=== PATIENT | female | born 1945 | race Caucasian/White ===

== ENCOUNTER 2020-07-10 16:42 | Inpatient (IN) | payer MEDICARE, SELFPAY ==
[2020-07-10] VITALS (25 sets, daily range): BP systolic 113–156; BP diastolic 70–97; PULSE 69–77; RESP 15–24; TEMP 36.4–36.7; O2SAT 90–100
--- NOTE | ~2020-07-10 | XR_ITS ---
EXAMINATION: XR chest 1V portable DATE: 07/10/2020 18:31 INDICATION: Asthma presenting with one week of shortness of breath and cough TECHNIQUE: frontal view of the chest was obtained. COMPARISON: Chest radiograph dated 04/02/2006 FINDINGS: Increased perihilar bronchovascular pattern with bronchial wall thickening. No focal airspace consoli dation, pleural effusion or pneumothorax. The cardiomediastinal silhouette is normal. IMPRESSION: 1. Increased perihilar bronchovascular pattern with bronchial wall thickening without focal airspace consolidation which could be due to reactive airway disease/asthma, bronchitis, atypical/viral pneumo sully or mild pulmonary edema. Reviewed, dictated and finalized at location H. ESS DEVELOPMENT MANAGER IMPRESSION: 1. Increased perihilar bronchovascular pattern with bronchial wall thickening w ithout focal airspace consolidation which could be due to reactive airway disea se/asthma, bronchitis, atypical/viral pneumonia or mild pulmonary edema.
--- NOTE | ~2020-07-10 | XR_ITS ---
XR chest 1V portable 07/14/2020 11:00 Indication: Pneumonia. Procedure: AP portable chest Comparison: 07/10/2020 Findings: Heart size normal. Diffuse bilateral interstitial infiltration. No significant pleural effu sindi or pneumothorax. No acute osseous abnormality. Impression: 1: Subtle interval progression of diffuse bilateral interstitial infiltrates may represent edema or p neumonia. Reviewed, dictated and finalized at location A. ACE PLATE FINISHER Impression: 1: Subtle interval progression of diffuse bilateral interstitial infiltrates ma y represent edema or pneumonia.
--- NOTE | 2020-07-10 16:58 | ECG_ITS ---
Measurements Intervals [place] Rate: 77 P: 84 MA: 171 QRS: 50 QRSD: 100 T: 120 QT: 389 QTc: 443 Interpretive Statements SINUS RHYTHM DELAYED PRECORDIAL R/S TRANSITION BORDERLINE ST-T WAVE ABNORMALITY- DIFFUSE LEADS BASELINE ARTIFACT- I, II, III, AVR, AVL, AVF, V1, V3 BORDERLINE ECG Electronically Signed On 07-10-2020 18:11:37 LOG SKIDDER by Laith Guerrero D.O.
[2020-07-10 17:13] LABS: Basophils Absolute Auto 0.1 K/mm3 (0.0-0.1); Basophils Percent Auto 0.7 % (0.2-1.2); Eosinophils Absolute Auto 0.2 K/mm3 (0-0.3); Eosinophils Percent Auto 2.1 % (0-4.4); Hematocrit 42.8 % (37.0-47.0); Hemoglobin 14.7 g/dL (12.0-15.0); Immature Granulocyte Absolute 0.03 K/mm3 (0.00-0.031); Immature Granulocyte Percent A 0.4 % (0-0.5); Lymphocytes Percent Auto 20.9 % (18.3-44.2); Mean Corpuscular HGB Conc 34.3 g/dl (32-36); Mean Corpuscular Hemoglobin 32.6 pg (26-34); Mean Corpuscular Volume 94.9 fl (80-100); Mean Platelet Volume 9.5 fl (7.4-10.4); Monocytes Absolute Auto 0.7 K/mm3 (0.1-0.6); Monocytes Percent Auto 9.5 % (2.6-8.5); Neutrophils Absolute Auto 4.8 K/mm3 (1.3-6.7); Neutrophils Percent Auto 66.4 % (45.5-73.1); Platelet Count Result 283 k/mm3 (150-375); Red Blood Count 4.51 M/mm3 (4.2-5.4); White Blood Count 7.2 K/mm3 (4.5-10.0)
[2020-07-10 17:24] LABS: Prothrombin Time 13.3 Seconds (11.1-14.7)
--- NOTE | 2020-07-10 17:24 | PC.NURSE ---
patient brought back to ED room 19 via wheelchair with c/o increased edema and dyspnea. see triage notes. patient has been in our waiting area due to no available beds. patient incontinent of stool on drive here. patient denies known fever at home. denies cough or known exposure to Covid. alert. oriented. appears mildly short of breath with few steps to bed. labs drawn in triage. patient cleaned and assisted to stretcher. placed on license distributor. placed on 4L NC O2 with improvement in sats. family member in room. assessments documented.
[2020-07-10 17:25] LABS: Anion Gap 7 mmol/L (8-16); Blood Urea Nitrogen 9 mg/dL (7-17); Calcium 9.3 mg/dL (8.4-10.2); Carbon Dioxide 32 mmol/L (22-30); Chloride 92 mmol/L (98-107); Estimated CRCL calculation 77 ml/min; Estimated Glomerular Filt Rate > 60; Glucose 97 mg/dL (65-105); Partial Thromboplastin Time 32.1 SECONDS (22.3-36.8); Potassium 3.3 mmol/L (3.4-5.0); Sodium 131 mmol/L (137-145)
[2020-07-10 17:37] LABS: NT Pro B Type Natriuretic Pept 294 PG/ML (5-100); Troponin I < 0.012 ng/mL (0.000-0.034)
--- NOTE | 2020-07-10 17:54 | ED.SOB ---
HPI - SOB/Dyspnea General Chief Complaint: Shortness of Breath/Dyspnea Stated Complaint: short of breath Time Seen by Provider: 07/10/20 17:05 History of Present Illness HPI Narrative: Patient is a 75-year-old female who presents ER with shortness of breath. Ongoing for a week. Associate with lower extremity swelling and orthopnea. No chest pain or chest pressure. Has not had similar symptoms previously. No runny nose/sore throat/productive cough. No known sick contacts. No alleviating factors. Has been unable to sleep due to her orthopnea. Related Data Home Medications Medication Instructions Recorded Confirmed citalopram 20 mg DAILY 07/10/20 potassium chloride 10 meq PO DAILY 07/10/20 Allergies Allergy/AdvReac Type Severity Reaction Status Date / Time acetaminophen Allergy Intermediate HIVES Verified 12/17/19 12:23 Review of Systems Review of Systems: All systems reviewed & are unremarkable except as noted in HPI and below Constitutional: Constitutional: Denies chills, Denies fever(s) and Reports weakness ENT: Denies nasal congestion and Denies sore throat Cardiovascular: Cardiovascular: Denies chest pain, Denies rapid heart rate and Denies radiating jaw, neck or arm pain Respiratory: Respiratory: Denies cough, Reports dyspnea and Denies wheezing Comments: Orthopnea Gastrointestinal: Gastrointestinal: Denies abdominal pain, Denies nausea and Denies vomiting Musculoskeletal: Comments: Lower extremity edema PMFSH Past Medical History Medical History (Updated 07/10/20 @ 23:27 by Kaleb Garsia MD) 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 Cervical disc disease HTN (hypertension) Lumbar disc disease Surgical History Surgical History H/O: hysterectomy History of colonoscopy with polypectomy (~04/2019) Hx of cardiac cath Family History Family History Other Family history of atrial fibrillation Family history of lung cancer Family history of malignant neoplasm of breast in first degree relative Hypertension Social History Social History Smoking status: Smoker, status unknown Second hand tobacco smoke exposure: Yes Alcohol intake: never Gender identity (if verbalized by the patient): Female Exam Narrative: Exam Narrative: GENERAL: Chronically ill-appearing, well-nourished, and in no acute distress. HEAD: Normocephalic, atraumatic. EYES: PERRL and EOMI. ENT: Mucous membranes moist. CHEST: Basilar rales. No respiratory distress. HEART: Regular rate and rhythm. Normal peripheral pulses. ABDOMEN: Soft, nontender, nondistended. EXTREMITIES: Normal range of motion. 2+ edema. SKIN: Warm, dry, no rash. Redness to the feet bilaterally w/o warmth/tenderness. NEURO: Alert and oriented x3. Course Course Emergency Course: Symptoms consistent with CHF exacerbation. Low BNP. Will treat as CHF exacerbation but swab for Covid given abnormality of chest x-ray. Patient's oxygen saturation was 90% upon arrival on room air and is tolerating nasal cannula oxygen well. Vital Signs Vital signs: Vital Signs Temperature 97.6 F 07/10/20 16:52 Pulse Rate 76 07/10/20 16:52 Respiratory Rate 24 H 07/10/20 16:52 Blood Pressure 144/76 H 07/10/20 16:52 Pulse Oximetry 90 07/10/20 16:52 Temperature 98.0 F 07/10/20 20:00 Pulse Rate 77 07/10/20 20:00 Respiratory Rate 24 H 07/10/20 20:00 Blood Pressure 134/81 07/10/20 20:00 Pulse Oximetry 96 07/10/20 20:00 MDM - SOB/Dyspnea Lab Data Result diagrams: 07/10/20 16:59 07/10/20 16:59 Labs: Lab Results 07/10/20 07/10/20 07/10/20 Range/Units 16:59 16:59 16:59 WBC 7.2 (4.5-10.0) K/mm3 RBC 4.51 (4.2-5.4) M/mm3 Hgb 14.7 (12.0-15.0) g/dL Hct 42.8 (37.0-47.0) % MCV 94.9 (80-100) fl MCH 32.6 (26-34)
--- NOTE | 2020-07-10 18:28 | PC.NURSE ---
portable CXR done. resting on stretcher. family member in room. 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 no change in condition.
--- NOTE | 2020-07-10 18:41 | PC.NURSE ---
CXR resulted. waiting for further orders from provider.
[2020-07-10] MEDS: FUROSEMIDE INJ 40 MG/4 ML VIAL IV PUSH (18:55)
--- NOTE | 2020-07-10 19:50 | PC.NURSE ---
patient has room assigned upstairs. patient and family member aware. solu medrol given. ice water given. SBAR faxed and tubed.
--- NOTE | 2020-07-10 20:12 | PC.NURSE ---
report given to Lila RN on 3rd floor. will transfer patient to 310 via stretcher and on library monitor.
--- NOTE | 2020-07-10 20:25 | PC.NURSE ---
patient with increased anxiety when arrived to room for transfer. increased O2 back to 4L NC. sat on 2L NC 98%. patient repositioned in bed. patient then transferred by this RN to 310 on monitor.
[2020-07-10] MEDS: MORPHINE SULFATE (*CRX) 4 MG/ML INJ IV PUSH ×2 (20:48→23:31)
[2020-07-10] MEDS: methylPREDNISolone SOD SUCC 125 MG VIAL 60 MG IV PUSH (23:32)
--- NOTE | 2020-07-10 23:44 | ADMGEN ---
2030 This patient, Betty Marte, was admitted to 3 [facility] Surg Room 310-01. Patient/family oriented to hospital policies and general routines including ID bracelet, bed and alarms, visiting hours, pain management, procedures, bathroom and other care routines, personal items, smoking policy, room service/diet, and visiting hours. Information on how to activate the Rapid Response Team has been discussed. Patient/Family are encouraged to report perceived risks to care and to ask questions if they do not understand what they are told or what they should do.
--- NOTE | 2020-07-10 23:53 | PM.IMHP ---
H&P: HPI History of Present Illness Date/Time: 07/10/20 23:53 Chief complaint: chf, copd, covid pui Narrative: Betty Marte is a 75 year old female who states that she has a history of asthma but has never had a PFT to verify that she does have COPD. The patient is on routine inhalers Advair Diskus and states that she has been using nebulizer machine at home. The patient stated over the last 7 days she has been more short of breath with a cough and edema to her lower extremities. She is to sleep with her head elevated. She is short of breath with exertion. She has not had any previous history of congestive heart failure. The patient continues to smoke cigarettes she was smoking a pack a cigarettes a day to last 5 days she cut down to about 5 cigarettes a day. She lives home alone and states that she has not had any exposure to go over 19. None that she is aware of any way. Her potassium was 3.3. Sodium 131. BNP 294. Patient has some expiratory wheezes. She was placed on oxygen 4 L per nasal cannula. From 96-100% on the 4 L. her oxygen level was as low as 9 E earlier without the oxygen. Increased perihilar bronchial vascular pattern with bronchial wall thickening without focal airspace consolidation which could be due to reactive airway disease/asthma bronchitis atypical viral pneumonia or mild pulmonary edema. The patient also has swelling to her lower extremities. She does take a chlorthalidone which has not been helping her. She was started on Solu-Medrol and IV Lasix. Patient was placed in observation status for admission on the date of service 07/10/2020. Review of Systems Review of Systems: All systems reviewed & are unremarkable except as noted in HPI and below Constitutional: Constitutional: Reports as per HPI and Reports no additional constitutional complaints Eyes: Eyes: Reports as per HPI and Reports no additional eye complaints ENT: Reports system reviewed and no additional complaints, except as documented and Reports Normal hearing present Cardiovascular: Cardiovascular: Reports no additional cardiovascular complaints Respiratory: Respiratory: Reports no additional respiratory complaints and Reports no additional respiratory complaints Gastrointestinal: Gastrointestinal: Reports as per HPI and Reports no additional gastrointestinal complaints Musculoskeletal: Musculoskeletal: Reports no additional musculoskeletal complaints Integumentary/Breasts: Skin/Breast: Reports system reviewed and no additional complaints, except as docu and Reports as per HPI Neurologic: Reports system reviewed and no additional complaints, except as documented, Reports as per HPI and Reports Normal hearing present Psychiatric: Psychiatric: Reports no additional psychiatric complaints and Reports as per HPI Endocrine: Endocrine: Reports no additional endocrine complaints Hematologic/Lymphatic: Hematologic/Lymphatic: Reports no additional hematologic/lymphatic complaints Allergic/Immunologic: Allergic/Immunologic: Reports no additional allergic/immunologic complaints [facility] Past Medical History Medical History (Updated 07/11/20 @ 00:01 by Sumaya Goode NP) 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 She is . 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 She has 2 children. The patient desire
[2020-07-11] VITALS (10 sets, daily range): BP systolic 117–150; BP diastolic 61–90; PULSE 69–97; RESP 18–22; TEMP 36.4–36.9; O2SAT 90–93; BMI 28.6
--- NOTE | 2020-07-11 | ECHO_ITS ---
Patient Info Name: Betty Marte Age: 75 years : 1945 Gender: Female Ht: 67 in Wt: 182 lbs BSA: 2.00 m2 HR: 72 bpm BP: 143 / 80 mmHg Heart Rhythm: Sinus Rhythm Technical Quality: Fair Exam Date: 07/11/2020 12:05 PM Exam Location: [facility] Pulmonary Exam Room: 310 Patient Status: Inpatient Admit Date: 07/10/2020 Staff Ordering Physician: Sumaya Goode NP Facilities Technician: Umu Edwards RDCS Attending Provider: Angie Yadav MD Referring Physician: Rupa SNEED; Exam Type: CA echo doppler color flow Study Info Indications - edema sob covid Complete two-dimensional, color flow and Doppler transthoracic echocardiogram is performed. Summary 1. Complete two-dimensional, color flow and Doppler transthoracic echocardiogram is performed. 2. Essentially unremarkable examination. Left Ventricular Outflow Tract Name Value Normal LVOT 2D LVOT Diameter 2.0 cm LVOT Doppler LVOT Peak Gradient 7 mmHg LVOT Mean Gradient 3 mmHg LVOT VTI 23 cm LVOT VTI/AV VTI Ratio 0.9 LVOT Stroke Volume 69 ml LVOT CO 14.7 l/min LVOT CI 7.3 l/min/m2 Pulmonic Valve Name Value Normal PV Doppler PV Peak Gradient 6 mmHg Tricuspid Valve Name Value Normal TV Regurgitation Doppler TR Peak Velocity 257 cm/s TR Peak Gradient 26 mmHg Estimated PAP/RSVP RA Pressure 10 mmHg <=5 PA Systolic Pressure 36 mmHg <36 RV Systolic Pressure 36 mmHg <36 Aorta Name Value Normal Ascending Aorta Ao Root Diameter (MM) 2.6 cm Ao Root Diam Index (MM) 1.3 cm/m2 Aortic Valve Name Value Normal AV Doppler AV Peak Velocity 137 cm/s AV Peak Gradient 7 mmHg A
[2020-07-11] MEDS: PROMETHAZINE/CODEINE (*CRX) 5 ML SYRUP PO (00:48)
[2020-07-11] MEDS: methylPREDNISolone SOD SUCC 125 MG VIAL 60 MG IV PUSH ×3 (06:21→17:49)
[2020-07-11] MEDS: CITALOPRAM HYDROBROMIDE 20 MG TABLET BY MOUTH (09:44)
[2020-07-11] MEDS: FUROSEMIDE INJ 40 MG/4 ML VIAL IV PUSH (09:45)
[2020-07-11] MEDS: POTASSIUM CHLORIDE 10 MEQ TABLET.ER PO (09:45)
[2020-07-11] MEDS: MONTELUKAST SODIUM 10 MG TABLET PO (09:45)
[2020-07-11] MEDS: ENOXAPARIN 40 MG/0.4 ML SYRINGE SUB-Q (09:46)
[2020-07-11] MEDS: atenoloL 50 MG TABLET 100 MG PO ×2 (09:46→22:00)
[2020-07-11] MEDS: FLUTICASONE/SALMETEROL 230-21 MCG INHALER 1 PUFF 2 PUFF INHALATION (09:50)
[2020-07-11] MEDS: BENZONATATE 100 MG CAPSULE PO ×2 (14:45→17:49)
--- NOTE | 2020-07-11 16:48 | PM.IMPN ---
Progress Note: A&P Assessment and Plan (1) Atypical pneumonia: Code(s): J18.9 - Pneumonia, unspecified organism Status: Acute Assessment and Plan: Patient was started on a Zithromax and Rocephin. Pt is on 3 liters of oxygen. And i s comfortable on this. COVID is pending. (2) COPD exacerbation: Code(s): J44.1 - Chronic obstructive pulmonary disease with (acute) exacerbation Status: Acute Assessment and Plan: Continue with Singulair Advair and albuterol inhaler. Continue Solu-Medrol. (3) Person under investigation for COVID-19: Code(s): Z20.828 - Contact with and (suspected) exposure to other viral communicable diseases Status: Acute Assessment and Plan: The patient has been placed under investigation and is in isolation. (4) Anxiety: Code(s): F41.9 - Anxiety disorder, unspecified Status: Acute Assessment and Plan: Continue with her citalopram (5) HTN (hypertension): Code(s): I10 - Essential (primary) hypertension Status: Acute Assessment and Plan: Continue Iv lasix (6) Hyperlipidemia: Code(s): E78.5 - Hyperlipidemia, unspecified Status: Chronic Assessment and Plan: off simvastatin at this time. Subjective Date/time seen: 07/11/20 16:48 Interval history: Estuardo is a 75 year old female who states that she has a history of asthma but has never had a PFT to verify that she does have COPD. Pt is comfortable in the room. Cxr shows atypical pneumonia. COVID is pending. Review of Systems Review of Systems: All systems reviewed & are unremarkable except as noted in HPI and below Exam Const: General: cooperative, healthy appearing, well developed, alert, awake and Physically active Nutritional Appearance: average body habitus and overweight Orientation/consciousness: oriented to person, oriented to place, oriented to time and patient oriented x3 Limitations: no limitations HENMT: Head: normal to inspection, No palpable skull fracture present, normocephalic and atraumatic Ears: external ears normal and hearing grossly impaired General nose exam: Normal external nose present, Normal nares present and No nasal polyps present Mouth: Yes Normal oral and palatal mucosa present Throat: posterior oropharynx normal Eyes: General: appearance normal, both eyes and all related structures Alignment and Position: alignment normal Periorbital: periorbital findings normal Eyelids: eyelids normal Conjunctivae: conjunctivae normal Sclera: sclerae normal Cornea: corneas normal Pupils: Equal, round and reactive pupils present and Pupil accommodation reflex normal EOM: EOMs intact bilaterally Neck: Neck: normal visual inspection, full ROM, no lymphadenopathy, trachea midline and supple Thyroid: thyroid normal Carotids: normal carotid upstroke Lymphatic: no lymphadenopathy noted Chest: Chest palpation & inspection: normal inspection of the chest Resp: Effort & Inspection: normal respiratory effort GI: Inspection: normal to inspection Auscultation: normal bowel sounds Rectal Exam: deferred : General: Yes no CVA tenderness Back/Spine/Pelvis: Back: no CVA tenderness Cervical Spine: cervical ROM normal Thoracic/Lumbar Spine: thoracic and lumbar spine normal to inspection Pelvis: no pain with anterior-posterior compression Skin: General skin exam: normal color Lesions: no lesions Rashes: no rashes Trauma: no lacerations or abrasions Wounds: no wounds Hair: normal Nails: normal Neuro: General: oriented to person, oriented to place, oriented to time and patient oriented x3 Cranial nerves: Yes Equal, round and reactive pupils present and Yes hard of hearing Cognition (Neuro): normal cognition Speech: normal speech Gait exam (Neuro): Normal gait present Motor exam (neuro): 5/5 motor strength present throughout Sensory Exam: normal sensation Extrem: General: normal to inspection Right upper extremity: normal t
[2020-07-11 19:10] LABS: SARS-CoV-2 RNA PCR Negative
[2020-07-12] VITALS (9 sets, daily range): BP systolic 123–130; BP diastolic 61–75; PULSE 58–92; RESP 18–20; TEMP 35.7–36.3; O2SAT 90–94
[2020-07-12] MEDS: methylPREDNISolone SOD SUCC 125 MG VIAL 60 MG IV PUSH ×4 (00:15→18:22)
--- NOTE | 2020-07-12 07:23 | PCRCNOTE ---
Window of time for administration has passed. See next scheduled administration.
[2020-07-12] MEDS: ENOXAPARIN 40 MG/0.4 ML SYRINGE SUB-Q (08:58)
[2020-07-12] MEDS: POTASSIUM CHLORIDE 10 MEQ TABLET.ER PO (08:59)
[2020-07-12] MEDS: POTASSIUM CHLORIDE 20 MEQ TABLET.ER PO (08:59)
[2020-07-12] MEDS: atenoloL 50 MG TABLET 100 MG PO ×2 (08:59→22:10)
[2020-07-12] MEDS: BENZONATATE 100 MG CAPSULE PO ×3 (09:00→18:22)
[2020-07-12 10:04] LABS: Anion Gap 3.99999 mmol/L (8-16); Blood Urea Nitrogen 24 mg/dL (7-17); Calcium 9.3 mg/dL (8.4-10.2); Carbon Dioxide > 40 mmol/L (22-30); Chloride 90 mmol/L (98-107); Estimated CRCL calculation 59 ml/min; Estimated Glomerular Filt Rate > 60; Glucose 145 mg/dL (65-105); Potassium 3.6 mmol/L (3.4-5.0); Sodium 134 mmol/L (137-145)
[2020-07-12] MEDS: CITALOPRAM HYDROBROMIDE 20 MG TABLET BY MOUTH (13:07)
--- NOTE | 2020-07-12 17:42 | PM.IMPN ---
Progress Note: A&P Assessment and Plan (1) Atypical pneumonia: Code(s): J18.9 - Pneumonia, unspecified organism Status: Acute Assessment and Plan: Patient was started on a Zithromax and Rocephin. Pt is on 3 liters of oxygen. And i s comfortable on this. COVID is pending. 07/12/20 17:42 75-year-old female with a history of hypertension and chronic smoking presented emergency department with a complaint of shortness of breath lower extremity edema and orthopnea, patient chest x-ray showed possibly reactive airway disease with history of smoking suspect patient may have COPD patient is started on Solu-Medrol and updraft as well as azithromycin and Rocephin, to further evaluate patient had a cardiac echo which is essentially normal without any systolic or diastolic dysfunction, patient is feeling much better compared to when she arrived, COVID test is negative. Will have a PT OT evaluate the patient and further recommendation to follow. (2) COPD exacerbation: Code(s): J44.1 - Chronic obstructive pulmonary disease with (acute) exacerbation Status: Acute Assessment and Plan: Continue with Singulair Advair and albuterol inhaler. Continue Solu-Medrol. (3) Person under investigation for COVID-19: Code(s): Z20.828 - Contact with and (suspected) exposure to other viral communicable diseases Status: Acute Assessment and Plan: The patient has been placed under investigation and is in isolation. Patient COVID test is negative (4) Anxiety: Code(s): F41.9 - Anxiety disorder, unspecified Status: Acute Assessment and Plan: Continue with her citalopram (5) HTN (hypertension): Code(s): I10 - Essential (primary) hypertension Status: Acute Assessment and Plan: Will continue home regimen and monitor (6) Hyperlipidemia: Code(s): E78.5 - Hyperlipidemia, unspecified Status: Chronic Assessment and Plan: off simvastatin at this time. Subjective Date/time seen: 07/12/20 17:42 75-year-old female with a history of hypertension and chronic smoking presented emergency department with a complaint of shortness of breath lower extremity edema and orthopnea, patient chest x-ray showed possibly reactive airway disease with history of smoking suspect patient may have COPD patient is started on Solu-Medrol and updraft as well as azithromycin and Rocephin, to further evaluate patient had a cardiac echo which is essentially normal without any systolic or diastolic dysfunction, patient is feeling much better compared to when she arrived, COVID test is negative. Will have a PT OT evaluate the patient and further recommendation to follow. Review of Systems Review of Systems: All systems reviewed & are unremarkable except as noted in HPI and below Objective Data Vital Signs Vital Signs: Vital Signs - 24 hr 07/11/20 20:00 07/11/20 22:00 07/12/20 00:00 Temperature 98.4 F 96.3 F L Pulse Rate 86 87 67 Respiratory Rate 20 20 Blood Pressure 117/61 123/74 Pulse Oximetry 93 94 07/12/20 04:00 07/12/20 08:00 07/12/20 08:59 Temperature 96.3 F L 97.0 F L Pulse Rate 64 62 64 Respiratory Rate 20 20 Blood Pressure 125/75 125/66 Pulse Oximetry 94 91 07/12/20 11:30 07/12/20 12:00 Temperature 97.3 F L Pulse Rate 58 L Respiratory Rate 20 Blood Pressure 130/67 Pulse Oximetry 90 91 Intake/Output Intake/Output: Intake & Output 07/09/20 07/10/20 07/11/20 07/12/20 23:59 23:59 23:59 23:59 Intake Total 1380 640 Output Total 1800 250 Balance -420 390 Meds/Results Medications: Active Medications Generic Name Dose Route Start Last Admin Trade Name Freq PRN Reason Stop Dose Admin Atenolol 100 mg 07/11/20 09:00 07/12/20 08:59 Atenolol 50 Mg Tablet PO 100 mg Q12HR ALEXIS Administration Benzonatate 100 mg 07/11/20 13:00 07/12/20 13:07 Benzonatate 100 Mg Capsule PO 100 mg TID ALEXIS Administration Citalopram
[2020-07-12] MEDS: acetaZOLAMIDE TAB 250 MG TABLET PO (18:26)
[2020-07-12] MEDS: FLUTICASONE/SALMETEROL 230-21 MCG INHALER 1 PUFF 2 PUFF INHALATION (19:17)
[2020-07-12] MEDS: MONTELUKAST SODIUM 10 MG TABLET PO (22:10)
[2020-07-13] VITALS (7 sets, daily range): BP systolic 131–145; BP diastolic 70–84; PULSE 58–88; RESP 20–24; TEMP 36.4–36.6; O2SAT 93–96
[2020-07-13] MEDS: methylPREDNISolone SOD SUCC 125 MG VIAL 60 MG IV PUSH ×4 (00:33→17:19)
[2020-07-13 05:53] LABS: Anion Gap 7 mmol/L (8-16); Blood Urea Nitrogen 23 mg/dL (7-17); Calcium 9.1 mg/dL (8.4-10.2); Carbon Dioxide 33 mmol/L (22-30); Chloride 95 mmol/L (98-107); Estimated CRCL calculation 48 ml/min; Estimated Glomerular Filt Rate 54; Glucose 130 mg/dL (65-105); Potassium 3.6 mmol/L (3.4-5.0); Sodium 135 mmol/L (137-145)
[2020-07-13 06:03] LABS: Hemoglobin 14.4 g/dL (12.0-15.0); Mean Corpuscular HGB Conc 33.5 g/dl (32-36); Mean Corpuscular Hemoglobin 32.5 pg (26-34); Mean Corpuscular Volume 97.1 fl (80-100); Mean Platelet Volume 10.1 fl (7.4-10.4); Platelet Count Result 312 k/mm3 (150-375); Red Blood Count 4.43 M/mm3 (4.2-5.4); Red Cell Distribution Width 12.1 % (11.5-14.5); White Blood Count 13.9 K/mm3 (4.5-10.0)
[2020-07-13] MEDS: BENZONATATE 100 MG CAPSULE PO ×3 (07:37→17:19)
[2020-07-13] MEDS: POTASSIUM CHLORIDE 20 MEQ TABLET.ER PO (07:38)
[2020-07-13] MEDS: ENOXAPARIN 40 MG/0.4 ML SYRINGE SUB-Q (07:38)
[2020-07-13] MEDS: POTASSIUM CHLORIDE 10 MEQ TABLET.ER PO (07:38)
[2020-07-13] MEDS: CITALOPRAM HYDROBROMIDE 20 MG TABLET BY MOUTH (07:38)
[2020-07-13] MEDS: atenoloL 50 MG TABLET 100 MG PO ×2 (07:38→21:04)
[2020-07-13] MEDS: FLUTICASONE/SALMETEROL 230-21 MCG INHALER 1 PUFF 2 PUFF INHALATION ×2 (07:56→21:13)
--- NOTE | 2020-07-13 14:40 | PM.IMPN ---
Progress Note: A&P Assessment and Plan (1) Atypical pneumonia: Code(s): J18.9 - Pneumonia, unspecified organism Status: Acute Assessment and Plan: Patient was started on a Zithromax and Rocephin. Pt is on 3 liters of oxygen. And i s comfortable on this. COVID is pending. 07/13/20 14:40 75-year-old female with a history of hypertension and chronic smoking presented emergency department with a complaint of shortness of breath lower extremity edema and orthopnea, patient chest x-ray showed possibly reactive airway disease with history of smoking suspect patient may have COPD patient is started on Solu-Medrol and updraft as well as azithromycin and Rocephin, to further evaluate patient had a cardiac echo which is essentially normal without any systolic or diastolic dysfunction, today patient states feeling much better compared to when she arrived however still feels short of breath but denies any fever or chills, patient has not have any fever, patient is requiring 3 L of oxygen at rest, will continue present management the goal is to wean the patient off oxygen before discharging home, once clinically stable will do the home O2 eval, COVID test was negative. Will have a PT OT evaluate the patient and further recommendation to follow. (2) COPD exacerbation: Code(s): J44.1 - Chronic obstructive pulmonary disease with (acute) exacerbation Status: Acute Assessment and Plan: Continue with Singulair Advair and albuterol inhaler. Continue Solu-Medrol. (3) Person under investigation for COVID-19: Code(s): Z20.828 - Contact with and (suspected) exposure to other viral communicable diseases Status: Acute Assessment and Plan: The patient has been placed under investigation and is in isolation. Patient COVID test is negative (4) Anxiety: Code(s): F41.9 - Anxiety disorder, unspecified Status: Acute Assessment and Plan: Continue with her citalopram (5) HTN (hypertension): Code(s): I10 - Essential (primary) hypertension Status: Acute Assessment and Plan: Will continue home regimen and monitor (6) Hyperlipidemia: Code(s): E78.5 - Hyperlipidemia, unspecified Status: Chronic Assessment and Plan: off simvastatin at this time. Subjective Date/time seen: 07/13/20 14:40 75-year-old female with a history of hypertension and chronic smoking presented emergency department with a complaint of shortness of breath lower extremity edema and orthopnea, patient chest x-ray showed possibly reactive airway disease with history of smoking suspect patient may have COPD patient is started on Solu-Medrol and updraft as well as azithromycin and Rocephin, to further evaluate patient had a cardiac echo which is essentially normal without any systolic or diastolic dysfunction, today patient states feeling much better compared to when she arrived however still feels short of breath but denies any fever or chills, patient has not have any fever, patient is requiring 3 L of oxygen at rest, will continue present management the goal is to wean the patient off oxygen before discharging home, once clinically stable will do the home O2 eval COVDESHAUN test was negative. Will have a PT OT evaluate the patient and further recommendation to follow. Review of Systems Review of Systems: All systems reviewed & are unremarkable except as noted in HPI and below Exam Narrative: Exam Narrative: Patient is comfortable, NAD HEENT: eyes are clear and none icteric LUNGS: Bilateral fair air entry with rhonchi and wheezing HEART: RR S1S2 ABD: BS+, Soft and nontender Lower extremities: no edema SKIN: nonjaundiced Neuro: grossly intact. Objective Data Vital Signs Vital Signs: Vital Signs - 24 hr 07/12/20 19:21 07/12/20 20:00 07/12/20 22:10 Temperature 97.2 F L Pulse Rate 89 64 92 Respiratory Rate 18 Blood Pressure 128/61 Pulse Oximetry 90 90 07/13/20 05:55 06/22
[2020-07-13] MEDS: MONTELUKAST SODIUM 10 MG TABLET PO (21:04)
[2020-07-13] MEDS: LORazepam (*CRX) 0.5 MG TABLET PO (21:50)
[2020-07-14] VITALS (11 sets, daily range): BP systolic 129–140; BP diastolic 70–80; PULSE 55–68; RESP 20; TEMP 36.2–36.7; O2SAT 93–97
[2020-07-14] MEDS: methylPREDNISolone SOD SUCC 125 MG VIAL 60 MG IV PUSH ×4 (01:30→18:37)
[2020-07-14 07:04] LABS: Hematocrit 43.4 % (37.0-47.0); Hemoglobin 14.7 g/dL (12.0-15.0); Mean Corpuscular HGB Conc 33.9 g/dl (32-36); Mean Corpuscular Hemoglobin 32.5 pg (26-34); Mean Corpuscular Volume 95.8 fl (80-100); Mean Platelet Volume 10.2 fl (7.4-10.4); Platelet Count Result 284 k/mm3 (150-375); Red Blood Count 4.53 M/mm3 (4.2-5.4); Red Cell Distribution Width 12.1 % (11.5-14.5)
[2020-07-14 07:20] LABS: Anion Gap 10 mmol/L (8-16); Blood Urea Nitrogen 21 mg/dL (7-17); Calcium 9.1 mg/dL (8.4-10.2); Carbon Dioxide 29 mmol/L (22-30); Chloride 97 mmol/L (98-107); Estimated CRCL calculation 53 ml/min; Estimated Glomerular Filt Rate > 60; Glucose 158 mg/dL (65-105); Potassium 3.5 mmol/L (3.4-5.0); Sodium 136 mmol/L (137-145)
[2020-07-14] MEDS: FLUTICASONE/SALMETEROL 230-21 MCG INHALER 1 PUFF 2 PUFF INHALATION ×2 (08:55→20:37)
[2020-07-14] MEDS: POTASSIUM CHLORIDE 10 MEQ TABLET.ER PO (11:41)
[2020-07-14] MEDS: POTASSIUM CHLORIDE 20 MEQ TABLET.ER PO (11:43)
[2020-07-14] MEDS: atenoloL 50 MG TABLET 100 MG PO ×2 (11:43→20:51)
[2020-07-14] MEDS: BENZONATATE 100 MG CAPSULE PO ×3 (11:43→18:37)
[2020-07-14] MEDS: CITALOPRAM HYDROBROMIDE 20 MG TABLET BY MOUTH (11:44)
[2020-07-14] MEDS: ENOXAPARIN 40 MG/0.4 ML SYRINGE SUB-Q (11:44)
[2020-07-14] MEDS: ALBUTEROL SULFATE NEB 2.5 MG/0.5 ML INH INHALATION ×2 (13:13→20:37)
[2020-07-14] MEDS: IPRATROPIUM BR 0.02% INH SOLN 0.5 MG/2.5 ML VIAL INHALATION ×2 (13:13→20:37)
--- NOTE | 2020-07-14 13:49 | PM.IMPN ---
Progress Note: A&P Assessment and Plan (1) Atypical pneumonia: Code(s): J18.9 - Pneumonia, unspecified organism Status: Acute Assessment and Plan: Patient was started on a Zithromax and Rocephin. Pt is on 3 liters of oxygen. And i s comfortable on this. COVID is pending. 07/14/20 13:49 75-year-old female with a history of hypertension and chronic smoking presented emergency department with a complaint of shortness of breath lower extremity edema and orthopnea, patient chest x-ray showed possibly reactive airway disease with history of smoking suspect patient may have COPD patient is started on Solu-Medrol and updraft as well as azithromycin and Rocephin, to further evaluate patient had a cardiac echo which is essentially normal without any systolic or diastolic dysfunction, today patient complains of more short of breath unable to ambulate to the bathroom without getting short winded, a repeat chest x-ray showed subtle interval progression of diffuse bilateral interstitial infiltrates may represent edema or pneumonia, will give 1 time dose of Lasix 20 mg IV, apparently patient was not started updraft with concern of COVID-19 however patient is negative, will start the patient on updraft and Pulmicort, will continue to monitor, will have a PT OT evaluate the patient, as patient's symptoms improve will taper Solu-Medrol, (2) COPD exacerbation: Code(s): J44.1 - Chronic obstructive pulmonary disease with (acute) exacerbation Status: Acute Assessment and Plan: Continue with Singulair Advair and albuterol inhaler. Continue Solu-Medrol. (3) Person under investigation for COVID-19: Code(s): Z20.828 - Contact with and (suspected) exposure to other viral communicable diseases Status: Acute Assessment and Plan: The patient has been placed under investigation and is in isolation. Patient COVID test is negative (4) Anxiety: Code(s): F41.9 - Anxiety disorder, unspecified Status: Acute Assessment and Plan: Continue with her citalopram (5) HTN (hypertension): Code(s): I10 - Essential (primary) hypertension Status: Acute Assessment and Plan: Will continue home regimen and monitor (6) Hyperlipidemia: Code(s): E78.5 - Hyperlipidemia, unspecified Status: Chronic Assessment and Plan: off simvastatin at this time. Subjective Date/time seen: 07/14/20 13:49 75-year-old female with a history of hypertension and chronic smoking presented emergency department with a complaint of shortness of breath lower extremity edema and orthopnea, patient chest x-ray showed possibly reactive airway disease with history of smoking suspect patient may have COPD patient is started on Solu-Medrol and updraft as well as azithromycin and Rocephin, to further evaluate patient had a cardiac echo which is essentially normal without any systolic or diastolic dysfunction, today patient complains of more short of breath unable to ambulate to the bathroom without getting short winded, a repeat chest x-ray showed subtle interval progression of diffuse bilateral interstitial infiltrates may represent edema or pneumonia, will give 1 time dose of Lasix 20 mg IV, apparently patient was not started updraft with concern of COVID-19 however patient is negative, will start the patient on updraft and Pulmicort, will continue to monitor, will have a PT OT evaluate the patient, as patient's symptoms improve will taper Solu-Medrol, Review of Systems Review of Systems: All systems reviewed & are unremarkable except as noted in HPI and below Exam Narrative: Exam Narrative: Patient is comfortable, NAD HEENT: eyes are clear and none icteric LUNGS: Bilateral fair air entry with rhonchi and wheezing HEART: RR S1S2 ABD: BS+, Soft and nontender Lower extremities: no edema SKIN: nonjaundiced Neuro: grossly intact. Objective Data Vital Signs Vital Signs: Vital Signs - 24 hr 07/13/20
[2020-07-14] MEDS: FUROSEMIDE INJ 40 MG/4 ML VIAL 20 MG IV PUSH (14:35)
[2020-07-14] MEDS: BUDESONIDE RESPULE NEB 0.5 MG/2 ML AMP INHALATION (20:37)
[2020-07-14] MEDS: LORazepam (*CRX) 0.5 MG TABLET PO (20:51)
[2020-07-14] MEDS: MONTELUKAST SODIUM 10 MG TABLET PO (20:52)
[2020-07-15] VITALS (17 sets, daily range): BP systolic 124–146; BP diastolic 57–76; PULSE 57–86; RESP 18–20; TEMP 36.3–36.6; O2SAT 91–97
[2020-07-15] MEDS: methylPREDNISolone SOD SUCC 125 MG VIAL 60 MG IV PUSH ×3 (00:04→11:01)
[2020-07-15] MEDS: IPRATROPIUM BR 0.02% INH SOLN 0.5 MG/2.5 ML VIAL INHALATION ×4 (03:48→21:28)
[2020-07-15] MEDS: ALBUTEROL SULFATE NEB 2.5 MG/0.5 ML INH INHALATION ×4 (03:48→21:28)
[2020-07-15 06:51] LABS: Hematocrit 41.4 % (37.0-47.0); Hemoglobin 14.2 g/dL (12.0-15.0); Mean Corpuscular HGB Conc 34.3 g/dl (32-36); Mean Corpuscular Hemoglobin 32.6 pg (26-34); Mean Corpuscular Volume 95.2 fl (80-100); Mean Platelet Volume 10.1 fl (7.4-10.4); Platelet Count Result 234 k/mm3 (150-375); Red Blood Count 4.35 M/mm3 (4.2-5.4); Red Cell Distribution Width 11.9 % (11.5-14.5); White Blood Count 7.3 K/mm3 (4.5-10.0)
[2020-07-15 06:57] LABS: Anion Gap 4 mmol/L (8-16); Blood Urea Nitrogen 22 mg/dL (7-17); Carbon Dioxide 35 mmol/L (22-30); Chloride 95 mmol/L (98-107); Estimated CRCL calculation 59 ml/min; Estimated Glomerular Filt Rate > 60; Glucose 130 mg/dL (65-105); Potassium 3.7 mmol/L (3.4-5.0); Sodium 134 mmol/L (137-145)
[2020-07-15] MEDS: POTASSIUM CHLORIDE 20 MEQ TABLET.ER PO (07:49)
[2020-07-15] MEDS: POTASSIUM CHLORIDE 10 MEQ TABLET.ER PO (07:49)
[2020-07-15] MEDS: BENZONATATE 100 MG CAPSULE PO ×3 (07:50→17:03)
[2020-07-15] MEDS: CITALOPRAM HYDROBROMIDE 20 MG TABLET BY MOUTH (07:50)
[2020-07-15] MEDS: atenoloL 50 MG TABLET 100 MG PO ×2 (07:50→21:58)
[2020-07-15] MEDS: ENOXAPARIN 40 MG/0.4 ML SYRINGE SUB-Q (07:50)
[2020-07-15] MEDS: BUDESONIDE RESPULE NEB 0.5 MG/2 ML AMP INHALATION ×2 (09:46→21:28)
[2020-07-15] MEDS: FLUTICASONE/SALMETEROL 230-21 MCG INHALER 1 PUFF 2 PUFF INHALATION ×2 (09:46→21:30)
[2020-07-15] MEDS: FUROSEMIDE INJ 40 MG/4 ML VIAL 20 MG IV PUSH (10:58)
--- NOTE | 2020-07-15 14:02 | PM.IMPN ---
Progress Note: A&P Assessment and Plan (1) Atypical pneumonia: Code(s): J18.9 - Pneumonia, unspecified organism Status: Acute Assessment and Plan: Patient was started on a Zithromax and Rocephin. Pt is on 3 liters of oxygen. And i s comfortable on this. COVID is pending. 07/15/20 14:02 75-year-old female with a history of hypertension and chronic smoking presented emergency department with a complaint of shortness of breath lower extremity edema and orthopnea, patient chest x-ray showed possibly reactive airway disease with history of smoking suspect patient may have COPD patient is started on Solu-Medrol and updraft as well as azithromycin and Rocephin, to further evaluate patient had a cardiac echo which is essentially normal without any systolic or diastolic dysfunction, today patient complains of more short of breath unable to ambulate to the bathroom without getting short winded, a repeat chest x-ray showed subtle interval progression of diffuse bilateral interstitial infiltrates may represent edema or pneumonia, will give 1 time dose of Lasix 20 mg IV, apparently patient was not started updraft with concern of COVID-19 however patient is negative, will start the patient on updraft and Pulmicort. Today 07/15 patient is sitting in the chair is feeling much better not a short of breath denies any fever or chills her bowel movements have improved, discussed with physical therapy patient did well, will continue present management, will taper patient Solu-Medrol to to prednisone 60 mg q.day, reassess tomorrow if remains clinically stable possibly discharge her home, patient been also treated with low-dose of Lasix and that is also helping diurese her. (2) COPD exacerbation: Code(s): J44.1 - Chronic obstructive pulmonary disease with (acute) exacerbation Status: Acute Assessment and Plan: Continue with Singulair Advair and albuterol inhaler. Continue Solu-Medrol. (3) Person under investigation for COVID-19: Code(s): Z20.828 - Contact with and (suspected) exposure to other viral communicable diseases Status: Acute Assessment and Plan: The patient has been placed under investigation and is in isolation. Patient COVID test is negative (4) Anxiety: Code(s): F41.9 - Anxiety disorder, unspecified Status: Acute Assessment and Plan: Continue with her citalopram (5) HTN (hypertension): Code(s): I10 - Essential (primary) hypertension Status: Acute Assessment and Plan: Will continue home regimen and monitor (6) Hyperlipidemia: Code(s): E78.5 - Hyperlipidemia, unspecified Status: Chronic Assessment and Plan: off simvastatin at this time. Subjective Date/time seen: 07/15/20 14:02 75-year-old female with a history of hypertension and chronic smoking presented emergency department with a complaint of shortness of breath lower extremity edema and orthopnea, patient chest x-ray showed possibly reactive airway disease with history of smoking suspect patient may have COPD patient is started on Solu-Medrol and updraft as well as azithromycin and Rocephin, to further evaluate patient had a cardiac echo which is essentially normal without any systolic or diastolic dysfunction, today patient complains of more short of breath unable to ambulate to the bathroom without getting short winded, a repeat chest x-ray showed subtle interval progression of diffuse bilateral interstitial infiltrates may represent edema or pneumonia, will give 1 time dose of Lasix 20 mg IV, apparently patient was not started updraft with concern of COVID-19 however patient is negative, will start the patient on updraft and Pulmicort. Today 07/15 patient is sitting in the chair is feeling much better not a short of breath denies any fever or chills her bowel movements have improved, discussed with physical therapy patient did well, will continue present management, will taper patient Solu-Medr
[2020-07-15] MEDS: MONTELUKAST SODIUM 10 MG TABLET PO (21:59)
[2020-07-16] VITALS (10 sets, daily range): BP systolic 120; BP diastolic 70; PULSE 62–71; RESP 18–20; TEMP 36.6; O2SAT 86–95
[2020-07-16] MEDS: IPRATROPIUM BR 0.02% INH SOLN 0.5 MG/2.5 ML VIAL INHALATION ×2 (02:24→07:58)
[2020-07-16] MEDS: ALBUTEROL SULFATE NEB 2.5 MG/0.5 ML INH INHALATION ×2 (02:24→07:58)
[2020-07-16] MEDS: FLUTICASONE/SALMETEROL 230-21 MCG INHALER 1 PUFF 2 PUFF INHALATION (07:58)
[2020-07-16] MEDS: BUDESONIDE RESPULE NEB 0.5 MG/2 ML AMP INHALATION (07:58)
[2020-07-16] MEDS: CITALOPRAM HYDROBROMIDE 20 MG TABLET BY MOUTH (08:24)
[2020-07-16] MEDS: POTASSIUM CHLORIDE 10 MEQ TABLET.ER PO (08:24)
[2020-07-16] MEDS: POTASSIUM CHLORIDE 20 MEQ TABLET.ER PO (08:24)
[2020-07-16] MEDS: atenoloL 50 MG TABLET 100 MG PO (08:25)
[2020-07-16] MEDS: FUROSEMIDE INJ 40 MG/4 ML VIAL 20 MG IV PUSH (08:25)
[2020-07-16] MEDS: BENZONATATE 100 MG CAPSULE PO ×2 (08:25→13:04)
[2020-07-16] MEDS: predniSONE 20 MG TABLET 60 MG PO (08:25)
[2020-07-16] MEDS: ENOXAPARIN 40 MG/0.4 ML SYRINGE SUB-Q (08:25)
[2020-07-16 08:48] LABS: Hematocrit 42.7 % (37.0-47.0); Hemoglobin 14.7 g/dL (12.0-15.0); Mean Corpuscular HGB Conc 34.4 g/dl (32-36); Mean Corpuscular Hemoglobin 32.8 pg (26-34); Mean Corpuscular Volume 95.3 fl (80-100); Platelet Count Result 241 k/mm3 (150-375); Red Blood Count 4.48 M/mm3 (4.2-5.4); Red Cell Distribution Width 12.1 % (11.5-14.5); White Blood Count 8.5 K/mm3 (4.5-10.0)
[2020-07-16 09:01] LABS: Anion Gap 3.99999 mmol/L (8-16); Blood Urea Nitrogen 27 mg/dL (7-17); Calcium 9.1 mg/dL (8.4-10.2); Carbon Dioxide > 40 mmol/L (22-30); Chloride 91 mmol/L (98-107); Estimated CRCL calculation 53 ml/min; Estimated Glomerular Filt Rate > 60; Glucose 86 mg/dL (65-105); Potassium 3.5 mmol/L (3.4-5.0); Sodium 135 mmol/L (137-145)
--- NOTE | 2020-07-16 10:12 | HOMEO2EVAL ---
Home Oxygen Evaluation RC: Home Oxygen (O2) Evaluation Start: 07/16/20 10:07 Freq: ONCE Status: Active Protocol: RPE Activity Type Activity Date Activity User E-Sign Co-Sign Detail Recorded Client Recorded Date Recorded By Document 07/16/20 10:07 [facility] [email or web address] 07/16/20 10:12 [facility] Document 07/16/20 10:10 [facility] [email or web address] 07/16/20 10:12 [facility] Document 07/16/20 10:11 [facility] [email or web address] 07/16/20 10:12 [facility] Document 07/16/20 10:11 [facility] [email or web address] 07/16/20 10:12 [facility] 07/16/20 07/16/20 07/16/20 10:07 10:10 10:11 Home O2 Evaluation Test Phase Resting Exercise Exercise Oxygen Delivery Room Air Nasal Cannula Nasal Cannula Oxygen Flow Rate (L/min) 1 2 Fraction of Inspired Oxygen (%) 21 Pulse Oximetry (90-100 %) 92 86 L 89 L Pulse Rate (60-100 beats/min) 65 68 69 Activity Tolerance Good Rating of Perceived Dyspnea (PD) +2 Mild, Some Difficulty, Noticeable to the Observer Rate of Perceived Exertion (PE) 11 Fairly light Ambulation Distance (feet) 60 Home Oxygen Evaluation Comments pt place on 1L Pt on 2L NC, NC, SpO2 SpO2 increased increased to 89 to 92%. % Treatment Charges O2 Evaluation 07/16/20 10:11 Home O2 Evaluation Test Phase Resting Oxygen Delivery Nasal Cannula Oxygen Flow Rate (L/min) 2 Fraction of Inspired Oxygen (%) Pulse Oximetry (90-100 %) 93 Pulse Rate (60-100 beats/min) 64 Activity Tolerance Rating of Perceived Dyspnea (PD) Rate of Perceived Exertion (PE) Ambulation Distance (feet) Home Oxygen Evaluation Comments Treatment Charges
--- NOTE | 2020-07-16 10:14 | PM.DS ---
DS: Admitting Diagnosis Admitting Diagnosis Admitting Diagnosis: chf, copd, covid pui DS: Discharge Diagnosis Discharge Diagnosis (1) Atypical pneumonia: Code(s): J18.9 - Pneumonia, unspecified organism Status: Acute Assessment and Plan: Patient was started on a Zithromax and Rocephin. Pt is on 3 liters of oxygen. And i s comfortable on this. COVID is pending. 07/15/20 14:02 75-year-old female with a history of hypertension and chronic smoking presented emergency department with a complaint of shortness of breath lower extremity edema and orthopnea, patient chest x-ray showed possibly reactive airway disease with history of smoking suspect patient may have COPD patient is started on Solu-Medrol and updraft as well as azithromycin and Rocephin, to further evaluate patient had a cardiac echo which is essentially normal without any systolic or diastolic dysfunction, today patient complains of more short of breath unable to ambulate to the bathroom without getting short winded, a repeat chest x-ray showed subtle interval progression of diffuse bilateral interstitial infiltrates may represent edema or pneumonia, will give 1 time dose of Lasix 20 mg IV, apparently patient was not started updraft with concern of COVID-19 however patient is negative, will start the patient on updraft and Pulmicort. Today 07/15 patient is sitting in the chair is feeling much better not a short of breath denies any fever or chills her bowel movements have improved, discussed with physical therapy patient did well, will continue present management, will taper patient Solu-Medrol to to prednisone 60 mg q.day, reassess tomorrow if remains clinically stable possibly discharge her home, patient been also treated with low-dose of Lasix and that is also helping diurese her. (2) COPD exacerbation: Code(s): J44.1 - Chronic obstructive pulmonary disease with (acute) exacerbation Status: Acute Assessment and Plan: Continue with Singulair Advair and albuterol inhaler. Continue Solu-Medrol. (3) Person under investigation for COVID-19: Code(s): Z20.828 - Contact with and (suspected) exposure to other viral communicable diseases Status: Acute Assessment and Plan: The patient has been placed under investigation and is in isolation. Patient COVID test is negative (4) Anxiety: Code(s): F41.9 - Anxiety disorder, unspecified Status: Acute Assessment and Plan: Continue with her citalopram (5) HTN (hypertension): Code(s): I10 - Essential (primary) hypertension Status: Acute Assessment and Plan: Will continue home regimen and monitor (6) Hyperlipidemia: Code(s): E78.5 - Hyperlipidemia, unspecified Status: Chronic Assessment and Plan: off simvastatin at this time. DS: Summary Hospital Course Reason for hospitalization: Chief complaint: chf, copd, covid pui Narrative: Betty Marte is a 75 year old female who states that she has a history of asthma but has never had a PFT to verify that she does have COPD. The patient is on routine inhalers Advair Diskus and states that she has been using nebulizer machine at home. The patient stated over the last 7 days she has been more short of breath with a cough and edema to her lower extremities. She is to sleep with her head elevated. She is short of breath with exertion. She has not had any previous history of congestive heart failure. The patient continues to smoke cigarettes she was smoking a pack a cigarettes a day to last 5 days she cut down to about 5 cigarettes a day. She lives home alone and states that she has not had any exposure to go over 19. None that she is aware of any way. Her potassium was 3.3. Sodium 131. BNP 294. Patient has some expiratory wheezes. She was placed on oxygen 4 L per nasal cannula. From 96-100% on the 4 L. her oxygen level was as low as 9 E earlier without the oxygen. Increased perihilar bronchia
--- NOTE | 2020-07-16 10:26 | HOMEO2EVAL ---
Home Oxygen Evaluation RC: Home Oxygen (O2) Evaluation Start: 07/16/20 10:07 Freq: ONCE Status: Active Protocol: RPE Activity Type Activity Date Activity User E-Sign Co-Sign Detail Recorded Client Recorded Date Recorded By Document 07/16/20 10:07 [facility] [email or web address] 07/16/20 10:12 TK Document 07/16/20 10:10 TK [email or web address] 07/16/20 10:12 TK Document 07/16/20 10:11 TK [email or web address] 07/16/20 10:12 TK Document 07/16/20 10:11 TK [email or web address] 07/16/20 10:12 [facility] Document 07/16/20 10:12 TK [email or web address] 07/16/20 10:25 TK 07/16/20 07/16/20 07/16/20 10:07 10:10 10:11 Home O2 Evaluation Test Phase Resting Exercise Exercise Oxygen Delivery Room Air Nasal Cannula Nasal Cannula Oxygen Flow Rate (L/min) 1 2 Fraction of Inspired Oxygen (%) 21 Pulse Oximetry (90-100 %) 92 86 L 89 L Pulse Rate (60-100 beats/min) 65 68 69 Activity Tolerance Good Rating of Perceived Dyspnea (PD) +2 Mild, Some Difficulty, Noticeable to the Observer Rate of Perceived Exertion (PE) 11 Fairly light Ambulation Distance (feet) 60 Home Oxygen Evaluation Comments pt place on 1L Pt on 2L NC, NC, SpO2 SpO2 increased increased to 89 to 92%. % Treatment Charges O2 Evaluation 07/16/20 07/16/20 10:11 10:12 Home O2 Evaluation Test Phase Resting Resting Oxygen Delivery Nasal Cannula Nasal Cannula Oxygen Flow Rate (L/min) 2 1 Fraction of Inspired Oxygen (%) Pulse Oximetry (90-100 %) 93 88 L Pulse Rate (60-100 beats/min) 64 65 Activity Tolerance Rating of Perceived Dyspnea (PD) Rate of Perceived Exertion (PE) Ambulation Distance (feet) Home Oxygen Evaluation Comments Treatment Charges
== END 2020-07-16 15:10 | disposition home or self-care (01) | DRG 194 ==
LOC: ANHED 17:27 → ANH3MEDSUR 19:43
PROVIDERS: Admitting Provider Family Medicine; Emergency Provider Emergency Medicine; PCP Family Medicine; Visit Provider Family Medicine
DX: J18.9 Pneumonia, unspecified organism (principal); J44.0 Chronic obstructive pulmonary disease with (acute) lower respiratory infection; J44.1 Chronic obstructive pulmonary disease with (acute) exacerbation; Z20.828 Contact with and (suspected) exposure to other viral communicable diseases; F17.210 Nicotine dependence, cigarettes, uncomplicated; F41.9 Anxiety disorder, unspecified; I10 Essential (primary) hypertension; E78.5 Hyperlipidemia, unspecified; Z79.899 Other long term (current) drug therapy; Z88.6 Allergy status to analgesic agent
CPT/HCPCS: 36415; 71045; 80048; 83880; 84484; 85025; 85027; 85610; 85730; 87040; 87070; 87205; 87635; 93005; 93306; 94618; 94640; 96365; 96366; 96367; 96372; 96375; 96376; 97110; 97161; 97165; 97530; 97535; 99285; A9270; C9803; G0378; J0456; J0696; J1650; J1940; J2270; J2930; J7512; U0003

== ENCOUNTER 2021-02-02 14:09 | Outpatient (CLI) | payer MEDICARE, SELFPAY ==
--- NOTE | ~2021-02-02 | XR_ITS ---
XR chest 2V DATE: 02/02/2021 14:34 INDICATION: Worsening shortness of breath TECHNIQUE: PA and lateral views COMPARISON: 07/14/2020 portable AP chest FINDINGS: Cardiomegaly. Aortic calcification and mild unfolding. No hilar or mediastinal enlargement. The lungs are moderately hyperinflated. There are increased interstitial markings including Snehal B- lines, best demonstrated in the right lower chest, which may represent interstitial fibrosis or inter stitial edema. There is mild prominence of the greater fissures which may indicate subpleural edema. There is mild p ulmonary vascular congestion and redistribution. Minimal blunting of the costophrenic angles may grace amilcar slight pleural effusions. Diffuse osteopenia. IMPRESSION: Cardiomegaly and suggestion of pulmonary interstitial and subpleural edema with mild dg estive heart failure Reviewed, dictated and finalized at location A. IMPRESSION: Cardiomegaly and suggestion of pulmonary interstitial and subpleura l edema with mild congestive heart failure
== END 2021-02-02 14:10 | disposition home or self-care (01) ==
LOC: ANHIMG 14:16
PROVIDERS: PCP Family Medicine; Visit Provider Physician Assistant
DX: J18.9 Pneumonia, unspecified organism (principal); I51.7 Cardiomegaly
CPT/HCPCS: 71046

== ENCOUNTER 2021-02-05 08:34 | Outpatient (CLI) | payer MEDICARE, SELFPAY ==
--- NOTE | 2021-02-05 08:49 | ECHO_ITS ---
Patient Info Name: Betty Marte Age: 75 years : 1945 Gender: Female Ht: 67 in Wt: 184 lbs BSA: 2.01 m2 HR: 81 bpm BP: 157 / 88 mmHg Technical Quality: Fair Exam Date: 02/05/2021 9:19 AM Exam Location: [facility]monary Patient Status: Outpatient Admit Date: 02/05/2021 Staff Ordering Physician: Lily Sandy PA-C Philosophy Professor: Umu Edwards RDCS Attending Provider: Lily Sandy PA-C Referring Physician: Du GIL; Exam Type: CA echo doppler color flow Study Info Indications - HEART FAILURE Complete two-dimensional, color flow and Doppler transthoracic echocardiogram is performed. Summary 1. Complete two-dimensional, color flow and Doppler transthoracic echocardiogram is performed. 2. Left ventricular chamber dimension is normal. 3. Left ventricular systolic function is normal, estimated at 60-65%. 4. The left ventricular diastolic function is abnormal. 5. E/e' 14 is mildly elevated. 6. Left atrial chamber dimension is severely enlarged. 7. Right atrial chamber dimension is severely enlarged. 8. There is mild to moderate mitral valve regurgitation. 9. There is mild to moderate tricuspid valve regurgitation. 10. Moderate pulmonary hypertension, estimated pulmonary arterial systolic pressure is 51 mmHg. 11. There is small circumferential pericardial effusion. Left Ventricle E/e' 14 is mildly elevated. Left ventricular chamber dimension is normal. Left ventricular systolic function is normal, estimated at 60-65%. The left ventricular diastolic function is abnormal. Right Ventricle Right ventricular systolic function is normal and with normal TAPSE 3.0 cm. Right ventricular chamber dimension is normal. Left Atria Left atrial chamber dimension is severely enlarged. Right Atria Right atrial chamber dimension is severely enlarged. Aortic Valve The aortic valve is not well visualized. Cannot determine number of aortic valve leaflets. There is no aortic valve stenosis. There is no aortic valve regurgitation. Pulmonic Valve There is no pulmonic regurgitation. Mitral Valve There is no mitral valve stenosis. There is mild to moderate mitral valve regurgitation. Tricuspid Valve There is mild to moderate tricuspid valve regurgitation. Moderate pulmonary hypertension, estimated pulmonary arterial systolic pressure is 51 mmHg. Pericardium/Pleural There is small circumferential pericardial effusion. Inferior Vena Cava Normal inferior vena cava with >50% collapse upon inspiration consistent with normal right atrial pressure, 5 mmHg. Aorta The aortic root size at the sinus of Valsalva is normal. Left Ventricular Outflow Tract Name Value Normal LVOT 2D LVOT Diameter 2.0 cm LVOT Doppler LVOT Peak Gradient 5 mmHg LVOT Mean Gradient 3 mmHg LVOT VTI 24 cm LVOT VTI/AV VTI Ratio 0.8 LVOT Stroke Volume 75 ml LVOT CO 14.3 l/min LVOT CI 7.3 l/min/m2 Pu
--- NOTE | 2021-02-05 08:49 | ECG_ITS ---
Measurements Intervals [place] Rate: 78 P: 104 TN: 135 QRS: 34 QRSD: 102 T: 90 QT: 398 QTc: 456 Interpretive Statements SINUS RHYTHM VENTRICULAR PREMATURE COMPLEX INCOMPLETE RIGHT BUNDLE BRANCH BLOCK BORDERLINE T WAVE ABNORMALITY- ANT/HIGH LAT LEADS BORDERLINE ECG Electronically Signed On 02-05-2021 10:44:13 CDT by Laith Guerrero D.O.
[2021-02-05 09:07] LABS: Anion Gap 7 mmol/L (8-16); Blood Urea Nitrogen 7 mg/dL (7-17); Calcium 9.2 mg/dL (8.4-10.2); Carbon Dioxide 31 mmol/L (22-30); Chloride 102 mmol/L (98-107); Estimated Glomerular Filt Rate > 60; Glucose 97 mg/dL (65-105); Potassium 3.7 mmol/L (3.4-5.0); Sodium 140 mmol/L (137-145)
[2021-02-05 09:17] LABS: NT Pro B Type Natriuretic Pept 1500 pg/mL (5-100)
== END 2021-02-05 08:35 | disposition home or self-care (01) ==
PROVIDERS: PCP Family Medicine; Visit Provider Physician Assistant
DX: R06.02 Shortness of breath (principal); I50.9 Heart failure, unspecified; Z79.899 Other long term (current) drug therapy; I45.10 Unspecified right bundle-branch block; I08.3 Combined rheumatic disorders of mitral, aortic and tricuspid valves
CPT/HCPCS: 36415; 80048; 83880; 93005; 93306

== ENCOUNTER 2021-02-05 10:22 | Inpatient (IN) | payer MEDICARE, SELFPAY ==
[2021-02-05] VITALS (37 sets, daily range): BP systolic 115–167; BP diastolic 60–96; PULSE 65–87; RESP 14–22; TEMP 36.3–36.4; O2SAT 90–99; BMI 28.3
--- NOTE | ~2021-02-05 | XR_ITS ---
EXAMINATION: XR chest 1V portable DATE: 02/05/2021 14:25 INDICATION: Shortness of breath. TECHNIQUE: frontal view of the chest was obtained. COMPARISON: Chest radiograph dated 02/02/2021 FINDINGS: Interval improvement in the prior mild interstitial pattern at the lower lung zones with resolution o f the peripheral Snehal B-lines at the lateral right lower lung zone consistent with improving pulmon chin edema. No new airspace opacities, pleural effusion or pneumothorax. Borderline heart size account ing for AP technique. IMPRESSION: 1. Interval decrease in the increased interstitial pattern at the lung bases consistent with improvin g mild pulmonary edema. 2. Borderline heart size. Reviewed, dictated and finalized at location A. IMPRESSION: 1. Interval decrease in the increased interstitial pattern at the lung bases co nsistent with improving mild pulmonary edema. 2. Borderline heart size.
--- NOTE | ~2021-02-05 | US_ITS ---
EXAMINATION: US venous doppler [facility] DATE: 02/06/2021 10:40 INDICATION: Bilateral lower limb swelling TECHNIQUE: Hernandez scale images without and with compression and Doppler images of the bilateral lower e xtremity veins were obtained. COMPARISON: None FINDINGS: The right common femoral vein, profunda femoral vein, femoral vein, popliteal vein, peroneal trunk, p osterior tibial veins, and greater saphenous vein are patent. The left common femoral vein, profunda femoral vein, femoral vein, popliteal vein, peroneal trunk, po sterior tibial veins, and greater saphenous vein are patent. There is superficial venous thrombosis i n the left soleus vein. IMPRESSION: 1. No evidence of deep venous thrombosis. Superficial thrombosis in the left soleus vein. Reviewed, dictated and finalized at location A. IMPRESSION: 1. No evidence of deep venous thrombosis. Superficial thrombosis in the left so leus vein.
--- NOTE | 2021-02-05 10:45 | ECG_ITS ---
Measurements Intervals [place] Rate: 79 P: 96 [place]: 179 QRS: 202 QRSD: 94 T: 142 QT: 357 QTc: 411 Interpretive Statements SINUS RHYTHM VENTRICULAR PREMATURE COMPLEX ARM LEADS REVERSED INCOMPLETE RIGHT BUNDLE BRANCH BLOCK DELAYED PRECORDIAL R/S TRANSITION BORDERLINE T WAVE ABNORMALITY- ANTERIOR LEADS BASELINE ARTIFACT- I, II, AVR, AVL, V1-V2, V4-V6 BORDERLINE ECG Electronically Signed On 02-05-2021 11:10:42 CDT by Laith Guerrero D.O.
[2021-02-05 11:13] LABS: Basophils Absolute Auto 0.1 K/mm3 (0.0-0.1); Basophils Percent Auto 0.6 % (0.2-1.2); Eosinophils Absolute Auto 0.1 K/mm3 (0-0.3); Eosinophils Percent Auto 1.4 % (0-4.4); Hematocrit 43.4 % (37.0-47.0); Hemoglobin 14.1 g/dL (12.0-15.0); Immature Granulocyte Absolute 0.02 K/mm3 (0.00-0.031); Immature Granulocyte Percent A 0.2 % (0-0.5); Lymphocytes Percent Auto 13.3 % (18.3-44.2); Mean Corpuscular HGB Conc 32.5 g/dl (32-36); Mean Corpuscular Volume 95.4 fl (80-100); Mean Platelet Volume 9.8 fl (7.4-10.4); Monocytes Absolute Auto 0.5 K/mm3 (0.1-0.6); Monocytes Percent Auto 6.4 % (2.6-8.5); Neutrophils Absolute Auto 6.5 K/mm3 (1.3-6.7); Neutrophils Percent Auto 78.1 % (45.5-73.1); Platelet Count Result 247 k/mm3 (150-375); Red Blood Count 4.55 M/mm3 (4.2-5.4); Red Cell Distribution Width 14.9 % (11.5-14.5); White Blood Count 8.3 K/mm3 (4.5-10.0)
[2021-02-05 11:34] LABS: Troponin I < 0.012 ng/mL (0.000-0.034)
--- NOTE | 2021-02-05 13:54 | ED.SOB ---
HPI - SOB/Dyspnea General Chief Complaint: Recheck/Abnormal Lab/Rx Stated Complaint: abnormal labs Time Seen by Provider: 02/05/21 13:52 History of Present Illness HPI Narrative: Increasing SOB for months. Associated with GRIMM and orthopnea. She has also had worsening BLE edema. She had an x-ray done 3 days ago showing pulmonary edema. she had labs and an ECHO done earlier today showing a BNP of 1500 and moderate regurgitation in multiple valves. No chest pain, fever, weakness, confusion. 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 She is . 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 She has 2 children. The patient desires to be a full code and does not have a durable power privacy attorney for healthcare. Patient still continues to smoke on a daily basis she smoked for several years. Least a pack cigarettes a day. She denies any alcohol marijuana or illicit drugs. Smoking status: Current every day smoker Second hand tobacco smoke exposure: Yes Alcohol intake: never Substance use: never Substance use type: does not use Gender identity (if verbalized by the patient): Female Spiritual care concerns: No Agree to blood products: Yes Exam Const: General: no acute distress and alert Orientation/consciousness: patient oriented x3 HENMT: Head: normal to inspection Neck: Neck: normal visual inspection Resp: Effort & Inspection: normal respiratory effort, labored and tachypneic Auscultation: clear to auscultation bilaterally and crackles Cardio: Jugular venous distension: no JVD Rate: regular rate Rhythm: regular rhythm Heart sounds: no murmurs GI: Inspection: non-distended GI Palp: Yes Soft to palpation and No Tenderness to palpation present (GI) Skin: General skin exam: normal color Neuro: General: patient oriented x3 and moves all extremities Speech: normal speech Extrem: Other: Severe edema of BLE Psych: Appearance: well kempt Affect: normal affect Course Vital Signs Vital signs: Vital Signs Temperature 36.4 C 02/05/21 10:41 Pulse Rate 80 02/05/21 10:41 Respiratory Rate 16 02/05/21 10:41 Blood Pressure 139/82 02/05/21 10:41 Pulse Oximetry 94 02/05/21 10:41 Temperature 36.4 C 02/05/21 10:41 Pulse Rate 69 02/05/21 17:21 Respiratory Rate 16 02/05/21 17:21 Blood Pressure 115/96 H 02/05/21 17:21 Pulse Oximetry 96 02/05/21 17:21 MDM - SOB/Dyspnea MDM Narrative Medical decision making narrative: SHe will need admission for diuresis and cardiology consultation. Differential Diagnosis Differential diagnosis: Likely congestive heart failure Medical Records Attestation: I reviewed the patient's medical records. Hazel
[2021-02-05] MEDS: FUROSEMIDE INJ 40 MG/4 ML VIAL IV PUSH ×2 (14:38→20:31)
[2021-02-05] MEDS: NITROGLYCERIN OINTMENT 1 INCH DOSE 0.5 INCH TRANSDERM (14:38)
--- NOTE | 2021-02-05 18:39 | ADMGEN ---
This patient, Betty Marte, was admitted to Medical Room 349-01. Patient/family oriented to hospital policies and general routines including ID bracelet, bed and alarms, visiting hours, pain management, procedures, bathroom and other care routines, personal items, smoking policy, room service/diet, and visiting hours. Information on how to activate the Rapid Response Team has been discussed. Patient/Family are encouraged to report perceived risks to care and to ask questions if they do not understand what they are told or what they should do.
--- NOTE | 2021-02-05 23:38 | PM.IMHP ---
H&P: HPI History of Present Illness Date/Time: 02/05/21 23:38 this is a 75-year-old female patient who lives home alone. The patient stated that she has been short of breath for several months. She has dyspnea on minimal exertion and orthopnea. The patient stated that she was on Lasix every day but was having problems with her potassium then they switched it to every other day. When her Lasix ran out she finally got that prescription and then that ran out and she was not able to get any more Lasix. The patient has been having some weeping edema to her lower extremities. She had an x-ray performed 3 days ago showing pulmonary edema. She also has some labs an echo earlier today. She had a BNP of 1500 and moderate regurgitation multiple bowels. She had no chest pain fever weakness or confusion. The patient stated she does not have a medication technician. In the emergency room the patient was given 1 in of nitropaste as well as IV Lasix. The patient is already stating that she is having some relief of the edema and her legs are no longer weeping. She typically does not use it. However at this point she is on oxygen at 2 L per nasal cannula. The patient is being admitted to inpatient services on the date of service of 02/05/2021. Chief Complaint: Shortness of breath Review of Systems Review of Systems: All systems reviewed & are unremarkable except as noted in HPI and below Constitutional: Constitutional: Reports as per HPI and Reports no additional constitutional complaints Eyes: Eyes: Reports as per HPI and Reports no additional eye complaints ENT: Reports system reviewed and no additional complaints, except as documented and Reports Normal hearing present Cardiovascular: Cardiovascular: Reports no additional cardiovascular complaints Respiratory: Respiratory: Reports no additional respiratory complaints and Reports no additional respiratory complaints Gastrointestinal: Gastrointestinal: Reports as per HPI and Reports no additional gastrointestinal complaints Musculoskeletal: Musculoskeletal: Reports no additional musculoskeletal complaints Integumentary/Breasts: Skin/Breast: Reports system reviewed and no additional complaints, except as docu and Reports as per HPI Neurologic: Reports system reviewed and no additional complaints, except as documented, Reports as per HPI and Reports Normal hearing present Psychiatric: Psychiatric: Reports no additional psychiatric complaints and Reports as per HPI Endocrine: Endocrine: Reports no additional endocrine complaints Hematologic/Lymphatic: Hematologic/Lymphatic: Reports no additional hematologic/lymphatic complaints Allergic/Immunologic: Allergic/Immunologic: Reports no additional allergic/immunologic complaints PMFSH Past Medical History Medical History (Updated 02/06/21 @ 00:15 by Sumaya Goode NP) 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 She is . 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 She has 2 children. The patient desires to be a full code and does not have a durable power trust and estates attorney for healthcare. However she said that her son could be the durable power trust and estates attorney for healthcare. Patient still continues to smoke on a daily basis she smoked for several years. Yolande
[2021-02-06] VITALS (12 sets, daily range): BP systolic 125; BP diastolic 76; PULSE 62–89; RESP 16; TEMP 36.1; O2SAT 86–95
[2021-02-06] MEDS: METOPROLOL TARTRATE 50 MG TAB 100 MG PO ×2 (00:30→08:56)
[2021-02-06] MEDS: MONTELUKAST SODIUM 10 MG TABLET PO ×2 (00:30→08:56)
[2021-02-06] MEDS: CITALOPRAM HYDROBROMIDE 20 MG TABLET PO ×2 (00:30→08:56)
[2021-02-06] MEDS: POTASSIUM CHLORIDE 10 MEQ TABLET.ER PO ×2 (00:30→08:56)
[2021-02-06] MEDS: SIMVASTATIN 20 MG TABLET PO ×2 (00:30→08:56)
[2021-02-06] MEDS: FLUTICASONE/SALMETEROL 230-21 MCG INHALER 1 PUFF 2 PUFF INHALATION (08:53)
[2021-02-06] MEDS: FUROSEMIDE INJ 40 MG/4 ML VIAL IV PUSH (08:55)
[2021-02-06] MEDS: ASPIRIN 81 MG CHEWABLE TABLET PO (08:56)
[2021-02-06 09:05] LABS: Mean Platelet Volume 9.7 fl (7.4-10.4); Platelet Count Result 216 k/mm3 (150-375)
[2021-02-06 09:12] LABS: Estimated CRCL calculation 67 ml/min; Estimated Glomerular Filt Rate > 60
--- NOTE | 2021-02-06 10:20 | PM.CNCAR ---
Assessment and Plan Additional Plan this is a 75-year-old woman with: Worsening shortness of breath and some fluid overload upon admission. She has evidence of some mitral and tricuspid valve regurgitation on echo and has responded favorably to IV furosemide. Obviously she has some relatively significant COPD from cigarette smoking by physical exam and undoubtedly has some element of pulmonary hypertension as result of that. In addition to this there is some mitral regurgitation which is curious to me was not seen on an echo about 6 months ago but is evident on the current study. None the less on physical exam it does not sound to be too severe. I am going to recommend starting ARB therapy in the form of losartan because of this. I believe she is essentially euvolemic at this time and I am going to stop her intravenous furosemide and place her on furosemide at 40 mg daily orally. Hemodynamically she appears to be stable enough for discharge I am not sure if the hospitalist plan to discharge her today or not. If she is in the hospital I will see her tomorrow on rounds of not I will arrange for outpatient follow-up in my office. Thank you for consulting me to see this lady. Art Chun MD [facility] History of Present Illness History of Present Illness Consult date/time: 02/06/21 10:20 Consult reason: congestive heart failure Reason For Visit: CHF exacerbations Narrative: This is a 75-year-old woman I am seeing with at the request of the hospitalist because of symptoms of dyspnea, findings compatible with some congestive heart failure and valvular heart disease noted on echocardiogram that was done yesterday. Patient is not known to me prior to this encounter. She says that she does not know of any significant cardiac problems in the past. She states that she has gradually noticed the onset of worsening of baseline shortness of breath and also some accumulating lower extremity edema. She has a very hard time telling me how long the symptoms have been becoming more problematic. It was obviously a gradual process. She is not having any chest pain pressure or heaviness she denies any symptoms of orthopnea or PND. She has never had a syncopal episode. She does have a history of heavy cigarette smoking for many years and established diagnosis of COPD. She also has a history of hypertension and dyslipidemia. She did tell me that she underwent a cardiac catheterization procedure something like 10 or [address] [facility] because her physician the found her to have an unfavorable stress test. She can't remember why the stress test was performed in the 1st place. She does remember that her coronary angiogram was unremarkable. She has been treated with some intravenous furosemide since being hospitalized yesterday she feels markedly better in terms of her shortness of breath and lower extremity swelling and is expecting to be discharged today. I am not sure how she came to that idea since I do not think any physicians that have seen her have discussed plans for discharge today. An echocardiogram was done yesterday after becoming hospitalized and this study demonstrates normal left ventricular systolic function and what is described as mild to moderate mitral and tricuspid valve regurgitation. Curiously an echocardiogram done in the fall of last year did not show any of this valvular regurgitation. The echo was read by Dr Guerrero and as such I have not personally seen the images. He takes a high dose of metoprolol 100 mg twice daily as part of her hypertension regimen and has a baseline she takes 40 mg of furosemide daily. Review of Systems Constitutional: Constitutional: Reports no additional constitutional complaints Eyes: Eyes: Reports no additional eye complaints ENT: Reports system reviewed and no additional complaints, except as documented Cardiovascular: Cardiovascular: Reports as per HPI Respiratory: Respiratory: Reports a
[2021-02-06] MEDS: LOSARTAN POTASSIUM 50 MG TABLET PO (10:57)
[2021-02-06] MEDS: FUROSEMIDE 40 MG TABLET PO (10:57)
--- NOTE | 2021-02-06 13:40 | HOMEO2EVAL ---
Evaluation was performed at [facility] Home Oxygen Evaluation RC: Home Oxygen (O2) Evaluation Start: 02/06/21 12:07 Freq: ONCE Status: Active Protocol: RPE Activity Type Activity Date Activity User E-Sign Co-Sign Detail Recorded Client Recorded Date Recorded By Document 02/06/21 13:05 SDH [email or web address] 02/06/21 13:39 SDH Document 02/06/21 13:08 SDH [email or web address] 02/06/21 13:39 SDH Document 02/06/21 13:09 [email or web address] [email or web address] 02/06/21 13:39 SDH Document 02/06/21 13:13 [email or web address] [email or web address] 02/06/21 13:39 SDH Document 02/06/21 13:15 [email or web address] [email or web address] 02/06/21 13:39 SDH Document 02/06/21 13:20 [email or web address] [email or web address] 02/06/21 13:39 SDH 02/06/21 02/06/21 02/06/21 13:05 13:08 13:09 Home O2 Evaluation Test Phase Resting Resting Exercise Oxygen Delivery Room Air Nasal Cannula Nasal Cannula Oxygen Flow Rate (L/min) 1 1 Pulse Oximetry (90-100 %) 86 L 90 86 L Activity Tolerance Good Rating of Perceived Dyspnea (PD) Rate of Perceived Exertion (PE) 8 Ambulation Distance (feet) Home Oxygen Evaluation Comments placed on 1lpm increased to nc 2LPM NC Treatment Charges O2 Evaluation - Inpatient 02/06/21 02/06/21 02/06/21 13:13 13:15 13:20 Home O2 Evaluation Test Phase Exercise Exercise Resting Oxygen Delivery Nasal Cannula Nasal Cannula Nasal Cannula Oxygen Flow Rate (L/min) 2 3 1 Pulse Oximetry (90-100 %) 89 L 91 92 Activity Tolerance Good Good Rating of Perceived Dyspnea (PD) +1 Mild, +1 Mild, Noticeable to Noticeable to the Participant the Participant but Not to an but Not to an Observer Observer Rate of Perceived Exertion (PE) 11 Fairly light Ambulation Distance (feet) 120 Home Oxygen Evaluation Comments increased to PT REQUIRED 3LPM NC OXYGEN VIA NC @ 1LPM AT REST AND 3LPM WITH ACTIVITY. Treatment Charges
--- NOTE | 2021-02-06 13:41 | PCRCNOTE ---
HOME OXYGEN EVALUATION COMPLETED. PT REQUIRED OXYGEN VIA NASAL CANNULA @ 1LPM/REST AND 3LPM/ACTIVITY.
--- NOTE | 2021-02-06 13:50 | PM.DS ---
DS: Admitting Diagnosis Admitting Diagnosis Admitting Diagnosis: CHF DS: Discharge Diagnosis Discharge Diagnosis (1) CHF (congestive heart failure): Code(s): I50.9 - Heart failure, unspecified Status: Acute Assessment and Plan: Presented with evidence of volume overload. CXR showed mild pulmonary edema. Echo was performed with EF of 60-65% and abnormal diastolic function. She was seen in consultation by cardiology and had symptomatic improvement with IV furosemide. She will continue with 40 mg p.o. Lasix. She was also started on losartan. She will follow-up with cardiology as an outpatient. (2) Heart valve insufficiency: Code(s): I38 - Endocarditis, valve unspecified Status: Acute Assessment and Plan: Echo demonstrated mitral and tricuspid valve regurgitation. She was evaluated by Cardiology and will follow-up as an outpatient. (3) Hypoxia: Code(s): R09.02 - Hypoxemia Status: Acute Assessment and Plan: She was hypoxic down to 86%. She required up to 1 L supplemental oxygen. He home oxygen evaluation was performed which demonstrated need for 1 L oxygen at rest and 3 L with activity. She has home oxygen but reports she had not been using it. Discussed importance of compliance with home oxygen. (4) COPD (chronic obstructive pulmonary disease): Code(s): J44.9 - Chronic obstructive pulmonary disease, unspecified Status: Chronic Assessment and Plan: Not in acute exacerbation. Continue supplemental oxygen as above. Continue home inhalers (5) Hyperlipidemia: Code(s): E78.5 - Hyperlipidemia, unspecified Status: Chronic Assessment and Plan: Continue with simvastatin (6) HTN (hypertension): Code(s): I10 - Essential (primary) hypertension Status: Chronic Assessment and Plan: Blood pressures reviewed or well controlled. Continue metoprolol. Losartan added as above. (7) Tobacco abuse: Code(s): Z72.0 - Tobacco use Status: Acute Assessment and Plan: She smokes about a pack per day. She declined nicotine patch during her hospitalization. Long discussion regarding the importance of smoking cessation and she verbalized understanding. DS: Summary Hospital Course Hospital Course: Date of admission: 02/05/2021 Date of discharge: 02/06/2021 Betty Marte is a 75 year old female with a history of COPD, hypertension, hyperlipidemia, and anxiety who presented to the emergency department on 02/05/2021 with complaints of shortness of breath worsening over the past few months as well as dyspnea on exertion and worsening lower extremity edema. She had an outpatient chest x-ray, echo, and labs done prior to presentation. Presentation to the emergency department, her vital signs were stable, S CBC unremarkable, troponin negative, chest x-ray with interval decrease in interstitial pattern consistent with improving mild pulmonary edema and borderline heart size. She was admitted to the hospitalist service for further evaluation and management and seen in consultation by cardiology. Please see above for further details. She was diuresed with IV Lasix and volume status improved. She did require supplemental home oxygen based on home O2 eval, and she already had home oxygen set up. She was feeling much better and was very eager for discharge home. We discussed worrisome signs and symptoms for which to return and she was educated on her medications. She was discharged in hemodynamically stable condition on 02/06/2021. Status at Discharge Functional status at discharge: independent ambulation Overall status at discharge: patient is progressing back to baseline Time Spent with Patient Time attestation: Total time spent providing and/or coordinating discharge services: 45 minutes Time spent: Greater than 30 minutes Exam Narrative: Exam Narrative: Ms. Marte is a well-nourished, well-appearing
== END 2021-02-06 15:51 | disposition home or self-care (01) | DRG 293 ==
LOC: ANHED 17:45 → ANH3MED 18:04
PROVIDERS: Family Medicine; Nurse Practitioner; Admitting Provider Internal Medicine; Emergency Provider Emergency Medicine; PCP Family Medicine; Visit Provider Family Medicine
DX: I11.0 Hypertensive heart disease with heart failure (principal); I50.9 Heart failure, unspecified; J44.9 Chronic obstructive pulmonary disease, unspecified; F17.210 Nicotine dependence, cigarettes, uncomplicated; R09.02 Hypoxemia; I08.1 Rheumatic disorders of both mitral and tricuspid valves; E78.5 Hyperlipidemia, unspecified; F41.9 Anxiety disorder, unspecified; Z79.899 Other long term (current) drug therapy
CPT/HCPCS: 36415; 71045; 71046; 80048; 82565; 83880; 84484; 85025; 85049; 93005; 93306; 93970; 94618; 96374; 99285; A9270; J1940

== ENCOUNTER 2021-03-15 15:36 | Outpatient (CLI) | payer MEDICARE, SELFPAY ==
[2021-03-15 16:15] LABS: Anion Gap 6 mmol/L (8-16); Blood Urea Nitrogen 12 mg/dL (7-17); Calcium 9.7 mg/dL (8.4-10.2); Carbon Dioxide 34 mmol/L (22-30); Chloride 96 mmol/L (98-107); Estimated Glomerular Filt Rate > 60; Glucose 101 mg/dL (65-110); Potassium 3.7 mmol/L (3.4-5.0); Sodium 136 mmol/L (137-145)
== END 2021-03-15 15:37 | disposition home or self-care (01) ==
LOC: ANHLAB 15:38
PROVIDERS: PCP Family Medicine; Visit Provider Nurse Practitioner Adult Health
DX: I50.32 Chronic diastolic (congestive) heart failure (principal)
CPT/HCPCS: 36415; 80048

== ENCOUNTER 2021-11-02 02:05 | Inpatient (IN) | payer MEDICARE, SELFPAY ==
[2021-11-02] VITALS (23 sets, daily range): BP systolic 98–141; BP diastolic 55–94; PULSE 82–119; RESP 16–24; TEMP 36.3–36.6; O2SAT 92–95; BMI 26.6
--- NOTE | 2021-11-02 | ECHO_ITS ---
Patient Info Name: Betty Marte Age: 76 years : 1945 Gender: Female Ht: 67 in Wt: 170 lbs BSA: 1.92 m2 HR: 78 bpm BP: 98 / 55 mmHg Heart Rhythm: Sinus Rhythm Technical Quality: Fair Exam Date: 11/02/2021 12:06 PM Exam Location: [facility] Card Pulmonary Patient Status: Inpatient Admit Date: 11/02/2021 Staff Ordering Physician: Sakina Hinson PA-C Shot Fireman: Jennifer Young RDCS Attending Provider: Sakina Hinson PA-C Referring Physician: Sravan CAMPBELL; Exam Type: CA echo doppler color flow Study Info Indications - PE Complete two-dimensional, color flow and Doppler transthoracic echocardiogram is performed. Summary 1. Complete two-dimensional, color flow and Doppler transthoracic echocardiogram is performed. 2. Normal left ventricular size and thickness with good contractility of all segments and no segmental wall motion abnormality. Ejection fraction greater than 70%. Normal diastolic function. 3. No significant valve disease. 4. Mild pulmonary hypertension with estimated pulmonary artery systolic pressure of 38 mm Hg. 5. Dilated inferior vena cava consistent with a degree of elevated right heart pressure. 6. Normal sinus rhythm. Left Ventricle Left ventricular chamber dimension is normal. Left ventricular systolic function is normal, estimated at >70%. There is no increased left ventricular wall thickness. Left ventricular septal wall motion is normal. The left ventricular diastolic function is normal. Right Ventricle Right ventricular chamber dimension is normal. Right ventricular systolic function is normal. Left Atria Left atrial chamber dimension is normal. Right Atria Right atrial chamber dimension is normal. Aortic Valve The aortic valve is trileaflet. There is no aortic valve sclerosis. There is no aortic valve stenosis. There is no aortic valve regurgitation. Pulmonic Valve The pulmonic valve is normal. There is no pulmonic valve stenosis. There is no pulmonic regurgitation. Mitral Valve The mitral valve has normal leaflets. There is no mitral valve stenosis. There is trace mitral valve regurgitation. Tricuspid Valve The tricuspid valve leaflets are normal. There is no significant tricuspid valve stenosis. There is trace tricuspid valve regurgitation. Mild pulmonary hypertension, estimated pulmonary arterial systolic pressure is 38 mmHg. Pericardium/Pleural The pericardium appears normal. There is small pericardial effusion. Inferior Vena Cava Dilated inferior vena cava with >50% collapse upon inspiration consistent with Empty right atrial pressure, 10 mmHg. Aorta The aortic root size at the sinus of Valsalva is normal. The prox ascending aorta size is normal. Left Ventricular Outflow Tract Name Value Normal LVOT 2D LVOT Diameter 2.0 cm LVOT Doppler LVOT Peak Gradient 4 mmHg LVOT Mean Gradient 2 mmHg LVOT VTI 19 cm LVOT VTI/AV VTI Ratio 0.7 LVOT Stroke Volume 58 ml
--- NOTE | ~2021-11-02 | MR_ITS ---
EXAMINATION: MR brain/brain stem wo con DATE: 11/02/2021 11:54 INDICATION: Left hemiparesis. TECHNIQUE: Magnetic resonance imaging (MRI) of the brain and brainstem was performed without intraven ous contrast. Sequences included sagittal and axial T1-weighted FSE, axial diffusion-weighted FS EPI, axial T2*-weighted GRE, axial T2-weighted FLAIR Propeller, and axial T2-weighted Propeller. Apparent diffusion coefficient (ADC) maps were created. COMPARISON: None. FINDINGS: There is no intracranial hemorrhage, acute infarction, or abnormal intracranial mass lesion . There are scattered areas of nonspecific increased T2-weighted signal intensity in the cerebral whi te matter and yadiel. The ventricles are normal in size. The mastoid air cells are normal. There is mil d mucosal thickening in right maxillary sinus. There are likely changes of ocular lens replacement rubio rgeries. IMPRESSION: 1. Moderate nonspecific cerebral white matter disease and pontine disease, which likely represents ch ronic small vessel ischemic disease. Reviewed, dictated and finalized at location A. IMPRESSION: 1. Moderate nonspecific cerebral white matter disease and pontine disease, whic h likely represents chronic small vessel ischemic disease.
--- NOTE | ~2021-11-02 | XR_ITS ---
EXAMINATION: XR chest 1V portable DATE: 11/02/2021 02:26 INDICATION: Dyspnea TECHNIQUE: frontal view of the chest was obtained. COMPARISON: Chest radiograph dated 02/05/2021 FINDINGS: Lungs are well expanded but clear with no focal airspace opacities, pulmonary edema, pleural effusion or pneumothorax. The cardiomediastinal silhouette is normal. A few old healed right-sided rib fractu res. IMPRESSION: 1. No acute cardiopulmonary disease. Reviewed, dictated and finalized at location A.
--- NOTE | ~2021-11-02 | CT_ITS ---
EXAMINATION: CTA chest PE protocol DATE: 11/02/2021 09:08 INDICATION: Hypoxia. TECHNIQUE: Computed tomography angiography (CTA) of the chest was performed with 100 mL Omnipaque-350 intravenous contrast timed to evaluate the pulmonary arteries. Coronal maximum intensity projection 3D-reconstructions were created by the technologist. Automated exposure control and iterative reconst ruction technique were employed. The dose-length product was 638.92 mGy-cm. COMPARISON: CT abdomen 03/21/2006 FINDINGS: There is mild scarring at the lung apices. There is moderate emphysema. There is mild atele ctasis bilaterally. Calcified right hilar lymph nodes are consistent with old granulomatous disease. There are acute pulmonary emboli in right upper lobe, right lower lobe, and distal right main pulmona ry artery. There are acute pulmonary emboli in left lower lobe. The heart size is normal. There are c oronary artery calcifications. No pericardial effusion. Calcifications in the liver and spleen are co nsistent with old granulomatous disease. There is severe thoracic spondylosis. IMPRESSION: 1. Bilateral acute pulmonary emboli. I called this result to Sakina Hinson. 2. Moderate emphysema. Reviewed, dictated and finalized at location A.
--- NOTE | 2021-11-02 02:08 | ECG_ITS ---
Measurements Intervals [place] Rate: 101 P: 85 NC: 146 QRS: 7 QRSD: 93 T: 93 QT: 374 QTc: 486 Interpretive Statements SINUS TACHYCARDIA INDETERMINATE AXIS ST DEVIATION AND MODERATE T-WAVE ABNORMALITY, CONSIDER LATERAL ISCHEMIA BASELINE ARTIFACT COMPARED TO ECG 02/05/2021 10:53:24 SINUS TACHYCARDIA NOW PRESENT Electronically Signed On 11-02-2021 18:24:49 CDT by Gayatri Sandoval M.D.
[2021-11-02] MEDS: IPRATROPIUM BR 0.02% INH SOLN 0.5 MG/2.5 ML VIAL 1.5 MG INHALATION (02:23)
[2021-11-02] MEDS: ALBUTEROL SULFATE NEB 2.5 MG/0.5 ML INH 15 MG INHALATION (02:23)
[2021-11-02] MEDS: MAGNESIUM SULF 2 GM/WATER 50ML 2 GM/50 ML BAG IVPB (02:34)
[2021-11-02] MEDS: methylPREDNISolone SOD SUCC 125 MG VIAL IV PUSH (02:34)
--- NOTE | 2021-11-02 02:37 | ED.SOB ---
HPI - SOB/Dyspnea General Chief Complaint: Shortness of Breath/Dyspnea Stated Complaint: SOB Source: patient History of Present Illness HPI Narrative: Patient ports a history of COPD and CHF. Patient presents with shortness of breath since symptoms have been getting worse over the past 5 days and associated with a cough. An ambulance was called and EMS noted hypoxia when transferring to the [facility]. Patient reports he is normally on 2 L of oxygen at home but she has had increased to 4 L due to her shortness of breath. She denies any pain such as chest pain abdominal pain she denies any nausea or vomiting. She does report congestion but denies any fevers or known sick contacts. Related Data Home Medications Medication Instructions Recorded Confirmed albuterol sulfate 2.5 mg INHALATION Q4H PRN 02/05/21 11/02/21 albuterol sulfate 1 puff INHALATION QID PRN 11/02/21 11/02/21 furosemide 20 mg PO DAILY 11/02/21 11/02/21 potassium chloride 10 meq PO DAILY 11/02/21 11/02/21 simvastatin 20 mg PO DAILY 11/02/21 11/02/21 Allergies Allergy/AdvReac Type Severity Reaction Status Date / Time acetaminophen Allergy Intermediate HIVES Verified 11/02/21 06:09 Review of Systems Review of Systems: CONSTITUTIONAL: Denies fever, chills, or sweats. EYES: Denies visual changes, redness, or discharge. ENT: Denies ore throat, or otalgia. CARDIOVASCULAR: Denies chest pain, palpitations, or edema. RESPIRATORY: Reports shortness of breath and cough GASTROINTESTINAL: Denies abdominal pain, nausea, vomiting, or diarrhea. GENITOURINARY: Denies dysuria or hematuria. SKIN: Denies rash or itching. MUSCULOSKELETAL: Denies back pain, joint pain, or myalgia. NEUROLOGIC: Denies headache, numbness, dizziness, or weakness. PSYCHIATRIC: Denies anxiety or depression. 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 Cervical disc disease COPD (chronic obstructive pulmonary disease) HTN (hypertension) Hyperlipidemia Lumbar disc disease Surgical History Surgical History H/O: hysterectomy History of colonoscopy with polypectomy (~04/2019) Hx of cardiac cath No intervention performed Family History Family History Other Family history of atrial fibrillation Family history of lung cancer Family history of malignant neoplasm of breast in first degree relative Hypertension Social History Social History Social History: The patient lives home alone. She is . 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 She has 2 children. The patient desires to be a full code and does not have a durable power transportation supervisor for healthcare. However she said that her son could be the durable power transportation supervisor for healthcare. Patient still continues to smoke on a daily basis she smoked for several years. Least a pack cigarettes a day. She denies any alcohol marijuana or illicit drugs. Smoking packs per day: 0.75 Smoking cigarettes per day: 15.0 Years smoked: 50 Smoking pack-years: 37.50 Smoking status: Current every day smoker Second hand tobacco smoke exposure: Yes Alcohol intake: current Drinks per week: 21 Substance use: never Substance use type: does not use Gender identity (if verbalized by the patient): Female Spiritual care concerns: No Agree to blood products: Yes Exam Narrative: GENERAL: Well-appearing, well-nourished, and in no acute distress. HEAD: Normocephalic, atraumatic. EYES: PERRLA and EOMI. ENT: Nares clear, no rhinorrhea or epistaxis. Mucous membranes moist. NECK: Supple. No masses. No JVD CHEST: Diminished aeration in all lung humphreys with diffuse rhonchi HEART: Regular rate and rhythm. No
[2021-11-02 03:06] LABS: Basophils Absolute Auto 0.1 K/mm3 (0.0-0.1); Basophils Percent Auto 0.7 % (0.2-1.2); Eosinophils Absolute Auto 0.1 K/mm3 (0-0.3); Eosinophils Percent Auto 1.5 % (0-4.4); Hematocrit 46.8 % (37.0-47.0); Hemoglobin 15.2 g/dL (12.0-15.0); Immature Granulocyte Absolute 0.04 K/mm3 (0.00-0.031); Immature Granulocyte Percent A 0.4 % (0-0.5); Lymphocytes Absolute Auto 0.92 K/mm3 (0.9-3.2); Lymphocytes Percent Auto 10.1 % (18.3-44.2); Mean Corpuscular HGB Conc 32.5 g/dl (32-36); Mean Corpuscular Hemoglobin 32.8 pg (26-34); Mean Corpuscular Volume 100.9 fl (80-100); Mean Platelet Volume 10.8 fl (7.4-10.4); Monocytes Absolute Auto 0.8 K/mm3 (0.1-0.6); Monocytes Percent Auto 8.6 % (2.6-8.5); Neutrophils Absolute Auto 7.2 K/mm3 (1.3-6.7); Neutrophils Percent Auto 78.7 % (45.5-73.1); Platelet Count Result 175 k/mm3 (150-375); Red Blood Count 4.64 M/mm3 (4.2-5.4); Red Cell Distribution Width 12.7 % (11.5-14.5); White Blood Count 9.1 K/mm3 (4.5-10.0)
--- NOTE | 2021-11-02 03:15 | PCRCNOTE ---
ABG ordered while pt on continuous nebulizer treatment. Per Dr. Wolf, it is OK to wait until 15 minutes after treatment is complete to obtain ABG.
[2021-11-02 03:17] LABS: Alanine Aminotransferase 53 U/L (4-35); Albumin Level 4.1 g/dL (3.5-5.1); Alkaline Phosphatase 91 U/L (38-126); Anion Gap 7 mmol/L (8-16); Aspartate Amino Transferase 81 U/L (14-36); Bilirubin,Total 0.8 mg/dL (0.2-1.3); Blood Urea Nitrogen 12 mg/dL (7-17); Carbon Dioxide 33 mmol/L (22-30); Chloride 102 mmol/L (98-107); Estimated Glomerular Filt Rate > 60; Glucose 88 mg/dL (65-110); Potassium 3.2 mmol/L (3.4-5.0); Sodium 142 mmol/L (137-145)
--- NOTE | 2021-11-02 03:22 | PC.NURSE ---
Patient has been cleaned up 2x. patient states,' I havent taken off my socks in 4 months and I had this wound on my leg for 8 months now. Patient back and butt is red and had matted fecal matter on it. Patient reports it is very sore.
[2021-11-02 03:23] LABS: NT Pro B Type Natriuretic Pept 1100 pg/mL (5-100)
[2021-11-02 03:48] LABS: Add Urine Microscopic? YES; Appearance Urine Cloudy (Clear); Bilirubin Urine Negative (Negative); Blood Urine Negative (Negative); Color Urine Amber (Yellow); Glucose Urine UA Negative (Negative); Ketones Urine 1+ mg/dL (Negative); Leukocyte Esterase Ur Negative LEU/UL (Negative); Mucus Urine Rare /lpf; Nitrate Urine Negative (Negative); Protein Urine 2+ mg/dL (Negative); Squamous Epithelial Cell Urine Many /hpf (Few); WBC Urine 0-3 /hpf
[2021-11-02 03:57] LABS: Alveolar/Arterial O2 Gradient 167.1 mmHg; Base Excess ABG 0.1 mEq/l (+/-2.0); Fractional Inspired Oxygen 40 %; HCO3 ABG 25.2 mEq/l (22.0-26.0); Oxygen Saturation ABG 93.7 % (95.0-100.0); Oxyhemoglobin 91.9 % THb (90.0-100.0); PCO2 ABG 42.7 mmHg (35.0-45.0); PO2 FiO2 Ratio Arterial Blood 1.73 %; Total Hemoglobin 15.5 g/dL (12.0-18.0); pH ABG 7.389 (7.350-7.450)
[2021-11-02 03:58] LABS: Device NASAL CANNULA; Modified Allen's Test Pass; Site Drawn LEFT RADIAL
[2021-11-02] MEDS: FUROSEMIDE INJ 40 MG/4 ML VIAL IV PUSH (04:04)
[2021-11-02 04:30] LABS: SARS-CoV-2 RNA PCR Negative
--- NOTE | 2021-11-02 05:16 | ECG_ITS ---
Measurements Intervals [place] Rate: 116 P: 91 NC: 142 QRS: 254 QRSD: 97 T: 91 QT: 337 QTc: 469 Interpretive Statements SINUS TACHYCARDIA WITH OCCASIONAL SUPRAVENTRICULAR PREMATURE COMPLEXES INDETERMINATE AXIS INCOMPLETE RIGHT BUNDLE BRANCH BLOCK [90+ ms QRS DURATION, TERMINAL R IN V1/V2, 40+ ms S IN I/aVL/V4/V5/V6] ST DEVIATION AND MODERATE T-WAVE ABNORMALITY, CONSIDER ANTERIOR ISCHEMIA [-0.1+ mV T- WAVE IN V3/V4] LARGE AMOUNT OF BASELINE ARTIFACT PRESENT COMPARED TO ECG 11/02/2021 02:46:14 NO SIGNIFICANT CHANGE Electronically Signed On 11-02-2021 18:26:41 CDT by Gayatri Sandoval M.D.
--- NOTE | 2021-11-02 06:49 | ADMGEN ---
This patient, Betty Marte, was admitted to [address] [place] [address] Room 330-01 at 05:55. Patient/family oriented to hospital policies and general routines including ID bracelet, bed and alarms, visiting hours, pain management, procedures, bathroom and other care routines, personal items, smoking policy, room service/diet, and visiting hours. Information on how to activate the Rapid Response Team has been discussed. Patient/Family are encouraged to report perceived risks to care and to ask questions if they do not understand what they are told or what they should do.
[2021-11-02] MEDS: predniSONE 20 MG TABLET 60 MG PO (08:07)
[2021-11-02] MEDS: IPRATROPIUM BR 0.02% INH SOLN 0.5 MG/2.5 ML VIAL INHALATION ×3 (08:30→20:35)
[2021-11-02] MEDS: ALBUTEROL SULFATE NEB 2.5 MG/0.5 ML INH 5 MG INHALATION ×3 (08:30→20:34)
[2021-11-02] MEDS: FLUTICASONE/SALMETEROL 230-21 MCG INHALER 1 PUFF 2 PUFF INHALATION ×2 (08:30→20:35)
[2021-11-02] MEDS: HEPARIN SOD/D5W 100 UNITS/ML 25,000 UNITS/250 ML BAG 12 UNITS IV CONT (10:00)
--- NOTE | 2021-11-02 10:06 | PM.IMHP ---
H&P: HPI History of Present Illness Date/Time: 11/02/21 10:06 Chief Complaint: hypoxia Narrative: Pt is a 76 yo female w/ hx of HTN, HLD, COPD, CHF, anxiety, admitted for hypoxia. Pt states she has been having increasing sob x 1 week. She wears 2L of oxygen at home but has been turning it up over the past week and still continues to feel out of breath. She denies chest pain. Reports productive cough x 1 week with white/yellow sputum. No fevers, chills, body aches. No N/V/D/abd pain. Has some LE edema but states this is chronic. Wears compression socks at home. Has a black lesion to her L troncoso area which has been there x9 months. It has not been evaluated by a physician. She states it only hurts if she bumps into something. She also tells me that she has been having left sided weakness for approximately 1 week. She also has had vision changes that she describes as things look like they're moving when they aren't. No double vision, vision loss, headache, paraesthesias. COVID test in ER negative. CXR reads no acute cardiopulmonary disease but patient was placed on rocephin and azithromycin to cover for pneumonia, presumably due to her hx of COPD and productive cough x 1 week. She was found to be hypoxic and oxygen was increased to 4L NC. Pt was admitted to our service as observation status for COPD exacerbation and pneumonia. Review of Systems Review of Systems: General: Denies fevers, chills, bodyaches Eyes: Denies eye pain, +blurry vision ENT: + nasal congestion, denies sore throat Respiratory: + cough, + shortness of breath Cardiovascular: Denies chest pain, palpitations, + lower extremity edema Gastrointestinal: Denies abdominal pain, vomiting, or diarrhea Genitourinary: Denies dysuria or urinary frequency Musculoskeletal: + joint pain Neurological: Denies headache, paraesthesias, + motor weakness Integumentary: +skin lesion LLE Psychiatric: Denies SI/HI [facility] Past Medical History Medical History (Updated 11/02/21 @ 10:43 by Sakina Hinson PA-C) 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 Cervical disc disease CHF (congestive heart failure) COPD (chronic obstructive pulmonary disease) HTN (hypertension) Hyperlipidemia Lumbar disc disease Surgical History Surgical History H/O: hysterectomy History of colonoscopy with polypectomy (~04/2019) Hx of cardiac cath No intervention performed Family History Family History (Updated 11/02/21 @ 10:33 by Sakina Hinson PA-C) Other Family history of atrial fibrillation Family history of lung cancer Family history of malignant neoplasm of breast in first degree relative Heart disease Hypertension Social History Social History (Updated 11/02/21 @ 10:34 by Sakina Hinson PA-C) Social History: The patient lives home alone. She is . 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 She has 2 children. The patient desires to be a full code and does not have a durable power personal injury attorney for healthcare. However she said that her son could be the durable power personal injury attorney for healthcare. Patient still continues to smoke on a daily basis she smoked for several years. Least a pack cigarettes a day. She denies any marijuana or illicit drugs. States she drinks approximately 3 glasses of wine daily. Smoking packs per day: 0.75 Smoking cigarettes per day: 15.0 Years smoked: 50 Smoking pack-years: 37.50 Smoking status: Current every day smoker Second hand tobacco smoke exposure: Yes Alcohol intake: current Drinks per week: 21 Alcohol use details: 3 glasses of wine daily Substance use: never Substance use type: does not use Living arrangements: alone Occupation/Education: retired Gender identity (if verbalized by the patient): Female Spiritual care concerns: No Agree to blood products: Yes Meds Home Medications and Allergies Home Medications
[2021-11-02 10:10] LABS: INR 1.1; Prothrombin Time 14.2 Seconds (11.1-14.7)
[2021-11-02 10:11] LABS: Basophils Percent Auto 0.1 % (0.2-1.2); Hematocrit 41.5 % (37.0-47.0); Immature Granulocyte Absolute 0.04 K/mm3 (0.00-0.031); Immature Granulocyte Percent A 0.4 % (0-0.5); Lymphocytes Absolute Auto 0.27 K/mm3 (0.9-3.2); Lymphocytes Percent Auto 2.9 % (18.3-44.2); Mean Corpuscular HGB Conc 33.7 g/dl (32-36); Mean Corpuscular Hemoglobin 33.2 pg (26-34); Mean Corpuscular Volume 98.3 fl (80-100); Mean Platelet Volume 10.9 fl (7.4-10.4); Monocytes Absolute Auto 0.1 K/mm3 (0.1-0.6); Monocytes Percent Auto 0.8 % (2.6-8.5); Neutrophils Absolute Auto 8.8 K/mm3 (1.3-6.7); Neutrophils Percent Auto 95.8 % (45.5-73.1); Platelet Count Result 166 k/mm3 (150-375); Red Blood Count 4.22 M/mm3 (4.2-5.4); Red Cell Distribution Width 12.5 % (11.5-14.5); White Blood Count 9.2 K/mm3 (4.5-10.0)
[2021-11-02] MEDS: HEPARIN SODIUM 5,000 UNITS/ML VIAL 5500 UNITS IV PUSH (10:33)
[2021-11-02] MEDS: METOPROLOL TARTRATE 50 MG TAB 100 MG PO ×2 (10:34→21:13)
[2021-11-02] MEDS: POTASSIUM CHLORIDE 10 MEQ TABLET.ER PO (10:35)
[2021-11-02] MEDS: MONTELUKAST SODIUM 10 MG TABLET PO (10:35)
[2021-11-02] MEDS: CITALOPRAM HYDROBROMIDE 20 MG TABLET PO ×2 (10:35→17:10)
[2021-11-02] MEDS: LOSARTAN POTASSIUM 50 MG TABLET PO (10:36)
[2021-11-02] MEDS: SIMVASTATIN 20 MG TABLET PO (10:36)
[2021-11-02] MEDS: FUROSEMIDE 40 MG TABLET PO (12:12)
[2021-11-02 18:06] LABS: Partial Thromboplastin Time 93.2 SECONDS (22.3-36.8)
[2021-11-03] VITALS (20 sets, daily range): BP systolic 108–141; BP diastolic 52–73; PULSE 65–96; RESP 16–20; TEMP 36.1–36.7; O2SAT 92–96
[2021-11-03 00:42] LABS: Partial Thromboplastin Time 94.4 SECONDS (22.3-36.8)
[2021-11-03 06:11] LABS: Basophils Percent Auto 0.2 % (0.2-1.2); Hematocrit 39.8 % (37.0-47.0); Hemoglobin 13.1 g/dL (12.0-15.0); Immature Granulocyte Absolute 0.06 K/mm3 (0.00-0.031); Immature Granulocyte Percent A 0.4 % (0-0.5); Lymphocytes Absolute Auto 0.84 K/mm3 (0.9-3.2); Lymphocytes Percent Auto 5.8 % (18.3-44.2); Mean Corpuscular HGB Conc 32.9 g/dl (32-36); Mean Corpuscular Hemoglobin 32.8 pg (26-34); Mean Corpuscular Volume 99.7 fl (80-100); Monocytes Absolute Auto 1.1 K/mm3 (0.1-0.6); Monocytes Percent Auto 7.4 % (2.6-8.5); Neutrophils Absolute Auto 12.5 K/mm3 (1.3-6.7); Neutrophils Percent Auto 86.2 % (45.5-73.1); Platelet Count Result 168 k/mm3 (150-375); Red Blood Count 3.99 M/mm3 (4.2-5.4); Red Cell Distribution Width 12.5 % (11.5-14.5); White Blood Count 14.5 K/mm3 (4.5-10.0)
[2021-11-03] MEDS: HEPARIN SOD/D5W 100 UNITS/ML 25,000 UNITS/250 ML BAG 12 UNITS IV CONT (06:15)
[2021-11-03 06:37] LABS: Alanine Aminotransferase 43 U/L (4-35); Albumin Level 3.2 g/dL (3.5-5.1); Alkaline Phosphatase 71 U/L (38-126); Anion Gap 2 mmol/L (8-16); Aspartate Amino Transferase 47 U/L (14-36); Bilirubin,Total 0.3 mg/dL (0.2-1.3); Blood Urea Nitrogen 14 mg/dL (7-17); Calcium 8.1 mg/dL (8.4-10.2); Carbon Dioxide 32 mmol/L (22-30); Chloride 101 mmol/L (98-107); Estimated CRCL calculation 67 ml/min; Estimated Glomerular Filt Rate > 60; Glucose 114 mg/dL (65-110); Potassium 3.1 mmol/L (3.4-5.0); Sodium 135 mmol/L (137-145)
[2021-11-03] MEDS: METOPROLOL TARTRATE 50 MG TAB 100 MG PO ×2 (08:30→20:55)
[2021-11-03] MEDS: POTASSIUM CHLORIDE 20 MEQ TABLET 40 MEQ PO (08:30)
[2021-11-03] MEDS: SIMVASTATIN 20 MG TABLET PO (08:31)
[2021-11-03] MEDS: MONTELUKAST SODIUM 10 MG TABLET PO (08:31)
[2021-11-03] MEDS: predniSONE 20 MG TABLET 60 MG PO (08:31)
[2021-11-03] MEDS: CITALOPRAM HYDROBROMIDE 20 MG TABLET PO ×2 (08:31→17:00)
[2021-11-03] MEDS: POTASSIUM CHLORIDE 10 MEQ TABLET.ER PO (08:31)
[2021-11-03] MEDS: FUROSEMIDE 40 MG TABLET PO (08:31)
[2021-11-03] MEDS: LOSARTAN POTASSIUM 50 MG TABLET PO (08:31)
[2021-11-03] MEDS: ALBUTEROL SULFATE NEB 2.5 MG/0.5 ML INH 5 MG INHALATION ×3 (08:43→20:08)
[2021-11-03] MEDS: FLUTICASONE/SALMETEROL 230-21 MCG INHALER 1 PUFF 2 PUFF INHALATION ×2 (08:44→20:12)
[2021-11-03] MEDS: IPRATROPIUM BR 0.02% INH SOLN 0.5 MG/2.5 ML VIAL INHALATION ×3 (08:44→20:08)
--- NOTE | 2021-11-03 10:20 | PM.IMPN ---
Progress Note: A&P Assessment and Plan (1) Acute respiratory failure with hypoxia: Code(s): J96.01 - Acute respiratory failure with hypoxia Status: Acute Assessment and Plan: -CXR in ED no acute cardiopulmonary disease, however pt was started on rocephin/azithromycin as patient has COPD and reports productive cough with yellow sputum x 1 week, transition to oral Levaquin CTA positive for bilateral pulmonary emboli, likely the source of patient's hypoxia -she normally wears 2.5L NC at home, she is currently on 4L NC (2) Pulmonary embolism: Code(s): I26.99 - Other pulmonary embolism without acute cor pulmonale Status: Acute Assessment and Plan: -as above -started on heparin drip per protocol initially, will transition to Eliquis -echo revealed a normal LVEF of 70% with normal diastolic function. However mention mild pulmonary hypertension, patient has a longstanding history of COPD. -risk factors include daily smoker and inactivity, (possible skin cancer?? lesion to LLE needs biopsied) Venous duplex negative for DVT, however found Superficial thrombosis in the left soleus vein. (3) COPD (chronic obstructive pulmonary disease): Qualifiers: COPD type: unspecified COPD Qualified Code(s): J44.9 - Chronic obstructive pulmonary disease, unspecified Code(s): J44.9 - Chronic obstructive pulmonary disease, unspecified Status: Acute Assessment and Plan: -as above -nebs and prednisone -continue home inahlers (4) Pneumonia: Qualifiers: Laterality: unspecified laterality Lung location: unspecified part of lung Pneumonia type: due to unspecified organism Qualified Code(s): J18.9 - Pneumonia, unspecified organism Code(s): J18.9 - Pneumonia, unspecified organism Status: Acute Assessment and Plan: -as above -no pneumonia noted on imaging however pt does have COPD with sputum changes so will continue abx for now (5) CHF (congestive heart failure): Code(s): I50.9 - Heart failure, unspecified Status: Acute Assessment and Plan: -pt denies this however does have lasix on med list Echo revealed LVEF 70% with normal diastolic function, mild pulmonary hypertension (6) Anxiety: Code(s): F41.9 - Anxiety disorder, unspecified Status: Chronic Assessment and Plan: -continue citalopram Concerns for the patient going. Patient reportedly came in to this facility unkempt and was found to have intermittent episodes of incontinence and stool on her. Patient will need further case management consultation. (7) HTN (hypertension): Code(s): I10 - Essential (primary) hypertension Status: Chronic Assessment and Plan: -continue home meds (8) Hyperlipidemia: Code(s): E78.5 - Hyperlipidemia, unspecified Status: Chronic Assessment and Plan: -continue home meds (9) Hypokalemia: Code(s): E87.6 - Hypokalemia Status: Acute Assessment and Plan: -mild, resume patient's home dose of 20 meq KCL daily Additional 40 mEq Klor-Con administered today (10) Leg wound, left: Code(s): S81.802A - Unspecified open wound, left lower leg, initial encounter Status: Acute Assessment and Plan: -evaluated by wound care nurse who has concerns for malignancy -Plastic surgeon Dr. Flores to follow as an outpatient for further evaluation for malignancy concerns -continue local care per wound care instructions (11) Left-sided weakness: Code(s): R53.1 - Weakness Status: Acute Assessment and Plan: -reported by patient, no weakness noted on my exam today -no focal deficits noted -MRI brain negative, did report pontine disease and chronic small-vessel ischemic disease. Patient should follow with her primary care physician as an outpatient and discuss possible Neurology consult and PT/OT
[2021-11-03] MEDS: APIXABAN 5 MG TABLET 10 MG PO ×2 (11:31→20:57)
[2021-11-03] MEDS: levoFLOXacin 500 MG TABLET PO (11:31)
--- NOTE | 2021-11-03 14:44 | PCRCNOTE ---
PT. IS STILL VERY SOB AT REST AND WITH ACTIVITY. PT. STOOD ON SIDE OF BED DURING TESTING AND REQUIRED 5LPM TO MAINTAIN SPO2 OF 88%. COULD NOT TAKE STEPS AND HAD TO SIT BACK DOWN. CALLED PROVIDER JOAQUIM AND UPDATED HER. HOLDING OFF ON SETTING UP O2 AT THIS TIME UNTIL PT. IS LESS SYMPTOMATIC AND CLOSER TO BASELINE.
[2021-11-04] VITALS (17 sets, daily range): BP systolic 97–132; BP diastolic 49–74; PULSE 64–83; RESP 16–20; TEMP 36.3–36.7; O2SAT 92–95
[2021-11-04] MEDS: ALBUTEROL SULFATE NEB 2.5 MG/0.5 ML INH 5 MG INHALATION ×4 (01:33→20:05)
[2021-11-04] MEDS: IPRATROPIUM BR 0.02% INH SOLN 0.5 MG/2.5 ML VIAL INHALATION ×4 (01:33→20:05)
[2021-11-04 06:47] LABS: Basophils Percent Auto 0.3 % (0.2-1.2); Eosinophils Percent Auto 0.1 % (0-4.4); Hematocrit 39.2 % (37.0-47.0); Immature Granulocyte Absolute 0.04 K/mm3 (0.00-0.031); Immature Granulocyte Percent A 0.4 % (0-0.5); Lymphocytes Absolute Auto 1.84 K/mm3 (0.9-3.2); Lymphocytes Percent Auto 19.8 % (18.3-44.2); Mean Corpuscular HGB Conc 33.2 g/dl (32-36); Mean Corpuscular Hemoglobin 33.2 pg (26-34); Mean Platelet Volume 10.8 fl (7.4-10.4); Monocytes Absolute Auto 0.9 K/mm3 (0.1-0.6); Monocytes Percent Auto 9.6 % (2.6-8.5); Neutrophils Absolute Auto 6.5 K/mm3 (1.3-6.7); Neutrophils Percent Auto 69.8 % (45.5-73.1); Platelet Count Result 178 k/mm3 (150-375); Red Blood Count 3.92 M/mm3 (4.2-5.4); Red Cell Distribution Width 12.6 % (11.5-14.5); White Blood Count 9.3 K/mm3 (4.5-10.0)
[2021-11-04 07:01] LABS: Alanine Aminotransferase 45 U/L (4-35); Albumin Level 3.3 g/dL (3.5-5.1); Alkaline Phosphatase 63 U/L (38-126); Anion Gap 3 mmol/L (8-16); Aspartate Amino Transferase 42 U/L (14-36); Bilirubin,Total 0.4 mg/dL (0.2-1.3); Blood Urea Nitrogen 17 mg/dL (7-17); Calcium 8.1 mg/dL (8.4-10.2); Carbon Dioxide 35 mmol/L (22-30); Chloride 99 mmol/L (98-107); Estimated CRCL calculation 51 ml/min; Estimated Glomerular Filt Rate > 60; Glucose 85 mg/dL (65-110); Sodium 137 mmol/L (137-145)
[2021-11-04] MEDS: FLUTICASONE/SALMETEROL 230-21 MCG INHALER 1 PUFF 2 PUFF INHALATION ×2 (08:47→20:05)
--- NOTE | 2021-11-04 09:01 | PM.IMPN ---
Progress Note: A&P Assessment and Plan (1) Acute respiratory failure with hypoxia: Code(s): J96.01 - Acute respiratory failure with hypoxia Status: Acute Assessment and Plan: -CXR in ED no acute cardiopulmonary disease, however pt was started on rocephin/azithromycin as patient has COPD and reports productive cough with yellow sputum x 1 week, transition to oral Levaquin on 11/03/2021 CTA positive for bilateral pulmonary emboli, likely the source of patient's hypoxia -she normally wears 2.5L NC at home (2) Pulmonary embolism: Code(s): I26.99 - Other pulmonary embolism without acute cor pulmonale Status: Acute Assessment and Plan: -as above -started on heparin drip per protocol initially, will transition to Eliquis -echo revealed a normal LVEF of 70% with normal diastolic function. However mention mild pulmonary hypertension, patient has a longstanding history of COPD. -risk factors include daily smoker and inactivity, (possible skin cancer?? lesion to LLE needs biopsied) Venous duplex negative for DVT, however found Superficial thrombosis in the left soleus vein. (3) COPD (chronic obstructive pulmonary disease): Qualifiers: COPD type: unspecified COPD Qualified Code(s): J44.9 - Chronic obstructive pulmonary disease, unspecified Code(s): J44.9 - Chronic obstructive pulmonary disease, unspecified Status: Acute Assessment and Plan: -as above -nebs and prednisone -continue home inahlers (4) Pneumonia: Qualifiers: Laterality: unspecified laterality Lung location: unspecified part of lung Pneumonia type: due to unspecified organism Qualified Code(s): J18.9 - Pneumonia, unspecified organism Code(s): J18.9 - Pneumonia, unspecified organism Status: Acute Assessment and Plan: -as above -no pneumonia noted on imaging however pt does have COPD with sputum changes so will continue abx for now (5) CHF (congestive heart failure): Code(s): I50.9 - Heart failure, unspecified Status: Acute Assessment and Plan: -pt denies this however does have lasix on med list Echo revealed LVEF 70% with normal diastolic function, mild pulmonary hypertension (6) Anxiety: Code(s): F41.9 - Anxiety disorder, unspecified Status: Chronic Assessment and Plan: -continue citalopram Concerns for the patient going. Patient reportedly came in to this facility unkempt and was found to have intermittent episodes of incontinence and stool on her. Patient will need further case management consultation. (7) HTN (hypertension): Code(s): I10 - Essential (primary) hypertension Status: Chronic Assessment and Plan: -continue home meds (8) Hyperlipidemia: Code(s): E78.5 - Hyperlipidemia, unspecified Status: Chronic Assessment and Plan: -continue home meds (9) Hypokalemia: Code(s): E87.6 - Hypokalemia Status: Acute Assessment and Plan: -mild, resume patient's home dose of 20 meq KCL daily Additional 40 mEq IVPB administered today Monitor serum electrolytes (10) Leg wound, left: Code(s): S81.802A - Unspecified open wound, left lower leg, initial encounter Status: Acute Assessment and Plan: -evaluated by wound care nurse who has concerns for malignancy -Plastic surgeon Dr. Flores to follow as an outpatient for further evaluation for malignancy concerns -continue local care per wound care instructions (11) Left-sided weakness: Code(s): R53.1 - Weakness Status: Acute Assessment and Plan: -reported by patient, no weakness noted on my exam today -no focal deficits noted -MRI brain negative, did report pontine disease and chronic small-vessel ischemic disease. Patient should follow with her primary care physician as an outpatient and discuss possible Neurology consult
[2021-11-04] MEDS: levoFLOXacin 500 MG TABLET PO (09:05)
[2021-11-04] MEDS: APIXABAN 5 MG TABLET 10 MG PO ×2 (09:05→20:05)
[2021-11-04] MEDS: MONTELUKAST SODIUM 10 MG TABLET PO (09:05)
[2021-11-04] MEDS: POTASSIUM CHLORIDE INJ 40 MEQ in SODIUM CHLORIDE 0.9% IV 500 ML 130 MEQ IVPB (09:05)
[2021-11-04] MEDS: SIMVASTATIN 20 MG TABLET PO (09:06)
[2021-11-04] MEDS: CITALOPRAM HYDROBROMIDE 20 MG TABLET PO ×2 (09:06→18:14)
[2021-11-04] MEDS: LOSARTAN POTASSIUM 50 MG TABLET PO (09:06)
[2021-11-04] MEDS: METOPROLOL TARTRATE 50 MG TAB 100 MG PO ×2 (09:06→20:05)
[2021-11-04] MEDS: POTASSIUM CHLORIDE 10 MEQ TABLET.ER PO (09:06)
[2021-11-04] MEDS: predniSONE 20 MG TABLET 40 MG PO (09:06)
[2021-11-04] MEDS: FUROSEMIDE 40 MG TABLET PO (09:07)
[2021-11-05] VITALS (11 sets, daily range): BP systolic 129; BP diastolic 73; PULSE 62–72; RESP 16–20; TEMP 36.1; O2SAT 93–97
[2021-11-05] MEDS: ALBUTEROL SULFATE NEB 2.5 MG/0.5 ML INH 5 MG INHALATION ×3 (02:25→14:05)
[2021-11-05] MEDS: IPRATROPIUM BR 0.02% INH SOLN 0.5 MG/2.5 ML VIAL INHALATION ×3 (02:25→14:05)
[2021-11-05 06:51] LABS: Potassium 3.7 mmol/L (3.4-5.0)
[2021-11-05 08:11] LABS: Alanine Aminotransferase 49 U/L (4-35); Albumin Level 3.2 g/dL (3.5-5.1); Alkaline Phosphatase 52 U/L (38-126); Anion Gap 2 mmol/L (8-16); Aspartate Amino Transferase 54 U/L (14-36); Bilirubin,Total 0.5 mg/dL (0.2-1.3); Blood Urea Nitrogen 16 mg/dL (7-17); Calcium 8.2 mg/dL (8.4-10.2); Carbon Dioxide 34 mmol/L (22-30); Chloride 99 mmol/L (98-107); Estimated CRCL calculation 58 ml/min; Estimated Glomerular Filt Rate > 60; Glucose 71 mg/dL (65-110); Magnesium 1.7 mg/dL (1.6-2.3); Potassium 3.7 mmol/L (3.4-5.0); Sodium 135 mmol/L (137-145)
[2021-11-05 08:24] LABS: Basophils Percent Auto 0.2 % (0.2-1.2); Eosinophils Absolute Auto 0.1 K/mm3 (0-0.3); Eosinophils Percent Auto 0.7 % (0-4.4); Hematocrit 39.7 % (37.0-47.0); Hemoglobin 13.1 g/dL (12.0-15.0); Immature Granulocyte Absolute 0.04 K/mm3 (0.00-0.031); Immature Granulocyte Percent A 0.5 % (0-0.5); Lymphocytes Absolute Auto 1.61 K/mm3 (0.9-3.2); Lymphocytes Percent Auto 18.3 % (18.3-44.2); Mean Corpuscular Hemoglobin 33.3 pg (26-34); Mean Platelet Volume 11.4 fl (7.4-10.4); Monocytes Absolute Auto 0.9 K/mm3 (0.1-0.6); Neutrophils Absolute Auto 6.2 K/mm3 (1.3-6.7); Neutrophils Percent Auto 70.3 % (45.5-73.1); Platelet Count Result 185 k/mm3 (150-375); Red Blood Count 3.93 M/mm3 (4.2-5.4); Red Cell Distribution Width 12.5 % (11.5-14.5); White Blood Count 8.8 K/mm3 (4.5-10.0)
[2021-11-05] MEDS: METOPROLOL TARTRATE 50 MG TAB 100 MG PO (08:44)
[2021-11-05] MEDS: LOSARTAN POTASSIUM 50 MG TABLET PO (08:45)
[2021-11-05] MEDS: APIXABAN 5 MG TABLET 10 MG PO (08:45)
[2021-11-05] MEDS: levoFLOXacin 500 MG TABLET PO (08:45)
[2021-11-05] MEDS: CITALOPRAM HYDROBROMIDE 20 MG TABLET PO (08:45)
[2021-11-05] MEDS: SIMVASTATIN 20 MG TABLET PO (08:45)
[2021-11-05] MEDS: predniSONE 20 MG TABLET 40 MG PO (08:45)
[2021-11-05] MEDS: MONTELUKAST SODIUM 10 MG TABLET PO (08:45)
[2021-11-05] MEDS: POTASSIUM CHLORIDE 10 MEQ TABLET.ER PO (08:45)
[2021-11-05] MEDS: FUROSEMIDE 40 MG TABLET PO (08:45)
[2021-11-05] MEDS: FLUTICASONE/SALMETEROL 230-21 MCG INHALER 1 PUFF 2 PUFF INHALATION (09:19)
--- NOTE | 2021-11-05 10:59 | PM.IMPN ---
Progress Note: A&P Assessment and Plan (1) Acute respiratory failure with hypoxia: Code(s): J96.01 - Acute respiratory failure with hypoxia Status: Acute Assessment and Plan: -CXR in ED no acute cardiopulmonary disease, however pt was started on rocephin/azithromycin as patient has COPD and reports productive cough with yellow sputum x 1 week, transition to oral Levaquin on 11/03/2021 CTA positive for bilateral pulmonary emboli, likely the source of patient's hypoxia -she normally wears 2.5L NC at home (2) Pulmonary embolism: Code(s): I26.99 - Other pulmonary embolism without acute cor pulmonale Status: Acute Assessment and Plan: -as above -started on heparin drip per protocol initially, will transition to Eliquis -echo revealed a normal LVEF of 70% with normal diastolic function. However mention mild pulmonary hypertension, patient has a longstanding history of COPD. -risk factors include daily smoker and inactivity, (possible skin cancer?? lesion to LLE needs biopsied) Venous duplex negative for DVT, however found Superficial thrombosis in the left soleus vein. (3) COPD (chronic obstructive pulmonary disease): Qualifiers: COPD type: unspecified COPD Qualified Code(s): J44.9 - Chronic obstructive pulmonary disease, unspecified Code(s): J44.9 - Chronic obstructive pulmonary disease, unspecified Status: Acute Assessment and Plan: -as above -nebs and prednisone -continue home inahlers (4) Pneumonia: Qualifiers: Laterality: unspecified laterality Lung location: unspecified part of lung Pneumonia type: due to unspecified organism Qualified Code(s): J18.9 - Pneumonia, unspecified organism Code(s): J18.9 - Pneumonia, unspecified organism Status: Resolved Assessment and Plan: -as above -no pneumonia noted on imaging however pt does have COPD with sputum changes so will continue abx for now (5) CHF (congestive heart failure): Code(s): I50.9 - Heart failure, unspecified Status: Acute Assessment and Plan: -pt denies this however does have lasix on med list Echo revealed LVEF 70% with normal diastolic function, mild pulmonary hypertension - no acute issues, resolved (6) Anxiety: Code(s): F41.9 - Anxiety disorder, unspecified Status: Chronic Assessment and Plan: -continue citalopram Concerns for the patient going. Patient reportedly came in to this facility unkempt and was found to have intermittent episodes of incontinence and stool on her. Patient will need further case management consultation. -Pending skilled facility placement (7) HTN (hypertension): Code(s): I10 - Essential (primary) hypertension Status: Chronic Assessment and Plan: -continue home meds (8) Hyperlipidemia: Code(s): E78.5 - Hyperlipidemia, unspecified Status: Chronic Assessment and Plan: -continue home meds (9) Hypokalemia: Code(s): E87.6 - Hypokalemia Status: Acute Assessment and Plan: -mild, resume patient's home dose of 20 meq KCL daily Additional 40 mEq IVPB administered today Monitor serum electrolytes -resolved (10) Leg wound, left: Code(s): S81.802A - Unspecified open wound, left lower leg, initial encounter Status: Acute Assessment and Plan: -evaluated by wound care nurse who has concerns for malignancy -Plastic surgeon Dr. Flores to follow as an outpatient for further evaluation for malignancy concerns -continue local care per wound care instructions (11) Left-sided weakness: Code(s): R53.1 - Weakness Status: Acute Assessment and Plan: -reported by patient, no weakness noted on my exam today -no focal deficits noted -MRI brain negative, did report pontine disease and chronic small-vessel ischemic disease. Patient should follow with her
--- NOTE | 2021-11-05 12:02 | PM.DS ---
DS: Admitting Diagnosis Discharge Date 11/05/2021 Admitting Diagnosis Pulmonary embolism Acute respiratory failure with hypoxia COPD Pneumonia new line CHF new line anxiety new line hypertension new line hyperlipidemia Hypokalemia Left lower extremity wound Left-sided weakness DS: Discharge Diagnosis Discharge Diagnosis (1) Acute respiratory failure with hypoxia: Code(s): J96.01 - Acute respiratory failure with hypoxia Status: Acute Assessment and Plan: -CXR in ED no acute cardiopulmonary disease, however pt was started on rocephin/azithromycin as patient has COPD and reports productive cough with yellow sputum x 1 week, transition to oral Levaquin on 11/03/2021 CTA positive for bilateral pulmonary emboli, likely the source of patient's hypoxia -she normally wears 2.5L NC at home (2) Pulmonary embolism: Code(s): I26.99 - Other pulmonary embolism without acute cor pulmonale Status: Acute Assessment and Plan: -as above -started on heparin drip per protocol initially, will transition to Eliquis -echo revealed a normal LVEF of 70% with normal diastolic function. However mention mild pulmonary hypertension, patient has a longstanding history of COPD. -risk factors include daily smoker and inactivity, (possible skin cancer?? lesion to LLE needs biopsied) Venous duplex negative for DVT, however found Superficial thrombosis in the left soleus vein. (3) COPD (chronic obstructive pulmonary disease): Qualifiers: COPD type: unspecified COPD Qualified Code(s): J44.9 - Chronic obstructive pulmonary disease, unspecified Code(s): J44.9 - Chronic obstructive pulmonary disease, unspecified Status: Acute Assessment and Plan: -as above -nebs and prednisone -continue home inahlers (4) Pneumonia: Qualifiers: Laterality: unspecified laterality Lung location: unspecified part of lung Pneumonia type: due to unspecified organism Qualified Code(s): J18.9 - Pneumonia, unspecified organism Code(s): J18.9 - Pneumonia, unspecified organism Status: Resolved Assessment and Plan: -as above -no pneumonia noted on imaging however pt does have COPD with sputum changes so will continue abx for now (5) CHF (congestive heart failure): Code(s): I50.9 - Heart failure, unspecified Status: Acute Assessment and Plan: -pt denies this however does have lasix on med list Echo revealed LVEF 70% with normal diastolic function, mild pulmonary hypertension - no acute issues, resolved (6) Anxiety: Code(s): F41.9 - Anxiety disorder, unspecified Status: Chronic Assessment and Plan: -continue citalopram Concerns for the patient going. Patient reportedly came in to this facility unkempt and was found to have intermittent episodes of incontinence and stool on her. Patient will need further case management consultation. -Pending skilled facility placement (7) HTN (hypertension): Code(s): I10 - Essential (primary) hypertension Status: Chronic Assessment and Plan: -continue home meds (8) Hyperlipidemia: Code(s): E78.5 - Hyperlipidemia, unspecified Status: Chronic Assessment and Plan: -continue home meds (9) Hypokalemia: Code(s): E87.6 - Hypokalemia Status: Acute Assessment and Plan: -mild, resume patient's home dose of 20 meq KCL daily Additional 40 mEq IVPB administered today Monitor serum electrolytes -resolved (10) Leg wound, left: Code(s): S81.802A - Unspecified open wound, left lower leg, initial encounter Status: Acute Assessment and Plan: -evaluated by wound care nurse who has concerns for malignancy -Plastic surgeon Dr. Flores to follow as an outpatient for further evaluation for malignancy concerns -continue local care per wound care instructions (11) Left-sided wea
[2021-11-05 12:47] LABS: EDCOVIDSCREEN Negative (Negative)
== END 2021-11-05 14:57 | DRG 175 ==
LOC: ANHED 04:50 → ANH3MEDSUR 05:08
PROVIDERS: Physician Assistant; Admitting Provider Internal Medicine; Emergency Provider Emergency Medicine; PCP Family Medicine; Visit Provider Nurse Practitioner Family
DX: I26.99 Other pulmonary embolism without acute cor pulmonale (principal); J96.01 Acute respiratory failure with hypoxia; I82.812 Embolism and thrombosis of superficial veins of left lower extremity; Z20.822 Contact with and (suspected) exposure to COVID-19; E78.5 Hyperlipidemia, unspecified; I11.0 Hypertensive heart disease with heart failure; I50.9 Heart failure, unspecified; F41.9 Anxiety disorder, unspecified; M51.9 Unspecified thoracic, thoracolumbar and lumbosacral intervertebral disc disorder; M50.90 Cervical disc disorder, unspecified, unspecified cervical region; F17.210 Nicotine dependence, cigarettes, uncomplicated; Z82.49 Family history of ischemic heart disease and other diseases of the circulatory system; Z80.3 Family history of malignant neoplasm of breast; E87.6 Hypokalemia; S81.802A Unspecified open wound, left lower leg, initial encounter; R53.1 Weakness; Z99.81 Dependence on supplemental oxygen; I27.20 Pulmonary hypertension, unspecified; Z79.899 Other long term (current) drug therapy; Z79.51 Long term (current) use of inhaled steroids; J44.9 Chronic obstructive pulmonary disease, unspecified
CPT/HCPCS: 36415; 36600; 70551; 71045; 71275; 80053; 81001; 82805; 83735; 83880; 84132; 85025; 85610; 85730; 87040; 87426; 93005; 93306; 94640; 96365; 96367; 96375; 97110; 97161; 97165; 97530; 99285; A9270; C9803; G0378; J0456; J0696; J1644; J1940; J2930; J3475; J3480; J7040; J7512; Q9967; U0003; U0005

== ENCOUNTER → 2021-12-23 10:49 | Outpatient (REF) | payer MEDICARE, SELFPAY | LOC: ANHLAB 10:49 | PROVIDERS: PCP Family Medicine; Visit Provider Nurse Practitioner | DX: L90.5 Scar conditions and fibrosis of skin (principal) | CPT/HCPCS: 88305 ==

== ENCOUNTER → 2022-01-06 11:28 | Outpatient (REF) | payer MEDICARE, SELFPAY | LOC: ANHLAB 11:28 | PROVIDERS: PCP Family Medicine; Visit Provider Nurse Practitioner | DX: L72.0 Epidermal cyst (principal) | CPT/HCPCS: 88304; 88305 ==

== ENCOUNTER 2024-03-23 13:36 | Inpatient (IN) | payer MEDICARE, SELFPAY ==
[2024-03-23] VITALS (26 sets, daily range): BP systolic 111–134; BP diastolic 54–66; PULSE 63–93; RESP 18–24; TEMP 36.4–36.5; O2SAT 90–98; BMI 35.4
--- NOTE | ~2024-03-23 | XR_ITS ---
Lumbosacral Spine: AP and lateral views Clinical History: Pain Findings: The normal lordotic curve is maintained. The vertebral bodies and posterior elements are i ntact. There are minimal degenerative disc changes in lumbar spine. There is severe facet arthropathy throughout the lumbar spine. There are extensive atherosclerotic calcification of the aorta. The sa croiliac joints are normally outlined. Impression: Moderate to advanced degenerative spondylosis, as above. Reviewed, dictated and finalized at location M. Impression: Moderate to advanced degenerative spondylosis, as above.
--- NOTE | ~2024-03-23 | XR_ITS ---
XR hip BI 2V w AP pelvis DATE: 03/24/2024 20:42 INDICATION: Fall TECHNIQUE: AP pelvis. AP and lateral views of each hip. COMPARISON: None FINDINGS: There is osteopenia. Normal alignment at the pubic symphysis and sacroiliac joints. No pelvic fracture or bone destruction is evident. The sacrum is not well demonstrated due to osteope sully and overlying bowel shadows. Hip joint spaces appear symmetric and relatively preserved. Bone detail at the hips is limited due to osteopenia and body habitus. No apparent fracture or disloc ation or bone destruction is noted in either hip. IMPRESSION: Limited examination due to osteopenia and body habitus No apparent pelvic or right or left hip fracture is noted If there is strong concern for pelvic or hip fracture, consider CT for further evaluation. Reviewed, dictated and finalized at [facility] J.
--- NOTE | ~2024-03-23 | XR_ITS ---
XR chest 1V portable DATE: 03/23/2024 13:52 INDICATION: Dyspnea TECHNIQUE: Portable upright AP chest on 03/23/2024 at 1347 hours COMPARISON: None available from PACS at this time FINDINGS: Cardiomegaly. There is pulmonary vascular congestion and redistribution. Curly B-lines are noted. Minimal pleural effusions maybe present. Mild hazy bilateral diffuse pulmonary infiltrates. Th e findings suggest congestive heart failure, pulmonary edema. Mild atelectasis at the right lung base. Bilateral hyperinflation suggests COPD There is aortic arch calcification, mild aortic unfolding. Osteopenia. Thoracolumbar dextroscoliosis IMPRESSION: Congestive heart failure, pulmonary edema Right mild basilar atelectasis COPD is suggested Aortic atherosclerosis Osteopenia Reviewed, dictated and finalized at location J.
--- NOTE | 2024-03-23 13:39 | ECG_ITS ---
Test Date: 2024-03-23 13:42:29 Measurements Intervals [place] Rate: 70 P: 81 WI: 176 QRS: -1 QRSD: 105 T: 95 QT: 389 QTc: 420 Interpretive Statements SINUS RHYTHM INCOMPLETE RIGHT BUNDLE BRANCH BLOCK [90+ ms QRS DURATION, TERMINAL R IN V1/V2, 40+ ms S IN I/aVL/V4/V5/V6] ABNORMAL ECG No previous ECG available for comparison Electronically Signed On 03-24-2024 08:52:27 CDT by Art Chun M.D.
[2024-03-23 13:53] LABS: Basophils Absolute Auto 0.1 K/mm3 (0.0-0.1); Basophils Percent Auto 0.7 % (0.2-1.2); Eosinophils Absolute Auto 0.1 K/mm3 (0-0.3); Eosinophils Percent Auto 0.7 % (0-4.4); Hematocrit 43.1 % (37.0-47.0); Hemoglobin 14.1 g/dL (12.0-15.0); Immature Granulocyte Absolute 0.03 K/mm3 (0.00-0.031); Immature Granulocyte Percent A 0.3 % (0-0.5); Lymphocytes Absolute Auto 1.16 K/mm3 (0.9-3.2); Lymphocytes Percent Auto 11.5 % (18.3-44.2); Mean Corpuscular HGB Conc 32.7 g/dl (32-36); Mean Corpuscular Hemoglobin 31.5 pg (26-34); Mean Corpuscular Volume 96.2 fl (80-100); Mean Platelet Volume 9.6 fl (7.4-10.4); Monocytes Percent Auto 9.8 % (2.6-8.5); Neutrophils Absolute Auto 7.8 K/mm3 (1.3-6.7); Platelet Count Result 204 k/mm3 (150-375); Red Blood Count 4.48 M/mm3 (4.2-5.4); Red Cell Distribution Width 14.2 % (11.5-14.5); White Blood Count 10.1 K/mm3 (4.5-10.0)
[2024-03-23 14:04] LABS: Lactic Acid Reflex 1.1 mmol/L (0.7-2.0)
[2024-03-23 14:05] LABS: Alanine Aminotransferase 24 U/L (6-35); Albumin Level 4.1 g/dL (3.5-5.1); Alkaline Phosphatase 93 U/L (38-126); Anion Gap 10 mmol/L (4-12); Aspartate Amino Transferase 29 U/L (14-36); Bilirubin,Total 1.1 mg/dL (0.2-1.3); Blood Urea Nitrogen 12 mg/dL (7-17); Calcium 8.6 mg/dL (8.4-10.2); Carbon Dioxide 29 mmol/L (22-30); Chloride 96 mmol/L (98-107); Estimated CRCL calculation 72 ml/min; Estimated Glomerular Filt Rate > 60; Glucose 94 mg/dL (65-110); Potassium 3.1 mmol/L (3.4-5.0); Sodium 135 mmol/L (137-145)
[2024-03-23 14:06] LABS: Alveolar/Arterial O2 Gradient 147.9 mmHg; Base Excess ABG 4.3 mEq/l (+/-2.0); Fractional Inspired Oxygen 40 %; HCO3 ABG 30.1 mEq/l (22.0-26.0); Oxygen Content ABG 19.1 %vol (16.0-22.0); Oxygen Saturation ABG 95.8 % (95.0-100.0); Oxyhemoglobin 91.7 % THb (90.0-100.0); PCO2 ABG 49.4 mmHg (35.0-45.0); PO2 ABG 80.5 mmHg (80.0-100.0); PO2 FiO2 Ratio Arterial Blood 2.01 %; Total Hemoglobin 14.8 g/dL (12.0-18.0); pH ABG 7.403 (7.350-7.450)
[2024-03-23 14:07] LABS: Device NASAL CANNULA; Modified Allen's Test Pass; Site Drawn LEFT RADIAL
[2024-03-23] MEDS: IPRATROPIUM BR 0.02% INH SOLN 0.5 MG/2.5 ML VIAL 1.5 MG INHALATION (14:18)
[2024-03-23] MEDS: ALBUTEROL SULFATE NEB 2.5 MG/3 ML INH 15 MG INHALATION (14:18)
[2024-03-23 14:29] LABS: Influenza A QL RT-PCR Negative (Negative); Influenza B QL RT-PCR Negative (Negative); RSV RNA, RT-PCR Negative (Negative); SARS-CoV-2 RNA PCR Negative (Negative)
--- NOTE | 2024-03-23 15:09 | ED.SOB ---
HPI - SOB/Dyspnea General Chief Complaint: Shortness of Breath/Dyspnea Stated Complaint: SOB since last noc Time Seen by Provider: 03/23/24 13:40 History of Present Illness HPI Narrative: Patient is a 78-year-old female who presents ER with shortness of breath. Sudden onset last night. Has history of CHF and COPD. EMS provided Decadron and magnesium EN route as well as a nebulizer treatment. Patient does not wear oxygen at home but is currently requiring 5 L nasal cannula. Related Data Home Medications Medication Instructions Recorded Confirmed furosemide 20 mg tablet 40 mg PO DAILY 11/02/21 12/20/23 Allergies Allergy/AdvReac Type Severity Reaction Status Date / Time acetaminophen Allergy Intermediate HIVES Verified 03/23/24 13:49 Review of Systems Review of Systems: All systems reviewed & are unremarkable except as noted in HPI and below Constitutional: Constitutional: Reports no additional constitutional complaints ENT: Reports system reviewed and no additional complaints, except as documented Cardiovascular: Cardiovascular: Reports no additional cardiovascular complaints Respiratory: Respiratory: Reports cough, Reports dyspnea and Reports wheezing Gastrointestinal: Gastrointestinal: Reports no additional gastrointestinal complaints Musculoskeletal: Musculoskeletal: Reports no additional musculoskeletal complaints PMFSH Past Medical History Medical History 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 Cervical disc disease CHF (congestive heart failure) COPD (chronic obstructive pulmonary disease) History of Mohs micrographic surgery for skin cancer HTN (hypertension) Hyperlipidemia Lumbar disc disease Overweight Surgical History Surgical History H/O: hysterectomy History of colonoscopy with polypectomy (~04/2019) Hx of cardiac cath No intervention performed Family History Family History Other Family history of atrial fibrillation Family history of lung cancer Family history of malignant neoplasm of breast in first degree relative Heart disease Hypertension Social History Social History Social History: The patient lives home alone. She is . 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 She has 2 children. The patient desires to be a full code and does not have a durable power attorney general for healthcare. However she said that her son could be the durable power attorney general for healthcare. Patient still continues to smoke on a daily basis she smoked for several years. Least a pack cigarettes a day. She denies any marijuana or illicit drugs. States she drinks approximately 3 glasses of wine daily. Smoking packs per day: 0.75 Smoking cigarettes per day: 15.0 Years smoked: 50 Smoking pack-years: 37.50 Smoking status: Current every day smoker Second hand tobacco smoke exposure: Yes Alcohol intake: current Drinks per week: 21 Alcohol use details: 3 glasses of wine daily Substance use: never Substance use type: does not use Lack of Transportation: No Lack of Food: Never True Current Housing: I Have Housing Concerned About Future Housing: No Difficulty Paying Gas/Electric Bills: No Difficulty Paying for Meds: YES Currently Unemployed: No Education: High School Diploma/GED Difficulty w/ Childcare or Family Care: No Living arrangements: alone Occupation/Education: retired Gender identity (if verbalized by the patient): Female Spiritual care concerns: No Agree to blood products: Yes Exam Narrative: GENERAL: Chronically ill-appearing, well-nourished, and in no acute distress. HEAD: Normocephalic, atraumatic. ENT: Mucous membranes moist. CHEST: Basilar rales and wheezing and diminished at the apices, mild increased respiratory
[2024-03-23] MEDS: FUROSEMIDE INJ 40 MG/4 ML VIAL IV PUSH ×2 (15:34→21:08)
[2024-03-23 15:43] LABS: NT Pro B Type Natriuretic Pept 2170 pg/mL (19.9-100)
--- NOTE | 2024-03-23 16:56 | PM.IMHP ---
H&P: HPI History of Present Illness Date/Time: 03/23/24 16:56 Chief Complaint: SOB Narrative: 78-year-old female with PMHx: of CHF, COPD on home oxygen at [facility], is being admitted for acute respiratory failure. Ms. Marte reports that she lives alone, she states two nights ago she had a fall and was unable to get up, she reports calling her daughter to come assist her from the floor. Betty tells me that she laid on the floor for over 3 hours due to it being late at night and her not wanting to disturb her daughter. Pt reports the next day after the fall she continued to feel moderate weakness, but then suddenly she experienced extreme sob that prompted her/family to call 911. She reports a history of experiencing extreme sob when she is standing and sometimes when she is resting, she relates this to moderate anxiety, she tells me that she has episodes of SOB that involve, diaphoresis, upper extremity shaking, along with bilateral lower extremity weakness and bowel incontinence. ED work-up reveals: Patient was given Decadron and magnesium per EMS, as well as nebulizer treatment upon arrival vitals were 97.7, RR 22, SpO2 90% on RA, BP 134/62, patient was given 5 L oxygen NC, SpO2 only improved to 91%, patient was then placed on BiPAP, SpO2 improved to 97%. 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 Cervical disc disease CHF (congestive heart failure) Chronic stasis dermatitis of left lower extremity COPD (chronic obstructive pulmonary disease) History of Mohs micrographic surgery for skin cancer HTN (hypertension) Hyperlipidemia Lumbar disc disease Overweight Surgical History Surgical History H/O: hysterectomy History of colonoscopy with polypectomy (~04/2019) Hx of cardiac cath No intervention performed Family History Family History Sibling Family history of atrial fibrillation Heart disease Father Family history of lung cancer Grandparent Family history of malignant neoplasm of breast in first degree relative Social History Social History Social History: The patient lives home alone. She is . 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 She has 2 children. The patient desires to be a full code and does not have a durable power forensic dna analyst for healthcare. However she said that her son could be the durable power forensic dna analyst for healthcare. Patient still continues to smoke on a daily basis she smoked for several years. Least a pack cigarettes a day. She denies any marijuana or illicit drugs. States she drinks approximately 3 glasses of wine daily. Smoking packs per day: 0.75 Smoking cigarettes per day: 15.0 Years smoked: 50 Smoking pack-years: 37.50 Smoking status: Current every day smoker Second hand tobacco smoke exposure: Yes Alcohol intake: current Drinks per week: 21 Alcohol use details: 3 glasses of wine daily Substance use: never Substance use type: does not use Lack of Transportation: No Lack of Food: Never True Current Housing: I Have Housing Concerned About Future Housing: No Difficulty Paying Gas/Electric Bills: No Difficulty Paying for Meds: YES Currently Unemployed: No Education: High School Diploma/GED Difficulty w/ Childcare or Family Care: No Living arrangements: alone Occupation/Education: reti
[2024-03-23] MEDS: POTASSIUM CHLORIDE INJ 40 MEQ in SODIUM CHLORIDE 0.9% IV 500 ML 130 MEQ IVPB (17:15)
--- NOTE | 2024-03-23 17:21 | ADMGEN ---
This patient, Betty Marte, was admitted to IMU Room 201-01 on 03/23/24 at 1600. Patient/family oriented to hospital policies and general routines including ID bracelet, bed and alarms, visiting hours, pain management, procedures, bathroom and other care routines, personal items, smoking policy, room service/diet, and visiting hours. Information on how to activate the Rapid Response Team has been discussed. Patient/Family are encouraged to report perceived risks to care and to ask questions if they do not understand what they are told or what they should do.
[2024-03-23] MEDS: busPIRone HCL 2.5 MG TABLET 7.5 MG PO (21:08)
[2024-03-23] MEDS: METOPROLOL TARTRATE 50 MG TAB 100 MG PO (21:09)
[2024-03-23] MEDS: CITALOPRAM HYDROBROMIDE 20 MG TABLET PO (21:09)
[2024-03-23] MEDS: APIXABAN 5 MG TABLET PO (21:09)
[2024-03-23 21:30] LABS: Add Urine Microscopic? YES; Appearance Urine Cloudy (Clear); Bacteria Urine 1+ /hpf; Bilirubin Urine Negative (Negative); Blood Urine Negative (Negative); Color Urine Yellow (Yellow); Glucose Urine UA Negative (Negative); Ketones Urine 1+ mg/dL (Negative); Leukocyte Esterase Ur Negative LEU/UL (Negative); Nitrate Urine Negative (Negative); Protein Urine 2+ mg/dL (Negative); Specific Grav Ur 1.016 (1.001-1.035); Squamous Epithelial Cell Urine None Seen /hpf (Few); WBC Urine 0-5 /hpf (0-3)
[2024-03-24] VITALS (25 sets, daily range): BP systolic 113–140; BP diastolic 53–78; PULSE 57–95; RESP 20–23; TEMP 36.5–36.8; O2SAT 93–97
[2024-03-24] MEDS: IPRATROPIUM 0.5 MG/ALBUTEROL SULFATE 2.5 MG AMPUL.NEB 3 ML INHALATION ×2 (00:06→20:43)
[2024-03-24 00:17] LABS: Alveolar/Arterial O2 Gradient 106.6 mmHg; Base Excess ABG 4.2 mEq/l (+/-2.0); Carboxyhemoglobin 2.1 % THb (0-2.0); Fractional Inspired Oxygen 36 %; Methemoglobin ABG 0.2 %THb (0-1.5); Oxygen Content ABG 18.6 %vol (16.0-22.0); Oxyhemoglobin 94.9 % THb (90.0-100.0); PCO2 ABG 49.5 mmHg (35.0-45.0); PO2 ABG 92.7 mmHg (80.0-100.0); PO2 FiO2 Ratio Arterial Blood 2.57 %; Reduced Hemoglobin 2.8 %THb (0-5.0); Total Hemoglobin 13.9 g/dL (12.0-18.0); pH ABG 7.401 (7.350-7.450)
[2024-03-24 00:18] LABS: Device NASAL CANNULA; Modified Allen's Test Pass; Site Drawn RIGHT RADIAL
[2024-03-24 05:11] LABS: Hematocrit 40.9 % (37.0-47.0); Hemoglobin 13.1 g/dL (12.0-15.0); Mean Corpuscular Hemoglobin 31.2 pg (26-34); Mean Corpuscular Volume 97.4 fl (80-100); Mean Platelet Volume 10.1 fl (7.4-10.4); Platelet Count Result 191 k/mm3 (150-375); Red Cell Distribution Width 14.2 % (11.5-14.5); White Blood Count 7.2 K/mm3 (4.5-10.0)
[2024-03-24 05:27] LABS: Alanine Aminotransferase 21 U/L (6-35); Albumin Level 3.7 g/dL (3.5-5.1); Alkaline Phosphatase 75 U/L (38-126); Anion Gap 6 mmol/L (4-12); Aspartate Amino Transferase 27 U/L (14-36); Bilirubin,Total 0.6 mg/dL (0.2-1.3); Blood Urea Nitrogen 19 mg/dL (7-17); Calcium 8.3 mg/dL (8.4-10.2); Carbon Dioxide 33 mmol/L (22-30); Chloride 98 mmol/L (98-107); Estimated CRCL calculation 59 ml/min; Estimated Glomerular Filt Rate > 60; Glucose 134 mg/dL (65-110); Potassium 3.7 mmol/L (3.4-5.0); Sodium 137 mmol/L (137-145)
--- NOTE | 2024-03-24 08:00 | ECG_ITS ---
Test Date: 2024-03-24 08:01:00 Measurements Intervals [place] Rate: 79 P: 89 [place]: 178 QRS: -11 QRSD: 111 T: 60 QT: 376 QTc: 432 Interpretive Statements SINUS RHYTHM INCOMPLETE RIGHT BUNDLE BRANCH BLOCK [90+ ms QRS DURATION, TERMINAL R IN V1/V2, 40+ ms S IN I/aVL/V4/V5/V6] ABNORMAL ECG Compared to ECG 03/23/2024 13:42:29 NO SIGNIFICANT CHANGE Electronically Signed On 03-24-2024 09:08:57 CDT by Art Chun M.D.
[2024-03-24] MEDS: busPIRone HCL 2.5 MG TABLET 7.5 MG PO ×2 (09:26→21:42)
[2024-03-24] MEDS: FUROSEMIDE INJ 40 MG/4 ML VIAL IV PUSH ×2 (09:26→21:43)
[2024-03-24] MEDS: METOPROLOL TARTRATE 50 MG TAB 100 MG PO ×2 (09:27→21:42)
[2024-03-24] MEDS: THERAPEUTIC MULTIVITAMINS/MINERALS TAB (*BKC) 1 TABLET PO (09:30)
[2024-03-24] MEDS: MONTELUKAST SODIUM 10 MG TABLET PO (09:30)
[2024-03-24] MEDS: APIXABAN 5 MG TABLET PO ×2 (09:30→21:43)
[2024-03-24] MEDS: CITALOPRAM HYDROBROMIDE 20 MG TABLET PO ×2 (09:30→21:42)
[2024-03-24] MEDS: POTASSIUM CHLORIDE 10 MEQ ER TABLET PO (09:30)
[2024-03-24] MEDS: SIMVASTATIN 20 MG TABLET PO (09:30)
[2024-03-24] MEDS: LOSARTAN POTASSIUM 50 MG TABLET PO (09:30)
--- NOTE | 2024-03-24 11:46 | PM.IMPN ---
Progress Note: A&P Assessment and Plan (1) Acute exacerbation of CHF (congestive heart failure): Code(s): I50.9 - Heart failure, unspecified Status: Acute Assessment and Plan: Patient presents with SOB. BNP 2170 Echo 11/02/2021 - Normal left ventricular size, ejection fraction > 70%, normal diastolic function EKG showing NSR with incomplete Rt BBB CXR showing CHF, pulmonary edema, right basilar atelectasis and possibly COPD. Treated with Lasix IV once and bronchodilators. Started on scheduled Lasix 40mg IV Q12h Feeling better. Continue fluid restriction. Echo ordered and is pending. Monitor I&O, daily weights (2) Acute respiratory failure with hypoxia: Code(s): J96.01 - Acute respiratory failure with hypoxia Status: Acute Assessment and Plan: Patient reported sudden onset dyspnea. EMS placed patint on 5L and later she required bipap Hx of PE currently on apixaban. CXR as above. ABG 7.40/49.4/80 on 5L. Patient weaned off BiPAP Still wheezing. Schedule bronchodilator therapy. Add Solu-Medrol for 2-3 doses If better, then will change to oral Prednisone for a short course (3) Acute hypokalemia: Code(s): E87.6 - Hypokalemia Status: Acute Assessment and Plan: Potassium low at 3.1 on admission. Patient was given 40 mEq IVPB in the ED Repeat potassium normal now. Mag level at 2.0 Continue home K+ (4) COPD (chronic obstructive pulmonary disease): Qualifiers: COPD type: unspecified COPD Qualified Code(s): J44.9 - Chronic obstructive pulmonary disease, unspecified Code(s): J44.9 - Chronic obstructive pulmonary disease, unspecified Status: Acute Assessment and Plan: Probably COPD exacerbation. Check sputum cx. Add Levaquin As above (5) Fall: Code(s): W19.XXXA - Unspecified fall, initial encounter Status: Acute Assessment and Plan: Patient lives alone. On 03/21, she had a fall and was unable to get up. She laid on the floor for over 3 hours due to it being late at night and her not wanting to disturb her daughter. No head injury and no neck trauma. She fell down landing on her buttocks. She has been feeling weak and had sudden onset of SOB that prompted family to call 911. Patient does report a history of episodes of extreme sob with standing and sometimes when resting that involve diaphoresis, UE shaking with LE weakness and bowel incontinence. She could be having symptoms of orthostatic HoTN. Consider also flash pulmonary edema. No evidence of infection. Lumbar spine xray showing moderate to advanced degenerative spondylosis. Care coordination to assess for assistance with available home health or SNF Fall precautions. Start PT/OT. Check TCK (but no RBC in urine). Check pelvic/hip xray. Check TSH, VitD, B12/Fol (6) Chronic stasis dermatitis of left lower extremity: Code(s): I87.2 - Venous insufficiency (chronic) (peripheral) Status: Acute Assessment and Plan: Consult wound for eval and treatment Keep area clean dry Would benefit from outpatient Dermatology Add Eucerin for now but would benefit from soaks/whirlpool Plan VTE Prophylaxis: Apixaban Code Status: Full code Subjective Date/time seen: 03/24/24 11:46 Interval history: 78yo female with CHF, COPD on home oxygen at night and HTN here for shortness of breath. Slept well last night. She did not wear the mask last night. She does not have JEB. She does not wear O2 during the day. Smokes 1/2ppd. Cough productive of yellow sputum. She uses urea topical agents for the severe LE scale. Exam Narrative: AF 98.2 133/67 86 20 94% 4L Gen - NARD sitting up in bed Chest - distant BS with diffuse expiratory wheezies CV - RRR S1/S2.Tele showing no significant dysrhythmias Abd - Soft, NT/ND, Positive BS Ext - very thickened whitish scale covering the entire bilateral shins and calves with 2 areas that were damp an
[2024-03-24] MEDS: methylPREDNISolone SOD SUCC 125 MG VIAL 60 MG IV PUSH ×3 (13:01→23:33)
[2024-03-24] MEDS: levoFLOXacin 750 MG TABLET PO (17:18)
[2024-03-24] MEDS: EUCERIN CREAM 120 GM JAR 1 APPLIC TOPICAL (17:18)
[2024-03-25] VITALS (31 sets, daily range): BP systolic 128–144; BP diastolic 56–81; PULSE 53–84; RESP 18–23; TEMP 36.3–37.3; O2SAT 90–95
--- NOTE | 2024-03-25 | ECHO_ITS ---
Patient Info Name: Betty Marte Age: 78 years : 1945 Gender: Female Ht: 65 in Wt: 212 lbs BSA: 2.14 m2 HR: 57 bpm BP: 141 / 69 mmHg Heart Rhythm: Sinus Rhythm Technical Quality: Fair Exam Date: 03/25/2024 9:38 AM Exam Location: Echo Lab Patient Status: Inpatient Admit Date: 03/23/2024 Staff Ordering Physician: Walter Salazar MD Griddle Attendant: Jennifer Young RDCS Attending Provider: Walter Salazar MD Exam Type: CA echo doppler color flow Study Info Indications - chf Complete two-dimensional, color flow and Doppler transthoracic echocardiogram is performed. Summary 1. Complete two-dimensional, color flow and Doppler transthoracic echocardiogram is performed. 2. Hyperdynamic appearing left ventricular systolic function with grade 1 diastolic noncompliance. 3. Left atrial enlargement. 4. Mild mitral regurgitation. Left Ventricle Left ventricular chamber dimension is normal. Left ventricular systolic function is hyperdynamic, estimated at >70%. The left ventricular diastolic function is grade I diastolic dysfunction. Right Ventricle Right ventricular chamber dimension is normal. Left Atria Left atrial chamber dimension is moderately enlarged. Right Atria Right atrial chamber dimension is normal. Aortic Valve The aortic valve is normal. Pulmonic Valve The pulmonic valve is not well visualized. Mitral Valve The mitral valve has normal leaflets. There is mild mitral valve regurgitation. The mitral valve annulus is mildly calcified. Tricuspid Valve The tricuspid valve leaflets are normal. Pericardium/Pleural The pericardium appears normal. Aorta The aortic root size at the sinus of Valsalva is normal. Left Ventricular Outflow Tract Name Value Normal LVOT 2D LVOT Diameter 2.0 cm LVOT Doppler LVOT Peak Gradient 4 mmHg LVOT Mean Gradient 2 mmHg LVOT VTI 20 cm LVOT VTI/AV VTI Ratio 0.6 LVOT Stroke Volume 62 ml LVOT CO 3.5 l/min LVOT CI 1.7 l/min/m2 Pulmonic Valve Name Value Normal RVOT Doppler RVOT Peak Gradient 1 mmHg PV Doppler PV Peak Gradient 6 mmHg Mitral Valve Name Value Normal MV Doppler MV Decel [place] 470 cm/s2 MV PHT 59 ms MV Area (PHT) 3.7 cm2 4.0-5.0 MV Diastolic Function
--- NOTE | 2024-03-25 01:09 | PCRCNOTE ---
RN stated that she would get time changed to 0800.
[2024-03-25] MEDS: IPRATROPIUM 0.5 MG/ALBUTEROL SULFATE 2.5 MG AMPUL.NEB 3 ML INHALATION ×4 (01:12→20:10)
[2024-03-25 04:27] LABS: Hematocrit 43.6 % (37.0-47.0); Hemoglobin 13.7 g/dL (12.0-15.0); Mean Corpuscular HGB Conc 31.4 g/dl (32-36); Mean Corpuscular Hemoglobin 30.7 pg (26-34); Mean Corpuscular Volume 97.8 fl (80-100); Mean Platelet Volume 9.9 fl (7.4-10.4); Platelet Count Result 211 k/mm3 (150-375); Red Blood Count 4.46 M/mm3 (4.2-5.4); Red Cell Distribution Width 13.9 % (11.5-14.5); White Blood Count 9.8 K/mm3 (4.5-10.0)
[2024-03-25 04:44] LABS: Alanine Aminotransferase 24 U/L (6-35); Albumin Level 3.9 g/dL (3.5-5.1); Alkaline Phosphatase 73 U/L (38-126); Anion Gap 6 mmol/L (4-12); Aspartate Amino Transferase 29 U/L (14-36); Bilirubin,Total 0.6 mg/dL (0.2-1.3); Blood Urea Nitrogen 24 mg/dL (7-17); Calcium 8.4 mg/dL (8.4-10.2); Carbon Dioxide 38 mmol/L (22-30); Chloride 93 mmol/L (98-107); Creatine Kinase 121 U/L (30-135); Estimated CRCL calculation 72 ml/min; Estimated Glomerular Filt Rate > 60; Glucose 131 mg/dL (65-110); Potassium 3.4 mmol/L (3.4-5.0); Sodium 137 mmol/L (137-145)
[2024-03-25 05:02] LABS: Vitamin D 25 Hydroxy 55.6 ng/mL
[2024-03-25 05:16] LABS: Thyroid Stimulating Hormone Reflex 0.581 uIU/mL (0.465-4.68)
[2024-03-25] MEDS: methylPREDNISolone SOD SUCC 125 MG VIAL 60 MG IV PUSH ×4 (05:54→23:51)
[2024-03-25 05:55] LABS: Folic Acid > 20.0 ng/mL (2.76->20)
[2024-03-25] MEDS: LOSARTAN POTASSIUM 50 MG TABLET PO (09:02)
[2024-03-25] MEDS: busPIRone HCL 2.5 MG TABLET 7.5 MG PO ×2 (09:02→22:35)
[2024-03-25] MEDS: MONTELUKAST SODIUM 10 MG TABLET PO (09:02)
[2024-03-25] MEDS: SIMVASTATIN 20 MG TABLET PO (09:02)
[2024-03-25] MEDS: FUROSEMIDE INJ 40 MG/4 ML VIAL IV PUSH ×2 (09:02→22:36)
[2024-03-25] MEDS: CITALOPRAM HYDROBROMIDE 20 MG TABLET PO ×2 (09:02→22:36)
[2024-03-25] MEDS: THERAPEUTIC MULTIVITAMINS/MINERALS TAB (*BKC) 1 TABLET PO (09:02)
[2024-03-25] MEDS: POTASSIUM CHLORIDE 10 MEQ ER TABLET PO ×2 (09:02→14:22)
[2024-03-25] MEDS: METOPROLOL TARTRATE 50 MG TAB 100 MG PO ×2 (09:02→22:35)
[2024-03-25] MEDS: APIXABAN 5 MG TABLET PO ×2 (09:03→22:36)
[2024-03-25] MEDS: POTASSIUM CHLORIDE 20 MEQ ER TABLET PO (14:22)
--- NOTE | 2024-03-25 16:14 | PM.IMPN ---
Progress Note: A&P Assessment and Plan (1) Acute exacerbation of CHF (congestive heart failure): Code(s): I50.9 - Heart failure, unspecified Status: Acute Assessment and Plan: Patient presents with SOB. BNP 2170 Echo showing hyperdynamic LV systolic function with grade 1 diastolic dysfunction, EF >70% with left atrial enlargement and mild MR. EKG showing NSR with incomplete Rt BBB CXR showing CHF, pulmonary edema, right basilar atelectasis and possibly COPD. Treated with Lasix IV once and bronchodilators. Started on scheduled Lasix 40mg IV Q12h UOP 1200 -> 1650mL so far today. Feeling better. Continue fluid restriction. Monitor I&O, daily weights. Change to oral Lasix tomorrow. (2) Acute respiratory failure with hypoxia: Code(s): J96.01 - Acute respiratory failure with hypoxia Status: Acute Assessment and Plan: Patient reported sudden onset dyspnea. EMS placed patient on 5L and later she required bipap Hx of PE currently on apixaban. CXR as above. ABG 7.40/49.4/80 on 5L. Patient weaned off BiPAP Was wheezing so treatment for COPD started. . Continue scheduled bronchodilator therapy, Solu-Medrol and levaquin for acute bronchitis. Wean O2 as tolerated. Suspect she brennon need O2 24/7 at discharge. (3) Acute hypokalemia: Code(s): E87.6 - Hypokalemia Status: Acute Assessment and Plan: Potassium low at 3.1 on admission. Patient was given 40 mEq IVPB in the ED Repeat potassium low-normal so treatment ordered. Continue home K+ and follow (4) COPD (chronic obstructive pulmonary disease): Qualifiers: COPD type: unspecified COPD Qualified Code(s): J44.9 - Chronic obstructive pulmonary disease, unspecified Code(s): J44.9 - Chronic obstructive pulmonary disease, unspecified Status: Acute Assessment and Plan: Probably COPD exacerbation. Sputum cx ordered. Continue scheduled bronchodilator therapy, Solu-Medrol and levaquin for acute bronchitis. As above (5) Fall: Code(s): W19.XXXA - Unspecified fall, initial encounter Status: Acute Assessment and Plan: Patient lives alone. On 03/21, she had a fall and was unable to get up. She laid on the floor for over 3 hours due to it being late at night and her not wanting to disturb her daughter. No head injury and no neck trauma. She fell down landing on her buttocks. She has been feeling weak and had sudden onset of SOB that prompted family to call 911. TCK 121. TSH, B12, Folate and VitD normal. Lumbar spine showing moderate to advanced degenerative spondylosis (please see report for details. Pelvic/Hip XR was limited examination due to osteopenia and body habitus but no apparent pelvic or right or left hip fracture is noted. Patient does report a history of episodes of extreme sob with standing and sometimes when resting that involve diaphoresis, UE shaking with LE weakness and bowel incontinence. She could be having symptoms of orthostatic HoTN. Consider also flash pulmonary edema. No evidence of infection except for acute bronchitis symptoms. Lumbar spine xray showing moderate to advanced degenerative spondylosis. Care coordination to assess for assistance with available home health or SNF Fall precautions. Continue PT/OT. (6) Chronic stasis dermatitis of left lower extremity: Code(s): I87.2 - Venous insufficiency (chronic) (peripheral) Status: Acute Assessment and Plan: Wound RN recommended Lac-Hydrin Continue current topical care (7) Tobacco abuse: Code(s): Z72.0 - Tobacco use Status: Acute Assessment and Plan: Patient was educated about the benefits of smoking cessation Plan VTE Prophylaxis: Apixaban Code Status: Full code Subjective Date/time seen: 03/25/24 16:14 Interval history: 78yo female with CHF, COPD on home oxygen at night and HTN here for shortness of breath. More SOB with exer
[2024-03-25] MEDS: levoFLOXacin 750 MG TABLET PO (17:00)
[2024-03-25] MEDS: FLUTICASONE/UMECLIDIN/VILANTER 200-62.5-25 MCG ELLIPTA 1 PUFF INHALATION (20:11)
[2024-03-26] VITALS (29 sets, daily range): BP systolic 112–135; BP diastolic 48–72; PULSE 52–93; RESP 18–22; TEMP 36.4–36.6; O2SAT 85–95
[2024-03-26] MEDS: IPRATROPIUM 0.5 MG/ALBUTEROL SULFATE 2.5 MG AMPUL.NEB 3 ML INHALATION ×3 (02:23→13:33)
[2024-03-26 04:47] LABS: Hematocrit 44.5 % (37.0-47.0); Hemoglobin 14.3 g/dL (12.0-15.0); Mean Corpuscular HGB Conc 32.1 g/dl (32-36); Mean Corpuscular Hemoglobin 31.2 pg (26-34); Mean Corpuscular Volume 96.9 fl (80-100); Mean Platelet Volume 10.1 fl (7.4-10.4); Platelet Count Result 222 k/mm3 (150-375); Red Blood Count 4.59 M/mm3 (4.2-5.4)
[2024-03-26 04:59] LABS: Potassium 3.4 mmol/L (3.4-5.0)
[2024-03-26 05:39] LABS: Alanine Aminotransferase 27 U/L (6-35); Albumin Level 3.8 g/dL (3.5-5.1); Alkaline Phosphatase 73 U/L (38-126); Aspartate Amino Transferase 34 U/L (14-36); Bilirubin,Total 0.5 mg/dL (0.2-1.3); Blood Urea Nitrogen 31 mg/dL (7-17); Calcium 8.9 mg/dL (8.4-10.2); Carbon Dioxide > 40 mmol/L (22-30); Chloride 89 mmol/L (98-107); Estimated CRCL calculation 55 ml/min; Estimated Glomerular Filt Rate > 60; Glucose 134 mg/dL (65-110); Potassium 3.4 mmol/L (3.4-5.0); Sodium 136 mmol/L (137-145)
[2024-03-26] MEDS: methylPREDNISolone SOD SUCC 125 MG VIAL 60 MG IV PUSH ×3 (07:04→16:51)
[2024-03-26] MEDS: POTASSIUM CHLORIDE 20 MEQ ER TABLET 40 MEQ PO (08:39)
[2024-03-26] MEDS: POTASSIUM CHLORIDE 10 MEQ ER TABLET PO (08:39)
[2024-03-26] MEDS: CITALOPRAM HYDROBROMIDE 20 MG TABLET PO (08:39)
[2024-03-26] MEDS: APIXABAN 5 MG TABLET PO (08:39)
[2024-03-26] MEDS: SIMVASTATIN 20 MG TABLET PO (08:39)
[2024-03-26] MEDS: busPIRone HCL 2.5 MG TABLET 7.5 MG PO (08:39)
[2024-03-26] MEDS: METOPROLOL TARTRATE 50 MG TAB 100 MG PO (08:39)
[2024-03-26] MEDS: THERAPEUTIC MULTIVITAMINS/MINERALS TAB (*BKC) 1 TABLET PO (08:39)
[2024-03-26] MEDS: WATER, STERILE FOR INJECTION 10 ML VIAL XX (08:40)
[2024-03-26] MEDS: LOSARTAN POTASSIUM 50 MG TABLET PO (08:40)
[2024-03-26] MEDS: FUROSEMIDE 40 MG TABLET PO (08:40)
[2024-03-26] MEDS: acetaZOLAMIDE SODIUM FOR INJ 500 MG VIAL 250 MG IV PUSH (08:40)
[2024-03-26] MEDS: MONTELUKAST SODIUM 10 MG TABLET PO (08:40)
--- NOTE | 2024-03-26 11:38 | HOMEO2EVAL ---
Evaluation was performed at [facility] Home Oxygen Evaluation RC: Home Oxygen (O2) Evaluation Start: 03/26/24 11:35 Freq: Status: Active Protocol: RPE Activity Type Activity Date Activity User E-sign Co-sign Detail Recorded Client Recorded Date Recorded By Document 03/26/24 10:00 MARIA FERNANDA [email or web address] 03/26/24 11:38 MARIA FERNANDA Document 03/26/24 10:01 MARIA FERNANDA [email or web address] 03/26/24 11:38 MARIA FERNANDA Document 03/26/24 10:02 MARIA FERNANDA [email or web address] 03/26/24 11:38 MARIA FERNANDA Document 03/26/24 10:03 MARIA FERNANDA [email or web address] 03/26/24 11:38 MARIA FERNANDA Document 03/26/24 10:05 MARIA FERNANDA [email or web address] 03/26/24 11:38 MARIA FERNANDA Document 03/26/24 10:06 MARIA FERNANDA [email or web address] 03/26/24 11:38 MARIA FERNANDA Document 03/26/24 10:07 MARIA FERNANDA [email or web address] 03/26/24 11:38 MARIA FERNANDA Document 03/26/24 10:15 MARIA FERNANDA [email or web address] 03/26/24 11:38 MARIA FERNANDA 03/26/24 03/26/24 03/26/24 10:00 10:01 10:02 Home O2 Evaluation [Oxygen] -Test Phase Resting Resting Resting -Oxygen Delivery Room Air Nasal Cannula Nasal Cannula -Oxygen Flow Rate (L/min) 1 2 [Pulse Oximetry] -Pulse Oximetry (90-100 %) 87 L 87 L 88 L [Pulse Rate] -Pulse Rate (60-100 beats/min) 80 [Comments] -Home Oxygen Evaluation Comments [Charges] -Evaluation Charges O2 Evaluation by Pulmonary 03/26/24 03/26/24 03/26/24 10:03 10:05 10:06 Home O2 Evaluation [Oxygen] -Test Phase Resting Exercise Exercise -Oxygen Delivery Nasal Cannula Nasal Cannula Nasal Cannula -Oxygen Flow Rate (L/min) 3 3 4 [Pulse Oximetry] -Pulse Oximetry (90-100 %) 92 86 L 88 L [Pulse Rate] -Pulse Rate (60-100 beats/min) 93 [Comments] -Home Oxygen Evaluation Comments [Charges] -Evaluation Charges 03/26/24 03/26/24 10:07 10:15 Home O2 Evaluation [Oxygen] -Test Phase Exercise Resting -Oxygen Delivery Nasal Cannula Nasal Cannula -Oxygen Flow Rate (L/min) 5 3 [Pulse Oximetry] -Pulse Oximetry (90-100 %) 90 93 [Pulse Rate] -Pulse Rate (60-100 beats/min) 91 81 [Comments] -Home Oxygen Evaluation Comments PT REQUIRES 3 L AT REST AND 5 L WITH ACTIVITY /EXERTION [Charges] -Evaluation Charges
--- NOTE | 2024-03-26 11:42 | PCRCNOTE ---
HOME O2 EVAL DONE, PT NEEDS 3 L RESTING AND 5 L ACTIVITY. PT HAS HOME O2 POC AND CONCENTRATOR, BUT DOESNT KNOW WHICH DME PROVIDED THIS EQUIPMENT. I HAVE CALLED TO TRY TO FIND OUT WHICH COMPANY SHE HAS, WILL UPDATE SOON I CAN. SHE HAS POC FOR D/C TO HOME, BUT HER CONCENTRATOR HOME UNIT ISNT WORKING AND NEEDS TO BE SERVICED OR REPLACED.
[2024-03-26] MEDS: LACTIC ACID 12% LOTION 225 BTL 1 APPLIC TOPICAL (13:19)
[2024-03-26] MEDS: FUROSEMIDE 20 MG TABLET PO (13:19)
--- NOTE | 2024-03-26 15:12 | PM.DS ---
DS: Admitting Diagnosis Discharge Date 03/26/24 Admitting Diagnosis Shortness of breath DS: Discharge Diagnosis Discharge Diagnosis (1) Acute exacerbation of CHF (congestive heart failure): Code(s): I50.9 - Heart failure, unspecified Status: Acute (2) Acute respiratory failure with hypoxia: Code(s): J96.01 - Acute respiratory failure with hypoxia Status: Acute (3) Acute hypokalemia: Code(s): E87.6 - Hypokalemia Status: Acute (4) COPD (chronic obstructive pulmonary disease): Qualifiers: COPD type: unspecified COPD Qualified Code(s): J44.9 - Chronic obstructive pulmonary disease, unspecified Code(s): J44.9 - Chronic obstructive pulmonary disease, unspecified Status: Acute (5) Fall: Code(s): W19.XXXA - Unspecified fall, initial encounter Status: Acute (6) Chronic stasis dermatitis of left lower extremity: Code(s): I87.2 - Venous insufficiency (chronic) (peripheral) Status: Acute (7) Tobacco abuse: Code(s): Z72.0 - Tobacco use Status: Acute DS: Summary Hospital Course Reason for hospitalization: 78yo female with CHF, COPD on home oxygen at night and HTN here for shortness of breath. Please see H&P for details. Hospital Course: Patient presents with SOB. Patient reported sudden onset dyspnea. EMS placed patient on 5L and later she required bipap. ABG 7.40/49.4/80 on 5L. BNP 2170. Echo showing hyperdynamic LV systolic function with grade 1 diastolic dysfunction, EF >70% with left atrial enlargement and mild MR. EKG showing NSR with incomplete Rt BBB. CXR showing CHF, pulmonary edema, right basilar atelectasis and possibly COPD. Treated with Lasix IV once and bronchodilators. Started on scheduled Lasix 40mg IV Q12h Good UOP with treatment. She was clinically feeling better but was wheezing so treatment for COPD started. She was started on scheduled bronchodilator therapy, Solu-Medrol and levaquin for acute bronchitis. Potassium low at 3.1 on admission and this was replaced. Repeat potassium better. Patient lives alone. On 03/21, she had a fall and was unable to get up. She laid on the floor for over 3 hours due to it being late at night and her not wanting to disturb her daughter. No head injury and no neck trauma. She fell down landing on her buttocks. TCK 121. TSH, B12, Folate and VitD normal. Lumbar spine showing moderate to advanced degenerative spondylosis (please see report for details). Pelvic/Hip XR was limited examination due to osteopenia and body habitus but no apparent pelvic or right or left hip fracture is noted. No orthostatic HoTN. She worked with PT/OT and did well and did not need SNF. She does wear oxygen 3L at sleep at home but not during the day. We were unable to wean her off oxygen here. Home O2 evaluation showing she needs 2L with rest and 5l with exertion. Wound care saw her for her chronic LE scale lesions. She overall did well and was able to be discharged on 03/26/24. Patient was educated about the benefits of smoking cessation. Status at Discharge Cognitive/behavioral status at discharge: stable Time Spent with Patient Time attestation: Total time spent providing and/or coordinating discharge services: 36 minutes Time spent: Greater than 30 minutes Exam Narrative: AF 97.8 113/48 58 20 93% 3L Gen - NARD Chest - distant but clear BS CV - RRR S1/S2.Tele showing PVCs and one episode of ATach Abd - Soft, NT/ND, Positive BS Ext - very thickened whitish scale that is decreased in area Neuro - Alert and appropriate Psych - Nml mood and affect Skin - as above. DS: Data Data Completed and Pending Labs on day of discharge: Labs from last 24 hours 03/26/24 03/26/24 03:51 03:51 WBC 10.0 RBC 4.59 Hgb 14.3 Hct 44.5 MCV 96.9 MCH 31.2 MCHC 32.1 RDW 14.0 Plt Count 222 MPV 10.1 Sodium 136 L Potassium 3.4 3.4 Chloride 89 L Carbon Dioxide > 40 H
[2024-03-26] MEDS: levoFLOXacin 750 MG TABLET PO (16:52)
--- NOTE | 2024-03-26 17:27 | PCRCNOTE ---
Addendum entered by Sakina Tiwari, PRODUCT DEMONSTRATOR 03/26/24 17:59: [facility] CALLED AND DUE WILL NOT BE ABLE TO TAKE PT. ON DUE TO HER INSURANCE BENEFITS BEING USED UP FROM OTHER DME COMPANY. PT. IS TO CALL CURRENT DME TO HAVE THEM SERVICE STATIONARY CONCENTRATOR. RN AND PT. AWARE. Original Note: PT. REQUIRES 3LPM O2 AT REST AND 5LPM O2 WITH ACTIVITY. PT. HAS O2 AT HOME ALREADY WITH A COMPANY OUT OF [place], PT. UNSURE OF NAME. SHE WAS PROVIDED WITH A STATIONARY CONCENTRATOR WHICH IS NOT WORKING. PT. ALSO HAS A PORTABLE CONCENTRATOR THAT GOES UP TO 5LPM. PT. WISHES TO BE DISCHARGED WITH HER POC UNTIL SHE CAN GET AHOLD OF HER DME TO GET HER STATIONARY MACHINE FIXED. WE ALSO HAVE REQUEST OUT TO [facility] TO SEE IF THEY CAN PROVIDE HER WITH NEW SERVICE AND GET HER NEW EQUIPMENT. WILL CALL PATIENT ONCE WE HEAR BACK FROM [facility] WITH AN UPDATE. PLEASE CALL [phone] TO LET PATIENT KNOW IF SHE QUALIFIES FOR NEW EQUIPMENT.
[2024-03-27 18:14] LABS: Pneumococcal Antigen Urine NOT DETECTED
--- NOTE | 2024-03-29 08:58 | PC.NURSE ---
Blood cx are negative. urine pneumococcal Ag is not detected. Dr. Martin dunn.
[2024-04-04 22:03] LABS: Legionella pneumophila Ag Ur NOT DETECTED
--- NOTE | 2024-04-05 08:29 | PC.NURSE ---
Urine Legionella Ab is non-reactive. Dr. Martin dunn.
== END 2024-03-26 18:19 | disposition home health service (06) | DRG 291 ==
LOC: ANHED 15:11 → ANHIMU 15:42
PROVIDERS: Nurse Practitioner; Admitting Provider Internal Medicine; Emergency Provider Emergency Medicine; PCP Family Medicine; Visit Provider Internal Medicine
DX: I11.0 Hypertensive heart disease with heart failure (principal); I50.33 Acute on chronic diastolic (congestive) heart failure; J96.01 Acute respiratory failure with hypoxia; J44.9 Chronic obstructive pulmonary disease, unspecified; I87.2 Venous insufficiency (chronic) (peripheral); E87.6 Hypokalemia; E78.5 Hyperlipidemia, unspecified; K22.70 Barrett's esophagus without dysplasia; M50.90 Cervical disc disorder, unspecified, unspecified cervical region; M51.9 Unspecified thoracic, thoracolumbar and lumbosacral intervertebral disc disorder; F41.9 Anxiety disorder, unspecified; F17.210 Nicotine dependence, cigarettes, uncomplicated; Z20.822 Contact with and (suspected) exposure to COVID-19; Z79.01 Long term (current) use of anticoagulants; Z86.711 Personal history of pulmonary embolism; Z91.81 History of falling
CPT/HCPCS: 36415; 36600; 71045; 72100; 73521; 80053; 81001; 82306; 82375; 82550; 82607; 82746; 82805; 83050; 83605; 83735; 83880; 84132; 84443; 85025; 85027; 87040; 87449; 87637; 87899; 93005; 93306; 94618; 94640; 94667; 94668; 96374; 97161; 97165; 99291; A9270; G0378; J1120; J1940; J2919; J3480; J7040

== ENCOUNTER 2024-04-25 08:37 | Emergency (ER) | payer MEDICARE, SELFPAY ==
[2024-04-25] VITALS (8 sets, daily range): BP systolic 106–147; BP diastolic 71–92; PULSE 55–102; RESP 20–24; TEMP 36.6–36.8; O2SAT 87–98
--- NOTE | ~2024-04-25 | XR_ITS ---
Portable chest x-ray Comparison: 03/23/2024 Clinical History: Cough, dyspnea Findings: There is probable central congestive change with mild haziness and interstitial prominence diffusely. Cardiomediastinal silhouette is stable. Bones and soft tissues are unremarkable. Impression: Suspected diffuse background chronic interstitial disease. Probable superimposed central congestive c hange and possible minimal pulmonary edema. Reviewed, dictated and finalized at location . Impression: Suspected diffuse background chronic interstitial disease. Probable superimpose d central congestive change and possible minimal pulmonary edema.
--- NOTE | 2024-04-25 08:40 | ECG_ITS ---
Test Date: 2024-04-25 08:42:34 Measurements Intervals [place] Rate: 84 P: 92 OK: 175 QRS: 25 QRSD: 108 T: 68 QT: 324 QTc: 383 Interpretive Statements SINUS RHYTHM WITH OCCASIONAL SUPRAVENTRICULAR PREMATURE COMPLEXES INDETERMINATE AXIS INCOMPLETE RIGHT BUNDLE BRANCH BLOCK NONSPECIFIC T-WAVE ABNORMALITY- ANTERIOR LEADS BASELINE ARTIFACT- I, AVR, AVL BORDERLINE ECG Compared to ECG 03/24/2024 08:01:00 NO SIGNIFICANT CHANGE Electronically Signed On 04-25-2024 08:49:46 CDT by Laith Guerrero D.O.
--- NOTE | 2024-04-25 08:54 | ED.SOB ---
HPI - SOB/Dyspnea General Chief Complaint: Shortness of Breath/Dyspnea Stated Complaint: SOB Time Seen by Provider: 04/25/24 08:48 History of Present Illness HPI Narrative: Patient with history of CHF, likely COPD, presents with increasing shortness of breath for last 2 days with congestion. Related Data Home Medications Medication Instructions Recorded Confirmed furosemide 20 mg tablet 40 mg PO DAILY 11/02/21 04/03/24 metoprolol tartrate 100 mg tablet 100 mg PO Q12H 03/23/24 04/03/24 rpudbbyliqei-hohxfewu-gtwdobv-folic 1 tablet PO DAILY 03/23/24 04/03/24 acid 400 mcg-vit K1 20 mcg tablet simvastatin 20 mg tablet 20 mg PO DAILY 03/23/24 04/03/24 Allergies Allergy/AdvReac Type Severity Reaction Status Date / Time acetaminophen Allergy Intermediate HIVES Verified 04/03/24 09:12 Review of Systems Review of Systems: 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 Cervical disc disease CHF (congestive heart failure) Chronic stasis dermatitis of left lower extremity COPD (chronic obstructive pulmonary disease) History of Mohs micrographic surgery for skin cancer HTN (hypertension) Hyperlipidemia Lumbar disc disease Overweight Surgical History Surgical History H/O: hysterectomy History of colonoscopy with polypectomy (~04/2019) Hx of cardiac cath No intervention performed Family History Family History Sibling Family history of atrial fibrillation Heart disease Father Family history of lung cancer Grandparent Family history of malignant neoplasm of breast in first degree relative Social History Social History Social History: The patient lives home alone. She is . 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 She has 2 children. The patient desires to be a full code and does not have a durable power sub acute care nurse for healthcare. However she said that her son could be the durable power sub acute care nurse for healthcare. Patient still continues to smoke on a daily basis she smoked for several years. Least a pack cigarettes a day. She denies any marijuana or illicit drugs. States she drinks approximately 3 glasses of wine daily. Smoking packs per day: 0.75 Smoking cigarettes per day: 15.0 Years smoked: 50 Smoking pack-years: 37.50 Smoking status: Current every day smoker Second hand tobacco smoke exposure: Yes Alcohol intake: current Drinks per week: 21 Alcohol use details: 3 glasses of wine daily Substance use: never Substance use type: does not use Do You Feel Safe in your Home?: Yes Lack of Transportation: No Lack of Food: Never True Current Housing: I Have Housing Concerned About Future Housing: No Difficulty Paying Gas/Electric Bills: No Difficulty Paying for Meds: No Currently Unemployed: No Education: High School Diploma/GED Difficulty w/ Childcare or Family Care: No Living arrangements: alone Occupation/Education: retired Gender identity (if verbalized by the patient): Female Spiritual care concerns: No Agree to blood products: Yes Exam Narrative: EXAMINATION OF ORGAN SYSTEMS/BODY AREAS: Constitutional: Vital signs per nursing GENERAL: Appears dyspneic HEAD: Normal with no signs of head trauma. EYES: EOMI, conjunctiva normal ENT: Some congestion LUNGS: Coarse lung sounds and diffuse wheezing on lung humphreys HEART: [Regular rate and rhythm] ABD: No distension EXT: Normal range of motion, woody lower extremities without swelling/tenderness NEURO: [Alert and oriented x 3. No gross focal sensory or strength deficits.] PSYCH: Normal affect Course Vital Signs Vital signs: Vital Signs Pulse Rate 99 09/05/
[2024-04-25] MEDS: ALBUTEROL SULFATE NEB 2.5 MG/3 ML INH 15 MG INHALATION (08:58)
[2024-04-25] MEDS: IPRATROPIUM BR 0.02% INH SOLN 0.5 MG/2.5 ML VIAL 1 MG INHALATION (08:59)
[2024-04-25 09:03] LABS: Alveolar/Arterial O2 Gradient 205.2 mmHg; Base Excess ABG 4.1 mEq/l (+/-2.0); Device NASAL CANNULA; Fractional Inspired Oxygen 44 %; HCO3 ABG 29.4 mEq/l (22.0-26.0); Oxygen Content ABG 17.8 %vol (16.0-22.0); Oxygen Saturation ABG 89.5 % (95.0-100.0); PCO2 ABG 46.2 mmHg (35.0-45.0); PO2 ABG 55.9 mmHg (80.0-100.0); PO2 FiO2 Ratio Arterial Blood 1.27 %; Site Drawn LEFT BRACHIAL; Total Hemoglobin 14.6 g/dL (12.0-18.0); pH ABG 7.421 (7.350-7.450)
[2024-04-25 09:06] LABS: Basophils Absolute Auto 0.1 K/mm3 (0.0-0.1); Basophils Percent Auto 0.7 % (0.2-1.2); Eosinophils Absolute Auto 0.5 K/mm3 (0-0.3); Eosinophils Percent Auto 5.3 % (0-4.4); Hematocrit 43.2 % (37.0-47.0); Hemoglobin 13.7 g/dL (12.0-15.0); Immature Granulocyte Absolute 0.05 K/mm3 (0.00-0.031); Immature Granulocyte Percent A 0.5 % (0-0.5); Lymphocytes Absolute Auto 1.83 K/mm3 (0.9-3.2); Lymphocytes Percent Auto 18.3 % (18.3-44.2); Mean Corpuscular HGB Conc 31.7 g/dl (32-36); Mean Corpuscular Hemoglobin 30.4 pg (26-34); Mean Corpuscular Volume 95.8 fl (80-100); Mean Platelet Volume 9.9 fl (7.4-10.4); Monocytes Absolute Auto 0.9 K/mm3 (0.1-0.6); Monocytes Percent Auto 8.9 % (2.6-8.5); Neutrophils Absolute Auto 6.6 K/mm3 (1.3-6.7); Neutrophils Percent Auto 66.3 % (45.5-73.1); Platelet Count Result 233 k/mm3 (150-375); Red Blood Count 4.51 M/mm3 (4.2-5.4)
--- NOTE | 2024-04-25 09:11 | PC.NURSE ---
Pt bilateral lower extremities & feet with white scaly, hard lesions circumferential. Bilateral toenails overgrown & penetrating skin. Pt denies any c/o discomfort to bilateral lower extremities. Edema as documented Dr. Kary saldana.
[2024-04-25 09:16] LABS: Alanine Aminotransferase 19 U/L (6-35); Alkaline Phosphatase 107 U/L (38-126); Anion Gap 9 mmol/L (4-12); Aspartate Amino Transferase 31 U/L (14-36); Bilirubin,Total 0.7 mg/dL (0.2-1.3); Blood Urea Nitrogen 9 mg/dL (7-17); Calcium 8.9 mg/dL (8.4-10.2); Carbon Dioxide 30 mmol/L (22-30); Chloride 98 mmol/L (98-107); Estimated CRCL calculation 72 ml/min; Estimated Glomerular Filt Rate > 60; Glucose 102 mg/dL (65-110); Potassium 3.5 mmol/L (3.4-5.0); Sodium 137 mmol/L (137-145)
[2024-04-25 09:24] LABS: NT Pro B Type Natriuretic Pept 1030 pg/mL (19.9-100)
[2024-04-25 09:39] LABS: Influenza A QL RT-PCR Negative (Negative); Influenza B QL RT-PCR Negative (Negative); RSV RNA, RT-PCR Negative (Negative); SARS-CoV-2 RNA PCR Negative (Negative)
[2024-04-25] MEDS: AZITHROMYCIN 250 MG TABLET 500 MG PO (11:30)
== END 2024-04-25 12:14 | disposition home or self-care (01) ==
PROVIDERS: Emergency Provider Emergency Medicine; PCP Family Medicine
DX: J44.1 Chronic obstructive pulmonary disease with (acute) exacerbation (principal); I11.0 Hypertensive heart disease with heart failure; I50.9 Heart failure, unspecified; F41.9 Anxiety disorder, unspecified; E78.5 Hyperlipidemia, unspecified; F17.210 Nicotine dependence, cigarettes, uncomplicated; Z99.81 Dependence on supplemental oxygen; Z79.51 Long term (current) use of inhaled steroids; Z79.84 Long term (current) use of oral hypoglycemic drugs; Z79.01 Long term (current) use of anticoagulants; Z20.822 Contact with and (suspected) exposure to COVID-19
CPT/HCPCS: 36415; 36600; 71045; 80053; 82805; 83880; 85025; 87637; 93005; 94640; 96365; 99284; A9270; J0696

== ENCOUNTER 2024-06-19 12:36 | Outpatient (CLI) | payer MEDICARE, SELFPAY ==
--- NOTE | 2024-06-19 15:50 | P.PCNPFT_ITS ---
PFT Procedure Performed PFT Procedure Performed Spirometry with Pre/Post Bronchodilator Plethysmography (Lung Vol) Diffusing Cap (DLCO) Flow Vol Loop PFT Interpretation This is a pulmonary function test with pre and post-bronchodilator spirometry, plethysmography and diffusing capacity. The test was performed and results interpreted in accordance with the 2019 and 2005 ATS/ERS Task Force guidelines respectively using the Global Lung Function Initiative-2012 reference equations. Patient demonstrated good effort and cooperation. Reproducibility criteria were met. The quality of the pre bronchodilator spirometry maneuver was Grade A and post bronchodilator spirometry maneuver was Grade A. Findings: Spirometry: There is decreased maximal expiratory airflow at all lung volumes with concave expiratory flow tracing. The contour the inspiratory flow tracing is normal. The pre bronchodilator FVC is 2.34 L, 81% predicted. The pre bronchodilator FEV1 is 0.91 L, 42% predicted. The pre bronchodilator FEV1: FVC ratio is 39%. The post bronchodilator FVC is 2.45 L, representing a 5% increase. The post bronchodilator FEV1 is 0.88 L, representing a 3% decrease. The post bronchodilator FEV1: FVC ratio is 36%. Plethysmography: The total lung capacity is 4.99 L, 91% predicted. The functional residual capacity is 3.46 L, 109% predicted. The residual volume is 2.65 L, 106% predicted. Diffusing capacity: The diffusing capacity unadjusted for hemoglobin and carboxyhemoglobin is 5.9, 29% predicted. The diffusing capacity adjusted for alveolar volume is 1.91, 47% predicted. Impression: There is a severe obstructive abnormality. There is no significant improvement after inhaling a single dose of albuterol. The lung volumes are normal. The diffusing capacity unadjusted for hemoglobin and carboxyhemoglobin is severely decreased and remains moderately decreased when adjusted for alve olar volume. There are no prior studies for comparison
--- NOTE | 2024-06-19 15:54 | WPDSIXMINUTE ---
Six Minute Walk Procedure Procedure Performed Pulmonary Stress Test (6 min walk) Six Minute Walk Six Minute Walk: This is a 6 minute walk test. The test was performed and interpreted in accordance with the 2014 ERS/ATS task force guidelines. Of note, patient used a wheeled walker and 3 L nasal cannula oxygen. Findings: The patient's resting 3 L nasal cannula oxygen saturation measured by pulse oximetry was 92%, the heart rate was 68 bpm, and the modified Karine dyspnea score was 0. Patient ambulated for 188 meters and oxygen saturation remained 89 to 91%. At the end of the study the heart rate was 91 bpm and the modified Karine dyspnea score was 2. The patient did not have oxygen desaturations at rest or with ambulation while using 3 L nasal cannula. There are no prior studies for comparison.
== END 2024-06-19 12:37 | disposition home or self-care (01) ==
LOC: ANHPFT 12:39
PROVIDERS: PCP Family Medicine; Visit Provider Internal Medicine Pulmonary Disease
DX: J44.9 Chronic obstructive pulmonary disease, unspecified (principal); Z87.891 Personal history of nicotine dependence; R94.2 Abnormal results of pulmonary function studies
CPT/HCPCS: 94060; 94618; 94726; 94729

== ENCOUNTER 2024-08-24 00:25 | Inpatient (IN) | payer MEDICARE, SELFPAY ==
[2024-08-24] VITALS (79 sets, daily range): BP systolic 99–165; BP diastolic 52–109; PULSE 67–117; RESP 16–30; TEMP 36.9–37.1; O2SAT 81–100; BMI 28.4
--- NOTE | ~2024-08-24 | XR_ITS ---
Portable chest x-ray Comparison: 09/03/2024 Clinical History: Respiratory failure Findings: Endotracheal tube and NG tube are in place. Possible mild interstitial edema and/or underl red COPD. Cardiomediastinal silhouette is stable. Bones and soft tissues are unremarkable. Impression: Possible mild interstitial edema and/or underlying COPD. Support tubes, as above. Reviewed, dictated and finalized at location . ELERS' AID WORKER Impression: Possible mild interstitial edema and/or underlying COPD. Support tubes, as above.
--- NOTE | ~2024-08-24 | XR_ITS ---
Portable chest x-ray Comparison: 08/26/2024 Clinical History: Respiratory failure Findings: Endotracheal tube and NG tube are in satisfactory positions. Probable COPD pattern of the lungs. Cardiomediastinal silhouette is stable. Bones and soft tissues are unremarkable. Impression: COPD. Support tubes, as above. Reviewed, dictated and finalized at location . RGIST/MD Impression: COPD. Support tubes, as above.
--- NOTE | ~2024-08-24 | XR_ITS ---
XR chest 1V portable Ordering provider: Jayesh Zuniga MD History: 79 years Female with . Resp Failure . Comparison: September 01, 2024 FINDINGS: MEDIASTINUM: The cardiac silhouette is slightly enlarged. Endotracheal tube is seen with the tip abou t 3 cm above the jasmyne. Nasogastric tube is extending to the stomach. Right central line is seen extending to the left international broadcast music librarian al jugular vein. Repositioning advised. Prominent both glenis. LUNGS: No infiltrates, effusions or pneumothorax. Bilateral interstitial changes. OTHER: No free air under the diaphragm. IMPRESSION: Repositioning of the right central line is advised. Bilateral interstitial changes which may indicate pneumonitis versus fibrotic changes. Reviewed, dictated and finalized at location A. KLER IMPRESSION: Repositioning of the right central line is advised. Bilateral interstitial changes which may indicate pneumonitis versus fibrotic c hanges.
--- NOTE | ~2024-08-24 | CT_ITS ---
CTA chest PE protocol Ordering provider: Gary Sánchez MD History: 79 years Female with . r/o PE . Comparison: November 02, 2021 Technique: CT angiogram chest was performed following timed intravenous injection of contrast. Thin s lice axial images and reformatted coronal images were obtained. Three dimensional reformatted images of the chest were also obtained using a [employer] workstation. . Automated exposure control and iterati ve reconstruction technique were employed. The dose-length product was 539.89 mGy-cm. 100 mL Omnipaqu e 350 was given IV. Findings: PULMONARY ARTERIES: No pulmonary embolus. VISUALIZED THORACIC INLET: Normal. MEDIASTINUM: Aorta/coronary arteries: Mild atheromatous disease. Heart/other: The heart is not enlarged. Lymph nodes: No mediastinal or hilar adenopathy. Precarinal lymph node is seen measuring 1.4 cm. Smal l prevascular lymph node is also noted. LUNGS: Emphysematous changes of the lungs. Dependent atelectatic changes. No pulmonary nodules or masses. No infiltrates or effusions. No pneumothorax. VISUALIZED UPPER ABDOMEN: Fat infiltration of the liver. Benign calcifications of the spleen. Slightl y thickened wall of the stomach. Clinical correlation advised. Otherwise, the visualized upper abdome n is normal. MUSCULOSKELETAL: Soft tissues: The superficial soft tissues are normal. Bones: Age appropriate degenerative changes of the spine. Multiple healing rib fractures in the right hemithorax. Prominent osteophyte is seen in the midthoracic area with severe spinal canal stenosis and cord compr ession. IMPRESSION: 1. No pulmonary embolism. 2. No acute cardiopulmonary pathology. 3. Prominent osteophytes seen at the level of T6-T7 with severe spinal canal stenosis and cord compr ession. Further evaluation and clinical correlation advised. 4. Emphysematous changes of the lungs. 5. Multiple healing rib fractures in the right hemithorax. 6. Fat infiltration of the liver. Reviewed, dictated and finalized at location A. IFFS DETECTIVE IMPRESSION: 1. No pulmonary embolism. 2. No acute cardiopulmonary pathology. 3. Prominent osteophytes seen at the level of T6-T7 with severe spinal canal s tenosis and cord compression. Further evaluation and clinical correlation advis ed. 4. Emphysematous changes of the lungs. 5. Multiple healing rib fractures in the right hemithorax. 6. Fat infiltration of the liver.
--- NOTE | ~2024-08-24 | XR_ITS ---
XR abdomen gastric tube insert DATE: 08/25/2024 10:26 INDICATION: Orogastric tube placement TECHNIQUE: Portable semiupright view of the chest and upper abdomen COMPARISON: None FINDINGS: ET tube is as position 5 cm above jasmyne. An NG tube is well into the the stomach, the distal tip beyond the lower margin of the radiograph, th e proximal side-port not visualized. IMPRESSION: NG tube in stomach Reviewed, dictated and finalized at Location A. Reviewed, dictated and finalized at location A. LESS INTERNET INSTALLER IMPRESSION: NG tube in stomach
--- NOTE | ~2024-08-24 | XR_ITS ---
XR chest 1V portable DATE: 09/01/2024 04:33 INDICATION: Respiratory failure TECHNIQUE: Portable AP chest on 09/01 sagittal and 25 at 0423 hours COMPARISON: portable AP chest FINDINGS: ET tube in satisfactory position approximately 2.8 cm above jasmyne. NG tube in stomach. No central lines. Borderline heart size. Aortic arch calcification and mild aortic unfolding. Minimal infiltrate or atelectasis is suggested in the lower lung zones. Bilateral hyperinflation. Osteopenia. IMPRESSION: ET and NG tube in satisfactory position Emphysema Minimal infiltrate or atelectasis is suggested in the lower lung zones Reviewed, dictated and finalized at location A. LEMENT WORKER
--- NOTE | ~2024-08-24 | XR_ITS ---
Portable chest x-ray Comparison: 08/27/2024 Clinical History: Respiratory failure, COPD Findings: Endotracheal tube and NG tube are in place. Probable COPD pattern of the lungs. Cardiomed iastinal silhouette is stable. Bones and soft tissues are unremarkable. Impression: COPD pattern of the lungs. No acute pulmonary abnormality seen. Support tubes, as above. Reviewed, dictated and finalized at location . ING INFORMATICS ANALYST Impression: COPD pattern of the lungs. No acute pulmonary abnormality seen. Support tubes, as above.
--- NOTE | ~2024-08-24 | XR_ITS ---
XR chest PICC line 09/04/2024 14:48 Indication: PICC line placement Procedure: AP portable chest Comparison: Comparison to multiple prior studies sequentially, with oldest reviewed study dated 09/01. Findings: Endotracheal tube tip 4.7 cm above the jasmyne. NG tube in the stomach. Right subclavian PIC C line tip in the SVC. Cardiomegaly. Unchanged diffuse bilateral interstitial infiltrates, likely neo ma possibly superimposed on chronic fibrosis. No pneumothorax identified. No significant effusion. Impression: 1: Cardiomegaly with mild interstitial edema. Possible component of underlying interstitial fibrosis. Reviewed, dictated and finalized at location A. AL WORK PROGRAM COORDINATOR Impression: 1: Cardiomegaly with mild interstitial edema. Possible component of underlying interstitial fibrosis.
--- NOTE | ~2024-08-24 | XR_ITS ---
XR chest ET placement DATE: 08/25/2024 10:26 INDICATION: Intubation TECHNIQUE: Portable AP chest on 08/25/2024 1021 hours COMPARISON: 08/25/2024 portable AP chest at 0518 hours FINDINGS: ET tube in satisfactory position 5 cm above jasmyne. NG tube in satisfactory position of the stomach. No central lines. Normal heart size. Aortic arch calcification. No hilar or mediastinal enlargement. There is diffuse bilateral pulmonary interstitial prominence, likely due in part to chronic interstit ial fibrotic change. There is evidence of infiltrate and/or atelectasis involving primarily lower alon g zones compared to earlier today, possible developing omental edema, pneumonia or aspiration pneumon itis. IMPRESSION: Developing infiltrates or atelectasis in the lower lung zone since earlier today, suggest ing developing pulmonary edema, pneumonia or aspiration pneumonitis Reviewed, dictated and finalized at [facility]. Reviewed, dictated and finalized at location [facility]. E FUMIGATOR IMPRESSION: Developing infiltrates or atelectasis in the lower lung zone since earlier today, suggesting developing pulmonary edema, pneumonia or aspiration p neumonitis
--- NOTE | ~2024-08-24 | XR_ITS ---
EXAMINATION: XR chest 1V portable DATE: 08/30/2024 05:28 INDICATION: Acute respiratory failure. TECHNIQUE: A single frontal view of the chest was obtained. COMPARISON: Chest single view 08/29/2024, chest CT 08/24/2024 FINDINGS: The lungs are hyperexpanded with lucencies and interstitial opacities, consistent with emph ysema. No pleural effusion or pneumothorax. The heart size is normal. The endotracheal tube tip is 6. 6 cm above the jasmyne. The nasogastric tube tip is beyond the inferior margin of the radiograph, but at least to the stomach. IMPRESSION: 1. Emphysema. Reviewed, dictated and finalized at location [facility]. SCREEN PROCESSOR IMPRESSION: 1. Emphysema.
--- NOTE | ~2024-08-24 | XR_ITS ---
EXAMINATION: XR chest 1V portable DATE: 08/31/2024 05:46 INDICATION: Respiratory failure. TECHNIQUE: A single frontal view of the chest was obtained. COMPARISON: Chest single view 08/30/2024 FINDINGS: There are lucencies and interstitial opacities in the lungs, consistent with emphysema. No pleural effusion or pneumothorax. The heart size is normal. The endotracheal tube tip is 5.3 cm above the jasmyne. The nasogastric tube tip is beyond the inferior margin of the radiograph, but at least t o the stomach. IMPRESSION: 1. Emphysema. Reviewed, dictated and finalized at location [facility]. A PRODUCER IMPRESSION: 1. Emphysema.
--- NOTE | ~2024-08-24 | XR_ITS ---
EXAMINATION: XR chest 1V portable DATE: 08/29/2024 05:18 INDICATION: Acute respiratory failure. Chronic obstructive pulmonary disease. TECHNIQUE: A single frontal view of the chest was obtained. COMPARISON: Chest single view 08/28/2024, chest CT 08/24/2024 FINDINGS: There are lucencies in the lungs, consistent with emphysema. No pleural effusion or pneumot horax. The heart size is normal. The endotracheal tube tip is 6.2 cm above the jasmyne. The nasogastri c tube tip is beyond the inferior margin of the radiograph, but at least to the stomach. IMPRESSION: 1. Emphysema. Reviewed, dictated and finalized at location [facility]. LINEMAN IMPRESSION: 1. Emphysema.
--- NOTE | ~2024-08-24 | XR_ITS ---
XR chest 1V portable DATE: 08/24/2024 01:43 INDICATION: Shortness of breath TECHNIQUE: Portable upright chest on 08/24/2024 at 0137 hours COMPARISON: 04/25/2024 portable AP chest at 0917 hours FINDINGS: Cardiomegaly. Aortic calcification and unfolding. No hilar or mediastinal enlargement. There is pulmonary vascular redistribution suggesting pulmonary venous hypertension. Bilateral hyperinflation suggesting COPD. Probable chronic interstitial lung changes. Superimposed infiltrate in the right mid and lower lung z ones in particular is suggested which may be related to pneumonia or pulmonary edema. Minimal blunting of the costophrenic angles may indicate slight pleural effusions. Diffuse osteopenia. IMPRESSION: Cardiomegaly, pulmonary vascular redistribution, very small pleural effusions, suggesting congestive heart failure Minimal infiltrate involving the right mid and lower lung zones may be due to pneumonia and/or pulmon chin edema Osteopenia Reviewed, dictated and finalized at location [facility]. S MACHINE OPERATOR IMPRESSION: Cardiomegaly, pulmonary vascular redistribution, very small pleural effusions, suggesting congestive heart failure Minimal infiltrate involving the right mid and lower lung zones may be due to p neumonia and/or pulmonary edema Osteopenia
--- NOTE | ~2024-08-24 | XR_ITS ---
XR chest 1V portable DATE: 08/25/2024 05:41 INDICATION: Respiratory failure, COPD, vascular congestion TECHNIQUE: Portable upright AP chest on 08/25/2024 at 0518 hours COMPARISON: 08/24/2024 CTA chest 08/24/2010 25 portable AP chest FINDINGS: Bilateral hyperinflation consistent with COPD. No pulmonary consolidation is evident. No pl eural effusion or pneumothorax. There is aortic arch calcification and mild aortic unfolding. Osteopenia. Right rib fracture deformities. IMPRESSION: Emphysema Aortic atherosclerosis Reviewed, dictated and finalized at location [facility]. PING ROOM SUPERVISOR
--- NOTE | ~2024-08-24 | XR_ITS ---
Portable chest x-ray Comparison: 08/25/2024 Clinical History: Respiratory failure Findings: Endotracheal tube and NG tube are in place. COPD pattern present. No focal consolidation o r pleural effusion. Cardiomediastinal silhouette is stable. Bones and soft tissues are unremarkable. Impression: COPD. Support tubes, as above. Reviewed, dictated and finalized at location . GER OF TRAINING Impression: COPD. Support tubes, as above.
--- NOTE | ~2024-08-24 | XR_ITS ---
Portable chest x-ray Comparison: 09/02/2024 Clinical History: Respiratory failure Findings: Endotracheal tube and NG tube are in place. Suspected COPD or other mild chronic interstit ial disease in the lungs. Cardiomediastinal silhouette is stable. Bones and soft tissues are unremar kable. Impression: Suspected COPD or other mild chronic interstitial disease in the lungs. Support tubes, as above. Reviewed, dictated and finalized at location . E FOREMAN Impression: Suspected COPD or other mild chronic interstitial disease in the lungs. Support tubes, as above.
--- NOTE | ~2024-08-24 | XR_ITS ---
Portable chest x-ray Comparison: 09/04/2024 Clinical History: Respiratory failure Findings: Endotracheal tube, NG tube, and right-sided PICC line are in place. Probable mild chronic interstitial disease and/or COPD change. Cardiomediastinal silhouette is stable. Bones and soft tiss ues are unremarkable. Impression: Probable mild chronic interstitial disease and/or COPD change. Support tubes, as above. Reviewed, dictated and finalized at location . [place] SHIFT MANAGER Impression: Probable mild chronic interstitial disease and/or COPD change. Support tubes, as above.
--- NOTE | 2024-08-24 00:31 | ECG_ITS ---
Test Date: 2024-08-24 01:10:08 Measurements Intervals [place] Rate: 76 P: 91 GA: 195 QRS: 20 QRSD: 109 T: 49 QT: 397 QTc: 447 Interpretive Statements SINUS RHYTHM WITH OCCASIONAL SUPRAVENTRICULAR PREMATURE COMPLEXES INDETERMINATE AXIS INCOMPLETE RIGHT BUNDLE BRANCH BLOCK [90+ ms QRS DURATION, TERMINAL R IN V1/V2, 40+ ms S IN I/aVL/V4/V5/V6] NONSPECIFIC T-WAVE ABNORMALITY Compared to ECG 04/25/2024 08:42:34 NO SIGNIFICANT CHANGE Electronically Signed On 08-27-2024 17:53:46 ANIMAL LABORATORY TECHNICIAN by Wood Freedman M.D.
--- NOTE | 2024-08-24 00:45 | ED.SOB ---
HPI - SOB/Dyspnea General Chief Complaint: Shortness of Breath/Dyspnea Stated Complaint: RESPIRATORY DISTRESSED, CPAP'd Time Seen by Provider: 08/24/24 00:28 Source: patient Mode of arrival: EMS Limitations: other (respiratory distress) History of Present Illness HPI Narrative: This is a 79 year old female that presents to the ER for shortness of breath. Patient with history of COPD, CHF, chronically wears 3-4 liters NC. Placed on CPAP by EMS for work of breathing. She was also given magnesium and solu-medrol in route. Related Data Home Medications ?Medication ?Instructions ?Recorded ?Confirmed ?Last Taken ?Type metoprolol tartrate 100 mg tablet 100 mg PO Q12H 03/23/24 06/26/24 Unknown History gvjjoiwrozbh-syiosqqm-yzlucvb-folic 1 tablet PO DAILY 03/23/24 06/26/24 Unknown History acid 400 mcg-vit K1 20 mcg tablet simvastatin 20 mg tablet 20 mg PO DAILY 03/23/24 06/26/24 Unknown History furosemide 40 mg tablet 40 mg PO DAILY 05/30/24 06/26/24 Unknown History Allergies Allergy/AdvReac Type Severity Reaction Status Date / Time acetaminophen Allergy Intermediate HIVES Verified 08/24/24 01:45 Review of Systems Review of Systems: CONSTITUTIONAL: Denies fever CARDIOVASCULAR: Denies edema. RESPIRATORY: Reports cough and dyspnea. 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 Cervical disc disease CHF (congestive heart failure) Chronic stasis dermatitis of left lower extremity COPD (chronic obstructive pulmonary disease) History of Mohs micrographic surgery for skin cancer HTN (hypertension) Hyperlipidemia Lumbar disc disease Overweight Surgical History Surgical History H/O: hysterectomy History of colonoscopy with polypectomy (~04/2019) Hx of cardiac cath No intervention performed Family History Family History Sibling Family history of atrial fibrillation Heart disease Father Family history of lung cancer Grandparent Family history of malignant neoplasm of breast in first degree relative Social History Social History Social History: The patient lives home alone. She is . 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 She has 2 children. The patient desires to be a full code and does not have a durable power commercial real estate attorney for healthcare. However she said that her son could be the durable power commercial real estate attorney for healthcare. Patient still continues to smoke on a daily basis she smoked for several years. Least a pack cigarettes a day. She denies any marijuana or illicit drugs. States she drinks approximately 3 glasses of wine daily. Smoking packs per day: 0.75 Smoking cigarettes per day: 15.0 Years smoked: 50 Smoking pack-years: 37.50 Smoking status: Current every day smoker (15 cigarettes per day) Second hand tobacco smoke exposure: Yes Alcohol intake: current Drinks per week: 21 Alcohol use details: 3 glasses of wine daily Substance use: never Substance use type: does not use Do You Feel Safe in your Home?: Yes Lack of Transportation: No Lack of Food: Never True Current Housing: I Have Housing Concerned About Future Housing: No Difficulty Paying Gas/Electric Bills: No Difficulty Paying for Meds: No Currently Unemployed: No Education: High School Diploma/GED Difficulty w/ Childcare or Family Care: No Living arrangements: alone Occupation/Education: retired Gender identity (if verbalized by the patient): Female Spiritual care concerns: No Agree to blood products: Yes Exam Narrative: GENERAL: Chronically ill-appearing, thin, tachypneic HEAD: Normocephalic, atraumatic. EYES: EOMI. ENT: Nares clear, no rhinorrhea or epistaxis. Mucous membranes moist. Oropharynx without tonsillar hypertrophy exudate or other lesions. NECK: Supple. No adenopathy or masses. CHEST: Tachypneic, lung sounds diminished with diffuse wheezing. HEART: Regular rate and rhythm. No murmur heard. Normal peripheral pulses. EXTREMITIES: Normal range of motion. No edema. SKIN: Warm, dry, no rash. NEURO: No focal deficits. Alert and oriented x3. PSYCH: Normal mood and affect Course Vital Signs Vital signs: Vital Signs Pulse Rate 77 08/24/24 00:25 Respiratory Rate 19 08/24/24 00:25 Blood Pressure 107/91 H 08/24/24 00:25 Pulse Oximetry 98 08/24/24 00:25 Oxygen Delivery BiPAP 08/24/24 00:25 Pulse Rate 85 08/24/24 01:33 Respiratory Rate 20 08/24/24 01:00 Blood Pressure 107/91 H 08/24/24 00:25 Pulse Oximetry 99 08/24/24 01:33 Oxygen Delivery Nasal Cannula 08/24/24 01:33 Oxygen Flow Rate 4 08/24/24 01:33 MDM - SOB/Dyspnea MDM Narrative Medical decision making narrative: patient presents to the via EMS in respiratory distress. Lung sounds are severely diminished with diffuse wheezing. Patient on CPAP via EMS, given 125 Solu-Medrol, 2 g of Mag. Hour long nebulizer treatment ordered. Patient initially started on BiPAP, she was not tolerating this. PCO2 did come back elevated at 62. We changed BiPAP settings, and she is tolerating it better at this time. She is afebrile. Cbc without leukocytosis. Chest x-ray showing some chronic interstitial disease. Patient updated on her workup. Will be admitted for further management. Spoke with hospitalist about patient and workup who accepts admission Differential Diagnosis Differential diagnosis: Likely acute exacerbation of chronic obstructive airways disease, congestive heart failure and community acquired pneumonia Lab Data Attestation: I reviewed the patient's lab results. 08/24/24 01:07 08/24/24 01:07 Labs: Lab Results 08/24/24 08/24/24 Range/Units 01:07 02:25 WBC 10.0 (4.5-10.0) K/mm3 RBC 4.37 (4.2-5.4) M/mm3 Hgb 14.2 (12.0-15.0) g/dL Hct 42.4 (37.0-47.0) % MCV 97.0 (80-100) fl MCH 32.5 (26-34) pg MCHC 33.5 (32-36) g/dl RDW 12.4 (11.5-14.5) % Plt Count 207 (150-375) k/mm3 MPV 9.6 (7.4-10.4) fl Immature Gran % (Auto) 0.3 (0-0.5) % Neut % (Auto) 71.7 (45.5-73.1) % Lymph % (Auto) 14.8 L (18.3-44.2) % [place] % (Auto) 6.7 (2.6-8.5) % Eos % (Auto) 5.5 H (0-4.4) % Baso % (Auto) 1.0 (0.2-1.2) % Lymph # (Auto) 1.47 (0.9-3.2) K/mm3 [place] # (Auto) 0.7 H (0.1-0.6) K/mm3 Eos # (Auto) 0.6 H (0-0.3) K/mm3 Baso # (Auto) 0.1 (0.0-0.1) K/mm3 Abs Immat Gran (auto) 0.03 (0.00-0.031) K/mm3 Absolute Neuts (auto) 7.1 H (1.3-6.7) K/mm3 Absolute Nucleated RBC 0.000 (0.0-0.012) K/mm3 Nucleated RBC % 0.0 (0.0-0.2) % PT 16.5 H (11.1-14.7) Seconds INR 1.3 APTT 33.9 (22.3-36.8) Seconds Sodium 136 L (137-145) mmol/L Potassium 3.5 (3.4-5.0) mmol/L Chloride 98 (98-107) mmol/L Carbon Dioxide 35 H (22-30) mmol/L Anion Gap 3 L (4-12) mmol/L BUN 11 (7-17) mg/dL Creatinine 0.60 L (0.7-1.0) mg/dL Estim Creat Clear Calc 72 ml/min Estimated GFR > 60 (59 - ) Glucose 156 H (65-110) mg/dL Calcium 9.0 (8.4-10.2) mg/dL Total Bilirubin 0.6 (0.2-1.3) mg/dL AST 69 H (14-36) U/L ALT 39 H (6-35) U/L Alkaline Phosphatase 94 (38-126) U/L NT-Pro-B Natriuret Pep 1540 H (19.9-100) pg/mL Total Protein 8.0 (6.3-8.2) g/dL Albumin 4.5 (3.5-5.1) g/dL Influenza A (RT-PCR) Pending Influenza B (RT-PCR) Pending RSV (RT-PCR) Pending SARS-CoV-2 RNA (RT-PCR) Pending ABG Data ABG results: 08/24/24 01:07 Puncture Site Right radial ABG pH 7.333 L ABG pCO2 62.0 H* ABG pO2 106.8 H ABG PO2/FiO2 Ratio 2.97 ABG HCO3 32.2 H ABG O2 Saturation 97.4 ABG O2 Content 21.0 ABG Base Excess 4.2 A-a Gradient 78.0 Oxyhemoglobin 95.1 Total Hemoglobin 15.6 O2 Delivery Device Nasal cannula O2 Liters/Min 4.0 FiO2 36 ECG Data EKG #1: ECG completion date: 08/24/24 EKG Interpretation: normal rate, sinus rhythm, no ST changes and normal QT Critical Care Time Critical Care Time Critical Care Time: No Discharge Plan Discharge Clinical Impression: Acute on chronic respiratory failure Qualifiers: Respiratory failure complication: hypercapnia Qualified Code(s): J96.22 - Acute and chronic respiratory failure with hypercapnia Patient Disposition: Still a Patient Condition: Serious Patient Language: Jamaican Prescriptions: No Action Eliquis 5 mg tablet 5 mg PO Q12HR 90 Days Qty: 180 2RF Trelegy Ellipta 200-62.5-25 mcg blister with device 1 inh inhalation Q24H Qty: 180 3RF empagliflozin 10 mg tablet 10 mg PO DAILY Qty: 90 3RF ipratropium-albuterol 0.5 mg-3 mg(2.5 mg base)/3 mL solution for nebulization 3 ml inhalation Q4H PRN (Reason: shortness of breath or wheezing) Qty: 180 0RF (DME) Home oxygen See Rx Instructions .Route .MEDSUPPLY Qty: 1 0RF Rx Instructions: 3 L during the day and 5 L at night furosemide 40 mg tablet 40 mg PO DAILY metoprolol tartrate 100 mg tablet 100 mg PO Q12H simvastatin 20 mg tablet 20 mg PO DAILY Rx Instructions: TAKE 1 TABLET BY MOUTH DAILY mv,Ca,min-folic acid-vit K1 400-20 mcg Tablet 1 tablet PO DAILY Lac-Hydrin Five 5 % Lotion 1 applic topical QAM Qty: 226 0RF Rx Instructions: apply to LE skin potassium chloride 10 mEq tablet,ER particles/crystals 10 meq PO DAILY Qty: 30 4RF losartan [Cozaar] 50 mg tablet 50 mg PO DAILY Qty: 90 2RF montelukast [Singulair] 10 mg tablet 10 mg PO DAILY Qty: 90 1RF buspirone 7.5 mg tablet 7.5 mg PO Q12H Qty: 180 0RF citalopram 20 mg tablet 20 mg PO Q12H Qty: 180 0RF Rx Instructions: TAKE 1 TABLET BY MOUTH TWICE DAILY albuterol sulfate 90 mcg/actuation HFA aerosol inhaler 2 puff inhalation QID PRN (Reason: shortness of breath or wheezing) Qty: 8.5 5RF fluticasone propionate [Flonase Allergy Relief] 50 mcg/actuation spray,suspension 1 spray intranasal DAILY 90 Days Qty: 16 6RF Rx Instructions: administer into each nostril Follow-up/Referrals: Una Clark MD [Primary Care Provider] -
[2024-08-24] MEDS: ALBUTEROL SULFATE NEB 2.5 MG/3 ML INH 15 MG INHALATION ×2 (00:59→16:09)
[2024-08-24] MEDS: IPRATROPIUM BR 0.02% INH SOLN 0.5 MG/2.5 ML VIAL 1.5 MG INHALATION (01:00)
[2024-08-24 01:15] LABS: Basophils Absolute Auto 0.1 K/mm3 (0.0-0.1); Eosinophils Absolute Auto 0.6 K/mm3 (0-0.3); Eosinophils Percent Auto 5.5 % (0-4.4); Hematocrit 42.4 % (37.0-47.0); Hemoglobin 14.2 g/dL (12.0-15.0); Immature Granulocyte Absolute 0.03 K/mm3 (0.00-0.031); Immature Granulocyte Percent A 0.3 % (0-0.5); Lymphocytes Absolute Auto 1.47 K/mm3 (0.9-3.2); Lymphocytes Percent Auto 14.8 % (18.3-44.2); Mean Corpuscular HGB Conc 33.5 g/dl (32-36); Mean Corpuscular Hemoglobin 32.5 pg (26-34); Mean Platelet Volume 9.6 fl (7.4-10.4); Monocytes Absolute Auto 0.7 K/mm3 (0.1-0.6); Monocytes Percent Auto 6.7 % (2.6-8.5); Neutrophils Absolute Auto 7.1 K/mm3 (1.3-6.7); Neutrophils Percent Auto 71.7 % (45.5-73.1); Platelet Count Result 207 k/mm3 (150-375); Red Blood Count 4.37 M/mm3 (4.2-5.4); Red Cell Distribution Width 12.4 % (11.5-14.5)
[2024-08-24 01:16] LABS: Base Excess ABG 4.2 mEq/l (+/-2.0); Fractional Inspired Oxygen 36 %; HCO3 ABG 32.2 mEq/l (22.0-26.0); Oxygen Saturation ABG 97.4 % (95.0-100.0); Oxyhemoglobin 95.1 % THb (90.0-100.0); PO2 ABG 106.8 mmHg (80.0-100.0); PO2 FiO2 Ratio Arterial Blood 2.97 %; Total Hemoglobin 15.6 g/dL (12.0-18.0); pH ABG 7.333 (7.350-7.450)
[2024-08-24 01:18] LABS: Device NASAL CANNULA; Modified Allen's Test Pass; Site Drawn RIGHT RADIAL
[2024-08-24 01:25] LABS: INR 1.3; Partial Thromboplastin Time 33.9 Seconds (22.3-36.8); Prothrombin Time 16.5 Seconds (11.1-14.7)
[2024-08-24 01:26] LABS: Alanine Aminotransferase 39 U/L (6-35); Albumin Level 4.5 g/dL (3.5-5.1); Alkaline Phosphatase 94 U/L (38-126); Anion Gap 3 mmol/L (4-12); Aspartate Amino Transferase 69 U/L (14-36); Bilirubin,Total 0.6 mg/dL (0.2-1.3); Blood Urea Nitrogen 11 mg/dL (7-17); Carbon Dioxide 35 mmol/L (22-30); Chloride 98 mmol/L (98-107); Estimated CRCL calculation 72 ml/min; Estimated Glomerular Filt Rate > 60; Glucose 156 mg/dL (65-110); Potassium 3.5 mmol/L (3.4-5.0); Sodium 136 mmol/L (137-145)
[2024-08-24 01:35] LABS: NT Pro B Type Natriuretic Pept 1540 pg/mL (19.9-100)
[2024-08-24] MEDS: FUROSEMIDE INJ 40 MG/4 ML VIAL IV PUSH ×2 (01:53→13:46)
[2024-08-24 03:05] LABS: Influenza A QL RT-PCR Negative (Negative); Influenza B QL RT-PCR Negative (Negative); RSV RNA, RT-PCR Negative (Negative); SARS-CoV-2 RNA PCR Negative (Negative)
--- NOTE | 2024-08-24 03:22 | PC.NURSE ---
pt blood glucose was 130.
[2024-08-24 03:24] LABS: Glucose Point of Care 130 mg/dl (65-105)
[2024-08-24] MEDS: methylPREDNISolone SOD SUCC 125 MG VIAL 60 MG IV PUSH ×3 (04:34→13:32)
--- NOTE | 2024-08-24 07:15 | P.HP_ITS ---
H&P: HPI History of Present Illness Date/Time: 08/24/24 07:15 Chief Complaint: Shortness of Breath Narrative: 79 year old female that presents to the ER for shortness of breath. Patient with history of COPD, CHF,hypertension, obesity, and anxiety ,chronically wears 3-4 liters NC. Placed on CPAP by EMS for work of breathing. She was also given magnesium and solu-medrol in route. At home patient has been using a Trelegy inhaler daily, short-acting bronchodilators, and supplemental oxygen?3 liters per minute at night and 2 liters per minute during the day for over a year.She was hospitalized and treated for congestive heart failure, during which arterial blood gas analysis showed metabolic alkalosis. A chest CT from October 2021 revealed mild to moderate centrilobular emphysema.The patient co ntinues to smoke less than one pack per day. A recent echocardiogram showed hyperdynamic left ventricular function, grade 1 diastolic dysfunction, an enlarged left atrium, but no evidence of elevated pulmonary artery systolic pressure. On previous admission in 2021 patient was diagnosed with pulmonary embolism. Pertinent ED labs: WBC 10, hemoglobin 14.2, hematocrit 42.4, platelet 207, sodium 136, potassium 3.5, bicarbonate 35, creatinine 0.6 CXR: No official read. I suspect chronic interstitial disease with superimposed CSF. ECHO 03/25/2024: Left ventricular systolic function is hyperdynamic, estimated at >70%.The left ventricular diastolic function is grade I diastolic dysfunction. Patient has possibly COPD exacerbation vs CHF vs PE. Patient currently receives albuterol/ipratropium,methylprednisolone. As mentioned above patient was previously diagnosed with pulmonary embolism in 2021. Ordered CTA to rule out recurrent PE. Ordered ABG. Consulted Pulmonology. Will consider levofloxacin after the results of CTA for any superimposed bacterial infection. Pending medical reconciliation. I was called by the nurse around 12:30 p.m. to say that the patient had increased breathing work after starting levofloxacin. Nurse discontinued levofloxacin prior my arrival to ED. During my evaluation, the patient had visible respiratory distress. I gave Lasix 40 mg IV x 1, methylprednisone 60 mg IVx 1. The patient reported being very anxious, and she does not want to use BiPAP. I called the patient's daughter and explained the ongoing events and she reported that her brother is the one who makes medical decisions, and she is on the way. I spoke to her son, and he wanted to make a medical decision with his sister. In the meantime, I gave Ativan 0.5 mg 1 time for anxiety. After she came to [place], I spoke to her, and she decided she wanted to continue all the aggressive measures as needed. I talked to Dr. Herrera, the ordnance artificer helper, who agreed to transfer the patient to ICU. Review of Systems Review of Systems: CONSTITUTIONAL: Denies fever CARDIOVASCULAR: Denies edema. RESPIRATORY: Reports cough and dyspnea. 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 Cervical disc disease CHF (congestive heart failure) Chronic stasis dermatitis of left lower extremity COPD (chronic obstructive pulmonary disease) History of Mohs micrographic surgery for skin cancer HTN (hypertension) Hyperlipidemia Lumbar disc disease Overweight Surgical History Surgical History H/O: hysterectomy History of colonoscopy with polypectomy (~04/2019) Hx of cardiac cath No intervention performed Family History Family History Sibling Family history of atrial fibrillation Heart disease Father Family history of lung cancer Grandparent Family history of malignant neoplasm of breast in first degree relative Social History Social History Social History: The patient lives home alone. She is . 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 She has 2 children. The patient desires to be a full code and does not have a durable power attorney recruiter for healthcare. However she said that her son could be the durable power attorney recruiter for healthcare. Patient still continues to smoke on a daily basis she smoked for several years. Least a pack cigarettes a day. She denies any marijuana or illicit drugs. States she drinks approximately 3 glasses of wine daily. Smoking packs per day: 0.75 Smoking cigarettes per day: 15.0 Years smoked: 50 Smoking pack-years: 37.50 Smoking status: Current every day smoker Tobacco type: cigarettes Second hand tobacco smoke exposure: Yes Drinks per week: 7 Alcohol use details: 3 glasses of wine daily Substance use: never Substance use type: does not use Do You Feel Safe in your Home?: Yes Lack of Transportation: No Lack of Food: Never True Current Housing: I Have Housing Concerned About Future Housing: No Difficulty Paying Gas/Electric Bills: No Difficulty Paying for Meds: No Currently Unemployed: No Education: High School Diploma/GED Difficulty w/ Childcare or Family Care: No Living arrangements: alone Occupation/Education: retired Gender identity (if verbalized by the patient): Female Spiritual care concerns: No Agree to blood products: Yes Meds Home Medications and Allergies Home Medications ?Medication ?Instructions ?Recorded ?Confirmed ?Type potassium chloride 10 mEq 10 meq PO DAILY #30 tabs 05/07/23 08/24/24 Rx tablet,extended release(part/cryst) losartan 50 mg tablet (Cozaar) 50 mg PO DAILY #90 tabs 06/19/23 08/24/24 Rx metoprolol tartrate 100 mg tablet 100 mg PO Q12H 03/23/24 08/24/24 History mqhjynoijalg-bwrbttkm-unugpwu-folic 1 tablet PO DAILY 03/23/24 08/24/24 History acid 400 mcg-vit K1 20 mcg tablet simvastatin 20 mg tablet 20 mg PO DAILY 03/23/24 08/24/24 History ammonium lactate 5 % lotion 1 applic topical QAM #226 grams 03/26/24 08/24/24 Rx (Lac-Hydrin Five) Home oxygen #1 ea 04/03/24 08/24/24 Rx furosemide 40 mg tablet 40 mg PO DAILY 05/30/24 08/24/24 History buspirone 7.5 mg tablet 7.5 mg PO Q12H #180 tabs 06/21/24 08/24/24 Rx citalopram 20 mg tablet 20 mg PO Q12H #180 tabs 06/21/24 08/24/24 Rx montelukast 10 mg tablet 10 mg PO DAILY #90 tabs 06/21/24 08/24/24 Rx (Singulair) Trelegy Ellipta 200 mcg-62.5 1 inh inhalation Q24H #180 ea 06/26/24 08/24/24 Rx mcg-25 mcg powder for inhalation (xqqnxhtwoov-njzyznhgc-zadosjty) apixaban 5 mg tablet (Eliquis) 5 mg PO Q12HR 90 days #180 tabs 06/26/24 08/24/24 Rx empagliflozin 10 mg tablet 10 mg PO DAILY #90 tabs 06/26/24 08/24/24 Rx ipratropium 0.5 mg-albuterol 3 mg 3 ml inhalation Q4H PRN shortness 06/26/24 08/24/24 Rx (2.5 mg base)/3 mL nebulization of breath or wheezing #180 mL soln albuterol sulfate 90 mcg/actuation 2 puff inhalation QID PRN 07/23/24 08/24/24 Rx aerosol inhaler shortness of breath or wheezing #8.5 grams fluticasone propionate 50 1 spray intranasal DAILY 90 days 08/20/24 08/24/24 Rx mcg/actuation nasal #16 grams spray,suspension (Flonase Allergy Relief) Allergies Allergy/AdvReac Type Severity Reaction Status Date / Time acetaminophen Allergy Intermediate HIVES Verified 08/24/24 16:16 levofloxacin Allergy Difficulty Verified 08/24/24 16:16 Breathing Vital Signs Vital Signs - 24 hr 08/24/24 00:25 08/24/24 00:46 08/24/24 01:00 Temperature 98.6 F Pulse Rate 77 78 78 Respiratory Rate 19 24 H 20 Blood Pressure 107/91 H Pulse Oximetry 98 99 Oxygen Delivery BiPAP BiPAP Oxygen Flow Rate 08/24/24 01:32 08/24/24 01:33 08/24/24 01:33 Temperature Pulse Rate 85 Respiratory Rate Blood Pressure Pulse Oximetry 99 99 Oxygen Delivery Nasal Cannula Nasal Cannula Oxygen Flow Rate 4 4 08/24/24 03:15 08/24/24 03:18 08/24/24 03:30 Temperature Pulse Rate 78 78 Respiratory Rate 20 22 H Blood Pressure 107/65 Pulse Oximetry 99 97 99 Oxygen Delivery BiPAP Oxygen Flow Rate 08/24/24 03:33 08/24/24 03:45 08/24/24 04:00 Temperature Pulse Rate 76 75 75 Respiratory Rate 20 20 20 Blood Pressure 116/67 Pulse Oximetry 99 96 100 Oxygen Delivery Oxygen Flow Rate 08/24/24 04:02 08/24/24 04:15 08/24/24 04:17 Temperature Pulse Rate 76 74 75 Respiratory Rate 21 H 21 H 21 H Blood Pressure 104/64 109/65 Pulse Oximetry 99 Oxygen Delivery Oxygen Flow Rate 08/24/24 04:39 08/24/24 04:45 08/24/24 04:47 Temperature Pulse Rate 81 73 73 Respiratory Rate 23 H 19 21 H Blood Pressure 130/93 H 130/93 H Pulse Oximetry 97 98 98 Oxygen Delivery Oxygen Flow Rate 08/24/24 05:12 Temperature Pulse Rate 74 Respiratory Rate 23 H Blood Pressure Pulse Oximetry 98 Oxygen Delivery BiPAP Oxygen Flow Rate Exam Narrative: GENERAL: Chronically ill-appearing, thin, tachypneic HEAD: Normocephalic, atraumatic. EYES: EOMI. ENT: Nares clear, no rhinorrhea or epistaxis. NECK: Supple. No adenopathy or masses. CHEST: Tachypneic, lung sounds diminished with diffuse wheezing. HEART: Regular rate and rhythm. No murmur heard. Normal peripheral pulses. EXTREMITIES: Normal range of motion. No edema. SKIN: Warm, dry, no rash. NEURO: No focal deficits. PSYCH: Unable to assess H&P: Results Labs Labs: Short CBC 08/24/24 Range/Units 01:07 WBC 10.0 (4.5-10.0) K/mm3 Hgb 14.2 (12.0-15.0) g/dL Hct 42.4 (37.0-47.0) % Plt Count 207 (150-375) k/mm3 BMP 08/24/24 01:07 Sodium 136 L Potassium 3.5 Chloride 98 Carbon Dioxide 35 H BUN 11 Creatinine 0.60 L Glucose 156 H Calcium 9.0 Liver Function 08/24/24 Range/Units 01:07 Total Bilirubin 0.6 (0.2-1.3) mg/dL AST 69 H (14-36) U/L ALT 39 H (6-35) U/L Alkaline Phosphatase 94 (38-126) U/L Albumin 4.5 (3.5-5.1) g/dL Assessment and Plan Assessment and plan (1) CHF (congestive heart failure): Code(s): I50.9 - Heart failure, unspecified Status: Acute Assessment and Plan: Chest x-ray shows possible pulmonary vascular congestion, patient received Lasix 40 mg x 2 in the ER Will repeat echocardiogram 03/25/2024: Echocardiogram Summary 1. Complete two-dimensional, color flow and Doppler transthoracic echocardiogram is performed. 2. Hyperdynamic appearing left ventricular systolic function with grade 1 diastolic noncompliance. 3. Left atrial enlargement. 4. Mild mitral regurgitation. 5. Left ventricular systolic function is hyperdynamic, estimated at >70%. (2) Acute exacerbation of CHF (congestive heart failure): Code(s): I50.9 - Heart failure, unspecified Status: Acute (3) COPD (chronic obstructive pulmonary disease): Code(s): J44.9 - Chronic obstructive pulmonary disease, unspecified Status: Chronic (4) Pneumonia: Qualifiers: Laterality: unspecified laterality Lung location: unspecified part of lung Pneumonia type: due to unspecified organism Qualified Code(s): J18.9 - Pneumonia, unspecified organism Code(s): J18.9 - Pneumonia, unspecified organism Status: Resolved Assessment and Plan: Possible pneumonia seen on chest x-ray -will start ceftriaxone and doxycycline -continue BiPAP and steroids as above (5) HTN (hypertension): Code(s): I10 - Essential (primary) hypertension Status: Chronic Assessment and Plan: History of hypertension, will hold antibiotics and blood pressures are borderline and stable (6) Hyperlipidemia: Code(s): E78.5 - Hyperlipidemia, unspecified Status: Chronic Assessment and Plan: Will hold simvastatin until patient is able to take p.o. Plan COPD exacerbation Reported sudden onset dyspnea. EMS given magnesium and Solu-Medrol and later she required bipap in ED Hx of PE currently on apixaban. CXR Cardiomegaly, pulmonary vascular redistribution, very small pleural effusions, suggesting congestive heart failure Minimal infiltrate involving the right mid and lower lung zones may be due to pneumonia and/or pulmonary edema Osteopenia ABG 7.2/65.7/29.9 . Patient visible respiratory distress on BiPAP Possible intubation. Transferred to ICU Received levofloxacin. Discontinued due to possibility of allergy. Received Lasix 40 mg IV x1. Received methylprednisone 60 mg IV x 1 Ordered CTA to rule out recurrent PE. Comorbid condition CHF. Pulmonology consulted Quality VTE Prophylaxis VTE prophylaxis: pharmacologic ordered Hospitalist [facility] Advance Care Plan I have confirmed that the patient's Advanced Care Plan is present, code status is documented, or surrogate decision maker is listed in patient medical record.: Yes Medication Reconciliation I have utilized all available resources to obtain, update and review the patients current medications (includes all prescriptions, OTC, herbals, cannabis, and nutritional supplements).: Yes
[2024-08-24] MEDS: IPRATROPIUM 0.5 MG/ALBUTEROL SULFATE 2.5 MG AMPUL.NEB 3 ML INHALATION ×3 (08:24→20:49)
[2024-08-24 09:02] LABS: Alveolar/Arterial O2 Gradient 65.3 mmHg; Base Excess ABG 3.3 mEq/l (+/-2.0); Fractional Inspired Oxygen 30 %; HCO3 ABG 30.2 mEq/l (22.0-26.0); Oxygen Content ABG 19.8 %vol (16.0-22.0); Oxygen Saturation ABG 95.7 % (95.0-100.0); Oxyhemoglobin 94.4 % THb (90.0-100.0); Total Hemoglobin 14.9 g/dL (12.0-18.0); pH ABG 7.357 (7.350-7.450)
[2024-08-24 09:03] LABS: Device NON-INVASIVE VENT; Modified Allen's Test Pass; Non-Invasive Vent Rate 12 /MIN; Site Drawn LEFT RADIAL
[2024-08-24 09:04] LABS: Non-Invasive Expiratory Pressure 5 CMH2O; Non-Invasive Inspiratory Pressure 10 CMH2O
[2024-08-24] MEDS: levoFLOXacin 750 MG/D5W 150 ML 750 MG/150 ML BAG 100 MG IVPB (12:28)
--- NOTE | 2024-08-24 12:55 | PC.NURSE ---
Pt began stating she was unable to breathe, pt found to be restless with oxygen saturation in the 80s and HR in the 120s. Pts episode began 10 mins after beginning Levaquin. This RN stopped pts Levaquin and called RT for assistance. This RN then called the hospitalist, Dr. Bradford, and recieved a verbal order for 0.5 mg of Ativan and to hold the Levaquin. Dr. Bradford states he will come assess the pt and is now at bedside.
[2024-08-24] MEDS: LORazepam INJ (*CRX) 2 MG/ML VIAL 0.5 MG IV PUSH (13:05)
[2024-08-24 14:10] LABS: Alveolar/Arterial O2 Gradient 115.9 mmHg; Base Excess ABG 1.2 mEq/l (+/-2.0); Carboxyhemoglobin 1.4 % THb (0-2.0); Fractional Inspired Oxygen 50 %; HCO3 ABG 29.9 mEq/l (22.0-26.0); Methemoglobin ABG 0.1 %THb (0-1.5); Oxygen Content ABG 20.8 %vol (16.0-22.0); Oxygen Saturation ABG 98.9 % (95.0-100.0); Oxyhemoglobin 97.9 % THb (90.0-100.0); PO2 ABG 166.7 mmHg (80.0-100.0); PO2 FiO2 Ratio Arterial Blood 3.33 %; Reduced Hemoglobin 0.6 %THb (0-5.0); Total Hemoglobin 14.9 g/dL (12.0-18.0)
[2024-08-24 14:18] LABS: pH ABG 7.276 (7.350-7.450)
[2024-08-24 14:19] LABS: Device NON-INVASIVE VENT; Modified Allen's Test Pass; PCO2 ABG 65.7 mmHg (35.0-45.0); Site Drawn LEFT RADIAL
[2024-08-24 14:20] LABS: Non-Invasive Inspiratory Pressure 10 CMH2O; Non-Invasive Vent Rate 12 /MIN
[2024-08-24 14:21] LABS: Non-Invasive Expiratory Pressure 5 CMH2O
--- NOTE | 2024-08-24 15:15 | PC.NURSE ---
This RN received report from CLOTH HAULER.
--- NOTE | 2024-08-24 15:50 | ADMGEN ---
This patient, Betty Marte, was admitted to Intensive Care Unit-5 @ 1550. Patient/family oriented to hospital policies and general routines including ID bracelet, bed and alarms, visiting hours, pain management, procedures, bathroom and other care routines, personal items, smoking policy, room service/diet, and visiting hours. Information on how to activate the Rapid Response Team has been discussed. Patient/Family are encouraged to report perceived risks to care and to ask questions if they do not understand what they are told or what they should do.
--- NOTE | 2024-08-24 16:04 | ADMGEN ---
This patient, Betty Marte, was admitted to Intensive Care Unit-5. Patient/family oriented to hospital policies and general routines including ID bracelet, bed and alarms, visiting hours, pain management, procedures, bathroom and other care routines, personal items, smoking policy, room service/diet, and visiting hours. Information on how to activate the Rapid Response Team has been discussed. Patient/Family are encouraged to report perceived risks to care and to ask questions if they do not understand what they are told or what they should do.
--- NOTE | 2024-08-24 16:05 | P.CONIN_ITS ---
Assessment and Plan Assessment and plan (1) COPD exacerbation: Code(s): J44.1 - Chronic obstructive pulmonary disease with (acute) exacerbation Status: Acute Assessment and Plan: 08/24: Presented with shortness of breath to the ED, was found to be in COPD exacerbation, possible pneumonia and a pulmonary vascular congestion -patient was given Solu-Medrol and albuterol treatment in the ER -patient received levofloxacin after which she had some a reaction, with labored breathing, tachypnea, tachycardia. Patient was given Solu-Medrol. Remained short of breath, was transferred to the ICU for further management -patient does use 3-4 L at home for COPD -currently on BiPAP, increased BiPAP settings to 12/6, 40% FiO2, adequate O2 sats -continue Solu-Medrol, bronchodilators, will add Trelegy Ellipta that she uses at home -continue to monitor the ICU -ABGs after continues nebs (2) Pneumonia: Qualifiers: Laterality: unspecified laterality Lung location: unspecified part of lung Pneumonia type: due to unspecified organism Qualified Code(s): J18.9 - Pneumonia, unspecified organism Code(s): J18.9 - Pneumonia, unspecified organism Status: Resolved Assessment and Plan: Possible pneumonia seen on chest x-ray -will start ceftriaxone and doxycycline -continue BiPAP and steroids as above (3) CHF (congestive heart failure): Code(s): I50.9 - Heart failure, unspecified Status: Acute Assessment and Plan: Chest x-ray shows possible pulmonary vascular congestion, patient received Lasix 40 mg x 2 in the ER Will repeat echocardiogram 03/25/2024: Echocardiogram Summary 1. Complete two-dimensional, color flow and Doppler transthoracic echocardiogram is performed. 2. Hyperdynamic appearing left ventricular systolic function with grade 1 diastolic noncompliance. 3. Left atrial enlargement. 4. Mild mitral regurgitation. 5. Left ventricular systolic function is hyperdynamic, estimated at >70%. (4) HTN (hypertension): Code(s): I10 - Essential (primary) hypertension Status: Chronic Assessment and Plan: History of hypertension, will hold antibiotics and blood pressures are borderline and stable (5) Hyperlipidemia: Code(s): E78.5 - Hyperlipidemia, unspecified Status: Chronic Assessment and Plan: Will hold simvastatin until patient is able to take p.o. Plan DVT prophylaxis: Lovenox Stress ulcer prophylaxis: Protonix/Pepcid Nutrition: NPO for now Code Status: Full code Critical Care Time Spent: 49 minutes Discussed with patient updated with her condition and plan of care. Due to a high probability of clinically significant, life threatening deterioration, the patient required my highest level of preparedness to intervene emergently and I personally spent this critical care time directly and personally managing the patient. This critical care time included obtaining a history; examining the patient; pulse oximetry; ordering and review of studies; arranging urgent treatment with development of a management plan; evaluation of patient's response to treatment; frequent reassessment; and discussions with other providers. It was exclusive of separately billable procedures and treating other patients and teaching time. Please see Assessment and Plan section and the rest of the note for further information on patient assessment and treatment This dictation may have been done utilizing a voice recognition system. Attempts have been made to correct errors. However, there may be uncorrected grammatical, spelling, and recognitions errors present. Tar And Ammonia Pump Operator Consult Note Consult date: 08/24/24 Reason for consult: Acute hypercapnic respiratory failure, COPD exacerbation, pneumonia HPI: Betty Marte is a 79 year old female with past medical history of COPD, 3-4 L oxygen at home, anxiety, congestive heart failure, essential hypertension, hyperlipidemia presented the ED on 08/24/2024 with complains of shortness of breath. Patient was placed on CPAP, given Solu-Medrol and magnesium by EMS EN route to the hospital. In the ED patient's lungs sounded diminished with diffuse wheezing. Received nebulizer treatment. Was initially started on BiPAP, patient was given Levaquin and possibly had a reaction as she tachypneic, tachycardic with increased work of breathing. Lasix was given, along with methylprednisolone. Patient reportedly be very anxious patient also received Ativan for anxiety. I was asked by hospitalist to take the patient to the ICU as she had severe respiratory distress to which I agreed. White blood cell count, hemoglobin and platelets were all within normal limits. INR was 1.3. Sodium 136, potassium 3.5, CO2 35, BUN 11, is COVID-19, influenza RSV were negative. Chest x-ray showed cardiomegaly, pulmonary vascular redistribution, small pleural effusions, suggesting congestive heart failure. Minimal infiltrate involving the right mid and lower lung zone may be due to pneumonia and/or pulmonary edema. -CTA chest done, pending results Patient was transferred to the ICU on BiPAP Patient seen examined upon arrival to the ICU, is awake, in mild respiratory distress. Patient in sinus rhythm, rate controlled. Patient on BiPAP 10/5, 40% FiO2, changed BiPAP settings to 12/6, changed I to E ratio. Urine output has been adequate, patient is afebrile, hemodynamically stable. Denies any chest pain, nausea or vomiting. Patient wants her BiPAP to be off so she can drink something. Patient complains of some shortness of breath Review of Systems 2 Review of Systems: 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 Cervical disc disease CHF (congestive heart failure) Chronic stasis dermatitis of left lower extremity COPD (chronic obstructive pulmonary disease) History of Mohs micrographic surgery for skin cancer HTN (hypertension) Hyperlipidemia Lumbar disc disease Overweight Surgical History Surgical History H/O: hysterectomy History of colonoscopy with polypectomy (~04/2019) Hx of cardiac cath No intervention performed Family History Family History Sibling Family history of atrial fibrillation Heart disease Father Family history of lung cancer Grandparent Family history of malignant neoplasm of breast in first degree relative Social History Social History Social History: The patient lives home alone. She is . 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 She has 2 children. The patient desires to be a full code and does not have a durable power county attorney for healthcare. However she said that her son could be the durable power county attorney for healthcare. Patient still continues to smoke on a daily basis she smoked for several years. Least a pack cigarettes a day. She denies any marijuana or illicit drugs. States she drinks approximately 3 glasses of wine daily. Smoking packs per day: 0.75 Smoking cigarettes per day: 15.0 Years smoked: 50 Smoking pack-years: 37.50 Smoking status: Current every day smoker (15 cigarettes per day) Second hand tobacco smoke exposure: Yes Alcohol intake: current Drinks per week: 21 Alcohol use details: 3 glasses of wine daily Substance use: never Substance use type: does not use Do You Feel Safe in your Home?: Yes Lack of Transportation: No Lack of Food: Never True Current Housing: I Have Housing Concerned About Future Housing: No Difficulty Paying Gas/Electric Bills: No Difficulty Paying for Meds: No Currently Unemployed: No Education: High School Diploma/GED Difficulty w/ Childcare or Family Care: No Living arrangements: alone Occupation/Education: retired Gender identity (if verbalized by the patient): Female Spiritual care concerns: No Agree to blood products: Yes Meds Home Medications and Allergies Home Medications ?Medication ?Instructions ?Recorded ?Confirmed ?Type potassium chloride 10 mEq 10 meq PO DAILY #30 tabs 05/07/23 06/26/24 Rx tablet,extended release(part/cryst) losartan 50 mg tablet (Cozaar) 50 mg PO DAILY #90 tabs 06/19/23 06/26/24 Rx metoprolol tartrate 100 mg tablet 100 mg PO Q12H 03/23/24 06/26/24 History kstffonsjaqf-iahspwnu-sxwkpxh-folic 1 tablet PO DAILY 03/23/24 06/26/24 History acid 400 mcg-vit K1 20 mcg tablet simvastatin 20 mg tablet 20 mg PO DAILY 03/23/24 06/26/24 History ammonium lactate 5 % lotion 1 applic topical QAM #226 grams 03/26/24 06/26/24 Rx (Lac-Hydrin Five) Home oxygen #1 ea 04/03/24 06/26/24 Rx furosemide 40 mg tablet 40 mg PO DAILY 05/30/24 06/26/24 History buspirone 7.5 mg tablet 7.5 mg PO Q12H #180 tabs 06/21/24 06/26/24 Rx citalopram 20 mg tablet 20 mg PO Q12H #180 tabs 06/21/24 06/26/24 Rx montelukast 10 mg tablet 10 mg PO DAILY #90 tabs 06/21/24 06/26/24 Rx (Singulair) Trelegy Ellipta 200 mcg-62.5 1 inh inhalation Q24H #180 ea 06/26/24 06/26/24 Rx mcg-25 mcg powder for inhalation (rjzdzrqcopp-glxmseydw-ifepycqc) apixaban 5 mg tablet (Eliquis) 5 mg PO Q12HR 90 days #180 tabs 06/26/24 06/26/24 Rx empagliflozin 10 mg tablet 10 mg PO DAILY #90 tabs 06/26/24 06/26/24 Rx ipratropium 0.5 mg-albuterol 3 mg 3 ml inhalation Q4H PRN shortness 06/26/24 06/26/24 Rx (2.5 mg base)/3 mL nebulization of breath or wheezing #180 mL soln albuterol sulfate 90 mcg/actuation 2 puff inhalation QID PRN 07/23/24 Rx aerosol inhaler shortness of breath or wheezing #8.5 grams fluticasone propionate 50 1 spray intranasal DAILY 90 days 08/20/24 Rx mcg/actuation nasal #16 grams spray,suspension (Flonase Allergy Relief) Allergies Allergy/AdvReac Type Severity Reaction Status Date / Time acetaminophen Allergy Intermediate HIVES Verified 08/24/24 16:16 levofloxacin Allergy Difficulty Verified 08/24/24 16:16 Breathing Vital Signs Vital Signs - 24 hr 08/24/24 00:25 08/24/24 00:46 08/24/24 01:00 Temperature 98.6 F Pulse Rate 77 78 78 Respiratory Rate 19 24 H 20 Blood Pressure 107/91 H Pulse Oximetry 98 99 Oxygen Delivery BiPAP BiPAP Oxygen Flow Rate 08/24/24 01:32 08/24/24 01:33 08/24/24 01:33 Temperature Pulse Rate 85 Respiratory Rate Blood Pressure Pulse Oximetry 99 99 Oxygen Delivery Nasal Cannula Nasal Cannula Oxygen Flow Rate 4 4 08/24/24 03:15 08/24/24 03:18 08/24/24 03:30 Temperature Pulse Rate 78 78 Respiratory Rate 20 22 H Blood Pressure 107/65 Pulse Oximetry 99 97 99 Oxygen Delivery BiPAP Oxygen Flow Rate 08/24/24 03:33 08/24/24 03:45 08/24/24 04:00 Temperature Pulse Rate 76 75 75 Respiratory Rate 20 20 20 Blood Pressure 116/67 Pulse Oximetry 99 96 100 Oxygen Delivery Oxygen Flow Rate 08/24/24 04:02 08/24/24 04:15 08/24/24 04:17 Temperature Pulse Rate 76 74 75 Respiratory Rate 21 H 21 H 21 H Blood Pressure 104/64 109/65 Pulse Oximetry 99 Oxygen Delivery Oxygen Flow Rate 08/24/24 04:39 08/24/24 04:45 08/24/24 04:47 Temperature Pulse Rate 81 73 73 Respiratory Rate 23 H 19 21 H Blood Pressure 130/93 H 130/93 H Pulse Oximetry 97 98 98 Oxygen Delivery Oxygen Flow Rate 08/24/24 04:48 08/24/24 05:00 08/24/24 05:03 Temperature Pulse Rate 74 74 77 Respiratory Rate 19 20 21 H Blood Pressure 134/82 Pulse Oximetry 98 Oxygen Delivery Oxygen Flow Rate 08/24/24 05:12 08/24/24 05:16 08/24/24 05:17 Temperature Pulse Rate 74 72 73 Respiratory Rate 23 H 20 18 Blood Pressure 131/65 Pulse Oximetry 98 99 98 Oxygen Delivery BiPAP Oxygen Flow Rate 08/24/24 05:30 08/24/24 05:32 08/24/24 06:13 Temperature Pulse Rate 73 73 74 Respiratory Rate 22 H 21 H 22 H Blood Pressure 116/69 Pulse Oximetry 98 99 98 Oxygen Delivery Oxygen Flow Rate 08/24/24 06:15 08/24/24 06:56 08/24/24 07:01 Temperature Pulse Rate 72 73 73 Respiratory Rate 20 19 22 H Blood Pressure Pulse Oximetry 98 Oxygen Delivery Oxygen Flow Rate 08/24/24 07:45 08/24/24 08:00 08/24/24 08:19 Temperature Pulse Rate 70 67 76 Respiratory Rate 18 19 21 H Blood Pressure Pulse Oximetry 100 100 Oxygen Delivery Oxygen Flow Rate 08/24/24 08:25 08/24/24 08:30 08/24/24 08:30 Temperature Pulse Rate 71 72 77 Respiratory Rate 22 H 19 20 Blood Pressure Pulse Oximetry 100 100 Oxygen Delivery BiPAP Oxygen Flow Rate 08/24/24 08:38 08/24/24 08:45 08/24/24 08:50 Temperature Pulse Rate 86 77 Respiratory Rate 22 H 20 Blood Pressure Pulse Oximetry 98 98 Oxygen Delivery Oxygen Flow Rate 08/24/24 09:00 08/24/24 09:19 08/24/24 09:30 Temperature Pulse Rate 79 90 94 Respiratory Rate 22 H 27 H 22 H Blood Pressure 130/72 142/105 H Pulse Oximetry 98 98 98 Oxygen Delivery Oxygen Flow Rate 08/24/24 10:01 08/24/24 11:00 08/24/24 11:03 Temperature Pulse Rate 93 80 79 Respiratory Rate 20 20 16 Blood Pressure 151/102 H 128/74 128/74 Pulse Oximetry 97 96 96 Oxygen Delivery Oxygen Flow Rate 08/24/24 11:07 08/24/24 11:16 08/24/24 11:31 Temperature Pulse Rate 77 77 80 Respiratory Rate 21 H 19 26 H Blood Pressure 144/79 H 138/73 Pulse Oximetry 97 95 96 Oxygen Delivery BiPAP Oxygen Flow Rate 08/24/24 11:47 08/24/24 12:15 08/24/24 12:26 Temperature Pulse Rate 78 88 93 Respiratory Rate 21 H 24 H 20 Blood Pressure 134/78 139/74 Pulse Oximetry 96 99 99 Oxygen Delivery BiPAP Oxygen Flow Rate 08/24/24 12:30 08/24/24 12:46 08/24/24 12:50 Temperature Pulse Rate 88 117 H Respiratory Rate 17 27 H Blood Pressure 128/59 L 115/73 Pulse Oximetry 96 89 L 81 L Oxygen Delivery Oxygen Flow Rate 08/24/24 13:00 08/24/24 13:01 08/24/24 13:15 Temperature Pulse Rate 88 117 H 107 H Respiratory Rate 27 H 28 H 20 Blood Pressure 140/109 H 165/104 H Pulse Oximetry 95 100 93 Oxygen Delivery Oxygen Flow Rate 08/24/24 13:19 08/24/24 13:29 08/24/24 13:31 Temperature Pulse Rate 85 82 86 Respiratory Rate 21 H 23 H 22 H Blood Pressure 161/83 H Pulse Oximetry 98 98 Oxygen Delivery BiPAP Oxygen Flow Rate 08/24/24 13:45 08/24/24 13:46 08/24/24 14:00 Temperature Pulse Rate 106 H 103 H 105 H Respiratory Rate 23 H 26 H 22 H Blood Pressure 129/85 138/92 H Pulse Oximetry 99 99 Oxygen Delivery Oxygen Flow Rate 08/24/24 14:16 08/24/24 14:30 08/24/24 14:43 Temperature Pulse Rate 104 H 106 H 90 Respiratory Rate 25 H Blood Pressure 119/73 Pulse Oximetry 97 99 96 Oxygen Delivery Oxygen Flow Rate 08/24/24 15:30 Temperature Pulse Rate 97 Respiratory Rate 23 H Blood Pressure 110/65 Pulse Oximetry 97 Oxygen Delivery Oxygen Flow Rate Exam 2 Narrative: General: Anxious female in no acute distress HEENT:? Pupils equal and reactive, sclera is clear, BiPAP mask in place Neck:? Supple Respiratory:? Decreased air entry bilaterally, diffuse wheezing bilaterally, no rales auscultated Cardiac:? S1-S2 is normal, regular rate and rhythm Abdomen:? Soft, nontender, nondistended Extremities:? Trace edema in lower extremities, palpable pedal pulse Neuro:? Patient is awake, alert, follows simple commands and answers questions appropriately Skin:? Warm and dry, no lesions noted Psych:? Anxious Results Labs 08/24/24 01:07 08/24/24 01:07 Labs: Short CBC 08/24/24 Range/Units 01:07 WBC 10.0 (4.5-10.0) K/mm3 Hgb 14.2 (12.0-15.0) g/dL Hct 42.4 (37.0-47.0) % Plt Count 207 (150-375) k/mm3 BMP 08/24/24 01:07 Sodium 136 L Potassium 3.5 Chloride 98 Carbon Dioxide 35 H BUN 11 Creatinine 0.60 L Glucose 156 H Calcium 9.0 Liver Function 08/24/24 Range/Units 01:07 Total Bilirubin 0.6 (0.2-1.3) mg/dL AST 69 H (14-36) U/L ALT 39 H (6-35) U/L Alkaline Phosphatase 94 (38-126) U/L Albumin 4.5 (3.5-5.1) g/dL Quality VTE Prophylaxis VTE prophylaxis: pharmacologic ordered Hospitalist MIPS Advance Care Plan I have confirmed that the patient's Advanced Care Plan is present, code status is documented, or surrogate decision maker is listed in patient medical record.: Yes Medication Reconciliation I have utilized all available resources to obtain, update and review the patients current medications (includes all prescriptions, OTC, herbals, cannabis, and nutritional supplements).: Yes
[2024-08-24] MEDS: cefTRIAXone 2 GM/NS 100 ML 2 GM/100 ML BAG IVPB (17:06)
[2024-08-24] MEDS: methylPREDNISolone SOD SUCC 125 MG VIAL IV PUSH (17:06)
[2024-08-24] MEDS: diphenhydrAMINE HCl INJ 50 MG/ML VIAL 25 MG IV PUSH (17:06)
[2024-08-24] MEDS: DOXYCYCLINE 100 MG/NS 100 ML 100 MG/100 ML BAG IVPB (17:07)
[2024-08-24 17:35] LABS: Glucose Point of Care 162 mg/dl (65-105)
[2024-08-24 17:54] LABS: Alveolar/Arterial O2 Gradient 62.8 mmHg; Base Excess ABG 2.6 mEq/l (+/-2.0); Fractional Inspired Oxygen 30 %; HCO3 ABG 28.4 mEq/l (22.0-26.0); Oxygen Content ABG 19.3 %vol (16.0-22.0); Oxygen Saturation ABG 97.1 % (95.0-100.0); Oxyhemoglobin 96.3 % THb (90.0-100.0); PCO2 ABG 48.4 mmHg (35.0-45.0); PO2 ABG 94.2 mmHg (80.0-100.0); PO2 FiO2 Ratio Arterial Blood 3.14 %; Total Hemoglobin 14.2 g/dL (12.0-18.0); pH ABG 7.387 (7.350-7.450)
[2024-08-24 17:55] LABS: Device NON-INVASIVE VENT; Modified Allen's Test Pass; Non-Invasive Expiratory Pressure 5 CMH2O; Non-Invasive Inspiratory Pressure 12 CMH2O; Non-Invasive Vent Rate 16 /MIN; Site Drawn RIGHT RADIAL
[2024-08-24 18:24] LABS: Add Urine Microscopic? YES; Appearance Urine Clear (Clear); Bacteria Urine None Seen /hpf; Bilirubin Urine Negative (Negative); Blood Urine 3+ (Negative); Color Urine Yellow (Yellow); Glucose Urine UA 2+ mg/dL (Negative); Hyaline Casts Urine Present /lpf; Ketones Urine Negative (Negative); Leukocyte Esterase Ur Negative LEU/UL (Negative); Need Manual Microscopic Reviewed; Nitrate Urine Negative (Negative); Non Pathogenic Casts >20; Protein Urine 1+ mg/dL (Negative); RBC Urine >100 /hpf (0-2); Specific Grav Ur > 1.045 (1.001-1.035); Squamous Epithelial Cell Urine None Seen /hpf (Few); Urobilinogen Urine 0.2 mg/dL (<2.0); WBC Urine 0-5 /hpf (0-3); pH Urine 5.5 (5.0-9.0)
[2024-08-24 18:45] LABS: MRSA (PCR) NOT DETECTED (NOT DETECTE)
--- NOTE | 2024-08-24 19:09 | ECG_ITS ---
Test Date: 2024-08-24 19:19:31 Measurements Intervals Star Rate: 85 P: 87 TX: 185 QRS: 175 QRSD: 107 T: 118 QT: 385 QTc: 458 Interpretive Statements SINUS RHYTHM WITH MARKED SINUS ARRHYTHMIA INCOMPLETE RIGHT BUNDLE BRANCH BLOCK LATERAL MYOCARDIAL INFARCTION [40+ ms Q WAVE AND/OR ST/T ABNORMALITY IN I/aVL/V5/V6], OF INDETERMINATE AGE MODERATE T-WAVE ABNORMALITY, CONSIDER ANTERIOR ISCHEMIA [-0.1+ mV T WAVE IN V3/V4] WARNING: DATA QUALITY MAY AFFECT INTERPRETATION Compared to ECG 08/24/2024 01:10:08 Myocardial infarct finding now present Electronically Signed On 08-28-2024 15:57:08 NURSE'S COMPANION by Wood Freedman M.D.
[2024-08-24 20:18] LABS: Glucose Point of Care 170 mg/dl (65-105)
[2024-08-24] MEDS: ALBUMIN HUMAN 25% 25 GM/100 ML 100 ML IVPB (21:15)
[2024-08-24] MEDS: FAMOTIDINE 20 MG/2 ML VIAL IV PUSH (21:18)
[2024-08-25] VITALS (52 sets, daily range): BP systolic 101–196; BP diastolic 48–115; PULSE 63–157; RESP 18–40; TEMP 36.4–37.1; O2SAT 95–99
[2024-08-25] MEDS: methylPREDNISolone SOD SUCC 125 MG VIAL 60 MG IV PUSH ×2 (00:13→05:46)
[2024-08-25 00:16] LABS: Glucose Point of Care 164 mg/dl (65-105)
[2024-08-25] MEDS: IPRATROPIUM 0.5 MG/ALBUTEROL SULFATE 2.5 MG AMPUL.NEB 3 ML INHALATION ×2 (02:23→08:11)
[2024-08-25] MEDS: ALBUMIN HUMAN 25% 25 GM/100 ML 100 ML IVPB ×3 (03:11→14:30)
[2024-08-25 04:35] LABS: Basophils Percent Auto 0.2 % (0.2-1.2); Eosinophils Absolute Auto 0.1 K/mm3 (0-0.3); Eosinophils Percent Auto 1.4 % (0-4.4); Hematocrit 36.2 % (37.0-47.0); Immature Granulocyte Absolute 0.03 K/mm3 (0.00-0.031); Immature Granulocyte Percent A 0.5 % (0-0.5); Lymphocytes Absolute Auto 0.44 K/mm3 (0.9-3.2); Lymphocytes Percent Auto 6.6 % (18.3-44.2); Mean Corpuscular HGB Conc 33.1 g/dl (32-36); Mean Corpuscular Volume 96.5 fl (80-100); Mean Platelet Volume 10.2 fl (7.4-10.4); Monocytes Absolute Auto 0.2 K/mm3 (0.1-0.6); Neutrophils Absolute Auto 5.9 K/mm3 (1.3-6.7); Neutrophils Percent Auto 88.3 % (45.5-73.1); Platelet Count Result 158 k/mm3 (150-375); Red Blood Count 3.75 M/mm3 (4.2-5.4); Red Cell Distribution Width 12.8 % (11.5-14.5); White Blood Count 6.7 K/mm3 (4.5-10.0)
[2024-08-25 04:44] LABS: Lactic Acid Reflex 1.5 mmol/L (0.7-2.0)
[2024-08-25 04:55] LABS: Alanine Aminotransferase 29 U/L (6-35); Albumin Level 4.6 g/dL (3.5-5.1); Alkaline Phosphatase 70 U/L (38-126); Anion Gap 2 mmol/L (4-12); Aspartate Amino Transferase 35 U/L (14-36); Bilirubin,Total 0.6 mg/dL (0.2-1.3); Blood Urea Nitrogen 23 mg/dL (7-17); Calcium 9.2 mg/dL (8.4-10.2); Carbon Dioxide 35 mmol/L (22-30); Chloride 102 mmol/L (98-107); Estimated CRCL calculation 61 ml/min; Estimated Glomerular Filt Rate > 60; Glucose 154 mg/dL (65-110); Magnesium 2.4 mg/dL (1.6-2.3); Phosphorus 3.1 mg/dL (2.5-4.5); Potassium 3.3 mmol/L (3.4-5.0); Sodium 139 mmol/L (137-145)
[2024-08-25] MEDS: DOXYCYCLINE 100 MG/NS 100 ML 100 MG/100 ML BAG IVPB ×2 (05:46→17:24)
[2024-08-25 06:04] LABS: Alveolar/Arterial O2 Gradient 64.7 mmHg; Base Excess ABG 5.8 mEq/l (+/-2.0); Carboxyhemoglobin 0.8 % THb (0-2.0); Fractional Inspired Oxygen 30 %; HCO3 ABG 31.3 mEq/l (22.0-26.0); Methemoglobin ABG 0.2 %THb (0-1.5); Oxyhemoglobin 96.3 % THb (90.0-100.0); PCO2 ABG 49.4 mmHg (35.0-45.0); PO2 ABG 91.2 mmHg (80.0-100.0); PO2 FiO2 Ratio Arterial Blood 3.04 %; Reduced Hemoglobin 2.7 %THb (0-5.0); Total Hemoglobin 13.2 g/dL (12.0-18.0)
[2024-08-25 06:05] LABS: Device BIPAP; Modified Allen's Test Pass; Site Drawn LEFT RADIAL
[2024-08-25 06:06] LABS: Expiratory Pressure 5 cmH2O; Inspiratory Pressure 12 cmH2O
[2024-08-25] MEDS: LORazepam INJ (*CRX) 2 MG/ML VIAL 1 MG IV PUSH ×2 (08:49→09:45)
[2024-08-25] MEDS: LEVALBUTEROL NEB 1.25 MG/3 ML 2.5 MG INHALATION (09:13)
[2024-08-25] MEDS: SODIUM CHLOR 3% 15 ML NEB (RESPIRATORY THERAPY) 6 ML INHALATION (09:15)
[2024-08-25] MEDS: dexmedeTOMIDine 400 MCG/100 ML 400 MCG/100 ML BAG 5.99 MCG IV CONT (09:15)
[2024-08-25] MEDS: ENOXAPARIN 40 MG/0.4 ML SYRINGE SUB-Q (09:40)
[2024-08-25] MEDS: FAMOTIDINE 20 MG/2 ML VIAL IV PUSH ×2 (09:40→20:57)
[2024-08-25] MEDS: PANTOPRAZOLE SODIUM IV 40 MG VIAL IV PUSH (09:41)
[2024-08-25] MEDS: METOPROLOL TARTRATE INJ 5 MG/5 ML VIAL IV PUSH (09:45)
[2024-08-25] MEDS: ETOMIDATE 20 MG/10 ML AMPUL IV PUSH (09:55)
[2024-08-25] MEDS: ROCURONIUM BROMIDE 50 MG/5 ML VIAL IV PUSH (09:56)
[2024-08-25] MEDS: PROPOFOL IV EMULSION 100 ML 7.19 MG IV CONT (10:04)
[2024-08-25 10:27] LABS: Triglycerides 69 mg/dL (<150)
--- NOTE | 2024-08-25 10:40 | P.CONPL_ITS ---
Assessment and Plan Assessment and plan (1) COPD exacerbation: Code(s): J44.1 - Chronic obstructive pulmonary disease with (acute) exacerbation Status: Acute Assessment and Plan: Patient with gold grade 3 group E COPD. patient with 37 pack year tobacco use, currently smoking. 06/19/2024: PFTs demonstrated a severe obstructive abnormality with an FEV1 is 0.91 L, 42% predicted, no bronchodilator response, normal lung volumes and a severely decreased DLCO that remained moderately decreased when adjusted for alveolar volume. A 6 minute walk on 3 L nasal cannula with ambulatory distance 188 m with humphrey saturation 89%. Chronic hypoxemic and hypercarbic respiratory failure. CT scan of the chest on 08/24/2023 with moderate to severe apical predominant centrilobular emphysema. Patient currently presents with COPD exacerbation. COVID influenza and RSV RT PCR studies negative. CT scan of the chest shows no focal infiltrates or effusions. Plan: I will continue systemic steroids and decrease her Solu-Medrol from 60 mg q.6 hours to 20 mg q.6 hours. Continue DuoNebs q.6 hours. Patient was empirically started on ceftriaxone and doxycycline. will follow clinically for evidence of pneumonia and deescalate accordingly. (2) Acute on chronic respiratory failure: Qualifiers: Respiratory failure complication: hypercapnia Qualified Code(s): J96.22 - Acute and chronic respiratory failure with hypercapnia Code(s): J96.20 - Acute and chronic respiratory failure, unspecified whether with hypoxia or hypercapnia Status: Acute Assessment and Plan: Patient with frequent episodes of severe shortness of breath requiring sedation with ativan and noninvasive ventilation. She is a DNR. She remains clinically unstable and will be monitored in the ICU. Patient has chronic hypercarbic respiratory failure from her COPD. She would benefit from home noninvasive ventilation to prevent subsequent hospitalizations and further deterioration. She did not tolerate the BiPAP machine well and she said she could not breathe and it made her anxious. Patient was placed on noninvasive ventilation with the AVAPS mode rate of 14, tidal volume 500, EPAP 5, minimal inspiratory pressure 6, maximal inspiratory pressure 25, inspiratory time 0.8, rise of 1 which is the fastest and 30% FiO2. Patient stated this was comfortable. Plan: Will continue noninvasive ventilation with the AVAPS mode p.r.n. during the day and the patient should wear this at [facility]. I will check an ABG prior to removal of the AVAPS mode in the morning. Discussed with doctors Sharon and Gonzalo. will follow with you. History of Present Illness History of Present Illness Consult date: 08/25/24 Chief complaint: Acute on Chronic Respiratory Failure Narrative: 08/25/2024: This is a new pulmonary consult for COPD with chronic hypercarbic and hypoxemic respiratory failure. 79-year-old with a history of hypertension, obesity, congestive heart failure, grade 1 diastolic dysfunction, and COPD. Patient is followed in the Pulmonary Clinic in last seen on 05/30/2024. She had Thirty-seven pack year tobacco use, COPD, she was on trilogy inhaler 100 and continued to smoke. Smoking cessation counseling was provided. PFTs and 6 minute walk were ordered. 06/19/2024: PFTs demonstrated a severe obstructive abnormality with an FEV1 is 0.91 L, 42% predicted, no bronchodilator response, normal lung volumes and a severely decreased DLCO that remained moderately decreased when adjusted for alveolar volume. A 6 minute walk on 3 L nasal cannula with ambulatory distance 188 m with humphrey saturation 89%. 08/24/2023: Patient presented to [facility] emergency department with shortness of breath. EMS had placed her on CPAP for her distress. She was converted to BiPAP in the emergency department. Her blood pressure is 107/91, heart rate 77 and she had bilateral wheezing. White blood cell count was 10.0 with eosinophils 5.5% equal 550 per micro L, creatinine was 0.6, serum bicarbonate was 35, BNP was 1540 and her ABG on 4 L was 7.33/62/107. CT angiogram of the chest showed no pulmonary embolism, no focal infiltrates or effusions, moderate to severe apical predominant centrilobular emphysema. Patient was treated for COPD exacerbation with BiPAP, Solu-Medrol, bronchodilators and ceftriaxone and doxycycline. Patient was given IV Lasix. Patient was admitted to the floor and later in the afternoon on 08/24/2024 she developed respiratory distress and was transferred to the intensive care unit. She required sedation with Ativan so that she could tolerate the BiPAP. Code status was changed to DNR. ABG later in the day on BiPAP rate of 16, pressures 12/5 and 30% FiO2 was 7.39/48/94. 08/25/2023: Patient wore the BiPAP all night and 2 minutes prior to me entering the room she was taken off BiPAP and placed on Vapotherm. She was in respiratory distress with a heart rate of 110 on Vapotherm 40 L 35% with saturations 95%. She had increased work of breathing and anxiety. She was given Ativan 1 mg IV. She did not tolerate the BiPAP machine well and she said she could not breathe and it made her anxious. Patient was placed on noninvasive ventilation with the AVAPS mode rate of 14, tidal volume 500, EPAP 5, minimal inspiratory pressure 6, maximal inspiratory pressure 25, inspiratory time 0.8, rise of 1 which is the fastest and 30% FiO2. Patient stated this was comfortable. Overall the patient felt a little bit better than yesterday cough and phlegm were unchanged. DATA CTA chest PE protocol History: 79 years Female with . r/o PE . Comparison: November 02, 2021 Findings: PULMONARY ARTERIES: No pulmonary embolus. VISUALIZED THORACIC INLET: Normal. MEDIASTINUM: Aorta/coronary arteries: Mild atheromatous disease. Heart/other: The heart is not enlarged. Lymph nodes: No mediastinal or hilar adenopathy. Precarinal lymph node is seen measuring 1.4 cm. Small prevascular lymph node is also noted. LUNGS: Emphysematous changes of the lungs. Dependent atelectatic changes. No pulmonary nodules or masses. No infiltrates or effusions. No pneumothorax. VISUALIZED UPPER ABDOMEN: Fat infiltration of the liver. Benign calcifications of the spleen. Slightly thickened wall of the stomach. Clinical correlation advised. Otherwise, the visualized upper abdomen is normal. MUSCULOSKELETAL: Soft tissues: The superficial soft tissues are normal. Bones: Age appropriate degenerative changes of the spine. Multiple healing rib fractures in the right hemithorax. Prominent osteophyte is seen in the midthoracic area with severe spinal canal stenosis and cord compression. IMPRESSION: 1. No pulmonary embolism. 2. No acute cardiopulmonary pathology. 3. 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 Further evaluation and clinical correlation advised. 4. Emphysematous changes of the lungs. 5. Multiple healing rib fractures in the right hemithorax. 6. Fat infiltration of the liver. 06/19/2024: This is a pulmonary function test with pre and post-bronchodilator spirometry, plethysmography and diffusing capacity. The test was performed and results interpreted in accordance with the 2019 and 2005 ATS/ERS Task Force guidelines respectively using the Global Lung Function Initiative-2012 reference equations. Patient demonstrated good effort and cooperation. Reproducibility criteria were met. The quality of the pre bronchodilator spirometry maneuver was Grade A and post bronchodilator spirometry maneuver was Grade A. Findings: Spirometry: There is decreased maximal expiratory airflow at all lung volumes with concave expiratory flow tracing. The contour the inspiratory flow tracing is normal. The pre bronchodilator FVC is 2.34 L, 81% predicted. The pre bronchodilator FEV1 is 0.91 L, 42% predicted. The pre bronchodilator FEV1: FVC ratio is 39%. The post bronchodilator FVC is 2.45 L, representing a 5% increase. The post bronchodilator FEV1 is 0.88 L, representing a 3% decrease. The post bronchodilator FEV1: FVC ratio is 36%. Plethysmography: The total lung capacity is 4.99 L, 91% predicted. The functional residual capacity is 3.46 L, 109% predicted. The residual volume is 2.65 L, 106% predicted. Diffusing capacity: The diffusing capacity unadjusted for hemoglobin and carboxyhemoglobin is 5.9, 29% predicted. The diffusing capacity adjusted for alveolar volume is 1.91, 47% predicted. Impression: There is a severe obstructive abnormality. There is no significant improvement after inhaling a single dose of albuterol. The lung volumes are normal. The diffusing capacity unadjusted for hemoglobin and carboxyhemoglobin is severely decreased and remains moderately decreased when adjusted for alveolar volume. There are no prior studies for comparison 06/19/2024: This is a 6 minute walk test. The test was performed and interpreted in accordance with the 2014 ERS/ATS task force guidelines. Of note, patient used a wheeled walker and 3 L nasal cannula oxygen. Findings: The patient's resting 3 L nasal cannula oxygen saturation measured by pulse oximetry was 92%, the heart rate was 68 bpm, and the modified Karine dyspnea score was 0. Patient ambulated for 188 meters and oxygen saturation remained 89 to 91%. At the end of the study the heart rate was 91 bpm and the modified Karine dyspnea score was 2. The patient did not have oxygen desaturations at rest or with ambulation while using 3 L nasal cannula. There are no prior studies for comparison. 03/25/2024: Echo Summary 1. Complete two-dimensional, color flow and Doppler transthoracic echocardiogram is performed. 2. Hyperdynamic appearing left ventricular systolic function with grade 1 diastolic noncompliance. 3. Left atrial enlargement. 4. Mild mitral regurgitation. Left Ventricle Left ventricular chamber dimension is normal. Left ventricular systolic function is hyperdynamic, estimated at >70%. The left ventricular diastolic function is grade I diastolic dysfunction. Right Ventricle Right ventricular chamber dimension is normal. Left Atria Left atrial chamber dimension is moderately enlarged. Right Atria Right atrial chamber dimension is normal. RVSP 36. 11/02/2021: EXAMINATION: CTA chest PE protocol INDICATION: Hypoxia. TECHNIQUE: Computed tomography angiography (CTA) of the chest was performed with 100 mL Omnipaque-350 intravenous contrast timed to evaluate the pulmonary arteries. Coronal maximum intensity projection 3D-reconstructions were created by the technologist. Automated exposure control and iterative reconstruction technique were employed. The dose-length product was 638.92 mGy-cm. COMPARISON: CT abdomen 03/21/2006 FINDINGS: There is mild scarring at the lung apices. There is moderate emphysema. There is mild atelectasis bilaterally. Calcified right hilar lymph nodes are consistent with old granulomatous disease. There are acute pulmonary emboli in right upper lobe, right lower lobe, and distal right main pulmonary artery. There are acute pulmonary emboli in left lower lobe. The heart size is normal. There are coronary artery calcifications. No pericardial effusion. Calcifications in the liver and spleen are consistent with old granulomatous disease. There is severe thoracic spondylosis. IMPRESSION: 1. Bilateral acute pulmonary emboli. I called this result to Sakina Hinson. 2. Moderate emphysema. 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 Cervical disc disease CHF (congestive heart failure) Chronic stasis dermatitis of left lower extremity COPD (chronic obstructive pulmonary disease) History of Mohs micrographic surgery for skin cancer HTN (hypertension) Hyperlipidemia Lumbar disc disease Overweight Surgical History Surgical History H/O: hysterectomy History of colonoscopy with polypectomy (~04/2019) Hx of cardiac cath No intervention performed Family History Family History Sibling Family history of atrial fibrillation Heart disease Father Family history of lung cancer Grandparent Family history of malignant neoplasm of breast in first degree relative Social History Social History Social History: The patient lives home alone. She is . 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 She has 2 children. The patient desires to be a full code and does not have a durable power claim attorney for healthcare. However she said that her son could be the durable power claim attorney for healthcare. Patient still continues to smoke on a daily basis she smoked for several years. Least a pack cigarettes a day. She denies any marijuana or illicit drugs. States she drinks approximately 3 glasses of wine daily. Smoking packs per day: 0.75 Smoking cigarettes per day: 15.0 Years smoked: 50 Smoking pack-years: 37.50 Smoking status: Current every day smoker Tobacco type: cigarettes Second hand tobacco smoke exposure: Yes Drinks per week: 7 Alcohol use details: 3 glasses of wine daily Substance use: never Substance use type: does not use Do You Feel Safe in your Home?: Yes Lack of Transportation: No Lack of Food: Never True Current Housing: I Have Housing Concerned About Future Housing: No Difficulty Paying Gas/Electric Bills: No Difficulty Paying for Meds: No Currently Unemployed: No Education: High School Diploma/GED Difficulty w/ Childcare or Family Care: No Living arrangements: alone Occupation/Education: retired Gender identity (if verbalized by the patient): Female Spiritual care concerns: No Agree to blood products: Yes Meds Home Medications and Allergies Home Medications ?Medication ?Instructions ?Recorded ?Confirmed ?Type potassium chloride 10 mEq 10 meq PO DAILY #30 tabs 05/07/23 08/24/24 Rx tablet,extended release(part/cryst) losartan 50 mg tablet (Cozaar) 50 mg PO DAILY #90 tabs 06/19/23 08/24/24 Rx metoprolol tartrate 100 mg tablet 100 mg PO Q12H 03/23/24 08/24/24 History hfatpcjdromx-vwaggmiu-xvlvtoy-folic 1 tablet PO DAILY 03/23/24 08/24/24 History acid 400 mcg-vit K1 20 mcg tablet simvastatin 20 mg tablet 20 mg PO DAILY 03/23/24 08/24/24 History ammonium lactate 5 % lotion 1 applic topical QAM #226 grams 03/26/24 08/24/24 Rx (Lac-Hydrin Five) Home oxygen #1 ea 04/03/24 08/24/24 Rx furosemide 40 mg tablet 40 mg PO DAILY 05/30/24 08/24/24 History buspirone 7.5 mg tablet 7.5 mg PO Q12H #180 tabs 06/21/24 08/24/24 Rx citalopram 20 mg tablet 20 mg PO Q12H #180 tabs 06/21/24 08/24/24 Rx montelukast 10 mg tablet 10 mg PO DAILY #90 tabs 06/21/24 08/24/24 Rx (Singulair) Trelegy Ellipta 200 mcg-62.5 1 inh inhalation Q24H #180 ea 06/26/24 08/24/24 Rx mcg-25 mcg powder for inhalation (wuwikcqkmjq-kjmyxyjhy-itdbjdjt) apixaban 5 mg tablet (Eliquis) 5 mg PO Q12HR 90 days #180 tabs 06/26/24 08/24/24 Rx empagliflozin 10 mg tablet 10 mg PO DAILY #90 tabs 06/26/24 08/24/24 Rx ipratropium 0.5 mg-albuterol 3 mg 3 ml inhalation Q4H PRN shortness 06/26/24 08/24/24 Rx (2.5 mg base)/3 mL nebulization of breath or wheezing #180 mL soln albuterol sulfate 90 mcg/actuation 2 puff inhalation QID PRN 07/23/24 08/24/24 Rx aerosol inhaler shortness of breath or wheezing #8.5 grams fluticasone propionate 50 1 spray intranasal DAILY 90 days 08/20/24 08/24/24 Rx mcg/actuation nasal #16 grams spray,suspension (Flonase Allergy Relief) Allergies Allergy/AdvReac Type Severity Reaction Status Date / Time acetaminophen Allergy Intermediate HIVES Verified 08/24/24 16:16 levofloxacin Allergy Difficulty Verified 08/24/24 16:16 Breathing Vital Signs Vital Signs - 24 hr 08/24/24 11:00 08/24/24 11:03 08/24/24 11:07 Temperature Pulse Rate 80 79 77 Respiratory Rate 20 16 21 H Blood Pressure 128/74 128/74 Pulse Oximetry 96 96 97 Oxygen Delivery BiPAP Oxygen Flow Rate Fraction of Inspired Oxygen 08/24/24 11:16 08/24/24 11:31 08/24/24 11:47 Temperature Pulse Rate 77 80 78 Respiratory Rate 19 26 H 21 H Blood Pressure 144/79 H 138/73 134/78 Pulse Oximetry 95 96 96 Oxygen Delivery Oxygen Flow Rate Fraction of Inspired Oxygen 08/24/24 12:15 08/24/24 12:26 08/24/24 12:30 Temperature Pulse Rate 88 93 88 Respiratory Rate 24 H 20 17 Blood Pressure 139/74 128/59 L Pulse Oximetry 99 99 96 Oxygen Delivery BiPAP Oxygen Flow Rate Fraction of Inspired Oxygen 08/24/24 12:46 08/24/24 12:50 08/24/24 13:00 Temperature Pulse Rate 117 H 88 Respiratory Rate 27 H 27 H Blood Pressure 115/73 140/109 H Pulse Oximetry 89 L 81 L 95 Oxygen Delivery Oxygen Flow Rate Fraction of Inspired Oxygen 08/24/24 13:01 08/24/24 13:15 08/24/24 13:19 Temperature Pulse Rate 117 H 107 H 85 Respiratory Rate 28 H 20 21 H Blood Pressure 165/104 H Pulse Oximetry 100 93 98 Oxygen Delivery BiPAP Oxygen Flow Rate Fraction of Inspired Oxygen 08/24/24 13:29 08/24/24 13:31 08/24/24 13:45 Temperature Pulse Rate 82 86 106 H Respiratory Rate 23 H 22 H 23 H Blood Pressure 161/83 H Pulse Oximetry 98 Oxygen Delivery Oxygen Flow Rate Fraction of Inspired Oxygen 08/24/24 13:46 08/24/24 14:00 08/24/24 14:16 Temperature Pulse Rate 103 H 105 H 104 H Respiratory Rate 26 H 22 H 25 H Blood Pressure 129/85 138/92 H 119/73 Pulse Oximetry 99 99 97 Oxygen Delivery Oxygen Flow Rate Fraction of Inspired Oxygen 08/24/24 14:30 08/24/24 14:43 08/24/24 15:30 Temperature Pulse Rate 106 H 90 97 Respiratory Rate 23 H Blood Pressure 110/65 Pulse Oximetry 99 96 97 Oxygen Delivery Oxygen Flow Rate Fraction of Inspired Oxygen 08/24/24 15:55 08/24/24 16:00 08/24/24 16:12 Temperature Pulse Rate 93 83 83 Respiratory Rate 24 H 30 H Blood Pressure Pulse Oximetry 95 96 Oxygen Delivery BiPAP BiPAP Oxygen Flow Rate Fraction of Inspired Oxygen 08/24/24 16:14 08/24/24 17:15 08/24/24 17:37 Temperature Pulse Rate 83 109 H Respiratory Rate 30 H 22 H Blood Pressure Pulse Oximetry 96 Oxygen Delivery BiPAP Oxygen Flow Rate Fraction of Inspired Oxygen 30 08/24/24 18:00 08/24/24 18:00 08/24/24 20:00 Temperature Pulse Rate 86 88 Respiratory Rate 24 H Blood Pressure 111/60 Pulse Oximetry 97 97 Oxygen Delivery BiPAP Oxygen Flow Rate Fraction of Inspired Oxygen 30 08/24/24 20:00 08/24/24 20:06 08/24/24 20:50 Temperature 37.1 C Pulse Rate 94 98 88 Respiratory Rate 21 H 20 Blood Pressure 111/70 Pulse Oximetry 97 Oxygen Delivery Oxygen Flow Rate Fraction of Inspired Oxygen 08/24/24 20:51 08/24/24 21:02 08/24/24 22:00 Temperature Pulse Rate 89 89 97 Respiratory Rate 21 H 20 Blood Pressure Pulse Oximetry 97 Oxygen Delivery BiPAP Oxygen Flow Rate Fraction of Inspired Oxygen 08/24/24 22:12 08/25/24 00:00 08/25/24 00:00 Temperature 36.9 C Pulse Rate 101 H 94 Respiratory Rate 23 H Blood Pressure 99/52 L Pulse Oximetry 96 97 Oxygen Delivery BiPAP Oxygen Flow Rate Fraction of Inspired Oxygen 30 08/25/24 00:27 08/25/24 00:30 08/25/24 02:00 Temperature 36.9 C Pulse Rate 97 87 86 Respiratory Rate 20 20 Blood Pressure 111/59 L Pulse Oximetry 97 97 Oxygen Delivery BiPAP Oxygen Flow Rate Fraction of Inspired Oxygen 08/25/24 02:13 08/25/24 02:25 08/25/24 02:40 Temperature 37.1 C Pulse Rate 87 87 88 Respiratory Rate 20 19 20 Blood Pressure 122/66 Pulse Oximetry 97 Oxygen Delivery Oxygen Flow Rate Fraction of Inspired Oxygen 08/25/24 04:00 08/25/24 04:00 08/25/24 04:46 Temperature 36.9 C Pulse Rate 90 89 Respiratory Rate 18 Blood Pressure 132/76 Pulse Oximetry 97 99 Oxygen Delivery BiPAP Oxygen Flow Rate Fraction of Inspired Oxygen 30 08/25/24 05:20 08/25/24 06:00 08/25/24 06:19 Temperature 37.1 C Pulse Rate 90 93 94 Respiratory Rate 22 H 18 Blood Pressure 129/63 Pulse Oximetry 98 97 Oxygen Delivery BiPAP Oxygen Flow Rate Fraction of Inspired Oxygen 08/25/24 08:00 08/25/24 08:12 08/25/24 08:12 Temperature 36.4 C L Pulse Rate 89 91 91 Respiratory Rate 20 20 20 Blood Pressure 133/71 Pulse Oximetry 98 98 Oxygen Delivery BiPAP Oxygen Flow Rate Fraction of Inspired Oxygen 08/25/24 08:26 08/25/24 08:35 08/25/24 08:46 Temperature Pulse Rate 99 Respiratory Rate 22 H 40 H Blood Pressure 145/84 H Pulse Oximetry 99 96 Oxygen Delivery High Flow Therapy with Na High Flow Therapy with Na Oxygen Flow Rate 40 45 Fraction of Inspired Oxygen 35 08/25/24 09:13 08/25/24 09:13 08/25/24 09:15 Temperature Pulse Rate 146 H 146 H 157 H Respiratory Rate 22 H 22 H 27 H Blood Pressure Pulse Oximetry 96 Oxygen Delivery BiPAP Oxygen Flow Rate Fraction of Inspired Oxygen 08/25/24 09:40 08/25/24 09:45 08/25/24 10:00 Temperature Pulse Rate 148 H 145 H 132 H Respiratory Rate 30 H 24 H Blood Pressure 196/115 H Pulse Oximetry 96 99 Oxygen Delivery BiPAP Oxygen Flow Rate Fraction of Inspired Oxygen 08/25/24 10:04 08/25/24 10:15 Temperature Pulse Rate 126 H 124 H Respiratory Rate 20 20 Blood Pressure Pulse Oximetry Oxygen Delivery Oxygen Flow Rate Fraction of Inspired Oxygen Exam 2 Const: General: cooperative, healthy appearing and comfortable O rientation/consciousness: oriented to person, oriented to place and oriented to time HENMT: Head: normal to inspection Ears: hearing grossly normal bilaterally Eyes: General: appearance normal, both eyes and all related structures Neck: Neck: normal visual inspection Chest: Chest palpation & inspection: normal inspection of the chest Resp: Effort & Inspection: normal respiratory effort and able to speak in complete sentences Auscultation: no crackles, no rales, no rhonchi, wheezes and diminished lung sounds Cardio: Jugular venous distension: no JVD GI: Inspection: normal to inspection GI Palp: No abdominal tenderness Skin: General skin exam: normal color Neuro: General: oriented to person, oriented to place and oriented to time Other: non focal Extrem: General: normal to inspection Other: no edema Psych: Appearance: grossly normal Results Laboratory Findings 08/25/24 04:27 08/25/24 04:27 ABG, PT/INR, D-dimer: ABG ABG pH 7.420 (7.350-7.450) 08/25/24 05:26 ABG pCO2 49.4 mmHg (35.0-45.0) H 08/25/24 05:26 ABG pO2 91.2 mmHg (80.0-100.0) 08/25/24 05:26 ABG O2 Saturation 97.0 % (95.0-100.0) 08/25/24 05:26 PT/INR, D-dimer PT 16.5 Seconds (11.1-14.7) H 08/24/24 01:07 INR 1.3 08/24/24 01:07 Abnormal lab findings: Abnormal Labs 08/24/24 08/24/24 08/24/24 01:07 03:20 08:55 RBC Hct Neut % (Auto) Lymph % (Auto) 14.8 L Eos % (Auto) 5.5 H Lymph # (Auto) Foster # (Auto) 0.7 H Eos # (Auto) 0.6 H Absolute Neuts (auto) 7.1 H PT 16.5 H ABG pH 7.333 L ABG pCO2 62.0 H* 55.0 H ABG pO2 106.8 H ABG HCO3 32.2 H 30.2 H Sodium 136 L Potassium Carbon Dioxide 35 H Anion Gap 3 L BUN Creatinine 0.60 L Glucose 156 H POC Capillary Glucose 130 H Magnesium AST 69 H ALT 39 H NT-Pro-B Natriuret Pep 1540 H Ur Specific Eva Urine Protein Urine Glucose (UA) Ur Blood (Man) Urine RBC 08/24/24 08/24/24 08/24/24 14:01 17:26 17:33 RBC Hct Neut % (Auto) Lymph % (Auto) Eos % (Auto) Lymph # (Auto) Foster # (Auto) Eos # (Auto) Absolute Neuts (auto) PT ABG pH 7.276 L* ABG pCO2 65.7 H* ABG pO2 166.7 H ABG HCO3 29.9 H Sodium Potassium Carbon Dioxide Anion Gap BUN Creatinine Glucose POC Capillary Glucose 162 H Magnesium AST ALT NT-Pro-B Natriuret Pep Ur Specific Eva > 1.045 H Urine Protein 1+ H Urine Glucose (UA) 2+ H Ur Blood (Man) 3+ H Urine RBC >100 H 08/24/24 08/24/24 08/25/24 17:44 20:12 00:04 RBC Hct Neut % (Auto) Lymph % (Auto) Eos % (Auto) Lymph # (Auto) Foster # (Auto) Eos # (Auto) Absolute Neuts (auto) PT ABG pH ABG pCO2 48.4 H ABG pO2 ABG HCO3 28.4 H Sodium Potassium Carbon Dioxide Anion Gap BUN Creatinine Glucose POC Capillary Glucose 170 H 164 H Magnesium AST ALT NT-Pro-B Natriuret Pep Ur Specific Eva Urine Protein Urine Glucose (UA) Ur Blood (Man) Urine RBC 08/25/24 08/25/24 04:27 05:26 RBC 3.75 L Hct 36.2 L Neut % (Auto) 88.3 H Lymph % (Auto) 6.6 L Eos % (Auto) Lymph # (Auto) 0.44 L Foster # (Auto) Eos # (Auto) Absolute Neuts (auto) PT ABG pH ABG pCO2 49.4 H ABG pO2 ABG HCO3 31.3 H Sodium Potassium 3.3 L Carbon Dioxide 35 H Anion Gap 2 L BUN 23 H D Creatinine Glucose 154 H POC Capillary Glucose Magnesium 2.4 H AST ALT NT-Pro-B Natriuret Pep Ur Specific Eva Urine Protein Urine Glucose (UA) Ur Blood (Man) Urine RBC Diagnostic Findings Additional studies: ITS Impressions Chest X-Ray 08/24/24 08:17 IMPRESSION: Cardiomegaly, pulmonary vascular redistribution, very small pleural effusions, suggesting congestive heart failure Minimal infiltrate involving the right mid and lower lung zones may be due to pneumonia and/or pulmonary edema Osteopenia Chest CTA 08/24/24 16:37 IMPRESSION: 1. No pulmonary embolism. 2. No acute cardiopulmonary pathology. 3. 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 Further evaluation and clinical correlation advised. 4. Emphysematous changes of the lungs. 5. Multiple healing rib fractures in the right hemithorax. 6. Fat infiltration of the liver. Chest X-Ray 08/25/24 06:23 IMPRESSION: Emphysema Aortic atherosclerosis Chest X-Ray 08/25/24 10:29 IMPRESSION: Developing infiltrates or atelectasis in the lower lung zone since earlier today, suggesting developing pulmonary edema, pneumonia or aspiration pneumonitis Abdomen X-Ray 08/25/24 10:34 IMPRESSION: NG tube in stomach
[2024-08-25] MEDS: POTASSIUM CHLORIDE 20 MEQ PACKET (FOR LIQUID) 40 MEQ PO (10:51)
[2024-08-25 11:14] LABS: Alveolar/Arterial O2 Gradient 211.4 mmHg; Base Excess ABG 0.8 mEq/l (+/-2.0); Fractional Inspired Oxygen 70 %; Oxygen Content ABG 19.9 %vol (16.0-22.0); Oxygen Saturation ABG 99.5 % (95.0-100.0); Oxyhemoglobin 98.9 % THb (90.0-100.0); PCO2 ABG 44.1 mmHg (35.0-45.0); PO2 ABG 240.3 mmHg (80.0-100.0); PO2 FiO2 Ratio Arterial Blood 3.43 %; Total Hemoglobin 13.9 g/dL (12.0-18.0); pH ABG 7.389 (7.350-7.450)
[2024-08-25 11:17] LABS: Device VENTILATOR; Modified Allen's Test Pass; Site Drawn RIGHT RADIAL
[2024-08-25 11:18] LABS: Arterial Blood Gas PEEP 5 cmH2O; Arterial Blood Gas Tidal Volume 450 ml; Arterial Blood Gas Vent Mode CMV; Arterial Blood Gas Ventilator rate 20 /MIN
[2024-08-25] MEDS: MIDAZOLAM HCL (*CRX) 2 MG/2 ML VIAL IV PUSH (11:27)
[2024-08-25] MEDS: fentaNYL CITRATE INJ (*CRX) 100 MCG/2 ML VIAL IV PUSH ×2 (11:55→13:29)
--- NOTE | 2024-08-25 12:31 | WPDPROCEDUR ---
Procedures Intubation Intubation Date: 08/25/24 Intubation Time: 10:58 Consent: Discussed with patient regarding intubation to which she was agreeable but wanted me to talk to her son and daughter. I called Eris Resendez patient's POA and explained to him that the patient was in impending respiratory failure and was on BiPAP with AVAPS setting and was not tolerating it she was tachycardic, tachypnea, anxious, not moving much air. He stated he will talk to his sister and get back to me. He got back to be pretty quickly and both the daughter and and the son were agreeable to intubation. A pre-procedural Time-Out was completed immediately before starting the procedure and confirmed: Patient Identification, Site, Procedure, Patient Position and the Availability of Requisite Equipment: Yes Sedative: etomidate Paralytic: rocuronium Laryngoscope: fiber optic video scope Assist device used: fiber optic device ET tube size: 7.5 Tube secured depth (cm): 23 Tube secured location: lips Tube placement confirmation: visualized tube passing through cords, equal breath sounds bilaterally, no breath sounds over epigastrium and confirmation by capnometry Patient tolerated procedure: well Intubation complications: none Additional comments: ETT in appropriate position on chest x-ray
[2024-08-25 12:32] LABS: Glucose Point of Care 154 mg/dl (65-105)
--- NOTE | 2024-08-25 12:34 | P.PNINT_ITS ---
Progress Note: A&P Assessment and Plan (1) Respiratory failure: Code(s): J96.90 - Respiratory failure, unspecified, unspecified whether with hypoxia or hypercapnia Status: Acute Assessment and Plan: 08/25: Patient was BiPAP, was switched to Vapotherm, got anxious, tachypneic with diffuse reason, placed back on AVAPS by pulmonology, patient not tolerating that finally had to intubate the patient after getting consent from the son, daughter and the patient, all were in agreement with intubation but no CPR. -patient placed on CMV mode of ventilation, peep of 5, currently on 40% FiO2 -post intubation ABGs look good -post intubation chest x-ray showed possible developing infiltrates or atelectasis in the lower lung zones - continue ceftriaxone and doxycycline -started patient on Xopenex and ipratropium nebulizers -patient had decrease secretions which was suctioned out, place patient on 3% saline nebs -continue on Trelegy Ellipta that she takes at home -sedated with propofol infusion, with p.r.n. fentanyl, RASS of 0 to -2, daily SBT and SAT (2) COPD exacerbation: Code(s): J44.1 - Chronic obstructive pulmonary disease with (acute) exacerbation Status: Acute Assessment and Plan: 08/24: Presented with shortness of breath to the ED, was found to be in COPD exacerbation, possible pneumonia and a pulmonary vascular congestion -patient was given Solu-Medrol and albuterol treatment in the ER -patient received levofloxacin after which she had some a reaction, with labored breathing, tachypnea, tachycardia. Patient was given Solu-Medrol. Remained short of breath, was transferred to the ICU for further management -patient does use 3-4 L at home for COPD - currently intubated on mechanical ventilation -continue steroids, bronchodilators, Trelegy Ellipta and antibiotics as above -appreciate pulmonology following the patient (3) Pneumonia: Qualifiers: Laterality: unspecified laterality Lung location: unspecified part of lung Pneumonia type: due to unspecified organism Qualified Code(s): J18.9 - Pneumonia, unspecified organism Code(s): J18.9 - Pneumonia, unspecified organism Status: Resolved Assessment and Plan: Possible pneumonia seen on chest x-ray -continue ceftriaxone and doxycycline (08/24) -continue BiPAP and steroids as above (4) CHF (congestive heart failure): Code(s): I50.9 - Heart failure, unspecified Status: Acute Assessment and Plan: Chest x-ray shows possible pulmonary vascular congestion, patient received Lasix 40 mg x 2 in the ER Will repeat echocardiogram 03/25/2024: Echocardiogram Summary 1. Complete two-dimensional, color flow and Doppler transthoracic echocardiogram is performed. 2. Hyperdynamic appearing left ventricular systolic function with grade 1 diastolic noncompliance. 3. Left atrial enlargement. 4. Mild mitral regurgitation. 5. Left ventricular systolic function is hyperdynamic, estimated at >70%. (5) HTN (hypertension): Code(s): I10 - Essential (primary) hypertension Status: Chronic Assessment and Plan: History of hypertension, will hold antihypertensives at this time (6) Hyperlipidemia: Code(s): E78.5 - Hyperlipidemia, unspecified Status: Chronic Assessment and Plan: Start stem a statin per tube (7) Anxiety: Code(s): F41.9 - Anxiety disorder, unspecified Status: Chronic Assessment and Plan: Will restart home citalopram, buspirone Plan DVT prophylaxis: Will restart Eliquis which she takes at home Stress ulcer prophylaxis: Continue Pepcid Nutrition: Tube feeds in a.m. Code Status: No CPR, okay to intubate after discussing with family on 08/25/2024. Critical Care Time Spent: 44 minutes Consent for intubation was obtained from son Eris Resendez, who did discuss with his sister, both daughter and son were in agreement with intubation so was the patient. But the son stated that no CPR. Due to a high probability of clinically significant, life threatening deterioration, the patient required my highest level of preparedness to intervene emergently and I personally spent this critical care time directly and personally managing the patient. This critical care time included obtaining a history; examining the patient; pulse oximetry; ordering and review of studies; arranging urgent treatment with development of a management plan; evaluation of patient's response to treatment; frequent reassessment; and discussions with other providers. It was exclusive of separately billable procedures and treating other patients and teaching time. Please see Assessment and Plan section and the rest of the note for further information on patient assessment and treatment This dictation may have been done utilizing a voice recognition system. Attempts have been made to correct errors. However, there may be uncorrected grammatical, spelling, and recognitions errors present. Subjective Date/time seen: 08/25/24 12:34 Interval history: Reason for consult: Acute hypercapnic respiratory failure, COPD exacerbation, pneumonia 08/25/2024: Patient seen examined the ICU, is on BiPAP through the night, did well overnight. Was placed on high-flow therapy in got tachycardic, tachypneic, anxious, was placed on AVAPS setting the BiPAP machine by pulmonology and patient did not tolerate it, remained tachycardic, tachypneic, anxious and was asking for intubation involving me to talk to the son and the daughter. I called Eris is son who is the POA he discuss with his sister and decided that it was okay to intubate the patient placed in weaning the she but no CPR. I intubated the patient without any difficulty, was placed on full mechanical support, CMV mode. Post intubation ABGs look good, decreased FiO2 to 40%. Urine output has been adequate, patient has been afebrile, hemodynamically stable Review of Systems Review of Systems: ROS unobtainable: Yes unobtainable due to endotracheal tube, unobtainable due to medical condition and unobtainable due to mental status Exam Narrative: General: Intubated and sedated HEENT:? Pupils equal and reactive, sclera is clear, ETT in place Neck:? Supple Respiratory:? Decreased air entry bilaterally, diffuse wheezing bilaterally, no rales auscultated Cardiac:? Sinus tachycardia Abdomen:? Soft, nontender, nondistended, hypoactive bowel sound Extremities:? Trace edema in lower extremities, palpable pedal pulse Neuro:? Currently sedated, intubated, does not open her eyes or follow simple commands (prior to intubation, patient was tachyc ardic, tachypneic, was able to follow commands and was able to answer questions) Skin:? Warm and dry, no lesions noted Psych:? Unable to assess at this Objective Data Vital Signs Vital Signs: Vital Signs - 24 hr 08/24/24 12:46 08/24/24 12:50 08/24/24 13:00 Temperature Pulse Rate 117 H 88 Respiratory Rate 27 H 27 H Blood Pressure 115/73 140/109 H Pulse Oximetry 89 L 81 L 95 Oxygen Delivery Oxygen Flow Rate Fraction of Inspired Oxygen 08/24/24 13:01 08/24/24 13:15 08/24/24 13:19 Temperature Pulse Rate 117 H 107 H 85 Respiratory Rate 28 H 20 21 H Blood Pressure 165/104 H Pulse Oximetry 100 93 98 Oxygen Delivery BiPAP Oxygen Flow Rate Fraction of Inspired Oxygen 08/24/24 13:29 08/24/24 13:31 08/24/24 13:45 Temperature Pulse Rate 82 86 106 H Respiratory Rate 23 H 22 H 23 H Blood Pressure 161/83 H Pulse Oximetry 98 Oxygen Delivery Oxygen Flow Rate Fraction of Inspired Oxygen 08/24/24 13:46 08/24/24 14:00 08/24/24 14:16 Temperature Pulse Rate 103 H 105 H 104 H Respiratory Rate 26 H 22 H 25 H Blood Pressure 129/85 138/92 H 119/73 Pulse Oximetry 99 99 97 Oxygen Delivery Oxygen Flow Rate Fraction of Inspired Oxygen 08/24/24 14:30 08/24/24 14:43 08/24/24 15:30 Temperature Pulse Rate 106 H 90 97 Respiratory Rate 23 H Blood Pressure 110/65 Pulse Oximetry 99 96 97 Oxygen Delivery Oxygen Flow Rate Fraction of Inspired Oxygen 08/24/24 15:55 08/24/24 16:00 08/24/24 16:12 Temperature Pulse Rate 93 83 83 Respiratory Rate 24 H 30 H Blood Pressure Pulse Oximetry 95 96 Oxygen Delivery BiPAP BiPAP Oxygen Flow Rate Fraction of Inspired Oxygen 08/24/24 16:14 08/24/24 17:15 08/24/24 17:37 Temperature Pulse Rate 83 109 H Respiratory Rate 30 H 22 H Blood Pressure Pulse Oximetry 96 Oxygen Delivery BiPAP Oxygen Flow Rate Fraction of Inspired Oxygen 30 08/24/24 18:00 08/24/24 18:00 08/24/24 20:00 Temperature Pulse Rate 86 88 Respiratory Rate 24 H Blood Pressure 111/60 Pulse Oximetry 97 97 Oxygen Delivery BiPAP Oxygen Flow Rate Fraction of Inspired Oxygen 30 08/24/24 20:00 08/24/24 20:06 08/24/24 20:50 Temperature 98.8 F Pulse Rate 94 98 88 Respiratory Rate 21 H 20 Blood Pressure 111/70 Pulse Oximetry 97 Oxygen Delivery Oxygen Flow Rate Fraction of Inspired Oxygen 08/24/24 20:51 08/24/24 21:02 08/24/24 22:00 Temperature Pulse Rate 89 89 97 Respiratory Rate 21 H 20 Blood Pressure Pulse Oximetry 97 Oxygen Delivery BiPAP Oxygen Flow Rate Fraction of Inspired Oxygen 08/24/24 22:12 08/25/24 00:00 08/25/24 00:00 Temperature 98.5 F Pulse Rate 101 H 94 Respiratory Rate 23 H Blood Pressure 99/52 L Pulse Oximetry 96 97 Oxygen Delivery BiPAP Oxygen Flow Rate Fraction of Inspired Oxygen 30 08/25/24 00:27 08/25/24 00:30 08/25/24 02:00 Temperature 98.5 F Pulse Rate 97 87 86 Respiratory Rate 20 20 Blood Pressure 111/59 L Pulse Oximetry 97 97 Oxygen Delivery BiPAP Oxygen Flow Rate Fraction of Inspired Oxygen 08/25/24 02:13 08/25/24 02:25 08/25/24 02:40 Temperature 98.7 F Pulse Rate 87 87 88 Respiratory Rate 20 19 20 Blood Pressure 122/66 Pulse Oximetry 97 Oxygen Delivery Oxygen Flow Rate Fraction of Inspired Oxygen 08/25/24 04:00 08/25/24 04:00 08/25/24 04:46 Temperature 98.5 F Pulse Rate 90 89 Respiratory Rate 18 Blood Pressure 132/76 Pulse Oximetry 97 99 Oxygen Delivery BiPAP Oxygen Flow Rate Fraction of Inspired Oxygen 30 08/25/24 05:20 08/25/24 06:00 08/25/24 06:19 Temperature 98.7 F Pulse Rate 90 93 94 Respiratory Rate 22 H 18 Blood Pressure 129/63 Pulse Oximetry 98 97 Oxygen Delivery BiPAP Oxygen Flow Rate Fraction of Inspired Oxygen 08/25/24 08:00 08/25/24 08:00 08/25/24 08:12 Temperature 97.5 F L Pulse Rate 89 91 Respiratory Rate 20 20 Blood Pressure 133/71 Pulse Oximetry 98 98 98 Oxygen Delivery BiPAP BiPAP Oxygen Flow Rate Fraction of Inspired Oxygen 30 08/25/24 08:12 08/25/24 08:26 08/25/24 08:35 Temperature Pulse Rate 91 99 Respiratory Rate 20 22 H Blood Pressure Pulse Oximetry 99 Oxygen Delivery High Flow Therapy with Na Oxygen Flow Rate 40 Fraction of Inspired Oxygen 35 08/25/24 08:46 08/25/24 09:13 08/25/24 09:13 Temperature Pulse Rate 146 H 146 H Respiratory Rate 40 H 22 H 22 H Blood Pressure 145/84 H Pulse Oximetry 96 96 Oxygen Delivery High Flow Therapy with Na BiPAP Oxygen Flow Rate 45 Fraction of Inspired Oxygen 08/25/24 09:15 08/25/24 09:40 08/25/24 09:45 Temperature Pulse Rate 157 H 148 H 145 H Respiratory Rate 27 H 30 H Blood Pressure Pulse Oximetry 96 Oxygen Delivery BiPAP Oxygen Flow Rate Fraction of Inspired Oxygen 08/25/24 10:00 08/25/24 10:00 08/25/24 10:00 Temperature Pulse Rate 132 H Respiratory Rate 24 H Blood Pressure 196/115 H Pulse Oximetry 99 99 Oxygen Delivery Mechanical Ventilation BiPAP Oxygen Flow Rate Fraction of Inspired Oxygen 100 30 08/25/24 10:00 08/25/24 10:04 08/25/24 10:15 Temperature Pulse Rate 132 H 126 H 124 H Respiratory Rate 24 H 20 20 Blood Pressure Pulse Oximetry Oxygen Delivery Oxygen Flow Rate Fraction of Inspired Oxygen 08/25/24 10:46 08/25/24 10:51 08/25/24 10:56 Temperature Pulse Rate 126 H 125 H 128 H Respiratory Rate 20 20 Blood Pressure Pulse Oximetry 99 Oxygen Delivery Mechanical Ventilation Oxygen Flow Rate Fraction of Inspired Oxygen 70 08/25/24 11:06 08/25/24 11:12 08/25/24 11:17 Temperature Pulse Rate 128 H 127 H 126 H Respiratory Rate 20 20 24 H Blood Pressure Pulse Oximetry Oxygen Delivery Oxygen Flow Rate Fraction of Inspired Oxygen 08/25/24 11:22 08/25/24 12:00 Temperature Pulse Rate 121 H Respiratory Rate 21 H Blood Pressure Pulse Oximetry 97 Oxygen Delivery Mechanical Ventilation Oxygen Flow Rate Fraction of Inspired Oxygen 40 Intake/Output Intake/Output: Intake & Output 08/22/24 08/23/24 08/24/24 08/25/24 23:59 23:59 23:59 23:59 Intake Total 335 220.1 Output Total 900 550 Balance -565 -329.9 Meds/Results Medications: Active Medications Generic Name Dose Route Start Last Admin Trade Name Freq PRN Reason Stop Dose Admin Albuterol/Ipratropium 3 ml 08/24/24 08:00 08/25/24 08:11 Ipratropium 0.5 Mg/Albuterol Sulfate 2.5 Mg Ampul.Neb 3 Ml INHALATION 3 ml Q6HRT ALEXIS Administration Dextrose 12.5 gm 08/24/24 16:31 Dextrose 50% 25 Gm/50 Ml Syringe IV PUSH PRN PRN Hypoglycemia Protocol Enoxaparin Sodium 40 mg 08/25/24 09:00 08/25/24 09:40 Enoxaparin 40 Mg/0.4 Ml Syringe SUB-Q 40 mg DAILY ALEXIS Administration Famotidine 20 mg 08/24/24 21:00 08/25/24 09:40 Famotidine 20 Mg/2 Ml Vial IV PUSH 20 mg Q12HR ALEXIS Administration Fentanyl Citrate 50 mcg 08/25/24 12:25 Fentanyl Citrate Inj (*Crx) 100 Mcg/2 Ml Vial IV PUSH Q2HR PRN Ventilator Asynchrony Fluticasone/Umeclidinium/Vilanterol 1 puff 08/25/24 08:00 08/25/24 08:11 Fluticasone/Umeclidin/Vilanter 200-62.5-25 Mcg Ellipta INHALATION Not Given DAILYRT ALEXIS Glucagon 1 mg 08/24/24 16:31 Glucagon For Inj 1 Mg Vial IM PRN PRN Hypoglycemia Protocol Glucose 15 gm 08/24/24 16:31 Glucose Oral Gel 15 Gm Of Glucse In 37.5 Gm Tube PO PRN PRN Hypoglycemia Protocol Ceftriaxone Sodium 2 gm in 100 mls @ 200 mls/hr 08/24/24 17:00 08/24/24 17:36 Rocephin 2 Gm/Ns 100 Ml IVPB Infused Q24H ALEXIS Infusion Doxycycline Hyclate 100 mg in 100 mls @ 100 mls/hr 08/24/24 18:00 08/25/24 07:00 Vibramycin 100 Mg/Ns 100 Ml IVPB Infused Q12H ALEXIS Infusion Dextrose 1,000 mls @ 100 mls/hr 08/24/24 16:31 Dextrose 5% 1,000 Ml IVPB PRN PRN Hypoglycemia Protocol Albumin Human 100 mls @ 60 mls/hr 08/24/24 21:00 08/25/24 09:51 Albutein IVPB 08/25/24 16:39 60 mls/hr Q6H ALEXIS Administration Propofol 100 mls @ 23.97 mls/hr 08/25/24 09:55 08/25/24 11:22 Diprivan IV CONT 50 mcg/kg/min .Q4H11M ALEXIS 23.97 mls/hr Titration Protocol 50 MCG/KG/MIN Insulin Aspart 3 - 6 units 08/24/24 18:00 08/25/24 05:20 Insulin Aspart (*Bkc) 100 Units/Ml SUB-Q Not Given Q6HR [facility] Protocol Methylprednisolone Sodium Succinate 20 mg 08/25/24 12:00 Methylprednisolone Sod Succ 40 Mg Vial IV PUSH Q6HR [facility] Multi-Ingred Cream/Lotion/Oil/Oint 1 applic 08/25/24 21:00 Mineral Oil/White Petrolatum Ointment EACH EYE Q12HR [facility] Pantoprazole Sodium 40 mg 08/25/24 09:00 08/25/24 09:41 Pantoprazole Sodium Iv 40 Mg Vial IV PUSH 40 mg QAM ALEXIS Administration Perflutren Lipid Microsphere 0 ml 08/24/24 16:30 Perflutren Lipid Microspheres 1.5 Ml Vial Diluted To 10 Ml Total Volume IV PUSH 08/27/24 16:31 ONCE PRN adequate visualization Protocol Sodium Chloride 6 ml 08/25/24 09:20 08/25/24 09:15 Sodium Chlor 3% 15 Ml Neb (Respiratory Therapy) INHALATION 08/27/24 21:01 6 ml Q12HR ALEXIS Administration Radiology Results: ITS Impressions Chest CTA 08/24/24 16:37 IMPRESSION: 1. No pulmonary embolism. 2. No acute cardiopulmonary pathology. 3. 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 Further evaluation and clinical correlation advised. 4. Emphysematous changes of the lungs. 5. Multiple healing rib fractures in the right hemithorax. 6. Fat infiltration of the liver. Chest X-Ray 08/25/24 10:29 IMPRESSION: Developing infiltrates or atelectasis in the lower lung zone since earlier today, suggesting developing pulmonary edema, pneumonia or aspiration pneumonitis Abdomen X-Ray 08/25/24 10:34 IMPRESSION: NG tube in stomach Labs Labs: Laboratory Results - last 24 hr 08/24/24 08/24/24 08/24/24 14:01 17:26 17:27 WBC RBC Hgb Hct MCV MCH MCHC RDW Plt Count MPV Immature Gran % (Auto) Neut % (Auto) Lymph % (Auto) [place] % (Auto) Eos % (Auto) Baso % (Auto) Lymph # (Auto) [place] # (Auto) Eos # (Auto) Baso # (Auto) Abs Immat Gran (auto) Absolute Neuts (auto) Absolute Nucleated RBC Nucleated RBC % Puncture Site Left radial ABG pH 7.276 L* ABG pCO2 65.7 H* ABG pO2 166.7 H ABG PO2/FiO2 Ratio 3.33 ABG HCO3 29.9 H ABG O2 Saturation 98.9 ABG O2 Content 20.8 ABG Base Excess 1.2 A-a Gradient 115.9 Oxyhemoglobin 97.9 Carboxyhemoglobin 1.4 Methemoglobin 0.1 Reduced Hemoglobin 0.6 Total Hemoglobin 14.9 O2 Delivery Device Non-invasive vent O2 Liters/Min 0.0 Minute Volume Vent Rate 12 Vent Mode FiO2 50 Expiratory Pressure 5 Tidal Volume PEEP Inspiratory Pressure 10 Peak Inspir Pressure Pressure Support Sodium Potassium Chloride Carbon Dioxide Anion Gap BUN Creatinine Estim Creat Clear Calc Estimated GFR Glucose POC Capillary Glucose Lactic Acid Calcium Phosphorus Magnesium Total Bilirubin AST ALT Alkaline Phosphatase Total Protein Albumin Triglycerides Urine Color Yellow Urine Appearance Clear Urine pH 5.5 Ur Specific [place] > 1.045 H Urine Protein 1+ H Urine Glucose (UA) 2+ H Urine Ketones Negative Ur Blood (Man) 3+ H Urine Nitrate Negative Urine Bilirubin Negative Urine Urobilinogen 0.2 Add Ur Microanalysis Reviewed Leukocyte Esterase Rfl Negative Urine RBC >100 H Urine WBC 0-5 Ur Squamous Epith Cells None seen Urine Bacteria None seen Urine Casts >20 Hyaline Casts Present Nasal MRSA (PCR) Not detected 08/24/24 08/24/24 08/24/24 17:33 17:44 20:12 WBC RBC Hgb Hct MCV MCH MCHC RDW Plt Count MPV Immature Gran % (Auto) Neut % (Auto) Lymph % (Auto) [place] % (Auto) Eos % (Auto) Baso % (Auto) Lymph # (Auto) [place] # (Auto) Eos # (Auto) Baso # (Auto) Abs Immat Gran (auto) Absolute Neuts (auto) Absolute Nucleated RBC Nucleated RBC % Puncture Site Right radial ABG pH 7.387 ABG pCO2 48.4 H ABG pO2 94.2 ABG PO2/FiO2 Ratio 3.14 ABG HCO3 28.4 H ABG O2 Saturation 97.1 ABG O2 Content 19.3 ABG Base Excess 2.6 A-a Gradient 62.8 Oxyhemoglobin 96.3 Carboxyhemoglobin Methemoglobin Reduced Hemoglobin Total Hemoglobin 14.2 O2 Delivery Device Non-invasive vent O2 Liters/Min Not Reportable Minute Volume Vent Rate 16 Vent Mode FiO2 30 Expiratory Pressure 5 Tidal Volume PEEP Inspiratory Pressure 12 Peak Inspir Pressure Pressure Support Sodium Potassium Chloride Carbon Dioxide Anion Gap BUN Creatinine Estim Creat Clear Calc Estimated GFR Glucose POC Capillary Glucose 162 H 170 H Lactic Acid Calcium Phosphorus Magnesium Total Bilirubin AST ALT Alkaline Phosphatase Total Protein Albumin Triglycerides Urine Color Urine Appearance Urine pH Ur Specific [place] Urine Protein Urine Glucose (UA) Urine Ketones Ur Blood (Man) Urine Nitrate Urine Bilirubin Urine Urobilinogen Add Ur Microanalysis Leukocyte Esterase Rfl Urine RBC Urine WBC Ur Squamous Epith Cells Urine Bacteria Urine Casts Hyaline Casts Nasal MRSA (PCR) 08/25/24 08/25/24 08/25/24 00:04 04:27 05:26 WBC 6.7 RBC 3.75 L Hgb 12.0 Hct 36.2 L MCV 96.5 MCH 32.0 MCHC 33.1 RDW 12.8 Plt Count 158 MPV 10.2 Immature Gran % (Auto) 0.5 Neut % (Auto) 88.3 H Lymph % (Auto) 6.6 L [place] % (Auto) 3.0 Eos % (Auto) 1.4 Baso % (Auto) 0.2 Lymph # (Auto) 0.44 L [place] # (Auto) 0.2 Eos # (Auto) 0.1 Baso # (Auto) 0.0 Abs Immat Gran (auto) 0.03 Absolute Neuts (auto) 5.9 Absolute Nucleated RBC 0.000 Nucleated RBC % 0.0 Puncture Site Left radial ABG pH 7.420 ABG pCO2 49.4 H ABG pO2 91.2 ABG PO2/FiO2 Ratio 3.04 ABG HCO3 31.3 H ABG O2 Saturation 97.0 ABG O2 Content 18.0 ABG Base Excess 5.8 A-a Gradient 64.7 Oxyhemoglobin 96.3 Carboxyhemoglobin 0.8 Methemoglobin 0.2 Reduced Hemoglobin 2.7 Total Hemoglobin 13.2 O2 Delivery Device Bipap O2 Liters/Min Not Reportable Minute Volume Vent Rate Vent Mode FiO2 30 Expiratory Pressure 5 Tidal Volume PEEP Inspiratory Pressure 12 Peak Inspir Pressure Pressure Support Sodium 139 Potassium 3.3 L Chloride 102 Carbon Dioxide 35 H Anion Gap 2 L BUN 23 H D Creatinine 0.70 Estim Creat Clear Calc 61 Estimated GFR > 60 Glucose 154 H POC Capillary Glucose 164 H Lactic Acid 1.5 Calcium 9.2 Phosphorus 3.1 Magnesium 2.4 H Total Bilirubin 0.6 AST 35 ALT 29 Alkaline Phosphatase 70 Total Protein 7.0 Albumin 4.6 Triglycerides 69 Urine Color Urine Appearance Urine pH Ur Specific [place] Urine Protein Urine Glucose (UA) Urine Ketones Ur Blood (Man) Urine Nitrate Urine Bilirubin Urine Urobilinogen Add Ur Microanalysis Leukocyte Esterase Rfl Urine RBC Urine WBC Ur Squamous Epith Cells Urine Bacteria Urine Casts Hyaline Casts Nasal MRSA (PCR) 08/25/24 08/25/24 11:08 12:14 WBC RBC Hgb Hct MCV MCH MCHC RDW Plt Count MPV Immature Gran % (Auto) Neut % (Auto) Lymph % (Auto) [place] % (Auto) Eos % (Auto) Baso % (Auto) Lymph # (Auto) [place] # (Auto) Eos # (Auto) Baso # (Auto) Abs Immat Gran (auto) Absolute Neuts (auto) Absolute Nucleated RBC Nucleated RBC % Puncture Site Right radial ABG pH 7.389 ABG pCO2 44.1 ABG pO2 240.3 H ABG PO2/FiO2 Ratio 3.43 ABG HCO3 26.0 ABG O2 Saturation 99.5 ABG O2 Content 19.9 ABG Base Excess 0.8 A-a Gradient 211.4 Oxyhemoglobin 98.9 Carboxyhemoglobin Methemoglobin Reduced Hemoglobin Total Hemoglobin 13.9 O2 Delivery Device Ventilator O2 Liters/Min Not Reportable Minute Volume Not Reportable Vent Rate 20 Vent Mode Cmv FiO2 70 Expiratory Pressure Tidal Volume 450 PEEP 5 Inspiratory Pressure Peak Inspir Pressure Not Reportable Pressure Support Not Reportable Sodium Potassium Chloride Carbon Dioxide Anion Gap BUN Creatinine Estim Creat Clear Calc Estimated GFR Glucose POC Capillary Glucose 154 H Lactic Acid Calcium Phosphorus Magnesium Total Bilirubin AST ALT Alkaline Phosphatase Total Protein Albumin Triglycerides Urine Color Urine Appearance Urine pH Ur Specific [place] Urine Protein Urine Glucose (UA) Urine Ketones Ur Blood (Man) Urine Nitrate Urine Bilirubin Urine Urobilinogen Add Ur Microanalysis Leukocyte Esterase Rfl Urine RBC Urine WBC Ur Squamous Epith Cells Urine Bacteria Urine Casts Hyaline Casts Nasal MRSA (PCR) Quality VTE Prophylaxis VTE prophylaxis: pharmacologic ordered
[2024-08-25] MEDS: FENTANYL 2,500MCG/NS250ML(*CRX 2,500 MCG/250 ML BAG IV CONT (13:28)
[2024-08-25] MEDS: LACTATED RINGERS 1,000 ML 999 ML IV CONT (13:55)
[2024-08-25] MEDS: PROPOFOL IV EMULSION 100 ML 23.97 MG IV CONT ×3 (14:28→22:46)
[2024-08-25] MEDS: LEVALBUTEROL NEB 1.25 MG/3 ML INHALATION ×2 (15:01→20:02)
[2024-08-25] MEDS: AMIODARONE 360 MG/D5W 200 ML 360 MG/200 ML BAG 33.33 MG IV CONT (15:05)
[2024-08-25] MEDS: AMIODARONE 150 MG/D5W 100 ML 150 MG/100 ML BAG 600 MG IV CONT (15:06)
[2024-08-25] MEDS: cefTRIAXone 2 GM/NS 100 ML 2 GM/100 ML BAG IVPB (17:24)
[2024-08-25] MEDS: methylPREDNISolone SOD SUCC 40 MG VIAL IV PUSH ×2 (17:24→23:21)
[2024-08-25 17:36] LABS: Glucose Point of Care 130 mg/dl (65-105)
[2024-08-25] MEDS: busPIRone HCL 2.5 MG TABLET 7.5 MG PO (20:57)
[2024-08-25] MEDS: CITALOPRAM HYDROBROMIDE 20 MG TABLET PO (20:58)
[2024-08-25] MEDS: MINERAL OIL/WHITE PETROLATUM OINTMENT 1 APPLIC EACH EYE (20:58)
[2024-08-25] MEDS: APIXABAN 5 MG TABLET PO (20:58)
[2024-08-25 23:27] LABS: Glucose Point of Care 141 mg/dl (65-105)
[2024-08-26] VITALS (51 sets, daily range): BP systolic 100–131; BP diastolic 54–68; PULSE 46–110; RESP 15–26; TEMP 36.4–37.1; O2SAT 92–99; BMI 28.5
--- NOTE | 2024-08-26 | ECHO_ITS ---
Patient Info Name: Betty Marte Age: 79 years : 1945 Gender: Female Ht: 66 in Wt: 176 lbs BSA: 1.95 m2 HR: 90 bpm BP: 138 / 72 mmHg Heart Rhythm: Sinus Rhythm Technical Quality: Good Exam Date: 08/26/2024 5:29 PM Exam Location: Echo Lab Patient Status: Inpatient Admit Date: 08/24/2024 Staff Ordering Physician: Odell Herrera MD Table Worker Packager: eJnnifer Young RDCS Attending Provider: Georgiana Santana DO Referring Physician: Sharon GIBBS; Exam Type: CA echo doppler color flow Study Info Indications - chf, pulmonary vascular congestion on xray Complete two-dimensional, color flow and Doppler transthoracic echocardiogram is performed. Summary 1. Left ventricular chamber dimension is normal. 2. Left ventricular systolic function is normal, estimated at >70%. 3. The left ventricular diastolic function is grade III diastolic dysfunction. 4. Right ventricular systolic function is normal. 5. Left atrial chamber dimension is severely enlarged. 6. Right atrial chamber dimension is moderately enlarged. 7. There is mild mitral valve regurgitation. 8. There is mild tricuspid valve regurgitation. 9. Estimated pulmonary arterial systolic pressure is 50 mmHg. Left Ventricle Left ventricular chamber dimension is normal. Left ventricular systolic function is normal, estimated at >70%. There is no increased left ventricular wall thickness. The left ventricular diastolic function is grade III diastolic dysfunction. Right Ventricle Right ventricular chamber dimension is normal. Right ventricular systolic function is normal. Left Atria Left atrial chamber dimension is severely enlarged. Right Atria Right atrial chamber dimension is moderately enlarged. Atrial Septum Intact interatrial septum visualized by color flow imaging. Aortic Valve The aortic valve is trileaflet. There is no aortic valve stenosis. There is no aortic valve regurgitation. There is mild aortic valve calcification. Pulmonic Valve The pulmonic valve is not well visualized. Mitral Valve There is mild mitral valve regurgitation. Tricuspid Valve There is mild tricuspid valve regurgitation. Estimated pulmonary arterial systolic pressure is 50 mmHg. Pericardium/Pleural There is no pericardial effusion. Inferior Vena Cava Dilated inferior vena cava with no collapse upon inspiration consistent with elevated right atrial pressure, 15 mmHg. Aorta The aortic root size at the sinus of Valsalva is normal. Left Ventricular Outflow Tract Name Value Normal LVOT 2D LVOT Diameter 1.9 cm LVOT Doppler LVOT Peak Gradient 6 mmHg LVOT Mean Gradient 3 mmHg LVOT VTI 25 cm LVOT VTI/AV VTI Ratio 0.8 LVOT Stroke Volume 72 ml LVOT CO 5.2 l/min LVOT CI 2.7 l/min/m2 Pulmonic Valve Name Value Normal RVOT Doppler RVOT Peak Gradient 4 mmHg PV Doppler PV Peak Gradient 11 mmHg Mitral Valve Name Value Normal MV Doppler MV Decel Castro 404 cm/s2 MV PHT 65 ms MV Area (PHT) 3.4 cm2 4.0-5.0 MV Diastolic Function MV E Peak Velocity 90 cm/s MV A Peak Velocity 44 cm/s MV E/A 2.1 MV Decel Time 224 ms MV Annular TDI MV E/e' (Septal) 16.7 <=8.0 MV E/e' (Lateral) 11.0 <=8.0 MV E/e' (Average) 13.9 Tricuspid Valve Name Value Normal TV Regurgitation Doppler TR Peak Velocity 297 cm/s TR Peak Gradient 35 mmHg Estimated PAP/RSVP RA Pressure 15 mmHg <=5 PA Systolic Pressure 50 mmHg <36 RV Systolic Pressure 50 mmHg <36 Aorta Name Value Normal Ascending Aorta Ao Root Diameter (MM) 2.7 cm Ao Root Diam Index (MM) 1.4 cm/m2 Aortic Valve Name Value Normal AV Doppler AV Peak Velocity 180 cm/s AV Peak Gradient 13 mmHg AV Mean Gradient 6 mmHg AV VTI 33 cm AV Area (Cont Eq VTI) 2.2 cm2 >=3.0 AV Area (Cont Eq Gm) 1.9 cm2 AV Regurgitation 2D LVOT Area 2.9 cm2 Ventricles Name Value Normal LV Dimensions 2D/MM IVS Diastolic Thickness (2D) 0.9 cm 0.6-1.0 LVID Diastole (2D) 4.3 cm 3.8-5.2 LVIW Diastolic Thickness (2D) 0.9 cm 0.6-0.9 LVID Systole (2D) 2.7 cm 2.2-3.5 LVOT Diameter 1.9 cm LV Mass (2D Cubed) 125.04 g 67.00-162.00 LV Mass Index (2D Cubed) 64 g/m2 43-95 Relative Wall Thickness (2D) 0.44 LV Fractional Shortening/Ejection Fraction 2D/MM LV Fractional Shortening (2D) 37 % 27-45 LV EF (2D Teicholz) 67 % 54-74 LV Diastolic Volume (4C MOD) 52 ml LV EF (4C MOD) 61 % LV Diastolic Volume (2C MOD) 64 ml LV EF (2C MOD) 80 % LV Diastolic Volume (BP MOD) 61 ml 46-106 LV Diastolic Volume Index (BP MOD) 31 ml/m2 29-61 LV Systolic Volume (BP MOD) 17 ml 14-42 LV Systolic Volume Index (BP MOD) 9 ml/m2 8-24 LV EF (BP MOD) 72 % 54-74 LV Diastolic Length (4C) 6.4 cm LV Systolic Length (4C) 4.8 cm LV Stroke Volume (4C MOD) 32 ml Atria Name Value Normal LA Dimensions LA Dimension (MM) 5.2 cm 2.7-3.8 LA Volume (4C A-L) 49 ml LA Volume (BP A-L) 66 ml RA Dimensions RA Area (4C) 14.7 cm2 <=18.0 Report Signatures
[2024-08-26] MEDS: LEVALBUTEROL NEB 1.25 MG/3 ML INHALATION ×4 (02:17→20:56)
[2024-08-26] MEDS: PROPOFOL IV EMULSION 100 ML 23.97 MG IV CONT (02:20)
[2024-08-26 04:01] LABS: Basophils Percent Auto 0.1 % (0.2-1.2); Eosinophils Absolute Auto 0.3 K/mm3 (0-0.3); Eosinophils Percent Auto 2.4 % (0-4.4); Hematocrit 35.1 % (37.0-47.0); Hemoglobin 11.6 g/dL (12.0-15.0); Immature Granulocyte Absolute 0.07 K/mm3 (0.00-0.031); Immature Granulocyte Percent A 0.6 % (0-0.5); Lymphocytes Absolute Auto 0.52 K/mm3 (0.9-3.2); Lymphocytes Percent Auto 4.6 % (18.3-44.2); Mean Corpuscular Hemoglobin 32.3 pg (26-34); Mean Corpuscular Volume 97.8 fl (80-100); Mean Platelet Volume 10.3 fl (7.4-10.4); Monocytes Absolute Auto 0.3 K/mm3 (0.1-0.6); Monocytes Percent Auto 2.8 % (2.6-8.5); Neutrophils Absolute Auto 10.1 K/mm3 (1.3-6.7); Neutrophils Percent Auto 89.5 % (45.5-73.1); Platelet Count Result 134 k/mm3 (150-375); Red Blood Count 3.59 M/mm3 (4.2-5.4); Red Cell Distribution Width 12.9 % (11.5-14.5); White Blood Count 11.2 K/mm3 (4.5-10.0)
[2024-08-26 04:13] LABS: Alanine Aminotransferase 26 U/L (6-35); Albumin Level 4.3 g/dL (3.5-5.1); Alkaline Phosphatase 58 U/L (38-126); Anion Gap 2 mmol/L (4-12); Aspartate Amino Transferase 25 U/L (14-36); Bilirubin,Total 0.4 mg/dL (0.2-1.3); Blood Urea Nitrogen 25 mg/dL (7-17); Calcium 9.4 mg/dL (8.4-10.2); Carbon Dioxide 31 mmol/L (22-30); Chloride 105 mmol/L (98-107); Estimated CRCL calculation 61 ml/min; Estimated Glomerular Filt Rate > 60; Glucose 135 mg/dL (65-110); INR 1.2; Lactic Acid Reflex 0.7 mmol/L (0.7-2.0); Magnesium 2.4 mg/dL (1.6-2.3); Phosphorus 2.6 mg/dL (2.5-4.5); Potassium 3.1 mmol/L (3.4-5.0); Prothrombin Time 15.2 Seconds (11.1-14.7); Sodium 138 mmol/L (137-145)
[2024-08-26 04:22] LABS: Platelet Estimate Slightly Decreased (Adequate)
[2024-08-26 04:23] LABS: Anisocytosis 1+; Schistocytes None Seen
[2024-08-26] MEDS: methylPREDNISolone SOD SUCC 40 MG VIAL IV PUSH ×3 (05:32→17:28)
[2024-08-26] MEDS: DOXYCYCLINE 100 MG/NS 100 ML 100 MG/100 ML BAG IVPB ×2 (05:33→17:28)
[2024-08-26 05:36] LABS: Glucose Point of Care 134 mg/dl (65-105)
[2024-08-26 06:06] LABS: Alveolar/Arterial O2 Gradient 89.6 mmHg; Arterial Blood Gas Vent Mode CMV; Arterial Blood Gas Ventilator rate 20 /MIN; Base Excess ABG 4.8 mEq/l (+/-2.0); Carboxyhemoglobin 0.5 % THb (0-2.0); Device VENTILATOR; Fractional Inspired Oxygen 30 %; HCO3 ABG 30.4 mEq/l (22.0-26.0); Methemoglobin ABG 0.1 %THb (0-1.5); Modified Allen's Test Pass; Oxygen Content ABG 16.8 %vol (16.0-22.0); Oxygen Saturation ABG 93.3 % (95.0-100.0); Oxyhemoglobin 92.5 % THb (90.0-100.0); PCO2 ABG 48.9 mmHg (35.0-45.0); PO2 ABG 66.8 mmHg (80.0-100.0); PO2 FiO2 Ratio Arterial Blood 2.23 %; Reduced Hemoglobin 6.9 %THb (0-5.0); Site Drawn RIGHT RADIAL; Total Hemoglobin 12.9 g/dL (12.0-18.0); pH ABG 7.411 (7.350-7.450)
[2024-08-26 06:07] LABS: Arterial Blood Gas PEEP 5 cmH2O; Arterial Blood Gas Tidal Volume 450 ml
[2024-08-26] MEDS: PROPOFOL IV EMULSION 100 ML 21.57 MG IV CONT (06:20)
[2024-08-26] MEDS: CITALOPRAM HYDROBROMIDE 20 MG TABLET PO ×2 (08:41→20:41)
[2024-08-26] MEDS: busPIRone HCL 2.5 MG TABLET 7.5 MG PO ×2 (08:41→20:41)
[2024-08-26] MEDS: POTASSIUM CHLORIDE 20 MEQ PACKET (FOR LIQUID) 40 MEQ FEED TUBE (08:41)
[2024-08-26] MEDS: SIMVASTATIN 20 MG TABLET PO (08:41)
[2024-08-26] MEDS: FAMOTIDINE 20 MG/2 ML VIAL IV PUSH ×2 (08:41→20:41)
[2024-08-26] MEDS: POTASSIUM CHLORIDE 20 MEQ PACKET (FOR LIQUID) FEED TUBE (08:41)
[2024-08-26] MEDS: APIXABAN 5 MG TABLET PO ×2 (08:41→20:41)
[2024-08-26] MEDS: EMPAGLIFLOZIN 10 MG TABLET PO (08:41)
[2024-08-26] MEDS: MINERAL OIL/WHITE PETROLATUM OINTMENT 1 APPLIC EACH EYE ×2 (08:42→20:43)
[2024-08-26 08:53] LABS: Free T4 Free Thyroxine 1.38 ng/dL (0.78-2.19)
[2024-08-26] MEDS: MIDAZOLAM HCL (*CRX) 2 MG/2 ML VIAL IV PUSH (09:01)
[2024-08-26] MEDS: SODIUM CHLOR 3% 15 ML NEB (RESPIRATORY THERAPY) 6 ML INHALATION (09:40)
[2024-08-26 11:59] LABS: Glucose Point of Care 127 mg/dl (65-105)
[2024-08-26] MEDS: PROPOFOL IV EMULSION 100 ML 19.18 MG IV CONT ×2 (12:19→16:25)
--- NOTE | 2024-08-26 13:29 | WPDINTPN ---
Progress Note: A&P Assessment and Plan (1) Respiratory failure: Code(s): J96.90 - Respiratory failure, unspecified, unspecified whether with hypoxia or hypercapnia Status: Acute Assessment and Plan: 08/25: Patient was BiPAP, was switched to Vapotherm, got anxious, tachypneic with diffuse reason, placed back on AVAPS by pulmonology, patient not tolerating that finally had to intubate the patient after getting consent from the son, daughter and the patient, all were in agreement with intubation but no CPR. -patient placed on CMV mode of ventilation, peep of 5, currently on 35% FiO2 -chest x-ray and ABGs reviewed, ventilator adjusted -continue ceftriaxone and doxycycline -continue Xopenex and ipratropium nebulizers -patient had thick secretions which was suctioned out, place patient on 3% saline nebs -continue on Trelegy Ellipta that she takes at home -sedated with propofol infusion, with p.r.n. fentanyl, RASS of 0 to -2, daily SBT and SAT, wean as tolerated (2) COPD exacerbation: Code(s): J44.1 - Chronic obstructive pulmonary disease with (acute) exacerbation Status: Acute Assessment and Plan: 08/24: Presented with shortness of breath to the ED, was found to be in COPD exacerbation, possible pneumonia and a pulmonary vascular congestion -patient was given Solu-Medrol and albuterol treatment in the ER -patient received levofloxacin after which she had some a reaction, with labored breathing, tachypnea, tachycardia. Patient was given Solu-Medrol. Remained short of breath, was transferred to the ICU for further management -patient does use 3-4 L at home for COPD - currently intubated on mechanical ventilation -continue steroids, bronchodilators, Trelegy Ellipta and antibiotics as above -appreciate pulmonology following the patient (3) Pneumonia: Qualifiers: Laterality: unspecified laterality Lung location: unspecified part of lung Pneumonia type: due to unspecified organism Qualified Code(s): J18.9 - Pneumonia, unspecified organism Code(s): J18.9 - Pneumonia, unspecified organism Status: Resolved Assessment and Plan: Possible pneumonia seen on chest x-ray -continue ceftriaxone and doxycycline (08/24) -continue BiPAP and steroids as above (4) CHF (congestive heart failure): Code(s): I50.9 - Heart failure, unspecified Status: Acute Assessment and Plan: Chest x-ray shows possible pulmonary vascular congestion, patient received Lasix 40 mg x 2 in the ER Will repeat echocardiogram 03/25/2024: Echocardiogram Summary 1. Complete two-dimensional, color flow and Doppler transthoracic echocardiogram is performed. 2. Hyperdynamic appearing left ventricular systolic function with grade 1 diastolic noncompliance. 3. Left atrial enlargement. 4. Mild mitral regurgitation. 5. Left ventricular systolic function is hyperdynamic, estimated at >70%. (5) HTN (hypertension): Code(s): I10 - Essential (primary) hypertension Status: Chronic Assessment and Plan: History of hypertension, will hold antihypertensives at this time (6) Hyperlipidemia: Code(s): E78.5 - Hyperlipidemia, unspecified Status: Chronic Assessment and Plan: Continue simvastatin continue (7) Anxiety: Code(s): F41.9 - Anxiety disorder, unspecified Status: Chronic Assessment and Plan: Continue home citalopram, buspirone Plan DVT prophylaxis: Continue Eliquis which she takes at home Stress ulcer prophylaxis: Continue Pepcid Nutrition: Will start tube feeds Code Status: No CPR, okay to intubate after discussing with family on 08/25/2024. Critical Care Time Spent: 34 minutes 08/25: Consent for intubation was obtained from son Eris Resendez, who did discuss with his sister, both daughter and son were in agreement with intubation so was the patient. But the son stated that no CPR. Due to a high probability of clinically significant, life threatening deterioration, the patient required my highest level of preparedness to intervene emergently and I personally spent this critical care time directly and personally managing the patient. This critical care time included obtaining a history; examining the patient; pulse oximetry; ordering and review of studies; arranging urgent treatment with development of a management plan; evaluation of patient's response to treatment; frequent reassessment; and discussions with other providers. It was exclusive of separately billable procedures and treating other patients and teaching time. Please see Assessment and Plan section and the rest of the note for further information on patient assessment and treatment This dictation may have been done utilizing a voice recognition system. Attempts have been made to correct errors. However, there may be uncorrected grammatical, spelling, and recognitions errors present. Subjective Date/time seen: 08/26/24 13:29 Interval history: Reason for consult: Acute hypercapnic respiratory failure, COPD exacerbation, pneumonia 08/26/2024: Patient seen and examined the ICU, remains intubated on CMV mode of ventilation, 30% FiO2 and peep of 5. Sedated with propofol and fentanyl infusion. Patient opens her eyes but does not follow simple commands. She had a coughing bout this morning, with high peak pressures, had to go up on her propofol in bed. She was bradycardic in the upper 40s and 50s earlier this morning but that has improved. Urine output has been adequate, hemodynamically stable, afebrile Review of Systems Review of Systems: ROS unobtainable: Yes unobtainable due to endotracheal tube, unobtainable due to medical condition and unobtainable due to mental status Exam Narrative: General: Intubated and sedated HEENT:? Pupils equal and reactive, sclera is clear, ETT in place Neck:? Supple Respiratory:? Decreased air entry bilaterally, diffuse wheezing bilaterally, no rales auscultated Cardiac:? Sinus tachycardia Abdomen:? Soft, nontender, nondistended, hypoactive bowel sound Extremities:? Trace edema in lower extremities, palpable pedal pulse Neuro:? Currently sedated, intubated, opens her eyes but does not follow simple commands, withdraws to pain in all extremities (prior to intubation, patient was tachycardic, tachypneic, was able to follow commands and was able to answer questions) Skin:? Warm and dry, no lesions noted Psych:? Unable to assess at this Objective Data Vital Signs Vital Signs: Vital Signs - 24 hr 08/25/24 14:00 08/25/24 14:00 08/25/24 14:00 Temperature Pulse Rate 129 H 134 H 134 H Respiratory Rate 20 20 Blood Pressure 101/60 Pulse Oximetry 95 Oxygen Delivery Fraction of Inspired Oxygen 08/25/24 14:00 08/25/24 14:28 08/25/24 14:28 Temperature Pulse Rate 134 H 141 H 141 H Respiratory Rate 20 20 20 Blood Pressure Pulse Oximetry Oxygen Delivery Fraction of Inspired Oxygen 08/25/24 15:01 08/25/24 15:01 08/25/24 15:05 Temperature Pulse Rate 132 H 132 H 132 H Respiratory Rate 20 Blood Pressure 129/68 Pulse Oximetry 96 Oxygen Delivery Mechanical Ventilation Fraction of Inspired Oxygen 40 08/25/24 15:06 08/25/24 15:10 08/25/24 15:17 Temperature Pulse Rate 132 H 135 H 88 Respiratory Rate 20 Blood Pressure 129/68 115/63 Pulse Oximetry Oxygen Delivery Fraction of Inspired Oxygen 08/25/24 16:00 08/25/24 16:00 08/25/24 16:00 Temperature 97.8 F Pulse Rate 88 88 Respiratory Rate 20 20 Blood Pressure 115/63 Pulse Oximetry 95 Oxygen Delivery Fraction of Inspired Oxygen 40 08/25/24 16:00 08/25/24 16:00 08/25/24 16:00 Temperature Pulse Rate 88 88 Respiratory Rate 20 Blood Pressure 115/63 Pulse Oximetry 97 Oxygen Delivery Mechanical Ventilation Fraction of Inspired Oxygen 40 08/25/24 16:00 08/25/24 17:02 08/25/24 18:00 Temperature 97.8 F Pulse Rate 84 82 74 Respiratory Rate 20 Blood Pressure 121/65 Pulse Oximetry 96 97 Oxygen Delivery Mechanical Ventilation Fraction of Inspired Oxygen 40 08/25/24 18:00 08/25/24 18:00 08/25/24 18:00 Temperature Pulse Rate 74 74 74 Respiratory Rate 20 20 Blood Pressure Pulse Oximetry Oxygen Delivery Fraction of Inspired Oxygen 08/25/24 18:00 08/25/24 18:22 08/25/24 18:22 Temperature Pulse Rate 74 72 72 Respiratory Rate 20 20 Blood Pressure 121/65 Pulse Oximetry Oxygen Delivery Fraction of Inspired Oxygen 08/25/24 19:30 08/25/24 20:00 08/25/24 20:00 Temperature Pulse Rate 65 63 Respiratory Rate 20 Blood Pressure 119/64 Pulse Oximetry Oxygen Delivery Fraction of Inspired Oxygen 40 08/25/24 20:00 08/25/24 20:00 08/25/24 20:00 Temperature 97.6 F Pulse Rate 79 79 Respiratory Rate 20 Blood Pressure 116/66 Pulse Oximetry 98 98 Oxygen Delivery Mechanical Ventilation Fraction of Inspired Oxygen 40 08/25/24 20:00 08/25/24 20:02 08/25/24 20:02 Temperature Pulse Rate 63 67 69 Respiratory Rate 20 20 Blood Pressure Pulse Oximetry 99 Oxygen Delivery Mechanical Ventilation Fraction of Inspired Oxygen 40 08/25/24 20:03 08/25/24 20:10 08/25/24 22:00 Temperature Pulse Rate 72 64 63 Respiratory Rate 20 20 20 Blood Pressure 117/64 Pulse Oximetry 99 Oxygen Delivery Fraction of Inspired Oxygen 08/25/24 22:00 08/25/24 22:00 08/25/24 22:00 Temperature Pulse Rate 63 64 63 Respiratory Rate 20 20 Blood Pressure Pulse Oximetry Oxygen Delivery Fraction of Inspired Oxygen 08/25/24 22:46 08/25/24 22:46 08/25/24 23:03 Temperature Pulse Rate 64 64 65 Respiratory Rate 20 20 Blood Pressure Pulse Oximetry 99 Oxygen Delivery Mechanical Ventilation Fraction of Inspired Oxygen 40 08/26/24 00:00 08/26/24 00:00 08/26/24 00:00 Temperature 97.8 F Pulse Rate 57 L 57 L 57 L Respiratory Rate 20 20 20 Blood Pressure 118/62 Pulse Oximetry 98 Oxygen Delivery Fraction of Inspired Oxygen 08/26/24 00:00 08/26/24 00:00 08/26/24 00:00 Temperature Pulse Rate 57 L Respiratory Rate Blood Pressure Pulse Oximetry 98 Oxygen Delivery Mechanical Ventilation Fraction of Inspired Oxygen 40 40 08/26/24 00:30 08/26/24 02:00 08/26/24 02:00 Temperature Pulse Rate 69 63 63 Respiratory Rate 20 20 20 Blood Pressure Pulse Oximetry Oxygen Delivery Fraction of Inspired Oxygen 08/26/24 02:00 08/26/24 02:00 08/26/24 02:17 Temperature Pulse Rate 63 63 63 Respiratory Rate 20 20 Blood Pressure 110/54 L Pulse Oximetry 98 Oxygen Delivery Fraction of Inspired Oxygen 08/26/24 02:18 08/26/24 02:20 08/26/24 02:20 Temperature Pulse Rate 64 62 62 Respiratory Rate 20 20 Blood Pressure Pulse Oximetry 99 Oxygen Delivery Mechanical Ventilation Fraction of Inspired Oxygen 40 08/26/24 02:26 08/26/24 04:00 08/26/24 04:00 Temperature Pulse Rate 63 58 L 58 L Respiratory Rate 20 20 20 Blood Pressure Pulse Oximetry Oxygen Delivery Fraction of Inspired Oxygen 08/26/24 04:00 08/26/24 04:00 08/26/24 04:00 Temperature Pulse Rate 57 L Respiratory Rate Blood Pressure Pulse Oximetry 99 Oxygen Delivery Mechanical Ventilation Fraction of Inspired Oxygen 40 40 08/26/24 04:00 08/26/24 05:15 08/26/24 05:21 Temperature 98 F Pulse Rate 57 L 64 66 Respiratory Rate 20 20 Blood Pressure 103/54 L Pulse Oximetry 96 98 Oxygen Delivery Mechanical Ventilation Fraction of Inspired Oxygen 30 08/26/24 06:00 08/26/24 06:00 08/26/24 06:00 Temperature Pulse Rate 54 L 54 L 50 L Respiratory Rate 20 20 Blood Pressure Pulse Oximetry Oxygen Delivery Fraction of Inspired Oxygen 08/26/24 06:00 08/26/24 06:18 08/26/24 06:20 Temperature Pulse Rate 53 L 51 L 51 L Respiratory Rate 20 20 20 Blood Pressure 100/60 Pulse Oximetry 96 Oxygen Delivery Fraction of Inspired Oxygen 08/26/24 06:23 08/26/24 06:25 08/26/24 06:32 Temperature Pulse Rate 50 L 51 L 50 L Respiratory Rate 20 20 20 Blood Pressure Pulse Oximetry Oxygen Delivery Fraction of Inspired Oxygen 08/26/24 06:48 08/26/24 06:49 08/26/24 08:00 Temperature 97.5 F L Pulse Rate 52 L 52 L 48 L Respiratory Rate 20 20 20 Blood Pressure 122/63 Pulse Oximetry 97 Oxygen Delivery Fraction of Inspired Oxygen 08/26/24 08:00 08/26/24 08:00 08/26/24 08:00 Temperature Pulse Rate 48 L 48 L 48 L Respiratory Rate 20 20 Blood Pressure Pulse Oximetry Oxygen Delivery Fraction of Inspired Oxygen 08/26/24 08:00 08/26/24 08:00 08/26/24 08:21 Temperature Pulse Rate 47 L Respiratory Rate 20 Blood Pressure Pulse Oximetry Oxygen Delivery Mechanical Ventilation Fraction of Inspired Oxygen 30 30 08/26/24 08:31 08/26/24 08:41 08/26/24 08:41 Temperature Pulse Rate 46 L 47 L 47 L Respiratory Rate 20 20 Blood Pressure Pulse Oximetry 97 Oxygen Delivery Mechanical Ventilation Fraction of Inspired Oxygen 30 08/26/24 08:48 08/26/24 08:54 08/26/24 08:58 Temperature Pulse Rate 90 86 75 Respiratory Rate 20 20 Blood Pressure Pulse Oximetry 95 Oxygen Delivery Mechanical Ventilation Fraction of Inspired Oxygen 30 08/26/24 09:49 08/26/24 10:00 08/26/24 10:00 Temperature Pulse Rate 66 72 72 Respiratory Rate 20 26 H 26 H Blood Pressure Pulse Oximetry Oxygen Delivery Fraction of Inspired Oxygen 08/26/24 10:00 08/26/24 10:00 08/26/24 11:10 Temperature Pulse Rate 72 72 74 Respiratory Rate 26 H Blood Pressure 125/62 Pulse Oximetry 98 98 Oxygen Delivery Mechanical Ventilation Fraction of Inspired Oxygen 30 08/26/24 11:34 08/26/24 12:00 08/26/24 12:00 Temperature 97.5 F L Pulse Rate 74 65 61 Respiratory Rate 22 H 23 H Blood Pressure 110/68 Pulse Oximetry 97 Oxygen Delivery Fraction of Inspired Oxygen 08/26/24 12:19 08/26/24 12:19 Temperature Pulse Rate 58 L 58 L Respiratory Rate 20 20 Blood Pressure Pulse Oximetry Oxygen Delivery Fraction of Inspired Oxygen Intake/Output Intake/Output: Intake & Output 08/23/24 08/24/24 08/25/24 08/26/24 23:59 23:59 23:59 23:59 Intake Total 335 2282.9 482.1 Output Total 900 1175 675 Balance -565 1107.9 -192.9 Meds/Results Medications: Active Medications Generic Name Dose Route Start Last Admin Trade Name Freq PRN Reason Stop Dose Admin Apixaban 5 mg 08/25/24 21:00 08/26/24 08:41 Apixaban 5 Mg Tablet PO 5 mg Q12HR ALEXIS Administration Buspirone HCl 7.5 mg 08/25/24 21:00 08/26/24 08:41 Buspirone Hcl 2.5 Mg Tablet PO 7.5 mg Q12HR ALEXIS Administration Citalopram Hydrobromide 20 mg 08/25/24 21:00 08/26/24 08:41 Citalopram Hydrobromide 20 Mg Tablet PO 20 mg Q12H ALEXIS Administration Dextrose 12.5 gm 08/24/24 16:31 Dextrose 50% 25 Gm/50 Ml Syringe IV PUSH PRN PRN Hypoglycemia Protocol Empagliflozin 10 mg 08/26/24 09:00 08/26/24 08:41 Empagliflozin 10 Mg Tablet PO 10 mg DAILY ALEXIS Administration Famotidine 20 mg 08/24/24 21:00 08/26/24 08:41 Famotidine 20 Mg/2 Ml Vial IV PUSH 20 mg Q12HR ALEXIS Administration Fentanyl Citrate 50 mcg 08/25/24 12:25 Fentanyl Citrate Inj (*Crx) 100 Mcg/2 Ml Vial IV PUSH Q2HR PRN Ventilator Asynchrony Fluticasone/Umeclidinium/Vilanterol 1 puff 08/25/24 08:00 08/25/24 08:11 Fluticasone/Umeclidin/Vilanter 200-62.5-25 Mcg Ellipta INHALATION Not Given DAILYRT ALEXIS Glucagon 1 mg 08/24/24 16:31 Glucagon For Inj 1 Mg Vial IM PRN PRN Hypoglycemia Protocol Glucose 15 gm 08/24/24 16:31 Glucose Oral Gel 15 Gm Of Glucse In 37.5 Gm Tube PO PRN PRN Hypoglycemia Protocol Ceftriaxone Sodium 2 gm in 100 mls @ 200 mls/hr 08/24/24 17:00 08/25/24 17:54 Rocephin 2 Gm/Ns 100 Ml IVPB Infused Q24H ALEXIS Infusion Doxycycline Hyclate 100 mg in 100 mls @ 100 mls/hr 08/24/24 18:00 08/26/24 06:33 Vibramycin 100 Mg/Ns 100 Ml IVPB Infused Q12H ALEXIS Infusion Dextrose 1,000 mls @ 100 mls/hr 08/24/24 16:31 Dextrose 5% 1,000 Ml IVPB PRN PRN Hypoglycemia Protocol Propofol 100 mls @ 19.176 mls/hr 08/25/24 09:55 08/26/24 12:19 Diprivan IV CONT 40 mcg/kg/min .Q5H13M ALEXIS 19.18 mls/hr Administration Protocol 40 MCG/KG/MIN Fentanyl Citrate 2,500 mcg in 250 mls @ 5 mls/hr 08/25/24 13:25 08/26/24 10:00 Fentanyl 2,500 Mcg/Ns 250 Ml IV CONT 50 mcg/hr .Q50H ALEXIS 5 mls/hr Titration Protocol 50 MCG/HR Insulin Aspart 3 - 6 units 08/24/24 18:00 08/26/24 12:08 Insulin Aspart (*Bkc) 100 Units/Ml SUB-Q Not Given Q6HR [facility] [place] Protocol Levalbuterol HCl 1.25 mg 08/25/24 14:50 08/26/24 08:41 Levalbuterol Neb 1.25 Mg/3 Ml INHALATION 1.25 mg Q6HRT ALEXIS Administration Methylprednisolone Sodium Succinate 40 mg 08/25/24 18:00 08/26/24 12:19 Methylprednisolone Sod Succ 40 Mg Vial IV PUSH 40 mg Q6HR ALEXIS Administration Multi-Ingred Cream/Lotion/Oil/Oint 1 applic 08/25/24 21:00 08/26/24 08:42 Mineral Oil/White Petrolatum Ointment EACH EYE 1 applic Q12HR ALEXIS Administration Perflutren Lipid Microsphere 0 ml 08/24/24 16:30 Perflutren Lipid Microspheres 1.5 Ml Vial Diluted To 10 Ml Total Volume IV PUSH 08/27/24 16:31 ONCE PRN adequate visualization Protocol Simvastatin 20 mg 08/26/24 09:00 08/26/24 08:41 Simvastatin 20 Mg Tablet PO 20 mg DAILY ALEXIS Administration Sodium Chloride 6 ml 08/25/24 09:20 08/26/24 12:21 Sodium Chlor 3% 15 Ml Neb (Respiratory Therapy) INHALATION 08/27/24 21:01 Not Given Q12HR ALEXIS Radiology Results: ITS Impressions Chest CTA 08/24/24 16:37 IMPRESSION: 1. No pulmonary embolism. 2. No acute cardiopulmonary pathology. 3. 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 Further evaluation and clinical correlation advised. 4. Emphysematous changes of the lungs. 5. Multiple healing rib fractures in the right hemithorax. 6. Fat infiltration of the liver. Abdomen X-Ray 08/25/24 10:34 IMPRESSION: NG tube in stomach Chest X-Ray 08/26/24 05:45 Impression: COPD. Support tubes, as above. Labs Labs: Laboratory Results - last 24 hr 08/25/24 08/25/24 08/26/24 17:32 23:23 03:55 WBC 11.2 H RBC 3.59 L Hgb 11.6 L Hct 35.1 L MCV 97.8 MCH 32.3 MCHC 33.0 RDW 12.9 Plt Count 134 L MPV 10.3 Immature Gran % (Auto) 0.6 H Neut % (Auto) 89.5 H Lymph % (Auto) 4.6 L Grant % (Auto) 2.8 Eos % (Auto) 2.4 Baso % (Auto) 0.1 L Lymph # (Auto) 0.52 L Grant # (Auto) 0.3 Eos # (Auto) 0.3 Baso # (Auto) 0.0 Abs Immat Gran (auto) 0.07 H Absolute Neuts (auto) 10.1 H Absolute Nucleated RBC 0.000 Nucleated RBC % 0.0 Platelet Estimate Slightly decreased Anisocytosis 1+ Schistocytes None seen PT 15.2 H INR 1.2 APTT 28.0 Puncture Site ABG pH ABG pCO2 ABG pO2 ABG PO2/FiO2 Ratio ABG HCO3 ABG O2 Saturation ABG O2 Content ABG Base Excess A-a Gradient Oxyhemoglobin Carboxyhemoglobin Methemoglobin Reduced Hemoglobin Total Hemoglobin O2 Delivery Device O2 Liters/Min Minute Volume Vent Rate Vent Mode FiO2 Tidal Volume PEEP Peak Inspir Pressure Pressure Support Sodium 138 Potassium 3.1 L Chloride 105 Carbon Dioxide 31 H Anion Gap 2 L BUN 25 H Creatinine 0.70 Estim Creat Clear Calc 61 Estimated GFR > 60 Glucose 135 H POC Capillary Glucose 130 H 141 H Lactic Acid 0.7 Calcium 9.4 Phosphorus 2.6 Magnesium 2.4 H Total Bilirubin 0.4 AST 25 ALT 26 Alkaline Phosphatase 58 Total Protein 7.0 Albumin 4.3 TSH 0.210 L Free T4 1.38 08/26/24 08/26/24 08/26/24 05:34 05:45 11:54 WBC RBC Hgb Hct MCV MCH MCHC RDW Plt Count MPV Immature Gran % (Auto) Neut % (Auto) Lymph % (Auto) Grant % (Auto) Eos % (Auto) Baso % (Auto) Lymph # (Auto) Grant # (Auto) Eos # (Auto) Baso # (Auto) Abs Immat Gran (auto) Absolute Neuts (auto) Absolute Nucleated RBC Nucleated RBC % Platelet Estimate Anisocytosis Schistocytes PT INR APTT Puncture Site Right radial ABG pH 7.411 ABG pCO2 48.9 H ABG pO2 66.8 L ABG PO2/FiO2 Ratio 2.23 ABG HCO3 30.4 H ABG O2 Saturation 93.3 L ABG O2 Content 16.8 ABG Base Excess 4.8 A-a Gradient 89.6 Oxyhemoglobin 92.5 Carboxyhemoglobin 0.5 Methemoglobin 0.1 Reduced Hemoglobin 6.9 H Total Hemoglobin 12.9 O2 Delivery Device Ventilator O2 Liters/Min Not Reportable Minute Volume Not Reportable Vent Rate 20 Vent Mode Cmv FiO2 30 Tidal Volume 450 PEEP 5 Peak Inspir Pressure Not Reportable Pressure Support Not Reportable Sodium Potassium Chloride Carbon Dioxide Anion Gap BUN Creatinine Estim Creat Clear Calc Estimated GFR Glucose POC Capillary Glucose 134 H 127 H Lactic Acid Calcium Phosphorus Magnesium Total Bilirubin AST ALT Alkaline Phosphatase Total Protein Albumin TSH Free T4 Quality VTE Prophylaxis VTE prophylaxis: pharmacologic ordered
[2024-08-26] MEDS: cefTRIAXone 2 GM/NS 100 ML 2 GM/100 ML BAG IVPB (16:54)
[2024-08-26 17:20] LABS: Glucose Point of Care 138 mg/dl (65-105)
[2024-08-26] MEDS: PROPOFOL IV EMULSION 100 ML 16.78 MG IV CONT (21:11)
[2024-08-26] MEDS: FENTANYL 2,500MCG/NS250ML(*CRX 2,500 MCG/250 ML BAG 7.5 MCG IV CONT (21:15)
[2024-08-27] VITALS (38 sets, daily range): BP systolic 96–123; BP diastolic 50–61; PULSE 44–93; RESP 10–20; TEMP 36.3–36.9; O2SAT 84–98
[2024-08-27 00:07] LABS: Glucose Point of Care 130 mg/dl (65-105)
[2024-08-27] MEDS: methylPREDNISolone SOD SUCC 40 MG VIAL IV PUSH ×5 (00:11→23:44)
[2024-08-27] MEDS: PROPOFOL IV EMULSION 100 ML 19.18 MG IV CONT (01:23)
[2024-08-27] MEDS: LEVALBUTEROL NEB 1.25 MG/3 ML INHALATION ×4 (02:15→20:01)
[2024-08-27 04:32] LABS: Basophils Percent Auto 0.1 % (0.2-1.2); Eosinophils Absolute Auto 0.2 K/mm3 (0-0.3); Eosinophils Percent Auto 1.7 % (0-4.4); Hematocrit 37.4 % (37.0-47.0); Hemoglobin 12.2 g/dL (12.0-15.0); Immature Granulocyte Absolute 0.06 K/mm3 (0.00-0.031); Immature Granulocyte Percent A 0.6 % (0-0.5); Lymphocytes Absolute Auto 0.39 K/mm3 (0.9-3.2); Lymphocytes Percent Auto 3.8 % (18.3-44.2); Mean Corpuscular HGB Conc 32.6 g/dl (32-36); Mean Corpuscular Hemoglobin 32.3 pg (26-34); Mean Corpuscular Volume 98.9 fl (80-100); Mean Platelet Volume 10.3 fl (7.4-10.4); Monocytes Absolute Auto 0.4 K/mm3 (0.1-0.6); Monocytes Percent Auto 3.5 % (2.6-8.5); Neutrophils Absolute Auto 9.4 K/mm3 (1.3-6.7); Neutrophils Percent Auto 90.3 % (45.5-73.1); Platelet Count Result 140 k/mm3 (150-375); Red Blood Count 3.78 M/mm3 (4.2-5.4); Red Cell Distribution Width 13.2 % (11.5-14.5); White Blood Count 10.4 K/mm3 (4.5-10.0)
[2024-08-27 04:48] LABS: Triglycerides 125 mg/dL (<150)
[2024-08-27 04:56] LABS: Alanine Aminotransferase 24 U/L (6-35); Albumin Level 4.3 g/dL (3.5-5.1); Alkaline Phosphatase 56 U/L (38-126); Anion Gap 5 mmol/L (4-12); Aspartate Amino Transferase 21 U/L (14-36); Bilirubin,Total 0.4 mg/dL (0.2-1.3); Blood Urea Nitrogen 42 mg/dL (7-17); Calcium 9.3 mg/dL (8.4-10.2); Carbon Dioxide 33 mmol/L (22-30); Chloride 103 mmol/L (98-107); Estimated CRCL calculation 42 ml/min; Estimated Glomerular Filt Rate 51; Glucose 134 mg/dL (65-110); Magnesium 2.5 mg/dL (1.6-2.3); Phosphorus 4.3 mg/dL (2.5-4.5); Potassium 3.9 mmol/L (3.4-5.0); Sodium 141 mmol/L (137-145)
[2024-08-27 05:13] LABS: Alveolar/Arterial O2 Gradient < 0.0 mmHg; Base Excess ABG 3.4 mEq/l (+/-2.0); Carboxyhemoglobin 0.4 % THb (0-2.0); Fractional Inspired Oxygen 30 %; HCO3 ABG 29.1 mEq/l (22.0-26.0); Methemoglobin ABG 0.2 %THb (0-1.5); Oxygen Content ABG 18.6 %vol (16.0-22.0); Oxygen Saturation ABG 99.2 % (95.0-100.0); Oxyhemoglobin 98.9 % THb (90.0-100.0); PCO2 ABG 48.5 mmHg (35.0-45.0); PO2 ABG 183.1 mmHg (80.0-100.0); Reduced Hemoglobin 0.5 %THb (0-5.0); Total Hemoglobin 13.1 g/dL (12.0-18.0); pH ABG 7.396 (7.350-7.450)
[2024-08-27 05:20] LABS: Thyroid Stimulating Hormone 0.176 uIU/mL (0.465-4.680)
[2024-08-27] MEDS: DOXYCYCLINE 100 MG/NS 100 ML 100 MG/100 ML BAG IVPB ×2 (05:42→18:27)
[2024-08-27 05:48] LABS: Arterial Blood Gas Vent Mode CMV; Arterial Blood Gas Ventilator rate 20 /MIN; Device VENTILATOR; Modified Allen's Test Pass; Site Drawn RIGHT RADIAL
[2024-08-27 05:49] LABS: Arterial Blood Gas PEEP 5 cmH2O; Arterial Blood Gas Tidal Volume 400 ml
[2024-08-27] MEDS: PROPOFOL IV EMULSION 100 ML 14.38 MG IV CONT ×2 (06:34→20:25)
[2024-08-27 06:50] LABS: Anisocytosis 1+; Platelet Estimate Adequate (Adequate); Schistocytes None Seen
[2024-08-27] MEDS: APIXABAN 5 MG TABLET PO ×2 (08:11→20:18)
[2024-08-27] MEDS: SIMVASTATIN 20 MG TABLET PO (08:11)
[2024-08-27] MEDS: FAMOTIDINE 20 MG/2 ML VIAL IV PUSH ×2 (08:11→20:18)
[2024-08-27] MEDS: CITALOPRAM HYDROBROMIDE 20 MG TABLET PO ×2 (08:11→20:18)
[2024-08-27] MEDS: EMPAGLIFLOZIN 10 MG TABLET PO (08:11)
[2024-08-27] MEDS: busPIRone HCL 2.5 MG TABLET 7.5 MG PO ×2 (08:11→20:18)
[2024-08-27] MEDS: MINERAL OIL/WHITE PETROLATUM OINTMENT 1 APPLIC EACH EYE ×2 (08:12→20:18)
[2024-08-27] MEDS: SODIUM CHLOR 3% 15 ML NEB (RESPIRATORY THERAPY) 6 ML INHALATION ×2 (10:09→20:01)
[2024-08-27] MEDS: LACTATED RINGERS 1,000 ML 75 ML IV CONT (10:23)
--- NOTE | 2024-08-27 11:39 | PCNFU ---
Nutrition Follow-Up Complete: Suboptimal energy intake as related to mechanical ventilation as evidenced by NPO. Goal: Meet estimated nutritional needs. Patient is progressing towards goal. We will continue current goal. Pt current nutrition is Vital AF 1.2 at 40 ml/hr. Nutrition Recommendations: increase tube feeding rate to 50 ml/hr. Last recorded weight is 80.1 kg, stable Bowel Motility:No BM reported. Labs Reviewed:Mg 2.5, BUN 42, GFR 51, Cr 1.04, Glu 134, Mg 2.5 Meds Noted:Propofol 30 flnb=852 kcal, Fentanyl, Jardiance, Pepcid Skin: WNL Additional Notes: Patient remains on mechanical vent. Tube feedings are being tolerated per nursing. Total Nutrition: 1260 kcal/66 gm protein/ 714 ml water. Recommend to increased tube feedings to 50 ml/hr to better meet caloric needs which would provide 1480 kcals/83 gm protein/892 ml water. Flush at 30 ml q 4 hours. Plans to start weaning Propofol. Will monitor weight, labs, skin, tube feedings tolerance, meds every Monday and Monday.
--- NOTE | 2024-08-27 12:02 | WPDINTPN ---
Progress Note: A&P Assessment and Plan (1) Respiratory failure: Code(s): J96.90 - Respiratory failure, unspecified, unspecified whether with hypoxia or hypercapnia Status: Acute Assessment and Plan: 08/25: Patient was BiPAP, was switched to Vapotherm, got anxious, tachypneic with diffuse reason, placed back on AVAPS by pulmonology, patient not tolerating that finally had to intubate the patient after getting consent from the son, daughter and the patient, all were in agreement with intubation but no CPR. -patient placed on CMV mode of ventilation, peep of 5, currently on 35% FiO2 -chest x-ray and ABGs reviewed, ventilator adjusted -continue ceftriaxone (for 7 days) and doxycycline (for total of 5 days) -continue Xopenex and ipratropium nebulizers -patient had thick secretions which was suctioned out, place patient on 3% saline nebs -continue on Trelegy Ellipta that she takes at home -sedated with propofol infusion, with p.r.n. fentanyl, RASS of 0 to -2, daily SBT and SAT, wean as tolerated -I have asked the bedside RN to start weaning the propofol since she is bradycardic and also to evaluate her neurologic status (2) COPD exacerbation: Code(s): J44.1 - Chronic obstructive pulmonary disease with (acute) exacerbation Status: Acute Assessment and Plan: 08/24: Presented with shortness of breath to the ED, was found to be in COPD exacerbation, possible pneumonia and a pulmonary vascular congestion -patient was given Solu-Medrol and albuterol treatment in the ER -patient received levofloxacin after which she had some a reaction, with labored breathing, tachypnea, tachycardia. Patient was given Solu-Medrol. Remained short of breath, was transferred to the ICU for further management -patient does use 3-4 L at home for COPD - currently intubated on mechanical ventilation -continue steroids, bronchodilators, Trelegy Ellipta and antibiotics as above -appreciate pulmonology following the patient (3) Pneumonia: Qualifiers: Laterality: unspecified laterality Lung location: unspecified part of lung Pneumonia type: due to unspecified organism Qualified Code(s): J18.9 - Pneumonia, unspecified organism Code(s): J18.9 - Pneumonia, unspecified organism Status: Resolved Assessment and Plan: Possible pneumonia seen on chest x-ray -continue ceftriaxone and doxycycline (08/24) -continue BiPAP and steroids as above (4) CHF (congestive heart failure): Code(s): I50.9 - Heart failure, unspecified Status: Acute Assessment and Plan: Chest x-ray shows possible pulmonary vascular congestion, patient received Lasix 40 mg x 2 in the ER Will repeat echocardiogram 03/25/2024: Echocardiogram Summary 1. Complete two-dimensional, color flow and Doppler transthoracic echocardiogram is performed. 2. Hyperdynamic appearing left ventricular systolic function with grade 1 diastolic noncompliance. 3. Left atrial enlargement. 4. Mild mitral regurgitation. 5. Left ventricular systolic function is hyperdynamic, estimated at >70%. (5) HTN (hypertension): Code(s): I10 - Essential (primary) hypertension Status: Chronic Assessment and Plan: History of hypertension, will hold antihypertensives at this time (6) Hyperlipidemia: Code(s): E78.5 - Hyperlipidemia, unspecified Status: Chronic Assessment and Plan: Continue simvastatin continue (7) Anxiety: Code(s): F41.9 - Anxiety disorder, unspecified Status: Chronic Assessment and Plan: Continue home citalopram, buspirone Plan DVT prophylaxis: Continue Eliquis which she takes at home Stress ulcer prophylaxis: Continue Pepcid Nutrition: tolerating tube feeds Low urine output, will start LR at 75 mL for a total of 1000 mL Code Status: No CPR, okay to intubate after discussing with family on 08/25/2024. Critical Care Time Spent: 33 minutes 08/25: Consent for intubation was obtained from son Eris Resendez, who did discuss with his sister, both daughter and son were in agreement with intubation so was the patient. But the son stated that no CPR. Due to a high probability of clinically significant, life threatening deterioration, the patient required my highest level of preparedness to intervene emergently and I personally spent this critical care time directly and personally managing the patient. This critical care time included obtaining a history; examining the patient; pulse oximetry; ordering and review of studies; arranging urgent treatment with development of a management plan; evaluation of patient's response to treatment; frequent reassessment; and discussions with other providers. It was exclusive of separately billable procedures and treating other patients and teaching time. Please see Assessment and Plan section and the rest of the note for further information on patient assessment and treatment This dictation may have been done utilizing a voice recognition system. Attempts have been made to correct errors. However, there may be uncorrected grammatical, spelling, and recognitions errors present. Subjective Date/time seen: 08/27/24 12:02 Interval history: Reason for consult: Acute hypercapnic respiratory failure, COPD exacerbation, pneumonia 08/27/2024: Patient seen and examined the ICU, remains intubated on CMV mode of ventilation, 30% FiO2 and peep of 5. Sedated with propofol and fentanyl infusion. Does not open her eyes or follow simple commands, does not withdraw to pain. Bradycardia with heart rates in the 50s to 60s. Low urine output, hemodynamically stable, afebrile Review of Systems Review of Systems: ROS unobtainable: Yes unobtainable due to endotracheal tube, unobtainable due to medical condition and unobtainable due to mental status Exam Narrative: General: Intubated and sedated HEENT:? Pupils equal and reactive, sclera is clear, ETT in place Neck:? Supple Respiratory:? Decreased air entry bilaterally, wheezing noted and left upper lobe, no rales auscultated Cardiac:? Sinus tachycardia Abdomen:? Soft, nontender, nondistended, hypoactive bowel sounds Extremities:? Trace edema in lower extremities, palpable pedal pulse Neuro:? C sedated, intubated, does not open her eyes or follow simple commands code does not withdraw to pain (prior to intubation, patient was tachycardic, tachypneic, was able to follow commands and was able to answer questions) Skin:? Warm and dry, no lesions noted Psych:? Unable to assess at this Objective Data Vital Signs Vital Signs: Vital Signs - 24 hr 08/26/24 12:19 08/26/24 12:19 08/26/24 13:48 Temperature Pulse Rate 58 L 58 L 53 L Respiratory Rate 20 20 Blood Pressure Pulse Oximetry 98 Oxygen Delivery Mechanical Ventilation Fraction of Inspired Oxygen 30 08/26/24 13:48 08/26/24 14:00 08/26/24 14:00 Temperature Pulse Rate 53 L 54 L 54 L Respiratory Rate 20 20 Blood Pressure 109/57 L Pulse Oximetry 97 Oxygen Delivery Fraction of Inspired Oxygen 08/26/24 14:00 08/26/24 14:00 08/26/24 14:01 Temperature Pulse Rate 65 54 L 56 L Respiratory Rate 23 H 20 20 Blood Pressure Pulse Oximetry Oxygen Delivery Fraction of Inspired Oxygen 08/26/24 16:00 08/26/24 16:00 08/26/24 16:00 Temperature Pulse Rate 53 L 53 L 54 L Respiratory Rate 20 20 Blood Pressure Pulse Oximetry Oxygen Delivery Fraction of Inspired Oxygen 08/26/24 16:00 08/26/24 16:00 08/26/24 16:00 Temperature Pulse Rate 53 L Respiratory Rate 20 Blood Pressure 107/54 L Pulse Oximetry 97 Oxygen Delivery Mechanical Ventilation Fraction of Inspired Oxygen 30 30 08/26/24 16:25 08/26/24 16:25 08/26/24 16:42 Temperature Pulse Rate 55 L 55 L 55 L Respiratory Rate 20 20 20 Blood Pressure Pulse Oximetry Oxygen Delivery Fraction of Inspired Oxygen 08/26/24 16:46 08/26/24 18:00 08/26/24 18:00 Temperature Pulse Rate 56 L 90 90 Respiratory Rate 20 Blood Pressure Pulse Oximetry 96 Oxygen Delivery Mechanical Ventilation Fraction of Inspired Oxygen 30 08/26/24 18:00 08/26/24 18:00 08/26/24 18:21 Temperature Pulse Rate 90 67 58 L Respiratory Rate 20 15 20 Blood Pressure 131/60 Pulse Oximetry 94 Oxygen Delivery Fraction of Inspired Oxygen 08/26/24 20:00 08/26/24 20:00 08/26/24 20:00 Temperature 97.9 F Pulse Rate 51 L 52 L Respiratory Rate 20 20 Blood Pressure 110/58 L Pulse Oximetry 95 Oxygen Delivery Fraction of Inspired Oxygen 30 08/26/24 20:00 08/26/24 20:00 08/26/24 20:40 Temperature Pulse Rate 55 L 50 L 53 L Respiratory Rate 20 20 Blood Pressure Pulse Oximetry 95 Oxygen Delivery Mechanical Ventilation Fraction of Inspired Oxygen 30 08/26/24 20:45 08/26/24 20:56 08/26/24 20:56 Temperature Pulse Rate 53 L 70 70 Respiratory Rate 20 20 Blood Pressure Pulse Oximetry 92 Oxygen Delivery Mechanical Ventilation Fraction of Inspired Oxygen 30 08/26/24 21:02 08/26/24 21:11 08/26/24 21:11 Temperature Pulse Rate 67 70 70 Respiratory Rate 20 20 20 Blood Pressure Pulse Oximetry Oxygen Delivery Fraction of Inspired Oxygen 08/26/24 21:15 08/26/24 21:15 08/26/24 21:30 Temperature Pulse Rate 70 70 110 H Respiratory Rate 20 20 24 H Blood Pressure Pulse Oximetry Oxygen Delivery Fraction of Inspired Oxygen 08/26/24 22:00 08/26/24 22:00 08/26/24 22:00 Temperature Pulse Rate 52 L 54 L 52 L Respiratory Rate 20 20 Blood Pressure 109/56 L Pulse Oximetry 94 Oxygen Delivery Fraction of Inspired Oxygen 08/26/24 22:00 08/26/24 23:10 08/27/24 00:00 Temperature Pulse Rate 52 L 56 L 52 L Respiratory Rate 20 20 Blood Pressure Pulse Oximetry 93 93 Oxygen Delivery Mechanical Ventilation Mechanical Ventilation Fraction of Inspired Oxygen 30 30 08/27/24 00:00 08/27/24 00:00 08/27/24 00:00 Temperature Pulse Rate 52 L 52 L Respiratory Rate 20 20 Blood Pressure Pulse Oximetry Oxygen Delivery Fraction of Inspired Oxygen 30 08/27/24 00:00 08/27/24 00:08 08/27/24 01:23 Temperature 97.5 F L Pulse Rate 52 L 51 L 50 L Respiratory Rate 20 20 Blood Pressure 108/57 L Pulse Oximetry 95 Oxygen Delivery Fraction of Inspired Oxygen 08/27/24 01:23 08/27/24 02:00 08/27/24 02:00 Temperature Pulse Rate 50 L 49 L 49 L Respiratory Rate 20 20 Blood Pressure 102/55 L Pulse Oximetry 95 Oxygen Delivery Fraction of Inspired Oxygen 08/27/24 02:00 08/27/24 02:00 08/27/24 02:15 Temperature Pulse Rate 49 L 49 L 48 L Respiratory Rate 20 20 20 Blood Pressure Pulse Oximetry Oxygen Delivery Fraction of Inspired Oxygen 08/27/24 02:15 08/27/24 02:21 08/27/24 03:10 Temperature Pulse Rate 48 L 48 L 44 L Respiratory Rate 20 20 Blood Pressure Pulse Oximetry 98 Oxygen Delivery Mechanical Ventilation Fraction of Inspired Oxygen 30 08/27/24 04:00 08/27/24 04:00 08/27/24 04:00 Temperature Pulse Rate 50 L 50 L 51 L Respiratory Rate 20 20 20 Blood Pressure Pulse Oximetry 95 Oxygen Delivery Mechanical Ventilation Fraction of Inspired Oxygen 30 08/27/24 04:00 08/27/24 04:00 08/27/24 04:38 Temperature 98 F Pulse Rate 52 L 84 Respiratory Rate 20 Blood Pressure 119/60 Pulse Oximetry 96 Oxygen Delivery Fraction of Inspired Oxygen 30 08/27/24 04:59 08/27/24 06:00 08/27/24 06:00 Temperature Pulse Rate 48 L 51 L 54 L Respiratory Rate 20 Blood Pressure Pulse Oximetry 98 Oxygen Delivery Mechanical Ventilation Fraction of Inspired Oxygen 30 08/27/24 06:27 08/27/24 06:34 08/27/24 06:34 Temperature 98.3 F Pulse Rate 49 L 48 L 48 L Respiratory Rate 20 20 20 Blood Pressure 96/54 L Pulse Oximetry 94 Oxygen Delivery Fraction of Inspired Oxygen 08/27/24 09:07 08/27/24 09:07 08/27/24 09:20 Temperature Pulse Rate 51 L 51 L 52 L Respiratory Rate 20 20 Blood Pressure Pulse Oximetry 93 Oxygen Delivery Mechanical Ventilation Fraction of Inspired Oxygen 30 08/27/24 10:17 08/27/24 11:41 Temperature Pulse Rate 52 L 49 L Respiratory Rate 16 Blood Pressure Pulse Oximetry 96 Oxygen Delivery Mechanical Ventilation Fraction of Inspired Oxygen 30 Intake/Output Intake/Output: Intake & Output 08/24/24 08/25/24 08/26/24 08/27/24 23:59 23:59 23:59 23:59 Intake Total 335 2282.9 1131.1 269.6 Output Total 900 1175 875 200 Balance -565 1107.9 256.1 69.6 Meds/Results Medications: Active Medications Generic Name Dose Route Start Last Admin Trade Name Freq PRN Reason Stop Dose Admin Apixaban 5 mg 08/25/24 21:00 08/27/24 08:11 Apixaban 5 Mg Tablet PO 5 mg Q12HR ALEXIS Administration Buspirone HCl 7.5 mg 08/25/24 21:00 08/27/24 08:11 Buspirone Hcl 2.5 Mg Tablet PO 7.5 mg Q12HR ALEXIS Administration Citalopram Hydrobromide 20 mg 08/25/24 21:00 08/27/24 08:11 Citalopram Hydrobromide 20 Mg Tablet PO 20 mg Q12H ALEXIS Administration Dextrose 12.5 gm 08/24/24 16:31 Dextrose 50% 25 Gm/50 Ml Syringe IV PUSH PRN PRN Hypoglycemia Protocol Empagliflozin 10 mg 08/26/24 09:00 08/27/24 08:11 Empagliflozin 10 Mg Tablet PO 10 mg DAILY ALEXIS Administration Famotidine 20 mg 08/24/24 21:00 08/27/24 08:11 Famotidine 20 Mg/2 Ml Vial IV PUSH 20 mg Q12HR ALEXIS Administration Fentanyl Citrate 50 mcg 08/25/24 12:25 Fentanyl Citrate Inj (*Crx) 100 Mcg/2 Ml Vial IV PUSH Q2HR PRN Ventilator Asynchrony Fluticasone/Umeclidinium/Vilanterol 1 puff 08/25/24 08:00 08/27/24 09:07 Fluticasone/Umeclidin/Vilanter 200-62.5-25 Mcg Ellipta INHALATION Not Given DAILYRT ALEXIS Glucagon 1 mg 08/24/24 16:31 Glucagon For Inj 1 Mg Vial IM PRN PRN Hypoglycemia Protocol Glucose 15 gm 08/24/24 16:31 Glucose Oral Gel 15 Gm Of Glucse In 37.5 Gm Tube PO PRN PRN Hypoglycemia Protocol Ceftriaxone Sodium 2 gm in 100 mls @ 200 mls/hr 08/24/24 17:00 08/26/24 16:54 Rocephin 2 Gm/Ns 100 Ml IVPB 200 mls/hr Q24H ALEXIS Administration Doxycycline Hyclate 100 mg in 100 mls @ 100 mls/hr 08/24/24 18:00 08/27/24 05:42 Vibramycin 100 Mg/Ns 100 Ml IVPB 08/29/24 17:59 100 mls/hr Q12H ALEXIS Administration Dextrose 1,000 mls @ 100 mls/hr 08/24/24 16:31 Dextrose 5% 1,000 Ml IVPB PRN PRN Hypoglycemia Protocol Propofol 100 mls @ 11.985 mls/hr 08/25/24 09:55 08/27/24 10:17 Diprivan IV CONT 25 mcg/kg/min .Q8H21M ALEXIS 11.99 mls/hr Titration Protocol 25 MCG/KG/MIN Fentanyl Citrate 2,500 mcg in 250 mls @ 5 mls/hr 08/25/24 13:25 08/27/24 06:00 Fentanyl 2,500 Mcg/Ns 250 Ml IV CONT 50 mcg/hr .Q50H ALEXIS 5 mls/hr Titration Protocol 50 MCG/HR Lactated Ringer's 1,000 mls @ 75 mls/hr 08/27/24 10:15 08/27/24 10:23 Lr - Lactated Ringers Iv IV CONT 08/27/24 23:34 75 mls/hr .[id number] ALEXIS Administration Insulin Aspart 3 - 6 units 08/24/24 18:00 08/27/24 05:00 Insulin Aspart (*Bkc) 100 Units/Ml SUB-Q Not Given Q6HR ALEXIS Protocol Levalbuterol HCl 1.25 mg 08/25/24 14:50 08/27/24 09:00 Levalbuterol Neb 1.25 Mg/3 Ml INHALATION 1.25 mg Q6HRT ALEXIS Administration Methylprednisolone Sodium Succinate 40 mg 08/25/24 18:00 08/27/24 05:42 Methylprednisolone Sod Succ 40 Mg Vial IV PUSH 40 mg Q6HR ALEXIS Administration Multi-Ingred Cream/Lotion/Oil/Oint 1 applic 08/25/24 21:00 08/27/24 08:12 Mineral Oil/White Petrolatum Ointment EACH EYE 1 applic Q12HR ALEXIS Administration Perflutren Lipid Microsphere 0 ml 08/24/24 16:30 Perflutren Lipid Microspheres 1.5 Ml Vial Diluted To 10 Ml Total Volume IV PUSH 08/27/24 16:31 ONCE PRN adequate visualization Protocol Simvastatin 20 mg 08/26/24 09:00 08/27/24 08:11 Simvastatin 20 Mg Tablet PO 20 mg DAILY ALEXIS Administration Sodium Chloride 6 ml 08/25/24 09:20 08/27/24 10:17 Sodium Chlor 3% 15 Ml Neb (Respiratory Therapy) INHALATION 08/27/24 21:01 Not Given Q12HR [facility] Radiology Results: ITS Impressions Chest CTA 08/24/24 16:37 IMPRESSION: 1. No pulmonary embolism. 2. No acute cardiopulmonary pathology. 3. 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 Further evaluation and clinical correlation advised. 4. Emphysematous changes of the lungs. 5. Multiple healing rib fractures in the right hemithorax. 6. Fat infiltration of the liver. Abdomen X-Ray 08/25/24 10:34 IMPRESSION: NG tube in stomach Chest X-Ray 08/27/24 06:12 Impression: COPD. Support tubes, as above. Labs Labs: Laboratory Results - last 24 hr 08/26/24 08/27/24 08/27/24 17:14 00:04 04:25 WBC 10.4 H RBC 3.78 L Hgb 12.2 Hct 37.4 MCV 98.9 MCH 32.3 MCHC 32.6 RDW 13.2 Plt Count 140 L MPV 10.3 Immature Gran % (Auto) 0.6 H Neut % (Auto) 90.3 H Lymph % (Auto) 3.8 L [place] % (Auto) 3.5 Eos % (Auto) 1.7 Baso % (Auto) 0.1 L Lymph # (Auto) 0.39 L [place] # (Auto) 0.4 Eos # (Auto) 0.2 Baso # (Auto) 0.0 Abs Immat Gran (auto) 0.06 H Absolute Neuts (auto) 9.4 H Absolute Nucleated RBC 0.000 Nucleated RBC % 0.0 Platelet Estimate Adequate Anisocytosis 1+ Schistocytes None seen Puncture Site ABG pH ABG pCO2 ABG pO2 ABG PO2/FiO2 Ratio ABG HCO3 ABG O2 Saturation ABG O2 Content ABG Base Excess A-a Gradient Oxyhemoglobin Carboxyhemoglobin Methemoglobin Reduced Hemoglobin Total Hemoglobin O2 Delivery Device O2 Liters/Min Minute Volume Vent Rate Vent Mode FiO2 Tidal Volume PEEP Peak Inspir Pressure Pressure Support Sodium Potassium Chloride Carbon Dioxide Anion Gap BUN Creatinine Estim Creat Clear Calc Estimated GFR Glucose POC Capillary Glucose 138 H 130 H Calcium Phosphorus Magnesium Total Bilirubin AST ALT Alkaline Phosphatase Total Protein Albumin Triglycerides 125 TSH 08/27/24 08/27/24 04:26 04:58 WBC RBC Hgb Hct MCV MCH MCHC RDW Plt Count MPV Immature Gran % (Auto) Neut % (Auto) Lymph % (Auto) [place] % (Auto) Eos % (Auto) Baso % (Auto) Lymph # (Auto) [place] # (Auto) Eos # (Auto) Baso # (Auto) Abs Immat Gran (auto) Absolute Neuts (auto) Absolute Nucleated RBC Nucleated RBC % Platelet Estimate Anisocytosis Schistocytes Puncture Site Right radial ABG pH 7.396 ABG pCO2 48.5 H ABG pO2 183.1 H ABG PO2/FiO2 Ratio 6.10 ABG HCO3 29.1 H ABG O2 Saturation 99.2 ABG O2 Content 18.6 ABG Base Excess 3.4 A-a Gradient < 0.0 Oxyhemoglobin 98.9 Carboxyhemoglobin 0.4 Methemoglobin 0.2 Reduced Hemoglobin 0.5 Total Hemoglobin 13.1 O2 Delivery Device Ventilator O2 Liters/Min Not Reportable Minute Volume Not Reportable Vent Rate 20 Vent Mode Cmv FiO2 30 Tidal Volume 400 PEEP 5 Peak Inspir Pressure Not Reportable Pressure Support Not Reportable Sodium 141 Potassium 3.9 Chloride 103 Carbon Dioxide 33 H Anion Gap 5 BUN 42 H D Creatinine 1.04 H Estim Creat Clear Calc 42 Estimated GFR 51 L Glucose 134 H POC Capillary Glucose Calcium 9.3 Phosphorus 4.3 Magnesium 2.5 H Total Bilirubin 0.4 AST 21 ALT 24 Alkaline Phosphatase 56 Total Protein 7.0 Albumin 4.3 Triglycerides TSH 0.176 L Quality VTE Prophylaxis VTE prophylaxis: pharmacologic ordered
[2024-08-27 12:51] LABS: Glucose Point of Care 154 mg/dl (65-105)
[2024-08-27] MEDS: PROPOFOL IV EMULSION 100 ML 11.99 MG IV CONT (14:12)
[2024-08-27] MEDS: cefTRIAXone 2 GM/NS 100 ML 2 GM/100 ML BAG IVPB (17:22)
[2024-08-27 17:28] LABS: Glucose Point of Care 135 mg/dl (65-105)
[2024-08-27 23:28] LABS: Glucose Point of Care 159 mg/dl (65-105)
[2024-08-28] VITALS (40 sets, daily range): BP systolic 104–138; BP diastolic 54–75; PULSE 48–124; RESP 13–25; TEMP 36.5–37.4; O2SAT 94–99
[2024-08-28] MEDS: PROPOFOL IV EMULSION 100 ML 14.38 MG IV CONT (01:37)
[2024-08-28] MEDS: LEVALBUTEROL NEB 1.25 MG/3 ML INHALATION ×4 (02:15→20:25)
[2024-08-28 02:38] LABS: T3 Free 2.1 pg/mL (2.3-4.2)
[2024-08-28 04:50] LABS: Basophils Percent Auto 0.1 % (0.2-1.2); Eosinophils Percent Auto 0.2 % (0-4.4); Hematocrit 38.8 % (37.0-47.0); Hemoglobin 12.1 g/dL (12.0-15.0); Immature Granulocyte Absolute 0.16 K/mm3 (0.00-0.031); Immature Granulocyte Percent A 1.4 % (0-0.5); Lymphocytes Absolute Auto 0.41 K/mm3 (0.9-3.2); Lymphocytes Percent Auto 3.7 % (18.3-44.2); Mean Corpuscular HGB Conc 31.2 g/dl (32-36); Mean Corpuscular Hemoglobin 31.3 pg (26-34); Mean Corpuscular Volume 100.3 fl (80-100); Mean Platelet Volume 10.7 fl (7.4-10.4); Monocytes Absolute Auto 0.6 K/mm3 (0.1-0.6); Neutrophils Percent Auto 89.6 % (45.5-73.1); Platelet Count Result 130 k/mm3 (150-375); Red Blood Count 3.87 M/mm3 (4.2-5.4); Red Cell Distribution Width 13.3 % (11.5-14.5); White Blood Count 11.1 K/mm3 (4.5-10.0)
[2024-08-28 04:58] LABS: Alveolar/Arterial O2 Gradient 115.4 mmHg; Base Excess ABG 3.1 mEq/l (+/-2.0); Carboxyhemoglobin 0.3 % THb (0-2.0); Fractional Inspired Oxygen 45 %; HCO3 ABG 28.8 mEq/l (22.0-26.0); Oxygen Content ABG 18.5 %vol (16.0-22.0); Oxygen Saturation ABG 98.9 % (95.0-100.0); Oxyhemoglobin 98.9 % THb (90.0-100.0); PCO2 ABG 48.7 mmHg (35.0-45.0); PO2 ABG 150.1 mmHg (80.0-100.0); PO2 FiO2 Ratio Arterial Blood 3.34 %; Reduced Hemoglobin 0.8 %THb (0-5.0); Total Hemoglobin 13.1 g/dL (12.0-18.0)
[2024-08-28 04:59] LABS: Arterial Blood Gas PEEP 5 cmH2O; Arterial Blood Gas Tidal Volume 400 ml; Arterial Blood Gas Vent Mode CMV; Arterial Blood Gas Ventilator rate 20 /MIN; Device VENTILATOR; Modified Allen's Test Pass; Site Drawn RIGHT RADIAL
[2024-08-28 05:05] LABS: Alanine Aminotransferase 21 U/L (6-35); Albumin Level 3.9 g/dL (3.5-5.1); Alkaline Phosphatase 49 U/L (38-126); Anion Gap 4 mmol/L (4-12); Aspartate Amino Transferase 16 U/L (14-36); Bilirubin,Total 0.3 mg/dL (0.2-1.3); Blood Urea Nitrogen 55 mg/dL (7-17); Calcium 8.6 mg/dL (8.4-10.2); Carbon Dioxide 34 mmol/L (22-30); Chloride 103 mmol/L (98-107); Estimated CRCL calculation 40 ml/min; Estimated Glomerular Filt Rate 49; Glucose 130 mg/dL (65-110); Magnesium 2.8 mg/dL (1.6-2.3); Phosphorus 4.4 mg/dL (2.5-4.5); Sodium 141 mmol/L (137-145)
[2024-08-28] MEDS: methylPREDNISolone SOD SUCC 40 MG VIAL IV PUSH (05:16)
[2024-08-28] MEDS: DOXYCYCLINE 100 MG/NS 100 ML 100 MG/100 ML BAG IVPB ×2 (05:16→17:22)
[2024-08-28 05:59] LABS: Thyroid Stimulating Hormone 0.191 uIU/mL (0.465-4.680)
[2024-08-28] MEDS: FAMOTIDINE 20 MG/2 ML VIAL IV PUSH ×2 (08:23→20:41)
[2024-08-28] MEDS: MINERAL OIL/WHITE PETROLATUM OINTMENT 1 APPLIC EACH EYE ×2 (08:23→20:41)
[2024-08-28] MEDS: SIMVASTATIN 20 MG TABLET PO (08:23)
[2024-08-28] MEDS: EMPAGLIFLOZIN 10 MG TABLET PO (08:23)
[2024-08-28] MEDS: APIXABAN 5 MG TABLET PO ×2 (08:23→20:41)
[2024-08-28] MEDS: SODIUM CHLORIDE 0.45% 1,000 ML 100 ML IV CONT (08:24)
[2024-08-28] MEDS: PROPOFOL IV EMULSION 100 ML 11.99 MG IV CONT (08:27)
--- NOTE | 2024-08-28 09:21 | WPDINTPN ---
Progress Note: A&P Assessment and Plan (1) Respiratory failure: Code(s): J96.90 - Respiratory failure, unspecified, unspecified whether with hypoxia or hypercapnia Status: Acute Assessment and Plan: 08/25: Patient was BiPAP, was switched to Vapotherm, got anxious, tachypneic with diffuse reason, placed back on AVAPS by pulmonology, patient not tolerating that finally had to intubate the patient after getting consent from the son, daughter and the patient, all were in agreement with intubation but no CPR. -patient placed on CMV mode of ventilation, peep of 5, currently on 35% FiO2 -chest x-ray and ABGs reviewed, ventilator adjusted with decrease rate to 18 -continue ceftriaxone (for 7 days) and doxycycline (for total of 5 days) -continue Xopenex and ipratropium nebulizers -patient had thick secretions which was suctioned out, on 3% saline nebs -continue on Trelegy Ellipta that she takes at home -sedated with propofol infusion, with p.r.n. fentanyl, RASS of 0 to -2, daily SBT and SAT, wean as tolerated -management of COPD as below (2) COPD exacerbation: Code(s): J44.1 - Chronic obstructive pulmonary disease with (acute) exacerbation Status: Acute Assessment and Plan: 08/24: Presented with shortness of breath to the ED, was found to be in COPD exacerbation, possible pneumonia and a pulmonary vascular congestion -patient was given Solu-Medrol and albuterol treatment in the ER -patient received levofloxacin after which she had some a reaction, with labored breathing, tachypnea, tachycardia. Patient was given Solu-Medrol. Remained short of breath, was transferred to the ICU for further management -patient does use 3-4 L at home for COPD - currently intubated on mechanical ventilation -continue steroids but decrease to q.day -continue bronchodilators, Trelegy Ellipta and antibiotics as above -appreciate pulmonology following the patient (3) Pneumonia: Qualifiers: Laterality: unspecified laterality Lung location: unspecified part of lung Pneumonia type: due to unspecified organism Qualified Code(s): J18.9 - Pneumonia, unspecified organism Code(s): J18.9 - Pneumonia, unspecified organism Status: Resolved Assessment and Plan: Possible pneumonia seen on chest x-ray -continue ceftriaxone and doxycycline (08/24) -continue BiPAP and steroids as above (4) CHF (congestive heart failure): Code(s): I50.9 - Heart failure, unspecified Status: Acute Assessment and Plan: Chest x-ray shows possible pulmonary vascular congestion, patient received Lasix 40 mg x 2 in the ER Echocardiogram08/26/24 Summary 1. Left ventricular chamber dimension is normal. 2. Left ventricular systolic function is normal, estimated at >70%. 3. The left ventricular diastolic function is grade III diastolic dysfunction. 4. Right ventricular systolic function is normal. 5. Left atrial chamber dimension is severely enlarged. 6. Right atrial chamber dimension is moderately enlarged. 7. There is mild mitral valve regurgitation. 8. There is mild tricuspid valve regurgitation. 9. Estimated pulmonary arterial systolic pressure is 50 mmHg. 03/25/2024: Echocardiogram Summary 1. Complete two-dimensional, color flow and Doppler transthoracic echocardiogram is performed. 2. Hyperdynamic appearing left ventricular systolic function with grade 1 diastolic noncompliance. 3. Left atrial enlargement. 4. Mild mitral regurgitation. 5. Left ventricular systolic function is hyperdynamic, estimated at >70%. (5) HTN (hypertension): Code(s): I10 - Essential (primary) hypertension Status: Chronic Assessment and Plan: History of hypertension, will hold antihypertensives at this time (6) Hyperlipidemia: Code(s): E78.5 - Hyperlipidemia, unspecified Status: Chronic Assessment and Plan: Continue simvastatin continue (7) Anxiety: Code(s): F41.9 - Anxiety disorder, unspecified Status: Chronic Assessment and Plan: Continue home citalopram, buspirone (8) Elevated serum creatinine: Code(s): R79.89 - Other specified abnormal findings of blood chemistry Status: Acute Assessment and Plan: Slight elevation in creatinine and elevated BUN which could be secondary to steroids also Will give 1 L of IV fluids Monitor urine output electrolytes and creatinine Plan DVT prophylaxis: Continue Eliquis which she takes at home Stress ulcer prophylaxis: Continue Pepcid Nutrition: tolerating tube feeds Code Status: No CPR, okay to intubate after discussing with family on 08/25/2024. Critical Care Time Spent: 32 minutes Due to a high probability of clinically significant, life threatening deterioration, the patient required my highest level of preparedness to intervene emergently and I personally spent this critical care time directly and personally managing the patient. This critical care time included obtaining a history; examining the patient; pulse oximetry; ordering and review of studies; arranging urgent treatment with development of a management plan; evaluation of patient's response to treatment; frequent reassessment; and discussions with other providers. It was exclusive of separately billable procedures and treating other patients and teaching time. Please see Assessment and Plan section and the rest of the note for further information on patient assessment and treatment This dictation may have been done utilizing a voice recognition system. Attempts have been made to correct errors. However, there may be uncorrected grammatical, spelling, and recognitions errors present. Subjective Date/time seen: 08/28/24 Overnight events reviewed. Afebrile Continues to be on mechanical ventilation 45% FiO2 5 of PEEP Continues to be sedated Tolerating tube feed Vitals acceptable Sinus bradycardia on the monitor Improvement in urine output over last 24 hours Interval history: Reason for consult: Acute hypercapnic respiratory failure, COPD exacerbation, pneumonia Review of Systems Review of Systems: ROS unobtainable: Yes unobtainable due to endotracheal tube, unobtainable due to medical condition and unobtainable due to mental status Exam Narrative: General: Intubated and sedated HEENT:? Pupils equal and reactive, sclera is clear, ETT in place Neck:? Supple Respiratory:? Decreased air entry bilaterally, no wheezing noted on today's exam, no rales auscultated Cardiac:? Sinus tachycardia Abdomen:? Soft, nontender, nondistended, hypoactive bowel sounds Extremities:? Trace edema in lower extremities, palpable pedal pulse Neuro:?sedated, intubated, does not open her eyes or follow simple commands code does not withdraw to pain (prior to intubation, patient was tachycardic, tachypneic, was able to follow commands and was able to answer questions) Skin:? Warm and dry, no lesions noted Psych:? Unable to assess at this Objective Data Vital Signs Vital Signs: Vital Signs - 24 hr 08/27/24 10:00 08/27/24 10:00 08/27/24 10:00 Temperature Pulse Rate 53 L 53 L 53 L Respiratory Rate 20 20 Blood Pressure 98/50 L Pulse Oximetry 93 Oxygen Delivery Fraction of Inspired Oxygen 08/27/24 10:00 08/27/24 10:17 08/27/24 11:41 Temperature Pulse Rate 53 L 52 L 49 L Respiratory Rate 20 16 Blood Pressure Pulse Oximetry 96 Oxygen Delivery Mechanical Ventilation Fraction of Inspired Oxygen 30 08/27/24 12:00 08/27/24 12:00 08/27/24 12:00 Temperature 36.3 C L Pulse Rate 49 L 50 L Respiratory Rate 20 Blood Pressure 99/53 L Pulse Oximetry 95 Oxygen Delivery Fraction of Inspired Oxygen 30 08/27/24 12:00 08/27/24 12:00 08/27/24 12:00 Temperature Pulse Rate 49 L 49 L Respiratory Rate 20 20 Blood Pressure Pulse Oximetry Oxygen Delivery Mechanical Ventilation Fraction of Inspired Oxygen 30 08/27/24 13:56 08/27/24 13:57 08/27/24 14:00 Temperature Pulse Rate 49 L 93 50 L Respiratory Rate 20 Blood Pressure Pulse Oximetry 93 Oxygen Delivery Mechanical Ventilation Fraction of Inspired Oxygen 30 08/27/24 14:00 08/27/24 14:00 08/27/24 14:00 Temperature Pulse Rate 50 L 50 L 50 L Respiratory Rate 20 20 20 Blood Pressure 97/53 L Pulse Oximetry 92 Oxygen Delivery Fraction of Inspired Oxygen 08/27/24 14:11 08/27/24 14:11 08/27/24 14:12 Temperature Pulse Rate 52 L 50 L 52 L Respiratory Rate 18 20 18 Blood Pressure Pulse Oximetry Oxygen Delivery Fraction of Inspired Oxygen 08/27/24 16:00 08/27/24 16:00 08/27/24 16:00 Temperature Pulse Rate 57 L 56 L 56 L Respiratory Rate 12 12 Blood Pressure Pulse Oximetry Oxygen Delivery Fraction of Inspired Oxygen 08/27/24 16:00 08/27/24 16:00 08/27/24 16:00 Temperature 36.6 C Pulse Rate 56 L Respiratory Rate 20 Blood Pressure 101/56 L Pulse Oximetry 93 Oxygen Delivery Mechanical Ventilation Fraction of Inspired Oxygen 30 30 08/27/24 16:40 08/27/24 18:00 08/27/24 18:00 Temperature Pulse Rate 74 60 60 Respiratory Rate 18 Blood Pressure 113/56 L Pulse Oximetry 93 93 Oxygen Delivery Mechanical Ventilation Fraction of Inspired Oxygen 30 08/27/24 18:00 08/27/24 18:00 08/27/24 19:50 Temperature Pulse Rate 60 60 56 L Respiratory Rate 18 18 18 Blood Pressure Pulse Oximetry 94 Oxygen Delivery Mechanical Ventilation Fraction of Inspired Oxygen 30 08/27/24 20:00 08/27/24 20:00 08/27/24 20:00 Temperature Pulse Rate 58 L 55 L Respiratory Rate 18 20 Blood Pressure Pulse Oximetry Oxygen Delivery Fraction of Inspired Oxygen 30 08/27/24 20:00 08/27/24 20:02 08/27/24 20:05 Temperature Pulse Rate 57 L 56 L 56 L Respiratory Rate 17 Blood Pressure Pulse Oximetry 94 Oxygen Delivery Mechanical Ventilation Fraction of Inspired Oxygen 45 08/27/24 20:13 08/27/24 20:25 08/27/24 20:25 Temperature Pulse Rate 63 85 86 Respiratory Rate 20 20 20 Blood Pressure Pulse Oximetry Oxygen Delivery Fraction of Inspired Oxygen 08/27/24 20:41 08/27/24 22:00 08/27/24 22:00 Temperature 36.9 C Pulse Rate 68 56 L 56 L Respiratory Rate 10 L 20 Blood Pressure 123/60 115/61 Pulse Oximetry 93 94 Oxygen Delivery Fraction of Inspired Oxygen 08/27/24 22:00 08/27/24 22:00 08/27/24 23:01 Temperature Pulse Rate 56 L 56 L 54 L Respiratory Rate 20 20 Blood Pressure Pulse Oximetry 93 Oxygen Delivery Mechanical Ventilation Fraction of Inspired Oxygen 45 08/27/24 23:45 08/27/24 23:56 08/28/24 00:00 Temperature Pulse Rate 61 60 Respiratory Rate 20 18 Blood Pressure Pulse Oximetry 84 L Oxygen Delivery Mechanical Ventilation Fraction of Inspired Oxygen 45 45 08/28/24 00:00 08/28/24 00:00 08/28/24 00:00 Temperature 36.9 C Pulse Rate 61 58 L 58 L Respiratory Rate 20 18 Blood Pressure 121/58 L Pulse Oximetry 99 Oxygen Delivery Fraction of Inspired Oxygen 08/28/24 01:37 08/28/24 01:37 08/28/24 02:00 Temperature Pulse Rate 55 L 55 L 56 L Respiratory Rate 20 20 Blood Pressure Pulse Oximetry Oxygen Delivery Fraction of Inspired Oxygen 08/28/24 02:00 08/28/24 02:00 08/28/24 02:00 Temperature Pulse Rate 56 L 56 L 56 L Respiratory Rate 18 20 20 Blood Pressure 116/62 Pulse Oximetry 99 Oxygen Delivery Fraction of Inspired Oxygen 08/28/24 02:20 08/28/24 02:22 08/28/24 02:28 Temperature Pulse Rate 60 56 L 63 Respiratory Rate 20 20 Blood Pressure Pulse Oximetry 99 Oxygen Delivery Mechanical Ventilation Fraction of Inspired Oxygen 45 08/28/24 03:45 08/28/24 04:00 08/28/24 04:00 Temperature 36.5 C Pulse Rate 60 60 Respiratory Rate 20 20 Blood Pressure 138/75 Pulse Oximetry 97 97 Oxygen Delivery Mechanical Ventilation Fraction of Inspired Oxygen 45 30 08/28/24 04:00 08/28/24 04:00 08/28/24 04:00 Temperature Pulse Rate 61 60 101 H Respiratory Rate 20 20 Blood Pressure Pulse Oximetry Oxygen Delivery Fraction of Inspired Oxygen 08/28/24 05:02 08/28/24 05:16 08/28/24 06:00 Temperature Pulse Rate 50 L 92 50 L Respiratory Rate 25 H Blood Pressure Pulse Oximetry 95 Oxygen Delivery Mechanical Ventilation Fraction of Inspired Oxygen 36 08/28/24 06:00 08/28/24 06:00 08/28/24 06:00 Temperature 37.0 C Pulse Rate 50 L 50 L 50 L Respiratory Rate 20 20 20 Blood Pressure 107/54 L Pulse Oximetry 95 Oxygen Delivery Fraction of Inspired Oxygen 08/28/24 07:15 08/28/24 07:32 08/28/24 07:37 Temperature Pulse Rate 48 L 59 L 54 L Respiratory Rate 20 20 Blood Pressure Pulse Oximetry 96 Oxygen Delivery Mechanical Ventilation Fraction of Inspired Oxygen 36 08/28/24 07:41 08/28/24 08:00 08/28/24 08:27 Temperature Pulse Rate 54 L 59 L 56 L Respiratory Rate 20 20 20 Blood Pressure Pulse Oximetry Oxygen Delivery Fraction of Inspired Oxygen 08/28/24 08:27 Temperature Pulse Rate 56 L Respiratory Rate 20 Blood Pressure Pulse Oximetry Oxygen Delivery Fraction of Inspired Oxygen Intake/Output Intake/Output: Intake & Output 08/25/24 08/26/24 08/27/24 08/28/24 23:59 23:59 23:59 23:59 Intake Total 2282.9 1231.1 1999.6 693.3 Output Total 1175 875 450 900 Balance 1107.9 356.1 1549.6 -206.7 Meds/Results Medications: Active Medications Generic Name Dose Route Start Last Admin Trade Name Freq PRN Reason Stop Dose Admin Apixaban 5 mg 08/25/24 21:00 08/28/24 08:23 Apixaban 5 Mg Tablet PO 5 mg Q12HR ALEXIS Administration Buspirone HCl 7.5 mg 08/25/24 21:00 08/27/24 20:18 Buspirone Hcl 2.5 Mg Tablet PO 7.5 mg Q12HR ALEXIS Administration Citalopram Hydrobromide 20 mg 08/25/24 21:00 08/27/24 20:18 Citalopram Hydrobromide 20 Mg Tablet PO 20 mg Q12H ALEXIS Administration Dextrose 12.5 gm 08/24/24 16:31 Dextrose 50% 25 Gm/50 Ml Syringe IV PUSH PRN PRN Hypoglycemia Protocol Empagliflozin 10 mg 08/26/24 09:00 08/28/24 08:23 Empagliflozin 10 Mg Tablet PO 10 mg DAILY ALEXIS Administration Famotidine 20 mg 08/24/24 21:00 08/28/24 08:23 Famotidine 20 Mg/2 Ml Vial IV PUSH 20 mg Q12HR ALEXIS Administration Fentanyl Citrate 50 mcg 08/25/24 12:25 Fentanyl Citrate Inj (*Crx) 100 Mcg/2 Ml Vial IV PUSH Q2HR PRN Ventilator Asynchrony Fluticasone/Umeclidinium/Vilanterol 1 puff 08/25/24 08:00 08/28/24 07:32 Fluticasone/Umeclidin/Vilanter 200-62.5-25 Mcg Ellipta INHALATION Not Given DAILYRT ALEXIS Glucagon 1 mg 08/24/24 16:31 Glucagon For Inj 1 Mg Vial IM PRN PRN Hypoglycemia Protocol Glucose 15 gm 08/24/24 16:31 Glucose Oral Gel 15 Gm Of Glucse In 37.5 Gm Tube PO PRN PRN Hypoglycemia Protocol Ceftriaxone Sodium 2 gm in 100 mls @ 200 mls/hr 08/24/24 17:00 08/27/24 17:52 Rocephin 2 Gm/Ns 100 Ml IVPB 08/31/24 16:59 Infused Q24H ALEXIS Infusion Doxycycline Hyclate 100 mg in 100 mls @ 100 mls/hr 08/24/24 18:00 08/28/24 05:16 Vibramycin 100 Mg/Ns 100 Ml IVPB 08/29/24 17:59 100 mls/hr Q12H ALEXIS Administration Dextrose 1,000 mls @ 100 mls/hr 08/24/24 16:31 Dextrose 5% 1,000 Ml IVPB PRN PRN Hypoglycemia Protocol Propofol 100 mls @ 11.985 mls/hr 08/25/24 09:55 08/28/24 08:27 Diprivan IV CONT 25 mcg/kg/min .Q8H21M ALEXIS 11.99 mls/hr Administration Protocol 25 MCG/KG/MIN Fentanyl Citrate 2,500 mcg in 250 mls @ 5 mls/hr 08/25/24 13:25 08/28/24 08:00 Fentanyl 2,500 Mcg/Ns 250 Ml IV CONT 50 mcg/hr .Q50H ALEXIS 5 mls/hr Titration Protocol 50 MCG/HR Sodium Chloride 1,000 mls @ 100 mls/hr 08/28/24 07:45 08/28/24 08:24 Sodium Chloride 0.45% IV CONT 08/28/24 17:44 100 mls/hr .Q10H ALEXIS Administration Insulin Aspart 3 - 6 units 08/24/24 18:00 08/28/24 05:13 Insulin Aspart (*Bkc) 100 Units/Ml SUB-Q Not Given Q6HR ALEXIS Protocol Levalbuterol HCl 1.25 mg 08/25/24 14:50 08/28/24 07:31 Levalbuterol Neb 1.25 Mg/3 Ml INHALATION 1.25 mg Q6HRT ALEXIS Administration Methylprednisolone Sodium Succinate 60 mg 08/28/24 12:00 Methylprednisolone Sod Succ 125 Mg Vial IV PUSH QAM [facility] Multi-Ingred Cream/Lotion/Oil/Oint 1 applic 08/25/24 21:00 08/28/24 08:23 Mineral Oil/White Petrolatum Ointment EACH EYE 1 applic Q12HR ALEXIS Administration Simvastatin 20 mg 08/26/24 09:00 08/28/24 08:23 Simvastatin 20 Mg Tablet PO 20 mg DAILY ALEXIS Administration Radiology Results: ITS Impressions Chest CTA 08/24/24 16:37 IMPRESSION: 1. No pulmonary embolism. 2. No acute cardiopulmonary pathology. 3. 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 Further evaluation and clinical correlation advised. 4. Emphysematous changes of the lungs. 5. Multiple healing rib fractures in the right hemithorax. 6. Fat infiltration of the liver. Abdomen X-Ray 08/25/24 10:34 IMPRESSION: NG tube in stomach Chest X-Ray 08/28/24 05:49 Impression: COPD pattern of the lungs. No acute pulmonary abnormality seen. Support tubes, as above. Labs Labs: Impressions Chest X-Ray 08/28/24 05:49 Impression: COPD pattern of the lungs. No acute pulmonary abnormality seen. Support tubes, as above. Laboratory Results - last 24 hr 08/26/24 08/27/24 08/27/24 03:55 12:49 17:26 WBC RBC Hgb Hct MCV MCH MCHC RDW Plt Count MPV Immature Gran % (Auto) Neut % (Auto) Lymph % (Auto) Sunflower % (Auto) Eos % (Auto) Baso % (Auto) Lymph # (Auto) Sunflower # (Auto) Eos # (Auto) Baso # (Auto) Abs Immat Gran (auto) Absolute Neuts (auto) Absolute Nucleated RBC Nucleated RBC % Puncture Site ABG pH ABG pCO2 ABG pO2 ABG PO2/FiO2 Ratio ABG HCO3 ABG O2 Saturation ABG O2 Content ABG Base Excess A-a Gradient Oxyhemoglobin Carboxyhemoglobin Methemoglobin Reduced Hemoglobin Total Hemoglobin O2 Delivery Device O2 Liters/Min Minute Volume Vent Rate Vent Mode FiO2 Tidal Volume PEEP Peak Inspir Pressure Pressure Support Sodium Potassium Chloride Carbon Dioxide Anion Gap BUN Creatinine Estim Creat Clear Calc Estimated GFR Glucose POC Capillary Glucose 154 H 135 H Calcium Phosphorus Magnesium Total Bilirubin AST ALT Alkaline Phosphatase Total Protein Albumin TSH Free T3 pg/mL 2.1 L 08/27/24 08/28/24 08/28/24 23:26 04:27 04:47 WBC 11.1 H RBC 3.87 L Hgb 12.1 Hct 38.8 MCV 100.3 H MCH 31.3 MCHC 31.2 L RDW 13.3 Plt Count 130 L MPV 10.7 H Immature Gran % (Auto) 1.4 H Neut % (Auto) 89.6 H Lymph % (Auto) 3.7 L Sunflower % (Auto) 5.0 Eos % (Auto) 0.2 Baso % (Auto) 0.1 L Lymph # (Auto) 0.41 L Sunflower # (Auto) 0.6 Eos # (Auto) 0.0 Baso # (Auto) 0.0 Abs Immat Gran (auto) 0.16 H Absolute Neuts (auto) 10.0 H Absolute Nucleated RBC 0.000 Nucleated RBC % 0.0 Puncture Site Right radial ABG pH 7.390 ABG pCO2 48.7 H ABG pO2 150.1 H ABG PO2/FiO2 Ratio 3.34 ABG HCO3 28.8 H ABG O2 Saturation 98.9 ABG O2 Content 18.5 ABG Base Excess 3.1 A-a Gradient 115.4 Oxyhemoglobin 98.9 Carboxyhemoglobin 0.3 Methemoglobin 0.0 Reduced Hemoglobin 0.8 Total Hemoglobin 13.1 O2 Delivery Device Ventilator O2 Liters/Min Not Reportable Minute Volume Not Reportable Vent Rate 20 Vent Mode Cmv FiO2 45 Tidal Volume 400 PEEP 5 Peak Inspir Pressure Not Reportable Pressure Support Not Reportable Sodium 141 Potassium 4.0 Chloride 103 Carbon Dioxide 34 H Anion Gap 4 BUN 55 H D Creatinine 1.09 H Estim Creat Clear Calc 40 Estimated GFR 49 L Glucose 130 H POC Capillary Glucose 159 H Calcium 8.6 Phosphorus 4.4 Magnesium 2.8 H Total Bilirubin 0.3 AST 16 ALT 21 Alkaline Phosphatase 49 Total Protein 6.0 L Albumin 3.9 TSH 0.191 L Free T3 pg/mL Quality VTE Prophylaxis VTE prophylaxis: pharmacologic ordered
--- NOTE | 2024-08-28 10:46 | PCFNICU ---
ICU Rounding Note: Pt current nutrition is Vital AF 1.2 at 50 ml/hr. Last recorded weight is 85.5 kg, up from 80.2 kg on admit. Bowel Motility: No BM reported. Labs Reviewed: Mg 2.8, Glu 130, BUN 55, GFR 49 Meds Noted: Propofol 25 krma=962 kcal, Jardiance, Eliquis, Fentanyl Skin: WNL Additional Notes: Patient remains on mechanical vent. Tube feedings are being tolerated of Vital AF 1.2 at 50 ml/hr. Total Nutrition with Propofol Infusion: 1636 kcal/83 gm protein/892 ml water. Flush 30 ml q 4 hours. Agree with diet orders at this time. Following daily in ICU rounds. Will monitor weight, labs, skin, tube feedings tolerance, meds every Monday and Monday.
[2024-08-28] MEDS: methylPREDNISolone SOD SUCC 125 MG VIAL 60 MG IV PUSH (12:06)
[2024-08-28 14:09] LABS: Glucose Point of Care 138 mg/dl (65-105)
[2024-08-28] MEDS: FENTANYL 2,500MCG/NS250ML(*CRX 2,500 MCG/250 ML BAG 7.5 MCG IV CONT (15:46)
[2024-08-28] MEDS: cefTRIAXone 2 GM/NS 100 ML 2 GM/100 ML BAG IVPB (17:22)
[2024-08-28 17:33] LABS: Glucose Point of Care 153 mg/dl (65-105)
[2024-08-28] MEDS: PROPOFOL IV EMULSION 100 ML 7.19 MG IV CONT (17:42)
[2024-08-28 23:27] LABS: Glucose Point of Care 152 mg/dl (65-105)
[2024-08-29] VITALS (39 sets, daily range): BP systolic 95–155; BP diastolic 54–97; PULSE 45–140; RESP 18–26; TEMP 36.9–37.9; O2SAT 90–99
[2024-08-29] MEDS: LEVALBUTEROL NEB 1.25 MG/3 ML INHALATION ×4 (02:16→20:24)
[2024-08-29] MEDS: PROPOFOL IV EMULSION 100 ML 9.59 MG IV CONT (04:00)
[2024-08-29 05:01] LABS: Basophils Percent Auto 0.1 % (0.2-1.2); Eosinophils Absolute Auto 0.1 K/mm3 (0-0.3); Eosinophils Percent Auto 0.9 % (0-4.4); Hematocrit 38.8 % (37.0-47.0); Hemoglobin 12.2 g/dL (12.0-15.0); Immature Granulocyte Absolute 0.07 K/mm3 (0.00-0.031); Immature Granulocyte Percent A 0.9 % (0-0.5); Immature Platelet Fraction Pct 6.7 % (0.9-11.2); Lymphocytes Absolute Auto 0.94 K/mm3 (0.9-3.2); Lymphocytes Percent Auto 12.4 % (18.3-44.2); Mean Corpuscular HGB Conc 31.4 g/dl (32-36); Mean Corpuscular Hemoglobin 32.1 pg (26-34); Mean Corpuscular Volume 102.1 fl (80-100); Mean Platelet Volume 11.4 fl (7.4-10.4); Monocytes Absolute Auto 0.9 K/mm3 (0.1-0.6); Monocytes Percent Auto 11.6 % (2.6-8.5); Neutrophils Absolute Auto 5.6 K/mm3 (1.3-6.7); Neutrophils Percent Auto 74.1 % (45.5-73.1); Platelet Count Result 134 k/mm3 (150-375); Red Cell Distribution Width 13.2 % (11.5-14.5); White Blood Count 7.6 K/mm3 (4.5-10.0)
[2024-08-29 05:07] LABS: Base Excess ABG 1.7 mEq/l (+/-2.0); Carboxyhemoglobin 0.8 % THb (0-2.0); Fractional Inspired Oxygen 45 %; HCO3 ABG 27.9 mEq/l (22.0-26.0); Methemoglobin ABG 0.1 %THb (0-1.5); Oxygen Saturation ABG 98.9 % (95.0-100.0); Oxyhemoglobin 98.2 % THb (90.0-100.0); PCO2 ABG 50.3 mmHg (35.0-45.0); PO2 ABG 153.6 mmHg (80.0-100.0); PO2 FiO2 Ratio Arterial Blood 3.41 %; Reduced Hemoglobin 0.9 %THb (0-5.0); Total Hemoglobin 12.8 g/dL (12.0-18.0); pH ABG 7.362 (7.350-7.450)
[2024-08-29 05:08] LABS: Arterial Blood Gas PEEP 5 cmH2O; Arterial Blood Gas Tidal Volume 400 ml; Arterial Blood Gas Vent Mode CMV; Arterial Blood Gas Ventilator rate 20 /MIN; Device VENTILATOR; Modified Allen's Test Pass; Site Drawn RIGHT RADIAL
[2024-08-29 05:10] LABS: Alanine Aminotransferase 34 U/L (6-35); Albumin Level 3.7 g/dL (3.5-5.1); Alkaline Phosphatase 46 U/L (38-126); Anion Gap 0 mmol/L (4-12); Aspartate Amino Transferase 27 U/L (14-36); Bilirubin,Total 0.4 mg/dL (0.2-1.3); Blood Urea Nitrogen 46 mg/dL (7-17); Calcium 8.8 mg/dL (8.4-10.2); Carbon Dioxide 36 mmol/L (22-30); Chloride 108 mmol/L (98-107); Estimated CRCL calculation 57 ml/min; Estimated Glomerular Filt Rate > 60; Glucose 96 mg/dL (65-110); Magnesium 2.9 mg/dL (1.6-2.3); Phosphorus 3.6 mg/dL (2.5-4.5); Potassium 3.9 mmol/L (3.4-5.0); Sodium 144 mmol/L (137-145)
[2024-08-29 05:11] LABS: Triglycerides 88 mg/dL (<150)
[2024-08-29] MEDS: DOXYCYCLINE 100 MG/NS 100 ML 100 MG/100 ML BAG IVPB (06:19)
[2024-08-29] MEDS: methylPREDNISolone SOD SUCC 125 MG VIAL 60 MG IV PUSH (09:16)
[2024-08-29] MEDS: EMPAGLIFLOZIN 10 MG TABLET PO (09:17)
[2024-08-29] MEDS: FAMOTIDINE 20 MG/2 ML VIAL IV PUSH ×2 (09:17→20:09)
[2024-08-29] MEDS: SIMVASTATIN 20 MG TABLET PO (09:17)
[2024-08-29] MEDS: APIXABAN 5 MG TABLET PO ×2 (09:17→20:09)
[2024-08-29] MEDS: MINERAL OIL/WHITE PETROLATUM OINTMENT 1 APPLIC EACH EYE ×2 (09:18→20:09)
--- NOTE | 2024-08-29 10:42 | WPDINTPN ---
Progress Note: A&P Assessment and Plan (1) Respiratory failure: Code(s): J96.90 - Respiratory failure, unspecified, unspecified whether with hypoxia or hypercapnia Status: Acute Assessment and Plan: 08/25: Patient was BiPAP, was switched to Vapotherm, got anxious, tachypneic with diffuse reason, placed back on AVAPS by pulmonology, patient not tolerating that finally had to intubate the patient after getting consent from the son, daughter and the patient, all were in agreement with intubation but no CPR. -patient placed on CMV mode of ventilation, peep of 5, currently on 35% FiO2 -chest x-ray reviewed and ET tube advanced by 3 cm -ABG reviewed and ventilator settings reviewed - 08/29 sedation holiday was performed and patient was evaluate for weaning trial patient became tachycardic tachypneic with abdominal breathing. Despite 15/5 PSV she appeared in distress hence SBT was aborted and patient was placed back on CMV -continue ceftriaxone (for 7 days) and doxycycline (for total of 5 days) -continue Xopenex and ipratropium nebulizers -patient had thick secretions which was suctioned out, on 3% saline nebs -continue on Trelegy Ellipta that she takes at home -sedated with propofol infusion, with p.r.n. fentanyl, RASS of 0 to -2, daily SBT and SAT, wean as tolerated -management of COPD as below (2) COPD exacerbation: Code(s): J44.1 - Chronic obstructive pulmonary disease with (acute) exacerbation Status: Acute Assessment and Plan: 08/24: Presented with shortness of breath to the ED, was found to be in COPD exacerbation, possible pneumonia and a pulmonary vascular congestion -patient was given Solu-Medrol and albuterol treatment in the ER -patient received levofloxacin after which she had some a reaction, with labored breathing, tachypnea, tachycardia. Patient was given Solu-Medrol. Remained short of breath, was transferred to the ICU for further management -patient does use 3-4 L at home for COPD - currently intubated on mechanical ventilation -continue steroids but decrease to q.day -continue bronchodilators, Trelegy Ellipta and antibiotics as above -appreciate pulmonology following the patient (3) Pneumonia: Qualifiers: Laterality: unspecified laterality Lung location: unspecified part of lung Pneumonia type: due to unspecified organism Qualified Code(s): J18.9 - Pneumonia, unspecified organism Code(s): J18.9 - Pneumonia, unspecified organism Status: Resolved Assessment and Plan: Possible pneumonia seen on chest x-ray -continue ceftriaxone and doxycycline (08/24) -continue BiPAP and steroids as above (4) CHF (congestive heart failure): Code(s): I50.9 - Heart failure, unspecified Status: Acute Assessment and Plan: Chest x-ray shows possible pulmonary vascular congestion, patient received Lasix 40 mg x 2 in the ER Echocardiogram08/26/24 Summary 1. Left ventricular chamber dimension is normal. 2. Left ventricular systolic function is normal, estimated at >70%. 3. The left ventricular diastolic function is grade III diastolic dysfunction. 4. Right ventricular systolic function is normal. 5. Left atrial chamber dimension is severely enlarged. 6. Right atrial chamber dimension is moderately enlarged. 7. There is mild mitral valve regurgitation. 8. There is mild tricuspid valve regurgitation. 9. Estimated pulmonary arterial systolic pressure is 50 mmHg. 03/25/2024: Echocardiogram Summary 1. Complete two-dimensional, color flow and Doppler transthoracic echocardiogram is performed. 2. Hyperdynamic appearing left ventricular systolic function with grade 1 diastolic noncompliance. 3. Left atrial enlargement. 4. Mild mitral regurgitation. 5. Left ventricular systolic function is hyperdynamic, estimated at >70%. (5) HTN (hypertension): Code(s): I10 - Essential (primary) hypertension Status: Chronic Assessment and Plan: History of hypertension, will hold antihypertensives at this time (6) Hyperlipidemia: Code(s): E78.5 - Hyperlipidemia, unspecified Status: Chronic Assessment and Plan: Continue simvastatin continue (7) Anxiety: Code(s): F41.9 - Anxiety disorder, unspecified Status: Chronic Assessment and Plan: Continue home citalopram, buspirone (8) Elevated serum creatinine: Code(s): R79.89 - Other specified abnormal findings of blood chemistry Status: Acute Assessment and Plan: Slight elevation in creatinine and elevated BUN which could be secondary to steroids also Improved with IV fluid Monitor urine output electrolytes and creatinine Plan DVT prophylaxis: Continue Eliquis which she takes at home Stress ulcer prophylaxis: Continue Pepcid Nutrition: tolerating tube feeds Code Status: No CPR, okay to intubate after discussing with family on 08/25/2024. Critical Care Time Spent: 30 minutes Due to a high probability of clinically significant, life threatening deterioration, the patient required my highest level of preparedness to intervene emergently and I personally spent this critical care time directly and personally managing the patient. This critical care time included obtaining a history; examining the patient; pulse oximetry; ordering and review of studies; arranging urgent treatment with development of a management plan; evaluation of patient's response to treatment; frequent reassessment; and discussions with other providers. It was exclusive of separately billable procedures and treating other patients and teaching time. Please see Assessment and Plan section and the rest of the note for further information on patient assessment and treatment This dictation may have been done utilizing a voice recognition system. Attempts have been made to correct errors. However, there may be uncorrected grammatical, spelling, and recognitions errors present. Subjective Date/time seen: 08/29/24 Overnight events reviewed. Afebrile Continues to be on mechanical ventilation 35% FiO2 Failed weaning trial this morning Continues to be sedated with propofol and fentanyl Other Vitals acceptable Tolerating tube feeds Good urine output Interval history: Reason for consult: Acute hypercapnic respiratory failure, COPD exacerbation, pneumonia Review of Systems Review of Systems: ROS unobtainable: Yes unobtainable due to endotracheal tube, unobtainable due to medical condition and unobtainable due to mental status Exam Narrative: General: Intubated and sedated HEENT:? Pupils equal and reactive, sclera is clear, ETT in place Neck:? Supple Respiratory:? Decreased air entry bilaterally, occasion wheezing noted on today's exam, no rales auscultated Cardiac:? Sinus tachycardia Abdomen:? Soft, nontender, nondistended, hypoactive bowel sounds Extremities:? Trace edema in lower extremities, palpable pedal pulse Neuro:?sedated, intubated, does not open her eyes or follow simple commands code does not withdraw to pain (prior to intubation, patient was tachycardic, tachypneic, was able to follow commands and was able to answer questions) Skin:? Warm and dry, no lesions noted Psych:? Unable to assess at this Objective Data Vital Signs Vital Signs: Vital Signs - 24 hr 08/28/24 10:46 08/28/24 11:00 08/28/24 11:30 Temperature Pulse Rate 50 L 50 L 49 L Respiratory Rate 16 18 Blood Pressure Pulse Oximetry 95 Oxygen Delivery Mechanical Ventilation Fraction of Inspired Oxygen 36 08/28/24 12:00 08/28/24 12:00 08/28/24 12:00 Temperature 37.1 C Pulse Rate 53 L Respiratory Rate 20 Blood Pressure 117/61 Pulse Oximetry 95 Oxygen Delivery Mechanical Ventilation Fraction of Inspired Oxygen 36 36 08/28/24 12:00 08/28/24 12:02 08/28/24 12:02 Temperature Pulse Rate 117 H 51 L 51 L Respiratory Rate 16 16 Blood Pressure Pulse Oximetry Oxygen Delivery Fraction of Inspired Oxygen 08/28/24 12:17 08/28/24 12:31 08/28/24 13:00 Temperature Pulse Rate 124 H 107 H 76 Respiratory Rate 19 18 Blood Pressure Pulse Oximetry 97 Oxygen Delivery Mechanical Ventilation Fraction of Inspired Oxygen 36 08/28/24 13:00 08/28/24 14:00 08/28/24 14:00 Temperature 37.4 C Pulse Rate 76 54 L 54 L Respiratory Rate 20 20 Blood Pressure 110/57 L Pulse Oximetry 95 Oxygen Delivery Fraction of Inspired Oxygen 08/28/24 14:00 08/28/24 14:00 08/28/24 15:35 Temperature Pulse Rate 54 L 54 L 53 L Respiratory Rate 20 20 16 Blood Pressure Pulse Oximetry Oxygen Delivery Fraction of Inspired Oxygen 08/28/24 15:46 08/28/24 15:46 08/28/24 16:00 Temperature Pulse Rate 53 L 53 L Respiratory Rate 20 20 Blood Pressure Pulse Oximetry Oxygen Delivery Mechanical Ventilation Fraction of Inspired Oxygen 36 08/28/24 16:00 08/28/24 16:00 08/28/24 16:00 Temperature 37.4 C Pulse Rate 60 58 L Respiratory Rate 20 Blood Pressure 128/57 L Pulse Oximetry 95 Oxygen Delivery Fraction of Inspired Oxygen 36 08/28/24 16:00 08/28/24 16:00 08/28/24 17:42 Temperature Pulse Rate 60 60 52 L Respiratory Rate 20 20 20 Blood Pressure Pulse Oximetry Oxygen Delivery Fraction of Inspired Oxygen 08/28/24 17:42 08/28/24 17:55 08/28/24 18:00 Temperature Pulse Rate 52 L 64 59 L Respiratory Rate 20 Blood Pressure Pulse Oximetry 95 Oxygen Delivery Mechanical Ventilation Fraction of Inspired Oxygen 36 08/28/24 18:00 08/28/24 18:00 08/28/24 18:00 Temperature 37.4 C Pulse Rate 59 L 61 61 Respiratory Rate 13 14 14 Blood Pressure 127/65 Pulse Oximetry 96 Oxygen Delivery Fraction of Inspired Oxygen 08/28/24 19:47 08/28/24 19:48 08/28/24 20:00 Temperature 37.4 C Pulse Rate 52 L 51 L Respiratory Rate 20 20 Blood Pressure 112/55 L Pulse Oximetry 96 96 Oxygen Delivery Mechanical Ventilation Fraction of Inspired Oxygen 36 36 08/28/24 20:00 08/28/24 20:00 08/28/24 20:00 Temperature Pulse Rate 51 L 51 L 51 L Respiratory Rate 20 20 Blood Pressure Pulse Oximetry Oxygen Delivery Fraction of Inspired Oxygen 08/28/24 20:25 08/28/24 20:25 08/28/24 20:32 Temperature Pulse Rate 49 L 49 L 51 L Respiratory Rate 20 20 Blood Pressure Pulse Oximetry 96 Oxygen Delivery Mechanical Ventilation Fraction of Inspired Oxygen 36 08/28/24 22:00 08/28/24 22:00 08/28/24 22:00 Temperature 37.1 C Pulse Rate 49 L 49 L 49 L Respiratory Rate 20 20 Blood Pressure 104/66 Pulse Oximetry 94 Oxygen Delivery Fraction of Inspired Oxygen 08/28/24 22:00 08/28/24 23:29 08/28/24 23:40 Temperature Pulse Rate 50 L 51 L 51 L Respiratory Rate 20 20 Blood Pressure Pulse Oximetry 95 95 Oxygen Delivery Mechanical Ventilation Mechanical Ventilation Fraction of Inspired Oxygen 36 36 08/29/24 00:00 08/29/24 00:00 08/29/24 00:00 Temperature 37.1 C Pulse Rate 48 L 49 L Respiratory Rate 20 20 Blood Pressure 120/54 L Pulse Oximetry 96 Oxygen Delivery Fraction of Inspired Oxygen 36 08/29/24 00:00 08/29/24 00:04 08/29/24 02:00 Temperature Pulse Rate 47 L 48 L 48 L Respiratory Rate 20 20 Blood Pressure Pulse Oximetry Oxygen Delivery Fraction of Inspired Oxygen 08/29/24 02:00 08/29/24 02:00 08/29/24 02:00 Temperature 37.1 C Pulse Rate 49 L 49 L 48 L Respiratory Rate 20 20 Blood Pressure 130/57 L Pulse Oximetry 96 Oxygen Delivery Fraction of Inspired Oxygen 08/29/24 02:17 08/29/24 02:17 08/29/24 02:41 Temperature Pulse Rate 47 L 47 L 49 L Respiratory Rate 20 20 Blood Pressure Pulse Oximetry 96 Oxygen Delivery Mechanical Ventilation Fraction of Inspired Oxygen 36 08/29/24 03:40 08/29/24 04:00 08/29/24 04:00 Temperature Pulse Rate 140 H 84 84 Respiratory Rate 26 H 20 20 Blood Pressure Pulse Oximetry Oxygen Delivery Fraction of Inspired Oxygen 08/29/24 04:00 08/29/24 04:00 08/29/24 04:00 Temperature 36.9 C Pulse Rate 85 85 Respiratory Rate 20 20 Blood Pressure 113/67 Pulse Oximetry 99 99 Oxygen Delivery Mechanical Ventilation Fraction of Inspired Oxygen 36 36 08/29/24 04:00 08/29/24 04:00 08/29/24 05:09 Temperature Pulse Rate 83 61 52 L Respiratory Rate 20 Blood Pressure Pulse Oximetry 98 Oxygen Delivery Mechanical Ventilation Fraction of Inspired Oxygen 45 08/29/24 05:13 08/29/24 06:00 08/29/24 06:00 Temperature Pulse Rate 52 L 47 L 47 L Respiratory Rate 20 20 Blood Pressure Pulse Oximetry 98 Oxygen Delivery Mechanical Ventilation Fraction of Inspired Oxygen 36 08/29/24 06:00 08/29/24 06:00 08/29/24 08:00 Temperature 37.3 C Pulse Rate 47 L 47 L 51 L Respiratory Rate 20 20 Blood Pressure 96/57 L Pulse Oximetry 97 Oxygen Delivery Fraction of Inspired Oxygen 08/29/24 08:00 08/29/24 08:00 08/29/24 08:00 Temperature Pulse Rate 51 L Respiratory Rate 20 Blood Pressure Pulse Oximetry 93 Oxygen Delivery Mechanical Ventilation Fraction of Inspired Oxygen 36 36 08/29/24 08:00 08/29/24 08:47 08/29/24 08:50 Temperature Pulse Rate 49 L 48 L 55 L Respiratory Rate 20 Blood Pressure Pulse Oximetry 93 Oxygen Delivery Mechanical Ventilation Fraction of Inspired Oxygen 30 08/29/24 09:16 08/29/24 09:23 08/29/24 09:24 Temperature Pulse Rate 58 L 54 L 54 L Respiratory Rate 20 20 20 Blood Pressure Pulse Oximetry Oxygen Delivery Fraction of Inspired Oxygen 08/29/24 10:20 08/29/24 10:28 08/29/24 10:28 Temperature Pulse Rate 125 H 125 H Respiratory Rate 20 20 Blood Pressure Pulse Oximetry Oxygen Delivery Mechanical Ventilation Fraction of Inspired Oxygen 08/29/24 10:31 Temperature Pulse Rate 124 H Respiratory Rate Blood Pressure Pulse Oximetry 92 Oxygen Delivery Mechanical Ventilation Fraction of Inspired Oxygen 35 Intake/Output Intake/Output: Intake & Output 08/26/24 08/27/24 08/28/24 08/29/24 23:59 23:59 23:59 23:59 Intake Total 1231.1 1999.6 2036.0 815.7 Output Total 641 823 9268 800 Balance 356.1 1549.6 136.0 15.7 Meds/Results Medications: Active Medications Generic Name Dose Route Start Last Admin Trade Name Freq PRN Reason Stop Dose Admin Apixaban 5 mg 08/25/24 21:00 08/29/24 09:17 Apixaban 5 Mg Tablet PO 5 mg Q12HR ALEXIS Administration Buspirone HCl 7.5 mg 08/25/24 21:00 08/27/24 20:18 Buspirone Hcl 2.5 Mg Tablet PO 7.5 mg Q12HR ALEXIS Administration Citalopram Hydrobromide 20 mg 08/25/24 21:00 08/27/24 20:18 Citalopram Hydrobromide 20 Mg Tablet PO 20 mg Q12H ALEXIS Administration Dextrose 12.5 gm 08/24/24 16:31 Dextrose 50% 25 Gm/50 Ml Syringe IV PUSH PRN PRN Hypoglycemia Protocol Empagliflozin 10 mg 08/26/24 09:00 08/29/24 09:17 Empagliflozin 10 Mg Tablet PO 10 mg DAILY ALEXIS Administration Famotidine 20 mg 08/24/24 21:00 08/29/24 09:17 Famotidine 20 Mg/2 Ml Vial IV PUSH 20 mg Q12HR ALEXIS Administration Fentanyl Citrate 50 mcg 08/25/24 12:25 Fentanyl Citrate Inj (*Crx) 100 Mcg/2 Ml Vial IV PUSH Q2HR PRN Ventilator Asynchrony Fluticasone/Umeclidinium/Vilanterol 1 puff 08/25/24 08:00 08/29/24 08:46 Fluticasone/Umeclidin/Vilanter 200-62.5-25 Mcg Ellipta INHALATION Not Given DAILYRT ALEXIS Glucagon 1 mg 08/24/24 16:31 Glucagon For Inj 1 Mg Vial IM PRN PRN Hypoglycemia Protocol Glucose 15 gm 08/24/24 16:31 Glucose Oral Gel 15 Gm Of Glucse In 37.5 Gm Tube PO PRN PRN Hypoglycemia Protocol Ceftriaxone Sodium 2 gm in 100 mls @ 200 mls/hr 08/24/24 17:00 08/28/24 17:52 Rocephin 2 Gm/Ns 100 Ml IVPB 08/31/24 16:59 Infused Q24H ALEXIS Infusion Doxycycline Hyclate 100 mg in 100 mls @ 100 mls/hr 08/24/24 18:00 08/29/24 06:19 Vibramycin 100 Mg/Ns 100 Ml IVPB 08/29/24 17:59 100 mls/hr Q12H ALEXIS Administration Dextrose 1,000 mls @ 100 mls/hr 08/24/24 16:31 Dextrose 5% 1,000 Ml IVPB PRN PRN Hypoglycemia Protocol Propofol 100 mls @ 0 mls/hr 08/25/24 09:55 08/29/24 10:28 Diprivan IV CONT 10 mcg/kg/min .Q0M ALEXIS 4.79 mls/hr Titration Protocol Fentanyl Citrate 2,500 mcg in 250 mls @ 0 mls/hr 08/25/24 13:25 08/29/24 10:28 Fentanyl 2,500 Mcg/Ns 250 Ml IV CONT 100 mcg/hr .Q0M ALEXIS 10 mls/hr Titration Protocol Insulin Aspart 3 - 6 units 08/24/24 18:00 08/29/24 06:20 Insulin Aspart (*Bkc) 100 Units/Ml SUB-Q Not Given Q6HR [facility] Protocol Levalbuterol HCl 1.25 mg 08/25/24 14:50 08/29/24 08:45 Levalbuterol Neb 1.25 Mg/3 Ml INHALATION 1.25 mg Q6HRT ALEXIS Administration Methylprednisolone Sodium Succinate 60 mg 08/28/24 12:00 08/29/24 09:16 Methylprednisolone Sod Succ 125 Mg Vial IV PUSH 60 mg QAM ALEXIS Administration Multi-Ingred Cream/Lotion/Oil/Oint 1 applic 08/25/24 21:00 08/29/24 09:18 Mineral Oil/White Petrolatum Ointment EACH EYE 1 applic Q12HR ALEXIS Administration Simvastatin 20 mg 08/26/24 09:00 08/29/24 09:17 Simvastatin 20 Mg Tablet PO 20 mg DAILY ALEXIS Administration Radiology Results: ITS Impressions Chest CTA 08/24/24 16:37 IMPRESSION: 1. No pulmonary embolism. 2. No acute cardiopulmonary pathology. 3. 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 Further evaluation and clinical correlation advised. 4. Emphysematous changes of the lungs. 5. Multiple healing rib fractures in the right hemithorax. 6. Fat infiltration of the liver. Abdomen X-Ray 08/25/24 10:34 IMPRESSION: NG tube in stomach Chest X-Ray 08/29/24 07:40 IMPRESSION: 1. Emphysema. Labs Labs: Laboratory Results - last 24 hr 08/28/24 08/28/24 08/28/24 12:11 17:24 23:22 WBC RBC Hgb Hct MCV MCH MCHC RDW Plt Count MPV Immature Gran % (Auto) Neut % (Auto) Lymph % (Auto) Levy % (Auto) Eos % (Auto) Baso % (Auto) Lymph # (Auto) Levy # (Auto) Eos # (Auto) Baso # (Auto) Abs Immat Gran (auto) Absolute Neuts (auto) Absolute Nucleated RBC Nucleated RBC % % Immature Plt Fraction Puncture Site ABG pH ABG pCO2 ABG pO2 ABG PO2/FiO2 Ratio ABG HCO3 ABG O2 Saturation ABG O2 Content ABG Base Excess A-a Gradient Oxyhemoglobin Carboxyhemoglobin Methemoglobin Reduced Hemoglobin Total Hemoglobin O2 Delivery Device O2 Liters/Min Minute Volume Vent Rate Vent Mode FiO2 Tidal Volume PEEP Peak Inspir Pressure Pressure Support Sodium Potassium Chloride Carbon Dioxide Anion Gap BUN Creatinine Estim Creat Clear Calc Estimated GFR Glucose POC Capillary Glucose 138 H 153 H 152 H Calcium Phosphorus Magnesium Total Bilirubin AST ALT Alkaline Phosphatase Total Protein Albumin Triglycerides TSH 08/29/24 08/29/24 04:27 04:58 WBC 7.6 RBC 3.80 L Hgb 12.2 Hct 38.8 MCV 102.1 H MCH 32.1 MCHC 31.4 L RDW 13.2 Plt Count 134 L MPV 11.4 H Immature Gran % (Auto) 0.9 H Neut % (Auto) 74.1 H Lymph % (Auto) 12.4 L Levy % (Auto) 11.6 H Eos % (Auto) 0.9 Baso % (Auto) 0.1 L Lymph # (Auto) 0.94 Levy # (Auto) 0.9 H Eos # (Auto) 0.1 Baso # (Auto) 0.0 Abs Immat Gran (auto) 0.07 H Absolute Neuts (auto) 5.6 Absolute Nucleated RBC 0.000 Nucleated RBC % 0.0 % Immature Plt Fraction 6.7 Puncture Site Right radial ABG pH 7.362 ABG pCO2 50.3 H ABG pO2 153.6 H ABG PO2/FiO2 Ratio 3.41 ABG HCO3 27.9 H ABG O2 Saturation 98.9 ABG O2 Content 18.0 ABG Base Excess 1.7 A-a Gradient 110.0 Oxyhemoglobin 98.2 Carboxyhemoglobin 0.8 Methemoglobin 0.1 Reduced Hemoglobin 0.9 Total Hemoglobin 12.8 O2 Delivery Device Ventilator O2 Liters/Min Not Reportable Minute Volume Not Reportable Vent Rate 20 Vent Mode Cmv FiO2 45 Tidal Volume 400 PEEP 5 Peak Inspir Pressure Not Reportable Pressure Support Not Reportable Sodium 144 Potassium 3.9 Chloride 108 H Carbon Dioxide 36 H Anion Gap 0 L BUN 46 H Creatinine 0.78 Estim Creat Clear Calc 57 Estimated GFR > 60 Glucose 96 POC Capillary Glucose Calcium 8.8 Phosphorus 3.6 Magnesium 2.9 H Total Bilirubin 0.4 AST 27 ALT 34 Alkaline Phosphatase 46 Total Protein 6.0 L Albumin 3.7 Triglycerides 88 TSH 1.710 Quality VTE Prophylaxis VTE prophylaxis: pharmacologic ordered
--- NOTE | 2024-08-29 11:50 | PCFNICU ---
ICU Rounding Note: Pt current nutrition is Vital AF 1.2 at 50 ml/hr. Nutrition recommendation: Banatrol Plus TF BID Last recorded weight is 85.4 kg, up from 80.2 kg on admit. Bowel Motility: FMS Labs Reviewed:Mg 2.9, BUN 46 Meds Noted:Propofol 20 mcgs, Fentanyl, Jardiance Skin:WNL Additional Notes: Patient remains on mechanical vent. Tube feedings are being tolerated of Vital AF 1.2 at 50 ml/hr. Flush increased from 30 to 100 ml q 4 hours. Patient had FMS placed, spoke with [employer] recommending Banatrol Plus TF BID for stool bulking. He is agreeable. Total Nutrition: 1573 kcal/83 gm protein/892 ml water. Agree with diet orders or at this time. Following daily in ICU rounds. Will monitor weight, labs, skin, tube feedings tolerance, meds every Monday and Monday.
[2024-08-29] MEDS: PROPOFOL IV EMULSION 100 ML 7.69 MG IV CONT ×2 (12:06→22:53)
[2024-08-29 12:26] LABS: Glucose Point of Care 134 mg/dl (65-105)
[2024-08-29 17:08] LABS: Adenovirus DNA Not Detected (Not Detected); Chlamydophila pneumoniae Not Detected (Not Detected); Coronavirus 229E Not Detected (Not Detected); Coronavirus HKU1 Not Detected (Not Detected); Coronavirus NL63 Not Detected (Not Detected); Coronavirus OC43 Not Detected (Not Detected); Human Metapneumovirus Not Detected (Not Detected); Human Parainfluenza Virus 1 Not Detected (Not Detected); Human Parainfluenza Virus 2 Not Detected (Not Detected); Human Parainfluenza Virus 3 Not Detected (Not Detected); Human Parainfluenza Virus 4 Not Detected (Not Detected); Human RSV B Not Detected (Not Detected); Influenza A Not Detected (Not Detected); Influenza B Not Detected (Not Detected); Mycoplasma pneumoniae Not Detected (Not Detected); Rhinovirus/Enterovirus Not Detected (Not Detected)
[2024-08-29] MEDS: cefTRIAXone 2 GM/NS 100 ML 2 GM/100 ML BAG IVPB (17:08)
[2024-08-29 17:09] LABS: Glucose Point of Care 170 mg/dl (65-105)
[2024-08-29] MEDS: FENTANYL 2,500MCG/NS250ML(*CRX 2,500 MCG/250 ML BAG 10 MCG IV CONT (22:56)
[2024-08-29 23:04] LABS: Glucose Point of Care 129 mg/dl (65-105)
[2024-08-30] VITALS (63 sets, daily range): BP systolic 95–176; BP diastolic 48–96; PULSE 44–153; RESP 11–24; TEMP 37.3–38.2; O2SAT 90–100
[2024-08-30] MEDS: LEVALBUTEROL NEB 1.25 MG/3 ML INHALATION ×4 (02:47→21:00)
[2024-08-30 04:10] LABS: Basophils Percent Auto 0.1 % (0.2-1.2); Eosinophils Absolute Auto 0.1 K/mm3 (0-0.3); Hematocrit 38.6 % (37.0-47.0); Hemoglobin 11.6 g/dL (12.0-15.0); Immature Granulocyte Absolute 0.04 K/mm3 (0.00-0.031); Immature Granulocyte Percent A 0.6 % (0-0.5); Immature Platelet Fraction Pct 6.3 % (0.9-11.2); Lymphocytes Absolute Auto 1.54 K/mm3 (0.9-3.2); Lymphocytes Percent Auto 21.4 % (18.3-44.2); Mean Corpuscular HGB Conc 30.1 g/dl (32-36); Mean Corpuscular Hemoglobin 31.4 pg (26-34); Mean Corpuscular Volume 104.6 fl (80-100); Mean Platelet Volume 11.2 fl (7.4-10.4); Monocytes Absolute Auto 0.8 K/mm3 (0.1-0.6); Monocytes Percent Auto 11.1 % (2.6-8.5); Neutrophils Absolute Auto 4.7 K/mm3 (1.3-6.7); Neutrophils Percent Auto 65.8 % (45.5-73.1); Platelet Count Result 117 k/mm3 (150-375); Red Blood Count 3.69 M/mm3 (4.2-5.4); Red Cell Distribution Width 13.3 % (11.5-14.5); White Blood Count 7.2 K/mm3 (4.5-10.0)
[2024-08-30 04:22] LABS: Alanine Aminotransferase 37 U/L (6-35); Albumin Level 3.2 g/dL (3.5-5.1); Alkaline Phosphatase 41 U/L (38-126); Anion Gap 3 mmol/L (4-12); Aspartate Amino Transferase 21 U/L (14-36); Bilirubin,Total 0.4 mg/dL (0.2-1.3); Blood Urea Nitrogen 40 mg/dL (7-17); Calcium 8.4 mg/dL (8.4-10.2); Carbon Dioxide 34 mmol/L (22-30); Chloride 107 mmol/L (98-107); Estimated CRCL calculation 69 ml/min; Estimated Glomerular Filt Rate > 60; Glucose 119 mg/dL (65-110); Magnesium 2.8 mg/dL (1.6-2.3); Phosphorus 3.6 mg/dL (2.5-4.5); Potassium 3.7 mmol/L (3.4-5.0); Sodium 144 mmol/L (137-145)
[2024-08-30 06:13] LABS: Base Excess ABG 4.8 mEq/l (+/-2.0); Carboxyhemoglobin 0.5 % THb (0-2.0); Fractional Inspired Oxygen 35 %; HCO3 ABG 31.4 mEq/l (22.0-26.0); Methemoglobin ABG 0.1 %THb (0-1.5); Oxygen Content ABG 17.5 %vol (16.0-22.0); Oxygen Saturation ABG 97.4 % (95.0-100.0); Oxyhemoglobin 97.1 % THb (90.0-100.0); PCO2 ABG 55.5 mmHg (35.0-45.0); PO2 FiO2 Ratio Arterial Blood 2.91 %; Reduced Hemoglobin 2.3 %THb (0-5.0); Total Hemoglobin 12.7 g/dL (12.0-18.0); pH ABG 7.371 (7.350-7.450)
[2024-08-30 06:14] LABS: Arterial Blood Gas Vent Mode CMV; Arterial Blood Gas Ventilator rate 18 /MIN; Device VENTILATOR; Modified Allen's Test Pass; Site Drawn LEFT RADIAL
[2024-08-30 06:15] LABS: Arterial Blood Gas PEEP 5 cmH2O; Arterial Blood Gas Tidal Volume 400 ml
[2024-08-30] MEDS: PROPOFOL IV EMULSION 100 ML 15.37 MG IV CONT (07:07)
[2024-08-30] MEDS: APIXABAN 5 MG TABLET PO ×2 (08:14→20:52)
[2024-08-30] MEDS: EMPAGLIFLOZIN 10 MG TABLET PO (08:14)
[2024-08-30] MEDS: SIMVASTATIN 20 MG TABLET PO (08:14)
[2024-08-30] MEDS: methylPREDNISolone SOD SUCC 125 MG VIAL 60 MG IV PUSH (08:15)
[2024-08-30] MEDS: FAMOTIDINE 20 MG/2 ML VIAL IV PUSH ×2 (08:15→20:52)
[2024-08-30] MEDS: MINERAL OIL/WHITE PETROLATUM OINTMENT 1 APPLIC EACH EYE ×2 (08:15→20:53)
[2024-08-30] MEDS: POTASSIUM BICARBONATE 25 MEQ TABEF 50 MEQ PO (09:11)
--- NOTE | 2024-08-30 10:03 | P.PNINT_ITS ---
Progress Note: A&P Assessment and Plan (1) Respiratory failure: Code(s): J96.90 - Respiratory failure, unspecified, unspecified whether with hypoxia or hypercapnia Status: Acute Assessment and Plan: 08/25: Patient was BiPAP, was switched to Vapotherm, got anxious, tachypneic with diffuse reason, placed back on AVAPS by pulmonology, patient not tolerating that finally had to intubate the patient after getting consent from the son, daughter and the patient, all were in agreement with intubation but no CPR. -patient placed on CMV mode of ventilation, peep of 5, currently on 35% FiO2 -chest x-ray reviewed and ET tube advanced to 24 cm at the lip -ABG reviewed and ventilator settings reviewed - 08/29 sedation holiday was performed and patient was evaluate for weaning trial patient became tachycardic tachypneic with abdominal breathing. Despite 15/5 PSV she appeared in distress hence SBT was aborted and patient was placed back on CMV -08/30 sedation holiday was performed to evaluate patient for weaning trial patient again became quickly tachycardic tachypneic and asynchronous with the ventilator. Patient was not a candidate for SBT. -will start Precedex try to wean off propofol and perform SBT on Precedex -continue ceftriaxone (for 7 days) and doxycycline (for total of 5 days) -continue Xopenex and ipratropium nebulizers -patient had thick secretions which was suctioned out, on 3% saline nebs -continue on Trelegy Ellipta that she takes at home -management of COPD as below (2) COPD exacerbation: Code(s): J44.1 - Chronic obstructive pulmonary disease with (acute) exacerbation Status: Acute Assessment and Plan: 08/24: Presented with shortness of breath to the ED, was found to be in COPD exacerbation, possible pneumonia and a pulmonary vascular congestion -patient was given Solu-Medrol and albuterol treatment in the ER -patient received levofloxacin after which she had some a reaction, with labored breathing, tachypnea, tachycardia. Patient was given Solu-Medrol. Remained short of breath, was transferred to the ICU for further management -patient does use 3-4 L at home for COPD suggesting severe COPD - currently intubated on mechanical ventilation -continue steroids but decrease to q.day -continue bronchodilators, Trelegy Ellipta and antibiotics as above -despite steroids and bronchodilators band continues to have wheezing on exam (3) Pneumonia: Qualifiers: Laterality: unspecified laterality Lung location: unspecified part of lung Pneumonia type: due to unspecified organism Qualified Code(s): J18.9 - Pneumonia, unspecified organism Code(s): J18.9 - Pneumonia, unspecified organism Status: Resolved Assessment and Plan: See above (4) CHF (congestive heart failure): Code(s): I50.9 - Heart failure, unspecified Status: Acute Assessment and Plan: Chest x-ray shows possible pulmonary vascular congestion, patient received Lasix 40 mg x 2 in the ER Echocardiogram08/26/24 Summary 1. Left ventricular chamber dimension is normal. 2. Left ventricular systolic function is normal, estimated at >70%. 3. The left ventricular diastolic function is grade III diastolic dysfunction. 4. Right ventricular systolic function is normal. 5. Left atrial chamber dimension is severely enlarged. 6. Right atrial chamber dimension is moderately enlarged. 7. There is mild mitral valve regurgitation. 8. There is mild tricuspid valve regurgitation. 9. Estimated pulmonary arterial systolic pressure is 50 mmHg. 03/25/2024: Echocardiogram Summary 1. Complete two-dimensional, color flow and Doppler transthoracic echocardiogram is performed. 2. Hyperdynamic appearing left ventricular systolic function with grade 1 diastolic noncompliance. 3. Left atrial enlargement. 4. Mild mitral regurgitation. 5. Left ventricular systolic function is hyperdynamic, estimated at >70%. (5) HTN (hypertension): Code(s): I10 - Essential (primary) hypertension Status: Chronic Assessment and Plan: History of hypertension, will hold antihypertensives at this time (6) Hyperlipidemia: Code(s): E78.5 - Hyperlipidemia, unspecified Status: Chronic Assessment and Plan: Continue simvastatin (7) Anxiety: Code(s): F41.9 - Anxiety disorder, unspecified Status: Chronic Assessment and Plan: Continue home citalopram, buspirone (8) Elevated serum creatinine: Code(s): R79.89 - Other specified abnormal findings of blood chemistry Status: Acute Assessment and Plan: Slight elevation in creatinine and elevated BUN which could be secondary to steroids also Improved with IV fluid Monitor urine output electrolytes and creatinine Plan DVT prophylaxis: Continue Eliquis which she takes at home Stress ulcer prophylaxis: Continue Pepcid Nutrition: tolerating tube feeds Code Status: No CPR, okay to intubate after discussing with family on 08/25/2024. Critical Care Time Spent: 30 minutes Due to a high probability of clinically significant, life threatening deterioration, the patient required my highest level of preparedness to intervene emergently and I personally spent this critical care time directly and personally managing the patient. This critical care time included obtaining a history; examining the patient; pulse oximetry; ordering and review of studies; arranging urgent treatment with development of a management plan; evaluation of patient's response to treatment; frequent reassessment; and discussions with other providers. It was exclusive of separately billable procedures and treating other patients and teaching time. Please see Assessment and Plan section and the rest of the note for further information on patient assessment and treatment This dictation may have been done utilizing a voice recognition system. Attempts have been made to correct errors. However, there may be uncorrected grammatical, spelling, and recognitions errors present. Subjective Date/time seen: 08/30/24 Overnight events reviewed. Afebrile Continues to be on mechanical ventilation 35% FiO2 and 5 of PEEP Sinus bradycardia on the monitor Continues to be sedated with propofol and vent Tolerating tube feeds. Other Vitals acceptable Interval history: Reason for consult: Acute hypercapnic respiratory failure, COPD exacerbation, pneumonia Review of Systems Review of Systems: ROS unobtainable: Yes unobtainable due to endotracheal tu be, unobtainable due to medical condition and unobtainable due to mental status Exam Narrative: General: Intubated and sedated HEENT:? Pupils equal and reactive, sclera is clear, ETT in place Neck:? Supple Respiratory:? Decreased air entry bilaterally, occasion wheezing noted on today's exam, no rales auscultated Cardiac:? Sinus tachycardia Abdomen:? Soft, nontender, nondistended, hypoactive bowel sounds Extremities:? Trace edema in lower extremities, palpable pedal pulse Neuro:?sedated, intubated, does not open her eyes or follow simple commands code does not withdraw to pain (prior to intubation, patient was tachyc ardic, tachypneic, was able to follow commands and was able to answer questions) Skin:? Warm and dry, no lesions noted Psych:? Unable to assess at this Objective Data Vital Signs Vital Signs: Vital Signs - 24 hr 08/29/24 10:20 08/29/24 10:28 08/29/24 10:28 Temperature Pulse Rate 125 H 125 H Respiratory Rate 20 20 Blood Pressure Pulse Oximetry Oxygen Delivery Mechanical Ventilation Fraction of Inspired Oxygen 08/29/24 10:31 08/29/24 12:00 08/29/24 12:00 Temperature Pulse Rate 124 H 93 Respiratory Rate Blood Pressure Pulse Oximetry 92 93 Oxygen Delivery Mechanical Ventilation Mechanical Ventilation Fraction of Inspired Oxygen 35 36 08/29/24 12:00 08/29/24 12:00 08/29/24 12:06 Temperature 37.9 C H Pulse Rate 94 93 Respiratory Rate 20 20 Blood Pressure 155/97 H Pulse Oximetry 93 Oxygen Delivery Fraction of Inspired Oxygen 35 08/29/24 12:06 08/29/24 12:11 08/29/24 14:00 Temperature Pulse Rate 93 120 H 61 Respiratory Rate 20 20 20 Blood Pressure Pulse Oximetry Oxygen Delivery Fraction of Inspired Oxygen 08/29/24 14:00 08/29/24 14:00 08/29/24 14:00 Temperature 37.7 C H Pulse Rate 61 61 61 Respiratory Rate 20 20 Blood Pressure 133/65 Pulse Oximetry 94 Oxygen Delivery Fraction of Inspired Oxygen 08/29/24 14:01 08/29/24 14:03 08/29/24 14:15 Temperature Pulse Rate 58 L 54 L 72 Respiratory Rate 20 18 Blood Pressure Pulse Oximetry 94 Oxygen Delivery Mechanical Ventilation Fraction of Inspired Oxygen 35 08/29/24 16:00 08/29/24 16:00 08/29/24 16:00 Temperature Pulse Rate 65 Respiratory Rate Blood Pressure Pulse Oximetry 95 Oxygen Delivery Mechanical Ventilation Fraction of Inspired Oxygen 35 35 08/29/24 16:00 08/29/24 16:00 08/29/24 16:00 Temperature 37.7 C H Pulse Rate 53 L 53 L 53 L Respiratory Rate 18 18 18 Blood Pressure 110/56 L Pulse Oximetry 95 Oxygen Delivery Fraction of Inspired Oxygen 08/29/24 17:36 08/29/24 18:00 08/29/24 18:00 Temperature 37.6 C H Pulse Rate 63 54 L 54 L Respiratory Rate 20 Blood Pressure 115/58 L Pulse Oximetry 94 95 Oxygen Delivery Mechanical Ventilation Fraction of Inspired Oxygen 35 08/29/24 18:00 08/29/24 18:00 08/29/24 19:50 Temperature Pulse Rate 54 L 54 L 58 L Respiratory Rate 20 20 18 Blood Pressure Pulse Oximetry 95 Oxygen Delivery Mechanical Ventilation Fraction of Inspired Oxygen 35 08/29/24 20:00 08/29/24 20:00 08/29/24 20:00 Temperature 37.6 C Pulse Rate 49 L 56 L 53 L Respiratory Rate 18 18 18 Blood Pressure 117/56 L Pulse Oximetry 95 Oxygen Delivery Fraction of Inspired Oxygen 08/29/24 20:00 08/29/24 20:00 08/29/24 20:30 Temperature Pulse Rate 48 L 83 Respiratory Rate 18 Blood Pressure Pulse Oximetry Oxygen Delivery Fraction of Inspired Oxygen 35 08/29/24 20:34 08/29/24 20:38 08/29/24 22:00 Temperature Pulse Rate 60 85 45 L Respiratory Rate 18 18 Blood Pressure Pulse Oximetry 95 Oxygen Delivery Mechanical Ventilation Fraction of Inspired Oxygen 35 08/29/24 22:00 08/29/24 22:00 08/29/24 22:00 Temperature 37.4 C Pulse Rate 46 L 47 L 47 L Respiratory Rate 18 18 Blood Pressure 114/60 Pulse Oximetry 96 Oxygen Delivery Fraction of Inspired Oxygen 08/29/24 22:53 08/29/24 22:53 08/29/24 22:56 Temperature Pulse Rate 46 L 46 L 49 L Respiratory Rate 18 18 18 Blood Pressure Pulse Oximetry Oxygen Delivery Fraction of Inspired Oxygen 08/29/24 23:37 08/29/24 23:53 08/29/24 23:54 Temperature Pulse Rate 49 L 49 L Respiratory Rate 18 Blood Pressure Pulse Oximetry 96 96 Oxygen Delivery Mechanical Ventilation Mechanical Ventilation Fraction of Inspired Oxygen 35 35 35 08/30/24 00:00 08/30/24 00:00 08/30/24 00:00 Temperature 37.4 C Pulse Rate 49 L 48 L 48 L Respiratory Rate 18 18 Blood Pressure 108/53 L Pulse Oximetry 96 Oxygen Delivery Fraction of Inspired Oxygen 08/30/24 00:00 08/30/24 02:00 08/30/24 02:00 Temperature 37.3 C Pulse Rate 48 L 47 L 47 L Respiratory Rate 18 18 Blood Pressure 102/48 L Pulse Oximetry 97 Oxygen Delivery Fraction of Inspired Oxygen 08/30/24 02:00 08/30/24 02:00 08/30/24 02:46 Temperature Pulse Rate 47 L 47 L 44 L Respiratory Rate 18 18 Blood Pressure Pulse Oximetry 96 Oxygen Delivery Mechanical Ventilation Fraction of Inspired Oxygen 35 08/30/24 02:48 08/30/24 03:01 08/30/24 04:00 Temperature 37.3 C Pulse Rate 46 L 45 L 52 L Respiratory Rate 18 18 18 Blood Pressure 102/49 L Pulse Oximetry 96 Oxygen Delivery Fraction of Inspired Oxygen 08/30/24 04:00 08/30/24 04:00 08/30/24 04:00 Temperature Pulse Rate 55 L 55 L Respiratory Rate 18 18 Blood Pressure Pulse Oximetry Oxygen Delivery Fraction of Inspired Oxygen 35 08/30/24 04:00 08/30/24 04:05 08/30/24 04:25 Temperature Pulse Rate 54 L 52 L 95 Respiratory Rate 18 20 Blood Pressure Pulse Oximetry 96 Oxygen Delivery Mechanical Ventilation Fraction of Inspired Oxygen 35 08/30/24 04:31 08/30/24 04:35 08/30/24 05:24 Temperature Pulse Rate 90 87 53 L Respiratory Rate 20 20 Blood Pressure Pulse Oximetry 95 Oxygen Delivery Mechanical Ventilation Fraction of Inspired Oxygen 35 08/30/24 05:30 08/30/24 06:00 08/30/24 06:00 Temperature Pulse Rate 52 L 47 L 48 L Respiratory Rate 18 18 Blood Pressure Pulse Oximetry Oxygen Delivery Fraction of Inspired Oxygen 08/30/24 06:00 08/30/24 06:00 08/30/24 06:10 Temperature 37.6 C Pulse Rate 48 L 65 48 L Respiratory Rate 18 18 18 Blood Pressure 95/55 L Pulse Oximetry 95 Oxygen Delivery Fraction of Inspired Oxygen 08/30/24 06:21 08/30/24 06:40 08/30/24 06:47 Temperature Pulse Rate 46 L 75 65 Respiratory Rate 18 20 19 Blood Pressure Pulse Oximetry Oxygen Delivery Fraction of Inspired Oxygen 08/30/24 06:50 08/30/24 06:52 08/30/24 06:58 Temperature Pulse Rate 75 63 64 Respiratory Rate 21 H 19 19 Blood Pressure Pulse Oximetry Oxygen Delivery Fraction of Inspired Oxygen 08/30/24 07:07 08/30/24 07:07 08/30/24 07:51 Temperature Pulse Rate 64 64 51 L Respiratory Rate 18 18 18 Blood Pressure Pulse Oximetry Oxygen Delivery Fraction of Inspired Oxygen 08/30/24 07:52 08/30/24 07:57 08/30/24 08:00 Temperature 37.5 C Pulse Rate 54 L 54 L 55 L Respiratory Rate 18 18 Blood Pressure 103/65 Pulse Oximetry 94 94 Oxygen Delivery Mechanical Ventilation Fraction of Inspired Oxygen 35 08/30/24 08:00 08/30/24 08:00 08/30/24 08:00 Temperature Pulse Rate 52 L 54 L 53 L Respiratory Rate 18 18 18 Blood Pressure Pulse Oximetry 96 Oxygen Delivery Mechanical Ventilation Fraction of Inspired Oxygen 35 08/30/24 08:00 08/30/24 08:00 08/30/24 08:29 Temperature Pulse Rate 53 L 53 L Respiratory Rate 18 Blood Pressure Pulse Oximetry Oxygen Delivery Fraction of Inspired Oxygen 35 08/30/24 09:10 08/30/24 09:11 08/30/24 09:41 Temperature Pulse Rate 60 60 126 H Respiratory Rate 18 18 18 Blood Pressure Pulse Oximetry Oxygen Delivery Fraction of Inspired Oxygen 08/30/24 09:42 Temperature Pulse Rate 128 H Respiratory Rate 18 Blood Pressure Pulse Oximetry Oxygen Delivery Fraction of Inspired Oxygen Intake/Output Intake/Output: Intake & Output 08/27/24 08/28/24 08/29/24 08/30/24 23:59 23:59 23:59 23:59 Intake Total 1999.6 2036.0 2220.0 1164.1 Output Total 450 1900 1750 750 Balance 1549.6 136.0 470.0 414.1 Meds/Results Medications: Active Medications Generic Name Dose Route Start Last Admin Trade Name Freq PRN Reason Stop Dose Admin Apixaban 5 mg 08/25/24 21:00 08/30/24 08:14 Apixaban 5 Mg Tablet PO 5 mg Q12HR ALEXIS Administration Buspirone HCl 7.5 mg 08/25/24 21:00 08/27/24 20:18 Buspirone Hcl 2.5 Mg Tablet PO 7.5 mg Q12HR ALEXIS Administration Citalopram Hydrobromide 20 mg 08/25/24 21:00 08/27/24 20:18 Citalopram Hydrobromide 20 Mg Tablet PO 20 mg Q12H ALEXIS Administration Dextrose 12.5 gm 08/24/24 16:31 Dextrose 50% 25 Gm/50 Ml Syringe IV PUSH PRN PRN Hypoglycemia Protocol Empagliflozin 10 mg 08/26/24 09:00 08/30/24 08:14 Empagliflozin 10 Mg Tablet PO 10 mg DAILY ALEXIS Administration Famotidine 20 mg 08/24/24 21:00 08/30/24 08:15 Famotidine 20 Mg/2 Ml Vial IV PUSH 20 mg Q12HR ALEXIS Administration Fentanyl Citrate 50 mcg 08/25/24 12:25 Fentanyl Citrate Inj (*Crx) 100 Mcg/2 Ml Vial IV PUSH Q2HR PRN Ventilator Asynchrony Fluticasone/Umeclidinium/Vilanterol 1 puff 08/25/24 08:00 08/30/24 07:50 Fluticasone/Umeclidin/Vilanter 200-62.5-25 Mcg Ellipta INHALATION Not Given DAILYRT ALEXIS Glucagon 1 mg 08/24/24 16:31 Glucagon For Inj 1 Mg Vial IM PRN PRN Hypoglycemia Protocol Glucose 15 gm 08/24/24 16:31 Glucose Oral Gel 15 Gm Of Glucse In 37.5 Gm Tube PO PRN PRN Hypoglycemia Protocol Ceftriaxone Sodium 2 gm in 100 mls @ 200 mls/hr 08/24/24 17:00 08/29/24 18:27 Rocephin 2 Gm/Ns 100 Ml IVPB 08/31/24 16:59 Infused Q24H ALEXIS Infusion Dextrose 1,000 mls @ 100 mls/hr 08/24/24 16:31 Dextrose 5% 1,000 Ml IVPB PRN PRN Hypoglycemia Protocol Propofol 100 mls @ 5.124 mls/hr 08/25/24 09:55 08/30/24 09:41 Diprivan IV CONT 10 mcg/kg/min .[id number] ALEXIS 5.12 mls/hr Titration Protocol 10 MCG/KG/MIN Fentanyl Citrate 2,500 mcg in 250 mls @ 10 mls/hr 08/25/24 13:25 08/30/24 09:42 Fentanyl 2,500 Mcg/Ns 250 Ml IV CONT 100 mcg/hr .Q25H ALEXIS 10 mls/hr Titration Protocol 100 MCG/HR Insulin Aspart 3 - 6 units 08/24/24 18:00 08/30/24 04:53 Insulin Aspart (*Bkc) 100 Units/Ml SUB-Q Not Given Q6HR ALEXIS Protocol Levalbuterol HCl 1.25 mg 08/25/24 14:50 08/30/24 07:49 Levalbuterol Neb 1.25 Mg/3 Ml INHALATION 1.25 mg Q6HRT ALEXIS Administration Methylprednisolone Sodium Succinate 60 mg 08/28/24 12:00 08/30/24 08:15 Methylprednisolone Sod Succ 125 Mg Vial IV PUSH 60 mg QAM ALEXIS Administration Multi-Ingred Cream/Lotion/Oil/Oint 1 applic 08/25/24 21:00 08/30/24 08:15 Mineral Oil/White Petrolatum Ointment EACH EYE 1 applic Q12HR ALEXIS Administration Simvastatin 20 mg 08/26/24 09:00 08/30/24 08:14 Simvastatin 20 Mg Tablet PO 20 mg DAILY ALEXIS Administration Radiology Results: ITS Impressions Chest CTA 08/24/24 16:37 IMPRESSION: 1. No pulmonary embolism. 2. No acute cardiopulmonary pathology. 3. 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 Further evaluation and clinical correlation advised. 4. Emphysematous changes of the lungs. 5. Multiple healing rib fractures in the right hemithorax. 6. Fat infiltration of the liver. Abdomen X-Ray 08/25/24 10:34 IMPRESSION: NG tube in stomach Chest X-Ray 08/30/24 06:41 IMPRESSION: 1. Emphysema. Labs Labs: Laboratory Results - last 24 hr 08/24/24 08/29/24 08/29/24 17:27 12:05 17:05 WBC RBC Hgb Hct MCV MCH MCHC RDW Plt Count MPV Immature Gran % (Auto) Neut % (Auto) Lymph % (Auto) Swift % (Auto) Eos % (Auto) Baso % (Auto) Lymph # (Auto) Swift # (Auto) Eos # (Auto) Baso # (Auto) Abs Immat Gran (auto) Absolute Neuts (auto) Absolute Nucleated RBC Nucleated RBC % % Immature Plt Fraction Puncture Site ABG pH ABG pCO2 ABG pO2 ABG PO2/FiO2 Ratio ABG HCO3 ABG O2 Saturation ABG O2 Content ABG Base Excess A-a Gradient Oxyhemoglobin Carboxyhemoglobin Methemoglobin Reduced Hemoglobin Total Hemoglobin O2 Delivery Device O2 Liters/Min Minute Volume Vent Rate Vent Mode FiO2 Tidal Volume PEEP Peak Inspir Pressure Pressure Support Sodium Potassium Chloride Carbon Dioxide Anion Gap BUN Creatinine Estim Creat Clear Calc Estimated GFR Glucose POC Capillary Glucose 134 H 170 H Calcium Phosphorus Magnesium Total Bilirubin AST ALT Alkaline Phosphatase Total Protein Albumin TSH Nasal RSV Type A (PCR) Not detected Nasal RSV Type B (PCR) Not detected Chlamy pneumoniae PCR Not detected Adenovirus DNA Not detected Human Bocavirus (SHANELLE) Not detected Coronavirus Type OC43 Not detected Coronavirus Type HKU1 Not detected Coronavirus Type 229E Not detected Coronavirus Type NL63 Not detected Human Metapneumovir PCR Not detected Influenza A (PCR) Not detected Influenza A (H1) RNA Not detected Influenza A (H3) PCR Not detected M. pneumoniae DNA Not detected Parainfluenza PCR Not detected Parainfluenza 2 (PCR) Not detected Parainfluenza 3 RNA (PCR) Not detected Parainfluenza 4 (PCR) Not detected Rhino/Enterovirus (SHANELLE) Not detected SARS-CoV-2 RNA (RT-PCR) Not detected Influenza Type B (PCR) Not detected Misc Test Comment see note 08/29/24 08/30/24 08/30/24 22:59 04:03 05:33 WBC 7.2 RBC 3.69 L Hgb 11.6 L Hct 38.6 MCV 104.6 H MCH 31.4 MCHC 30.1 L RDW 13.3 Plt Count 117 L MPV 11.2 H Immature Gran % (Auto) 0.6 H Neut % (Auto) 65.8 Lymph % (Auto) 21.4 Swift % (Auto) 11.1 H Eos % (Auto) 1.0 Baso % (Auto) 0.1 L Lymph # (Auto) 1.54 Swift # (Auto) 0.8 H Eos # (Auto) 0.1 Baso # (Auto) 0.0 Abs Immat Gran (auto) 0.04 H Absolute Neuts (auto) 4.7 Absolute Nucleated RBC 0.000 Nucleated RBC % 0.0 % Immature Plt Fraction 6.3 Puncture Site Left radial ABG pH 7.371 ABG pCO2 55.5 H ABG pO2 102.0 H ABG PO2/FiO2 Ratio 2.91 ABG HCO3 31.4 H ABG O2 Saturation 97.4 ABG O2 Content 17.5 ABG Base Excess 4.8 A-a Gradient 83.0 Oxyhemoglobin 97.1 Carboxyhemoglobin 0.5 Methemoglobin 0.1 Reduced Hemoglobin 2.3 Total Hemoglobin 12.7 O2 Delivery Device Ventilator O2 Liters/Min Not Reportable Minute Volume Not Reportable Vent Rate 18 Vent Mode Cmv FiO2 35 Tidal Volume 400 PEEP 5 Peak Inspir Pressure Not Reportable Pressure Support Not Reportable Sodium 144 Potassium 3.7 Chloride 107 Carbon Dioxide 34 H Anion Gap 3 L BUN 40 H Creatinine 0.63 L Estim Creat Clear Calc 69 Estimated GFR > 60 Glucose 119 H POC Capillary Glucose 129 H Calcium 8.4 Phosphorus 3.6 Magnesium 2.8 H Total Bilirubin 0.4 AST 21 ALT 37 H Alkaline Phosphatase 41 Total Protein 6.0 L Albumin 3.2 L TSH 1.070 Nasal RSV Type A (PCR) Nasal RSV Type B (PCR) Chlamy pneumoniae PCR Adenovirus DNA Human Bocavirus (SHANELLE) Coronavirus Type OC43 Coronavirus Type HKU1 Coronavirus Type 229E Coronavirus Type NL63 Human Metapneumovir PCR Influenza A (PCR) Influenza A (H1) RNA Influenza A (H3) PCR M. pneumoniae DNA Parainfluenza PCR Parainfluenza 2 (PCR) Parainfluenza 3 RNA (PCR) Parainfluenza 4 (PCR) Rhino/Enterovirus (SHANELLE) SARS-CoV-2 RNA (RT-PCR) Influenza Type B (PCR) Misc Test Comment Quality VTE Prophylaxis VTE prophylaxis: pharmacologic ordered
[2024-08-30] MEDS: dexmedeTOMIDine 400 MCG/100 ML 400 MCG/100 ML BAG IV CONT (10:12)
--- NOTE | 2024-08-30 11:00 | PCNFU ---
Nutrition Follow-Up Complete: Suboptimal energy intake as related to mechanical ventilation as evidenced by NPO. Goal: Meet estimated nutritional needs. Patient is progressing towards goal. We will continue current goal. Pt current nutrition is Vital AF 1.2. at 50 ml/hr and Banatrol Plus TF BID. Nutrition Recommendation: increase to 60 ml/hr. Last recorded weight is 84.8 kg, up fo 80.2 kg on admit. Bowel Motility: FMS Labs Reviewed:BUN 40, Cr 0.63, Glu 119, Mg 2.8 Meds Noted:Precedex, Fentanyl, Jardiance Skin: WNL Additional Notes: Patient remains on mechanical vent. Tube feedings are being tolerated of Vital AF 1.2 at 50 ml/hr. Failed breathing trail on 08/29. Plans to continue tube feedings of Vital AF 1.2 at 50 ml/hr with Banatrol BID providing 1410 kcal/83 gm protein/892 ml water. Meeting 70% kcal needs at 25 kcal/kg and 86% protein needs at 1.2-1.4 gm/kg. Propofol has been stopped. Would recommend increasing rate to 60 ml/ht to better meet kcal and protein needs. Will in ICU rounds and reassess weight, labs, skin, tube feedings tolerance, meds every Monday and Monday.
[2024-08-30 11:45] LABS: Glucose Point of Care 144 mg/dl (65-105)
--- NOTE | 2024-08-30 14:28 | PC.NURSE ---
Attempting to titrate off her Propofol while titrating up her Precedex. Attempted to decreased Propofol to 5 mcg/kg/min and heart rate went up to 145 and breathing labored put Propofol back to 10 mcg/kg/min and increased Precedex. Will continue to attempt weaning off of Propofol.
[2024-08-30] MEDS: cefTRIAXone 2 GM/NS 100 ML 2 GM/100 ML BAG IVPB (16:30)
[2024-08-30] MEDS: AMIODARONE 150 MG/D5W 100 ML 150 MG/100 ML BAG 600 MG IV CONT (16:55)
[2024-08-30] MEDS: PROPOFOL IV EMULSION 100 ML 2.56 MG IV CONT (17:04)
[2024-08-30] MEDS: AMIODARONE 360 MG/D5W 200 ML 360 MG/200 ML BAG 33.33 MG IV CONT (17:09)
[2024-08-30 17:18] LABS: Glucose Point of Care 162 mg/dl (65-105)
[2024-08-30] MEDS: dexmedeTOMIDine 400 MCG/100 ML 400 MCG/100 ML BAG 14.84 MCG IV CONT (17:48)
[2024-08-30] MEDS: fentaNYL CITRATE INJ (*CRX) 100 MCG/2 ML VIAL 50 MCG IV PUSH (20:48)
[2024-08-30] MEDS: FENTANYL 2,500MCG/NS250ML(*CRX 2,500 MCG/250 ML BAG 15 MCG IV CONT (22:47)
[2024-08-31] VITALS (43 sets, daily range): BP systolic 112–175; BP diastolic 69–84; PULSE 44–878; RESP 14–24; TEMP 37.7–38.3; O2SAT 90–100
[2024-08-31] MEDS: dexmedeTOMIDine 400 MCG/100 ML 400 MCG/100 ML BAG 14.84 MCG IV CONT ×3 (00:04→14:23)
[2024-08-31 00:14] LABS: Glucose Point of Care 147 mg/dl (65-105)
--- OUTSIDE RECORDS SUMMARY | 2024-08-31 01:54 | XMS_ITS | Encounter Summary ---
Author Organization [facility] Address [address] [place] [address] Care Team Providers Care Dressing Machine Operator Name Role Phone Una Clark MD Primary Care Provider [phone] Reason for Visit * Reason Comments Hospital Follow Up Encounter Details Date Type Department Care Team ([facility] st Contact Info) Description 03/15/2021 2:00 PM CDT Office Visit [facility] Cardiology [address] [place] [address] Jasmin Linares NP [address] [place] [address] Chronic diastolic congestive heart failure (CMS/HCC) (HCC) (Primary Dx); Mitral valve insufficiency, unspecified etiology; Tricuspid valve insufficiency, unspecified etiology; Hospital discharge follow-up; Chronic obstructive pulmonary disease, unspecified COPD type (HCC) Social History Tobacco Use Types Packs/Day Years Used Date Smoking Tobacco: Every Day Cigarettes Smokeless Tobacco: Never Comments Unknown Sex and Gender Information Value Date Recorded Sex Assigned at Not on file Legal Sex 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 Gender Identity Not on file Sexual Orientation Not on file documented as of this encounter Last Filed Vital Signs Vital Sign Reading Time Taken Comments Blood Pressure 132/76 03/15/2021 2:22 PM CDT Pulse 83 03/15/2021 2:22 PM CDT Temperature - - Respiratory Rate - - Oxygen Saturation 90% 03/15/2021 2:22 PM CDT Inhaled Oxygen Concentration - - Weight 81.2 kg (179 lb) 03/15/2021 2:22 PM CDT Height 170.2 cm (5' 7 ) 03/15/2021 2:22 PM CDT Body Mass Index 28.04 03/15/2021 2:22 PM CDT documented in this encounter Patient Instructions * Patient Instructions* Jasmin Linares NP - 03/15/2021 2:00 PM CDT To help the swelling in your legs, get knee-high compression stockings that are: [x] Moderate compression around 20-30 mmHg compression. Buy the size that is recommended based on your height and weight. Put them on before getting out of bed every morning and take them off at night (DO NOT wear them over night). Hand wash and hang them up to dry to make them last longer. documented in this encounter Ordered Prescriptions Prescription Sig Dispense Quantity Refills Last Filled Start Date End Date losartan (COZAAR) 50 mg tabletIndications: Chronic diastolic congestive heart failure (CMS/HCC) (HCC) Take 1 tablet (50 mg total) by mouth daily 90 tablet 3 03/15/2021 07/12/2023 documented in this encounter Progress Notes * Jasmin Linares NP - 03/15/2021 2:00 PM CDT Images from the original note were not included. [facility] Cardiology [address] [place] [address] Date of Visit: 03/15/2021 Patient ID: Betty Marte [id number] Chief Complaint: Betty Marte is a 75 y.o. female who comes to the office for a hospital follow up after she was admitted for CHF. History of Present Illness: Betty Marte is a 75 y.o. female with a past medical history of COPD, HTN, HLD and tobacco use. She presented to [facility] on 02/05/[address] Chun met her in consultation and reported that her echocardiogram showed normal LV systolic function and mild to moderate mitral and tricuspid valve regurgitation. Apparently she had had an echo in June 2020 that showed no valvular regurgitation. She was diuresed with IV furosemide. She was started on losartan. She was continued on her metoprolol and given furosemide. 03/15/2021 Hospital follow-up with RASCHEL KNITTING MACHINE OPERATOR - Betty Marte comes to the office today for a hospital follow up visit. After discharge she took the furosemide for 30 days and then resumed taking chlorthalidone that she took previously. She reports running out of the losartan 2 weeks ago and apparently herpharmacy told her they could not get a request for refills from our office, so she has been withoutit. In that time she has noticed her oxygen saturation is in the high 80s where previously it was in the mid 90s, and her legs have swollen again some more. But home daily weights have remained stable at 179 lb. Records that I personally reviewed on the day of this visit include: (the interpretation is outlined in the HPI above) Records from the above mentioned hospital admission. I have also reviewed: allergies, current medications, past family history, past medical history, past social history, past surgical history and problem list Review of Systems Constitutional: Negative for diaphoresis, fever, malaise/fatigue, weight gain and weight loss. HENT: Negative for hearing loss. Eyes: Negative for visual disturbance. Cardiovascular: Positive for dyspnea on exertion. Negative for chest pain, claudication, leg swelling, orthopnea, palpitations, paroxysmal nocturnal dyspnea and syncope. Respiratory: Positive for cough (Chronic), shortness of breath and sputum production. Negative for hemoptysis, snoring and wheezing. Hematologic/Lymphatic: Does not bruise/bleed easily. Skin: Negative for poor wound healing and rash. Musculoskeletal: Negative for joint pain and myalgias. Gastrointestinal: Negative for heartburn, nausea and vomiting. Genitourinary: Negative for hematuria. Neurological: Negative for dizziness, headaches and light-headedness. Psychiatric/Behavioral: Negative for depression. The patient is not nervous/anxious. Vital Signs: BP 132/76 (BP Location: Left arm, Patient Position: Sitting) Pulse 83 Ht 170.2 cm (5' 7 ) Wt 81.2 kg (179 lb) SpO2 90% BMI 28.04 kg/m?? Physical Exam Constitutional: General: She is not in acute distress. Appearance: She is well-developed. HENT: Head: Normocephalic and atraumatic. Nose: Comments: Wearing a mask Eyes: General: No scleral icterus. Conjunctiva/sclera: Conjunctivae normal. Pupils: Pupils are equal, round, and reactive to light. Neck: Vascular: No JVD. Trachea: No tracheal deviation. Cardiovascular: Rate and Rhythm: Normal rate and regular rhythm. Heart sounds: Normal heart sounds. No murmur heard. Pulmonary: Effort: Pulmonary effort is normal. No respiratory distress. Breath sounds: Wheezing present. Abdominal: General: Bowel sounds are normal. Palpations: Abdomen is soft. Tenderness: There is no abdominal tenderness. Musculoskeletal: Right lower leg: Edema present. Left lower leg: Edema present. Comments: Very firm ???woody?? bilateral lower extremity edema extending the lower legs to about 2in below the knees. Skin: General: Skin is warm and dry. Neurological: Mental Status: She is alert and oriented to person, place, and time. Psychiatric: Mood and Affect: Mood normal. Behavior: Behavior normal. Allergies Allergen Reactions ??? Tylenol [Acetaminophen] Other (See comments) bruising Current Outpatient Medications: ??? Advair Diskus 500-50 mcg/dose diskus inhaler, INHALE 1 PUFF BY MOUTH EVERY 12 HOURS, Disp: , Rfl: ??? albuterol HFA (PROVENTIL HFA,VENTOLIN HFA,PROAIR HFA) 90 mcg/actuation inhaler, INHALE 1 PUFF BY MOUTH FOUR TIMES DAILY NEEDED FOR SHORTNESS OF BREATH OR WHEEZING, Disp: , Rfl: ??? ascorbic acid (vitamin C) 1,000 mg tablet, Take 1,000 mg by mouth daily, Disp: , Rfl: ??? chlorthalidone 25 mg tablet, Take 50 mg by mouth daily , Disp: , Rfl: ??? cholecalciferol (VITAMIN D-3) 400 unit capsule, , Disp: , Rfl: ??? citalopram (CeleXA) 20 mg tablet, Take 20 mg by mouth daily, Disp: , Rfl: ??? losartan (COZAAR) 50 mg tablet, Take 1 tablet (50 mg total) by mouth daily, Disp: 90 tablet, Rfl: 3 ??? metoprolol (LOPRESSOR) 100 mg tablet, Take 100 mg by mouth 2 (two) times a day, Disp: , Rfl: ??? montelukast (SINGULAIR) 10 mg tablet, Take 10 mg by mouth daily, Disp: , Rfl: ??? multivitamin capsule, Take 1 capsule by mouth daily, Disp: , Rfl: ??? potassium chloride ER 10 mEq CR capsule, Take 10 mEq by mouth daily, Disp: , Rfl: ??? simvastatin (ZOCOR) 20 mg tablet, Take 20 mg by mouth daily, Disp: , Rfl: No results found for: POTASSIUM, BUNSER, CREATININE, CHOL, TRIG, LDL, LDLCALC, HDL 02/05/2021 BMP: Na 140, K 3.7, BUN 7, creatinine 0.6; CBC: Hemoglobin 14.1, hematocrit 43.4, platelet 247 02/06/2021 creatinine 0.7 Assessment: Diagnoses and all orders for this visit: Chronic diastolic congestive heart failure (CMS/HCC) (Primary) - losartan (COZAAR) 50 mg tablet; Take 1 tablet (50 mg total) by mouth daily - Basic metabolic panel; Future Mitral valve insufficiency, unspecified etiology Tricuspid valve insufficiency, unspecified etiology Hospital discharge follow-up Chronic obstructive pulmonary disease, unspecified COPD type (CMS/HCC) Plan/Recommendations: She was recently hospitalized for exacerbation diastolic heart failure which was a new diagnosis for her. Restart losartan 50 mg daily. Continue metoprolol and chlorthalidone. Check a BMP today. I also suggest a getting knee-high compression socks to wear. I gave her printed information about this. The diagnoses of valvular regurgitation were explained to the patient. At this degree nothing else needs to be done for the valve problem except monitoring for fluid overload. Possibly repeat an echocardiogram in a year's time. She had wheezes on exam today so I advised her to go home an use her nebulizer. Return to the office to see Dr. Chun in 2 months. Call us sooner with questions or concerns. TYE Mtz- Nurse Practition[place] [facility] [place] This note is dictated and transcribed using Web and [employer] Software. Construction Helper variancesmay occur. Despite proofreading, typographical errors may occur. documented in this encounter Miscellaneous Notes * Addendum Note - Vicki Marquis MA - 03/15/2021 2:00 PM CDTAddended by: VICKI MARQUIS on: 03/19/2021 09:57 AM Modules accepted: Orders documented in this encounter Plan of Treatment Scheduled Orders Name Type Priority Associated Diagnoses Orde r Schedule Basic metabolic panel Lab Routine Chronic diastolic congestive heart failure (CMS/HCC) ([facility]) Expected: 03/15/2021, Expires: 06/15/2021 documented as of this encounter Procedures Procedure Name Priority Date/Time Associated Diagnosis Comments POCT LIPID PANEL Routine 03/15/2021 9:57 AM CDT Chronic diastolic congestive heart failure (CMS/HCC) ([facility]) documented in this encounter Results * POCT lipid panel (03/15/2021 9:57 AM CDT) Cholesterol, POC 164 mg/dL HDL, POC 60 mg/dL Triglycerides, POC 107 mg/dL LDL Cholesterol POC 82 mg/dL Chol/HDL Ratio, POC 2.7 Non-HDL Cholesterol, POC 104 mg/dL Cholesterol Total, POC 164 mg/dL Capillary blood 03/15/2021 9 :57 AM CDT Jasmin Linares NP POINT OF CARE TEST ORDERA BLES Final Result documented in this encounter Visit Diagnoses Diagnosis Chronic diastolic congestive heart failure (CMS/HCC) ([facility])- Primary Mitral valve insufficiency, unspecified etiology Tricuspid valve insufficiency, unspecified etiology Hospital discharge follow-up Other follow-up examination Chronic obstructive pulmonary disease, unspecified COPD type ([facility]) documented in this encounter Discontinued Medications Medication Sig Discontinue Reason Start Date End Da te losartan (COZAAR) 50 mg tablet Take 50 mg by mouth daily Reorder 02/06/2021 03/15/2021 documented as of this encounter Historical Medications * This list may reflect changes made after this encounter. ascorbic acid (VITAMIN C) 1,000 mg tablet Take 1 tablet (1,000 mg total) by mouth daily cholecalciferol (VITAMIN D-3) 400 unit capsule multivitamin capsule Take 1 capsule by mouth daily albuterol HFA (PROVENTIL HFA,VENTOLIN HFA,PROAIR HFA) 90 mcg/actuation inhaler INHALE 1 PUFF BY MOUTH FOUR TIMES DAILY NEEDED FOR SHORTNESS OF BREATH OR WHEEZING 02/09/2021 Advair Diskus 500-50 mcg/dose diskus inhaler INHALE 1 PUFF BY MOUTH EVERY 12 HOURS 01/02/2021 citalopram (CeleXA) 20 mg tablet Take 1 tablet (20 mg total) by mouth daily 02/20/2021 montelukast (SINGULAIR) 10 mg tablet Take 1 tablet (10 mg total) by mouth daily 02/19/2021 chlorthalidone 25 mg tabletIndication s:Peripheral Edema due to Chronic Heart Failure,Pulmonar y Edema due to Chronic Heart Failure Take 50 mg by mouth daily 2 simvastatin (ZOCOR) 20 mg tablet Take 1 tablet (20 mg total) by mouth daily 03/09/2021 3 potassium chloride ER 10 mEq CR capsule Take 1 tablet/capsule (10 mEq total) by mouth daily 02/19/2021 3 metoprolol (LOPRESSOR) 100 mg tablet Take 1 tablet (100 mg total) by mouth 2 (two) times a day 03/05/2021 3 losartan (COZAAR) 50 mg tablet Take 50 mg by mouth daily 02/06/2021 1 added in this encounter Care Teams Dressing Machine Operator Relationship Specialty Start Date End Date Una Clark MD PCP - General Family Medicine 07/10/20 documented as of this encounter
--- OUTSIDE RECORDS SUMMARY | 2024-08-31 01:54 | XMS_ITS | Encounter Summary ---
Author Organization [facility] Address [address] [place] [address] Care Team Providers Care Medical Laboratory Technologist Name Role Phone Una Clark MD Primary Care Provider [phone] Encounter Details Date Type Department Care Team (Late st Contact Info) Description 02/06/2021 Orders Only [facility] Cardiology [address] [facility] [address] [place] [id number] Art Chun MD [address] [place] [address] Social History Tobacco Use Types Packs/Day Years Used Date Smoking Tobacco: Never Assessed Comments Unknown Sex and Gender Information Value Date Recorded Sex Assigned at Not on file Legal 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 Gender Identity Not on file Sexual Orientation Not on file documented as of this encounter Plan of Treatment Not on file documented as of this encounter Procedures Procedure Name Priority Date/Time Associated Diagnosis Comments CARDIOLOGY DOCUMENT SCAN Routine 02/06/2021 documented in this encounter Results * SCAN - CARDIOLOGY (02/06/2021) Anatomical Region Laterality Modality Other Art Chun MD CV CARDIAC SERVICES PROC EDURES Final Result documented in this encounter Visit Diagnoses Not on filedocumented in this encounter Care Teams Medical Laboratory Technologist Relationship Specialty Start Date End Date Una Clark MD PCP - General Family Medicine 07/10/20 documented as of this encounter
--- OUTSIDE RECORDS SUMMARY | 2024-08-31 01:54 | XMS_ITS | Encounter Summary ---
Author Organization [facility] Address [address] [place] [address] Care Team Providers Care Customer Service Sales Consultant Name Role Phone Una Clark MD Primary Care Provider [phone] Encounter Details Date Type Department Care Team (Late st Contact Info) Description 06/02/2023 Orders Only [facility] [address] [place], [place] [id number] Francisca Gage MD [address] [place] [address] [facility] [place], [place] [id number] Ulcer of left pretibial region with fat layer exposed (CMS/HCC) (HCC) (Primary Dx); Lymphedema due to venous insufficiency Social History Tobacco Use Types Packs/Day Years Used Date Smoking Tobacco: Every Day Cigarettes Smokeless Tobacco: Never Comments Unknown Sex and Gender Information Value Date Recorded Sex Assigned at Not on file Legal Sex Female 9:55 AM CHIEF OF ANESTHESIOLOGY Gender Identity Not on file Sexual Orientation Not on file documented as of this encounter Plan of Treatment Not on file documented as of this encounter Results * (ABNORMAL) Tissue aerobic and anaerobic culture and gram stain Tissue Leg, left (06/02/2023 10:15 AM CDT) Direct Specimen Exam Stain: No polymorphonuclear leukocytes seen. Few Gram Positive Cocci Few Gram Positive Bacilli Few Gram Negative Bacilli ROSALIE SHELBY ([place]) Comment:Testing performed by : [facility], [address] [place]., [address] Report Final Report: Few Mixed Gram-positive and Gram-negative microorganisms (.) ROSALIE SHELBY ([place]) Comment:Testing performed by : [facility], [address] [place]., [address] Organism MIXED GRAM POS AND GRAM NEG MICROORGANISMS ROSALIE SHELBY ([place]) Tissue (Leg, left) 06/02/2023 10:15 AM CDT 06/02/2023 7:21 PM CDT Narrative ROSALIE SHELBY ([place]) - 06/11/2023 1:22 PM CDT Testing performed by [facility] Microbiology Laboratory ([phone]) Specimens submitted from normally sterile body sites will have all bacterial morphotypes identified. Specimens that contain grossly mixed antwan and/or are from body sites that are not normally sterile will be examined for Staphylococcus aureus, Pseudomonas aeruginosa, beta-hemolytic strep, vancomycin-resistant Enterococcus, Bacteroides, Parabacteroides, Clostridium perfringens and fungus. If any of these are isolated, the organism will be reported. Current interpretive data was last revised on 2019. us Francisca Gage MD LAB MICROBIOLOGY - GENERAL O RDERABLES Final Result ROSALIE AFSANEH ([place]) [address] [facility] [place] [address] documented in this encounter Visit Diagnoses Diagnosis Ulcer of left pretibial region with fat layer exposed (HCC) Ulcer of left pretibial region with fat layer exposed (HCC)- Primary Lymphedema due to venous insufficiency documented in this encounter Care Teams Customer Service Sales Consultant Relationship Specialty Start Date End Date Una Clark MD PCP - General Family Medicine 07/10/20 documented as of this encounter
--- OUTSIDE RECORDS SUMMARY | 2024-08-31 01:54 | XMS_ITS | Encounter Summary ---
Author Organization [facility] Address [address] [place] [address] Care Team Providers Care Surgery Specialist Name Role Phone Una Clark MD Primary Care Provider [phone] Encounter Details Date Type Department Care Team ([facility] st Contact Info) Description 02/05/2021 Orders Only [facility] Cardiology [address] [place] [address] ProviderCharles MD [address] [place] [address] Social History Tobacco Use Types Packs/Day Years Used Date Smoking Tobacco: Never Assessed Comments Unknown Sex and Gender Information Value Date Recorded Sex Assigned at Not on file Legal Sex Female 9:55 AM UROLOGIST MD Gender Identity Not on file Sexual Orientation Not on file documented as of this encounter Plan of Treatment Not on file documented as of this encounter Procedures Procedure Name Priority Date/Time Associated Diagnosis Comments CARDIOLOGY DOCUMENT SCAN Routine 02/05/2021 documented in this encounter Results * SCAN - CARDIOLOGY (02/05/2021) Anatomical Region Laterality Modality Other Historical Provider CV CARDIAC SERVICES KACIE CHAMPION Final Result documented in this encounter Visit Diagnoses Not on filedocumented in this encounter Care Teams Surgery Specialist Relationship Specialty Start Date End Date Una Clark MD PCP - General Family Medicine 07/10/20 documented as of this encounter
--- OUTSIDE RECORDS SUMMARY | 2024-08-31 01:54 | XMS_ITS | Encounter Summary ---
Author Organization [facility] Address [address] [place] [address] Care Team Providers Care Oral And Maxillofacial Surgery Resident Name Role Phone Una Clark MD Primary Care Provider [phone] Encounter Details Date Type Department Care Team ([facility] st Contact Info) Description 04/28/2021 Orders Only [facility] Cardiology [address] [place] [address] Ronel Lock MA Social History Tobacco Use Types Packs/Day Years Used Date Smoking Tobacco: Every Day Cigarettes Smokeless Tobacco: Never Comments Unknown Sex and Gender Information Value Date Recorded Sex Assigned at Not on file Legal 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 Gender Identity Not on file Sexual Orientation Not on file documented as of this encounter Ordered Prescriptions Prescription Sig Dispense Quantity Refills Last Filled Start Date End Date furosemide (LASIX) 40 mg tablet Take 1 tablet (40 mg total) by mouth daily 30 tablet 04/28/2021 05/27/2021 documented in this encounter Plan of Treatment Not on file documented as of this encounter Visit Diagnoses Not on filedocumented in this encounter Care Teams Oral And Maxillofacial Surgery Resident Relationship Specialty Start Date End Date Una Clark MD PCP - General Family Medicine 07/10/20 documented as of this encounter
--- OUTSIDE RECORDS SUMMARY | 2024-08-31 01:54 | XMS_ITS | Clinical Summary ---
Author Organization [facility] [address] Address [address] [place] [address] Care Team Providers Care Clerk General Name Role Phone Una Clark MD Primary Care Provider [phone] Allergies Active Allergy Reactions Criticality Noted Date Comments Acetaminophen Other (See comments) Low 03/15/2021 bruising Medications montelukast (SINGULAIR) 10 mg tablet Take 1 tablet (10 mg total) by mouth daily 1 Active citalopram (CeleXA) 20 mg tablet Take 1 tablet (20 mg total) by mouth daily 1 Active Advair Diskus 500-50 mcg/dose diskus inhaler INHALE 1 PUFF BY MOUTH EVERY 12 HOURS 1 Active albuterol HFA (PROVENTIL HFA,VENTOLIN HFA,PROAIR HFA) 90 mcg/actuation inhaler INHALE 1 PUFF BY MOUTH FOUR TIMES DAILY NEEDED FOR SHORTNESS OF BREATH OR WHEEZING 1 Active multivitamin capsule Take 1 capsule by mouth daily Active cholecalciferol (VITAMIN D-3) 400 unit capsule Active ascorbic acid (VITAMIN C) 1,000 mg tablet Take 1 tablet (1,000 mg total) by mouth daily Active busPIRone (BUSPAR) 7.5 mg tablet Take 1 tablet (7.5 mg total) by mouth 2 (two) times a day 2 Active Eliquis 5 mg tablet Take 1 tablet (5 mg total) by mouth every 12 (twelve) hours 180 tablet 3 3 Active losartan (COZAAR) 50 mg tabletIndicatio ns:Chronic diastolic congestive heart failure (CMS/HCC) (HCC) Take 1 tablet (50 mg total) by mouth daily 90 tablet 3 3 Active metoprolol (LOPRESSOR) 100 mg tablet Take 1 tablet (100 mg total) by mouth 2 (two) times a day 180 tablet 3 3 Active simvastatin (ZOCOR) 20 mg tablet Take 1 tablet (20 mg total) by mouth daily 90 tablet 3 3 Active potassium chloride ER 10 mEq CR tablet TAKE 1 CAPSULE(10 MEQ) BY MOUTH DAILY 30 tablet/capsul e 4 Active furosemide (LASIX) 40 mg tablet TAKE 1 TABLET(40 MG) BY MOUTH DAILY 30 tablet 4 Active Active Problems Problem Noted Date Diagnosed Date Congestive heart failure due to valvular disease (CMS/HCC) 05/18/2021 Surgical History Surgery Date Site/Laterality Comments HYSTERECTOMY TONSILLECTOMY BACK SURGERY Medical History Medical History Date Comments Heart valve disease Hyperlipidemia Hypertension Asthma Chronic diastolic heart failure (HCC) 02/05/2021 COPD (chronic obstructive pulmonary disease) (HC C) Anxiety Family History Medical History Relation Name Comments Hypertension Father Moses Senior Lung cancer Father Moses Senior Hypertension Mother Richelle Senior Lung disease Mother Richelle Senior Relation Name Status Comments Father Moses Senior (Age 65) Mother Richelle Senior (Age 86) Social History Tobacco Use Types Packs/Day Years Used Date Smoking Tobacco: Every Day Cigarettes 0.8 60 Smokeless Tobacco: Never Personal Safety Answer Date Recorded Getting School Help Needed Not on file 08/16 Comments Unknown Sex and Gender Information Value Date Recorded Sex Assigned at Not on file 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 Gender Identity Not on file Sexual Orientation Not on file Obstetrics History Last Filed Vital Signs Vital Sign Reading Time Taken Comments Blood Pressure 124/72 07/12/2023 11:25 AM CORPORATE REAL ESTATE MANAGER Pulse 73 07/12/2023 11:25 AM CORPORATE REAL ESTATE MANAGER Temperature - - Respiratory Rate - - Oxygen Saturation 93% 07/12/2023 11:25 AM CORPORATE REAL ESTATE MANAGER Inhaled Oxygen Concentration - - Weight 89.8 kg (198 lb) 07/12/2023 11:25 AM CORPORATE REAL ESTATE MANAGER Height 170.2 cm (5' 7 ) 07/12/2023 11:25 AM CORPORATE REAL ESTATE MANAGER Body Mass Index 31.01 07/12/2023 11:25 AM CORPORATE REAL ESTATE MANAGER Plan of Treatment Health Maintenance Due Date Last Done Comments Depression Screening 1945 Fall Risk Assessment 1945 Hepatitis C Screening 1945 Osteoporosis Screening-Bone Density Scan 1945 DTaP/Tdap/Td Vaccine (1 - Tdap) 1957 Hepatitis B Screening 1964 Well Visit 65+ 2011 Zoster Vaccine (2 of 3) 06/22/2015 04/27/2015 Influenza Vaccine (#1) 2024 07/06/2019 Pneumococcal vaccine 65+ Completed 01/29/2018, 01/20 Insurance [employer] SUPPLEMENT INSURANCE MEDICARE MEDICARE [employer] SU[employer]LEMENT INSURANCE Care Teams Clerk General Relationship Specialty Start Date End Date Una Clark MD PCP - General Family Medicine 07/10/20
--- OUTSIDE RECORDS SUMMARY | 2024-08-31 01:54 | XMS_ITS | Encounter Summary ---
Author Organization [facility] Address [address] [facility] [address] [place] [id number] Care Team Providers Care Telecommunications Line Mechanic Name Role Phone Una Clark MD Primary Care Provider [phone] Reason for Visit * Reason Comments Follow-up 2 mo f/u Congestive Heart Failure Encounter Details Date Type Department Care Team (Late st Contact Info) Description 05/18/2021 3:15 PM CDT Office Visit [facility] Cardiology [address] [place] [id number] Art Chun MD [address] [facility] [address] [place], [place] [id number] Congestive heart failure due to valvular disease (CMS/HCC) (HCC) (Primary Dx) Social History Tobacco Use Types Packs/Day Years Used Date Smoking Tobacco: Every Day Cigarettes Smokeless Tobacco: Never Comments Unknown Sex and Gender Information Value Date Recorded Sex Assigned at Not on file 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 Gender Identity Not on file Sexual Orientation Not on file documented as of this encounter Last Filed Vital Signs Vital Sign Reading Time Taken Comments Blood Pressure 134/74 05/18/2021 3:14 PM CDT Pulse 74 05/18/2021 3:14 PM CDT Temperature - - Respiratory Rate - - Oxygen Saturation 92% 05/18/2021 3:14 PM CDT Inhaled Oxygen Concentration - - Weight 83.2 kg (183 lb 6.4 oz) 05/18/2021 3:14 P M CDT Height 170.2 cm (5' 7 ) 05/18/2021 3:14 PM CDT Body Mass Index 28.72 05/18/2021 3:14 PM CDT documented in this encounter Progress Notes * Art Chun MD - 05/18/2021 3:15 PM CDT [facility] 05/18/2021 Betty Marte is a 76 y.o. female who presents for follow up of congestive heart failure and mitraland tricuspid valve disease. This is a patient who I saw in consultation in January of 2021 when she presented [facility] with some congestive heart failure. Echocardiogram demonstrated normal left ventricular systolic function she had mild to moderate mitral and tricuspid valve regurgitation. She was treated medically and discharged from the hospital. She was seen by the nurse practitioner in February a month after that discharge and was apparently doing okay but she had run out of her losartan prescription and it was of course refilled while she was in the office. She presents to the office today and reports to be basically stable she still has symptoms of GRIMM and some wheezing but most of this she thinks is related to her asthma and seasonal allergies and wheezing. She does not have any other cardiac symptoms she has some mild lower extremity edema. He not having any orthopnea PND or chest pain. Had a long discussion with her about her mitral valve disease and the likelihood that this is the reason for her CHF. The valve disease was mild to moderate and1 would hope to be able to avoid surgical/procedural treatment of this at this time REVIEW OF SYSTEMS General ROS: negative for - chills, fatigue, fever, malaise, night sweats, weight gain or weight loss Psychological ROS: negative for - anxiety, depression, memory difficulties or sleep disturbances Ophthalmic ROS: negative for - blurry vision, decreased vision, loss of vision or scotomata ENT ROS: negative for - epistaxis, headaches, hearing change, nasal congestion, nasal discharge, sore throat, vertigo or visual changes Hematological and Lymphatic ROS: negative for - bleeding problems, blood clots, bruising, fatigue or weight loss Endocrine ROS: negative for - hot flashes, palpitations, polydipsia/polyuria or unexpected weight changes Respiratory ROS: negative for - cough, hemoptysis, orthopnea, shortness of breath, tachypnea or wheezing Cardiovascular ROS: negative for - chest pain, dyspnea on exertion, edema, irregular heartbeat, loss of consciousness, murmur, orthopnea, palpitations, paroxysmal nocturnal dyspnea, rapid heart rate or shortness of breath Gastrointestinal ROS: negative for - abdominal pain, appetite loss, blood in stools, constipation, diarrhea, gas/bloating, heartburn, hematemesis, melena or nausea/vomiting Genito-Urinary ROS: negative for - dysuria, erectile dysfunction or hematuria Musculoskeletal ROS: negative for - joint pain, muscle pain or muscular weakness Dermatological ROS: negative for dry skin, eczema, pruritus and rash HOME MEDICATIONS Current Outpatient Medications: ??? Advair Diskus 500-50 [...] by mouth daily, Disp: , Rfl: ??? furosemide (LASIX) 40 mg tablet, Take 1 tablet (40 mg total) by mouth daily, Disp: 30 tablet, Rfl: 0 ??? losartan (COZAAR) 50 mg tablet, Take [...] mg by mouth daily, Disp: , Rfl: LABS AND OTHER DIAGNOSTIC TESTS No results found for: CHOL No results found for: HDL No results found for: LDLCALC No results found for: TRIG No results found for: CHOLHDL No results found for: WBC, HGB, HCT, MCV, PLT No lab exists for component: LABALBU PHYSICAL EXAM Vitals BP 134/74 (BP Location: Left arm, Patient Position: Sitting) Pulse 74 Ht 170.2 cm (5' 7 ) Wt 83.2 kg (183 lb 6.4 oz) SpO2 92% BMI 28.72 kg/m?? Physical Examination: General appearance - alert, well appearing, and in no distress, oriented to person, place, and time and acyanotic, in no respiratory distress Mental status - affect appropriate to mood Eyes - extraocular eye movements intact, sclera anicteric, no pallor Ears - external earsappear normal, hearing grossly normal bilaterally Nose - normal and patent, no erythema or discharge Mouth - mucous membranes moist, pharynx appears normal, dental hygiene good and tongue normal Neck - supple, no significant neck masses, carotids upstroke normal bilaterally, no bruits, no JVD Chest - clear to auscultation, no wheezes, rales or rhonchi, symmetric air entry, no tachypnea, retractions or cyanosis Heart - normal rate, regular rhythm, normal S1, S2, holosystolic apical murmur of MR, rubs, clicks or gallops, no JVD Abdomen - soft, nontender, nondistended, no masses or organomegaly bowel sounds normal Neurological - alert, oriented, normal speech, no focal findings or movement disorder noted Musculoskeletal - no joint tenderness, deformity or swelling, no muscular tenderness noted Extremities - peripheral pulses normal, no pedal edema, no clubbing or cyanosis Skin - normal coloration and turgor, no rashes, no suspicious skin lesions noted ASSESSMENT Congestive heart failure PLAN/RECOMMENDATIONS Continue current medical regimen told the patient at this point her chest sounds clear on exam so Iwould prefer not to advance her diuretic regimen because of mild bipedal edema. Continue to follow her at 6 months or p.r.n. Art Chun MD documented in this encounter Plan of Treatment Not on file documented as of this encounter Visit Diagnoses Diagnosis Congestive heart failure due to valvular disease (CMS/HCC) (HCC)- Primary documented in this encounter Care Teams Telecommunications Line Mechanic Relationship Specialty Start Date End Date Una Clark MD PCP - General Family Medicine 07/10/20 documented as of this encounter
--- OUTSIDE RECORDS SUMMARY | 2024-08-31 01:54 | XMS_ITS | Encounter Summary ---
Author Organization [facility] Address [address] [facility] [address] [place] [address] Care Team Providers Care Agent Telegrapher Name Role Phone Una Clark MD Primary Care Provider [phone] Encounter Details Date Type Department Care Team ([facility] st Contact Info) Description 07/11/2020 Orders Only [facility] Cardiology [address] [facility] [address] [place] [phone] Art Chun MD [address] [place] [address] [place] [address] Social History Tobacco Use Types Packs/Day Years Used Date Smoking Tobacco: Never Assessed Comments Unknown Sex and Gender Information Value Date Recorded Sex Assigned at Not on file 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 Gender Identity Not on file Sexual Orientation Not on file documented as of this encounter Plan of Treatment Not on file documented as of this encounter Procedures Procedure Name Priority Date/Time Associated Diagnosis Comments CARDIOLOGY DOCUMENT SCAN Routine 07/11/2020 documented in this encounter Results * SCAN - CARDIOLOGY (07/11/2020) Anatomical Region Laterality Modality Other rAt Chun MD CV CARDIAC SERVICES PROC EDURES Final Result documented in this encounter Visit Diagnoses Not on filedocumented in this encounter Care Teams Agent Telegrapher Relationship Specialty Start Date End Date Una Clark MD PCP - General Family Medicine 07/10/20 documented as of this encounter
--- OUTSIDE RECORDS SUMMARY | 2024-08-31 01:54 | XMS_ITS | Encounter Summary ---
Author Organization [facility] Address [address] [facility] [address] [place] [address] Care Team Providers Care Receivables Specialist Name Role Phone Una Clark MD Primary Care Provider [phone] Reason for Visit * Reason Onset Date Comments Test Results 03/16/2021 Encounter Details Date Type Department Care Team ([facility] st Contact Info) Description 03/16/2021 Documentation [facility] Cardiology [address] [facility] [address] [place] [id number] Jasmin Linares NP [address] [place] [address] Test Results Social History Tobacco Use Types Packs/Day Years Used Date Smoking Tobacco: Every Day Cigarettes Smokeless Tobacco: Never Comments Unknown Sex and Gender Information Value Date Recorded Sex Assigned at Not on file 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 However when dialing the number I get a message that the phone has notbeen set up for a voicemail. The result was fine, we do not need to do anything different. documented in this encounter Plan of Treatment Not on file documented as of this encounter Visit Diagnoses Not on filedocumented in this encounter Care Teams Receivables Specialist Relationship Specialty Start Date End Date Una Clark MD PCP - General Family Medicine 07/10/20 documented as of this encounter
--- OUTSIDE RECORDS SUMMARY | 2024-08-31 01:54 | XMS_ITS | Encounter Summary ---
Author Organization [facility] Address [address] [place] [address] Care Team Providers Care Bar Machine Operator Multiple Spindle Name Role Phone Una Clark MD Primary Care Provider [phone] Reason for Visit * Reason Comments Congestive Heart Failure Edema Annual f/u Encounter Details Date Type Department Care Team (Late st Contact Info) Description 07/12/2023 11:30 AM RECREATION ADVISER Office Visit [facility] Cardiology at [address] [place] [address] Art Chun MD [address] [facility] [address] [place] [address] Congestive heart failure due to valvular disease (CMS/HCC) (HCC) (Primary Dx); Chronic diastolic congestive heart failure (CMS/HCC) (HCC) Social History Tobacco Use Types Packs/Day Years Used Date Smoking Tobacco: Every Day Cigarettes 0.8 60 Smokeless Tobacco: Never Comments Unknown Sex and Gender Information Value Date Recorded Sex Assigned at Not on file Legal Sex Female 9:55 AM RECREATION ADVISER Gender Identity Not on file Sexual Orientation Not on file documented as of this encounter Last Filed Vital Signs Vital Sign Reading Time Taken Comments Blood Pressure 124/72 07/12/2023 11:25 AM RECREATION ADVISER Pulse 73 07/12/2023 11:25 AM RECREATION ADVISER Temperature - - Respiratory Rate - - Oxygen Saturation 93% 07/12/2023 11:25 AM RECREATION ADVISER Inhaled Oxygen Concentration - - Weight 89.8 kg (198 lb) 07/12/2023 11:25 AM RECREATION ADVISER Height 170.2 cm (5' 7 ) 07/12/2023 11:25 AM RECREATION ADVISER Body Mass Index 31.01 07/12/2023 11:25 AM RECREATION ADVISER documented in this encounter Ordered Prescriptions Prescription Sig Dispense Quantity Refills Last Filled Start Date End Date simvastatin (ZOCOR) 20 mg tablet Take 1 tablet (20 mg total) by mouth daily 90 tablet 3 07/12/2023 metoprolol (LOPRESSOR) 100 mg tablet Take 1 tablet (100 mg total) by mouth 2 (two) times a day 180 tablet 3 07/12/2023 losartan (COZAAR) 50 mg tabletIndications: Chronic diastolic congestive heart failure (CMS/HCC) (HCC) Take 1 tablet (50 mg total) by mouth daily 90 tablet 3 07/12/2023 Eliquis 5 mg tablet Take 1 tablet (5 mg total) by mouth every 12 (twelve) hours 180 tablet 3 07/12/2023 potassium chloride ER 10 mEq CR capsule Take 1 tablet/capsu le (10 mEq total) by mouth daily 90 tablet/capsule 3 07/12/2023 06/21/2024 furosemide (LASIX) 40 mg tablet Take 1 tablet (40 mg total) by mouth daily 90 tablet 3 07/12/2023 06/21/2024 furosemide (LASIX) 40 mg tablet Take 1 tablet (40 mg total) by mouth daily 90 tablet 3 07/12/2023 07/12/2023 losartan (COZAAR) 50 mg tabletIndications: Chronic diastolic congestive heart failure (CMS/HCC) (HCC) Take 1 tablet (50 mg total) by mouth daily 90 tablet 3 07/12/2023 07/12/2023 documented in this encounter Progress Notes * Art Chun MD - 07/12/2023 11:30 AM CST [facility] 07/12/2023 Betty Marte is a 78 y.o. female who presents for follow up of congestive heart failure and mitraland tricuspid valve disease. This is a patient who I saw in consultation in January of 2021 when she presented [facility] with some congestive heart failure. [...] refilled while she was in the office. The patient was seen in the office by my nurse practitioner in December of 2021. Shortly before that she was hospitalized at [facility] with increasing dyspnea was found to have bilateral pulmonary emboli and was anticoagulated with apixaban. When she was hospitalized with this a follow-up echocardiogram demonstrated vigorous left ventricular function and trivial if any mitral regurgitation. He presents today for office follow-up. Her last appointment here was in December of 2021 when she saw the nurse practitioner. Since then she says things have been stable. She had to cancel her subsequentappointments because of family illnesses. She wanted to talk for a long time about the cost of anticoagulation. She takes apixaban and it is rather expensive. She then mentioned that she is about to have Medicare part D at the end of this month. She would like 90 day refills of all of her cardiac medications REVIEW OF SYSTEMS General ROS: negative for [...] and rash HOME MEDICATIONS Current Outpatient Medications: Advair Diskus 500-50 mcg/dose diskus inhaler, INHALE 1 PUFF BY MOUTH EVERY 12 HOURS, Disp: , Rfl: albuterol HFA (PROVENTIL HFA,VENTOLIN HFA,PROAIR HFA) 90 mcg/actuation inhaler, INHALE 1 PUFF BY MOUTH FOUR TIMES DAILY NEEDED FOR SHORTNESS OF BREATH OR WHEEZING, Disp: , Rfl: ascorbic acid (VITAMIN C) 1,000 mg tablet, Take 1 tablet (1,000 mg total) by mouth daily, Disp: , Rfl: busPIRone (BUSPAR) 7.5 mg tablet, Take 1 tablet (7.5 mg total) by mouth 2 (two) times a day, Disp: , Rfl: cholecalciferol (VITAMIN D-3) 400 unit capsule, , Disp: , Rfl: citalopram (CeleXA) 20 mg tablet, Take 1 tablet (20 mg total) by mouth daily, Disp: , Rfl: Eliquis 5 mg tablet, Take 1 tablet (5 mg total) by mouth every 12 (twelve) hours, Disp: , Rfl: furosemide (LASIX) 40 mg tablet, TAKE 1 TABLET(40 MG) BY MOUTH DAILY, Disp: 30 tablet, Rfl: 1 losartan (COZAAR) 50 mg tablet, Take 1 tablet (50 mg total) by mouth daily, Disp: 90 tablet, Rfl: 3 metoprolol (LOPRESSOR) 100 mg tablet, Take 1 tablet (100 mg total) by mouth 2 (two) times a day, Disp: , Rfl: montelukast (SINGULAIR) 10 mg tablet, Take 1 tablet (10 mg total) by mouth daily, Disp: , Rfl: multivitamin capsule, Take 1 capsule by mouth daily, Disp: , Rfl: potassium chloride ER 10 mEq CR capsule, Take 1 tablet/capsule (10 mEq total) by mouth daily, Disp:, Rfl: simvastatin (ZOCOR) 20 mg tablet, Take 1 tablet (20 mg total) by mouth daily, Disp: , Rfl: LABS AND OTHER DIAGNOSTIC TESTS No results found for: CHOL No results found for: HDL No results found for: LDLCALC No results found for: TRIG No results found for: CHOLHDL No results found for: WBC , HGB , HCT , MCV , PLT No lab exists for component: LABALBU PHYSICAL EXAM Vitals BP 124/72 (BP Location: Right arm, Patient Position: Sitting) Pulse 73 Ht 170.2 cm (5' 7 ) Wt 89.8 kg (198 lb) SpO2 93% BMI 31.01 kg/m?? Physical Examination: General appearance - alert, [...] rashes, no suspicious skin lesions noted ASSESSMENT History of diastolic heart failure History of bilateral pulmonary emboli in 2021 which were unprovoked as far as I can tell PLAN/RECOMMENDATIONS Continue systemic anticoagulation. Advised the patient to inquire as to the cost of her apixaban once she is on Medicare part D. I also provided her with information about alternatives which of course includes Xarelto, Pradaxa and Coumadin. She will discuss the relative cost of the other NOAC agents with her pharmacist. Follow-up at 6 month intervals or p.r.n. Art Chun MD EATION ADVISER documented in this encounter Miscellaneous Notes * Addendum Note - Rosa Yadav MA - 07/12/2023 11:30 AM CSTAddended by: ROSA YADAV on: 07/12/2023 12:12 PM Modules accepted: Orders EATION ADVISER documented in this encounter Plan of Treatment Not on file documented as of this encounter Visit Diagnoses Diagnosis Congestive heart failure due to valvular disease (CMS/HCC) (HCC)- Primary Chronic diastolic congestive heart failure (CMS/HCC) (HCC) documented in this encounter Discontinued Medications Medication Sig Discontinue Reason Start Date End Da te losartan (COZAAR) 50 mg tabletIndications:Chroni c diastolic congestive heart failure (CMS/HCC) (HCC) Take 1 tablet (50 mg total) by mouth daily Reorder 03/15/2021 07/12/2023 furosemide (LASIX) 40 mg tablet TAKE 1 TABLET(40 MG) BY MOUTH DAILY Reorder 06/04/2023 07/12/2023 metoprolol (LOPRESSOR) 100 mg tablet Take 1 tablet (100 mg total) by mouth 2 (two) times a day Reorder 03/05/2021 07/12/2023 potassium chloride ER 10 mEq CR capsule Take 1 tablet/capsule (10 mEq total) by mouth daily Reorder 02/19/2021 07/12/2023 simvastatin (ZOCOR) 20 mg tablet Take 1 tablet (20 mg total) by mouth daily Reorder 03/09/2021 07/12/2023 Eliquis 5 mg tablet Take 1 tablet (5 mg total) by mouth every 12 (twelve) hours Reorder 12/21/2021 07/12/2023 losartan (COZAAR) 50 mg tabletIndications:Chroni c diastolic congestive heart failure (CMS/HCC) (HCC) Take 1 tablet (50 mg total) by mouth daily Reorder 07/12/2023 07/12/2023 furosemide (LASIX) 40 mg tablet Take 1 tablet (40 mg total) by mouth daily Reorder 07/12/2023 07/12/2023 documented as of this encounter Care Teams Bar Machine Operator Multiple Spindle Relationship Specialty Start Date End Date Una Clark MD PCP - General Family Medicine 07/10/20 documented as of this encounter
--- OUTSIDE RECORDS SUMMARY | 2024-08-31 01:54 | XMS_ITS | Encounter Summary ---
Author Organization [facility] Address [address] [place] [address] Care Team Providers Care White Metal Caster Name Role Phone Una Clark MD Primary Care Provider [phone] Encounter Details Date Type Department Care Team ([facility] st Contact Info) Description 11/12/2021 Orders Only [facility] Cardiology [address] [facility] [address] [place] [id number] Gayatri Sandoval MD [address] [facility] [address] [place] [address] Social History Tobacco Use Types Packs/Day Years Used Date Smoking Tobacco: Every Day Cigarettes Smokeless Tobacco: Never Comments Unknown Sex and Gender Information Value Date Recorded Sex Assigned at Not on file Legal Sex Female 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 Gender Identity Not on file Sexual Orientation Not on file documented as of this encounter Plan of Treatment Not on file documented as of this encounter Procedures Procedure Name Priority Date/Time Associated Diagnosis Comments CARDIOLOGY DOCUMENT SCAN Routine 11/02/2021 documented in this encounter Results * SCAN - CARDIOLOGY (11/02/2021) Anatomical Region Laterality Modality Other Gayatri Sandoval MD CV CARDIAC SERVICES PROCEDU RES Final Result documented in this encounter Visit Diagnoses Not on filedocumented in this encounter Care Teams White Metal Caster Relationship Specialty Start Date End Date Una Clark MD PCP - General Family Medicine 07/10/20 documented as of this encounter
--- OUTSIDE RECORDS SUMMARY | 2024-08-31 01:54 | XMS_ITS | Encounter Summary ---
Author Organization [facility] Address [address] [place] [address] Care Team Providers Care Assistant Store Director Name Role Phone Una Clark MD Primary Care Provider [phone] Reason for Visit * Reason Comments Follow-up 8 mo Encounter Details Date Type Department Care Team ([facility] st Contact Info) Description 12/30/2021 11:30 AM CDT Office Visit [facility] Cardiology [address] [facility] [address] [place] [address] Jasmin Linares NP [address] [facility] [address] [place] [address] History of pulmonary embolus (PE); History of congestive heart failure; Edema, lower extremity; Hospital discharge follow-up Social History Tobacco Use Types Packs/Day Years Used Date Smoking Tobacco: Every Day Cigarettes Smokeless Tobacco: Never Comments Unknown Sex and Gender Information Value Date Recorded Sex Assigned at Not on file Legal 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 Gender Identity Not on file Sexual Orientation Not on file documented as of this encounter Last Filed Vital Signs Vital Sign Reading Time Taken Comments Blood Pressure 108/68 12/30/2021 11:45 AM CDT Pulse 65 12/30/2021 11:45 AM CDT Temperature - - Respiratory Rate - - Oxygen Saturation 93% 12/30/2021 11:45 AM CDT Inhaled Oxygen Concentration - - Weight 78 kg (172 lb) 12/30/2021 11:45 AM CDT Height 170.2 cm (5' 7 ) 12/30/2021 11:45 AM CDT Body Mass Index 26.94 12/30/2021 11:45 AM CDT documented in this encounter Progress Notes * Jasmin Linares NP - 12/30/2021 11:30 AM CDT Images from the original note were not included. [facility] Cardiology [address] [place] [address] Date of Visit: 12/30/2021 Patient ID: Betty Marte 1945 Chief Complaint Patient presents with ??? Follow-up 8 mo Betty Marte is a 76 y.o. female who is an established patient of Dr. Chun with a history of diastolic heart failure and mitral and tricuspid valve insufficiency, returning to the office for hospital follow-up after she was treated for PE. History of Present Illness: Betty Marte is a 76 y.o. female who presents for follow up of congestive heart failure and mitraland tricuspid valve disease. This is a patient who I saw in consultation in January of 2021 when she presented [facility] with some congestive heart [...] refilled while she was in the office. 05/18/[address] Chun: She presents to the office today and [...] The valve disease was mild to moderate and 1 would hope to be able to avoid surgical/procedural treatment of this at this time 12/30/2021 hospital follow-up visit with ARTIFICIAL BREEDING RANCH SUPERVISOR: She was hospitalized at [facility] on 11/02/2021 for complaint of increased shortness of breath over the past week. She was treated for a COPD exacerbation and pneumonia. She was found to have bilateral pulmonary emboli. Lower extremity Doppler ER did not find a DVT but found superficial thrombosis in the left soleus vein. A new echocardiogram was performed and read by Dr. Sandoval which showed normal left ventricular systolic and diastolic function, and elevated PASP of 38 mmHg (most likely consistent with her diagnosis of COPD), and only a trace ofmitral valve and tricuspid valve regurgitation. She was discharged with Eliquis for treatment of the PE. She went to skilled rehab for a month and then back to her own home. Today she comes to the office accompanied by her daughter. She has no specific complaints or concerns and feels that she is recovering. She is gradually increasing her walking. She is wearing supplemental oxygen 2 L at night.She just had a biopsy performed on a lesion of her left lower leg which there is a concern could ryder malignancy. She has not gotten results yet. Records that I personally reviewed on the day of this visit include: (the interpretation is outlined in the HPI above) 05/18/[address] Chun, 11/02/2021 admitting H&P from [facility] and echocardiogram report read by Dr. Sandoval, 11/05/2021 [facility] discharge summary, patient's medication list from skilled rehab. I have also reviewed: allergies, current medications, past family history, past medical history, past social history, past surgical history and problem list Medical History: Past Medical History: Diagnosis Date ??? Asthma ??? Chronic diastolic heart failure (HCC) 02/05/2021 ??? COPD (chronic obstructive pulmonary disease) (CMS/HCC) (HCC) ??? Heart valve disease ??? Hyperlipidemia ??? Hypertension Past Surgical History: Procedure Laterality Date ??? BACK SURGERY ??? HYSTERECTOMY ??? TONSILLECTOMY Social History Tobacco Use ??? Smoking status: Current Every Day Smoker Packs/day: 0.75 ??? Smokeless tobacco: Never Used Family History Problem Relation Age of Onset ??? Lung disease Mother ??? Hypertension Mother ??? Lung cancer Father ??? Hypertension Father Review of Systems Constitutional: Negative for diaphoresis, fever, malaise/fatigue, weight gain and weight loss. HENT: Negative for hearing loss. Eyes: Negative for visual disturbance. Cardiovascular: Negative for chest pain, claudication, leg swelling, orthopnea, palpitations, paroxysmal nocturnal dyspnea and syncope. Respiratory: Positive for shortness of breath. Negative for cough, hemoptysis, snoring and wheezing. Hematologic/Lymphatic: Bruises/bleeds easily. Skin: Positive for poor wound healing (Left lower leg). Negative for rash. Musculoskeletal: Negative for joint pain and myalgias. Gastrointestinal: Negative for heartburn, nausea and vomiting. Genitourinary: Negative for hematuria. Neurological: Negative for dizziness, headaches and light-headedness. Psychiatric/Behavioral: Negative for depression. The patient is not nervous/anxious. Vital Signs: BP 108/68 (BP Location: Right arm, Patient Position: Sitting) Pulse 65 Ht 170.2 cm (5' 7 ) Wt78 kg (172 lb) SpO2 93% BMI 26.94 kg/m?? Physical Exam Constitutional: General: She is not in acute distress. Appearance: She is well-developed. HENT: Head: Normocephalic and atraumatic. Nose: Comments: Wearing a mask Eyes: General: No scleral icterus. Conjunctiva/sclera: Conjunctivae normal. Neck: Vascular: No JVD. Trachea: No tracheal deviation. Cardiovascular: Rate and Rhythm: Normal rate and regular rhythm. Heart sounds: Normal heart sounds. No murmur heard. Pulmonary: Effort: Pulmonary effort is normal. No respiratory distress. Breath sounds: Normal breath sounds. Musculoskeletal: Right lower leg: Edema (Trace pretibial edema) present. Left lower leg: No edema ( no appreciable edema, 1 x1 scabbed lesion). Skin: General: Skin is warm and dry. [...] WHEEZING, Disp: , Rfl: ??? ascorbic acid (VITAMIN C) 1,000 mg tablet, Take 1,000 mg by mouth daily, Disp: , Rfl: ??? busPIRone (BUSPAR) 7.5 mg tablet, Take 7.5 mg by mouth 2 (two) times a day, Disp: , Rfl: ??? cholecalciferol (VITAMIN D-3) 400 unit capsule, , Disp: , Rfl: ??? citalopram (CeleXA) 20 mg tablet, Take 20 mg by mouth daily, Disp: , Rfl: ??? Eliquis 5 mg tablet, Take 5 mg by mouth every 12 (twelve) hours, Disp: , Rfl: ??? furosemide (LASIX) 40 mg tablet, TAKE 1 TABLET(40 MG) BY MOUTH DAILY, Disp: 30 tablet, Rfl: 11 ??? losartan (COZAAR) 50 mg tablet, Take [...] BUNSER, CREATININE, CHOL, TRIG, LDL, LDLCALC, HDL No results found for: WBC, HGB, HCT, MCV, PLT Assessment: Diagnoses and all orders for this visit: History of pulmonary embolus (PE) History of congestive heart failure Edema, lower extremity Hospital discharge follow-up Plan/Recommendations: She was hospitalized in October for pneumonia and COPD exacerbation and found to have bilateral pulmonary emboli. Continue Eliquis, probably for 6 months. This will be managed by her PCP. Last year she was hospitalized for diastolic heart failure exacerbation and her echocardiogram showed mild to moderate mitral and tricuspid valve insufficiency. Echocardiogram was repeated when she was hospitalized this past October for the pulmonary emboli. Her echocardiogram showed normal systolic and diastolic function and only trace regurgitation at the mitral and tricuspid valve. She has a very mild amount of lower extremity edema. I recommend she wear knee- high compression socks. Continue furosemide 40 mg daily. Return to the office to see Dr. Chun in 6 months. Call us sooner with questions or concerns. 12/30/2021 TYE Mtz- Nurse Practitioner with [facility] [place] This note is dictated and transcribed using [employer] Software. Affiliate Manager variancesmay occur. Despite proofreading, typographical errors may occur. documented in this encounter Plan of Treatment Not on file documented as of this encounter Visit Diagnoses Diagnosis History of pulmonary embolus (PE) History of congestive heart failure Personal history of other diseases of circulatory system Edema, lower extremity Hospital discharge follow-up Other follow-up examination documented in this encounter Discontinued Medications Medication Sig Discontinue Reason Start Date End Da te chlorthalidone 25 mg tabletIndications:Periphe ral Edema due to Chronic Heart Failure,Pulmonary Edema due to Chronic Heart Failure Take 50 mg by mouth daily Alternate therapy 12/30/2021 documented as of this encounter Historical Medications * This list may reflect changes made after this encounter. busPIRone (BUSPAR) 7.5 mg tablet Take 1 tablet (7.5 mg total) by mouth 2 (two) times a day 12/21/2021 Eliquis 5 mg tablet Take 1 tablet (5 mg total) by mouth every 12 (twelve) hours 12/21/2021 07/12/2023 added in this encounter Care Teams Assistant Store Director Relationship Specialty Start Date End Date Una Clark MD PCP - General Family Medicine 07/10/20 documented as of this encounter
--- OUTSIDE RECORDS SUMMARY | 2024-08-31 01:54 | XMS_ITS | Encounter Summary ---
Author Organization [facility] Address [address] [place] [address] Care Team Providers Care Train Examiner Name Role Phone Una Clark MD Primary Care Provider [phone] Encounter Details Date Type Department Care Team (Late st Contact Info) Description 06/02/2023 9:30 AM CDT Office Visit [facility] [address] [place] [id number] Ulcer of left pretibial region with fat layer exposed (CMS/HCC) (HCC) Social History Tobacco Use Types Packs/Day Years Used Date Smoking Tobacco: Every Day Cigarettes Smokeless Tobacco: Never Comments Unknown Sex and Gender Information Value Date Recorded Sex Assigned at Not on file 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 Few Gram Positive Cocci Few Gram Positive Bacilli Few Gram Negative Bacilli ROSALIE SHELBY (CASHIERS) Comment:Testing performed by : [facility], [address] [place]., [address] Report Final Report: Few Mixed Gram-positive and Gram-negative microorganisms (.) ROSALIE SHELBY (CARLOS) Comment:Testing performed by : [facility], [address] [place]., [address] Organism MIXED GRAM POS AND GRAM NEG MICROORGANISMS ROSALIE SHELBY (CARLOS) Tissue (Leg, left) 06/02/2023 10:15 AM CDT 06/02/2023 7:21 PM CDT Narrative ROSALIE SHELBY (CARLOS) - 06/11/2023 1:22 PM CDT Testing performed by [facility] ([phone]) Specimens submitted from normally sterile body sites [...] - GENERAL O RDERABLES Final Result ROSALIE SHELBY (CARLOS) [address] [facility] Department [place] [address] documented in this encounter Visit Diagnoses Diagnosis Ulcer of left pretibial region with fat layer exposed (HCC) documented in this encounter Care Teams Train Examiner Relationship Specialty Start Date End Date Una Clark MD PCP - General Family Medicine 07/10/20 documented as of this encounter
--- OUTSIDE RECORDS SUMMARY | 2024-08-31 01:54 | XMS_ITS | Encounter Summary ---
Author Organization [facility] Address [address] [place] [address] Care Team Providers Care Cable Dispatcher Name Role Phone Una Clark MD Primary Care Provider [phone] Encounter Details Date Type Department Care Team (Late st Contact Info) Description 04/28/2021 Telephone [facility] Cardiology [address] [place] [address] Art Chun MD [address] [facility] [address] [place], [place] [id number] Social History Tobacco Use Types Packs/Day Years Used Date Smoking Tobacco: Every Day Cigarettes Smokeless Tobacco: Never Comments Unknown Sex and Gender Information Value Date Recorded Sex Assigned at Not on file 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 Pt states she is out of medication and requesting refill for Furosemide 40 mg. Contact [phone] documented in this encounter Plan of Treatment Not on file documented as of this encounter Visit Diagnoses Not on filedocumented in this encounter Care Teams Cable Dispatcher Relationship Specialty Start Date End Date Una Clark MD PCP - General Family Medicine 07/10/20 documented as of this encounter
--- OUTSIDE RECORDS SUMMARY | 2024-08-31 01:54 | XMS_ITS | Referral Summary ---
Author Organization [facility] [address] Address [address] [address] Care Team Providers Care Veneer Repairer Machine Name Role Phone Una Clark MD Primary Care Provider [phone] Allergies Active Allergy Reactions Criticality Noted Date [...] failure due to valvular disease (CMS/HCC) 05/18/2021 Social History Tobacco Use Types Packs/Day Years Used Date Smoking Tobacco: Every Day Cigarettes 0.8 60 Smokeless Tobacco: Never Personal Safety Answer Date Recorded Getting School Help Needed Not on file 08/16 Comments Unknown Sex and Gender Information Value Date Recorded Sex Assigned at Not on file 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 Gender Identity Not on file Sexual Orientation Not on file Last Filed Vital Signs Vital Sign Reading Time Taken Comments Blood Pressure 124/72 07/12/2023 11:25 AM TUBE SKIVER Pulse 73 07/12/2023 11:25 AM TUBE SKIVER Temperature - - Respiratory Rate - - Oxygen Saturation 93% 07/12/2023 11:25 AM TUBE SKIVER Inhaled Oxygen Concentration - - Weight 89.8 kg (198 lb) 07/12/2023 11:25 AM TUBE SKIVER Height 170.2 cm (5' 7 ) 07/12/2023 11:25 AM TUBE SKIVER Body Mass Index 31.01 07/12/2023 11:25 AM TUBE SKIVER Plan of Treatment Not on file Insurance [facility] MEDICARE SUPPLEMENT INSURANCE MEDICARE MEDICARE [facility] MEDICARE SUPPLEMENT INSURANCE Care Teams Veneer Repairer Machine Relationship Specialty Start Date End Date Una Clrak MD PCP - General Family Medicine 07/10/20
[2024-08-31] MEDS: fentaNYL CITRATE INJ (*CRX) 100 MCG/2 ML VIAL 50 MCG IV PUSH ×2 (02:16→06:03)
[2024-08-31] MEDS: LEVALBUTEROL NEB 1.25 MG/3 ML INHALATION ×4 (02:32→20:11)
[2024-08-31 05:36] LABS: Hematocrit 42.8 % (37.0-47.0); Hemoglobin 13.1 g/dL (12.0-15.0); Immature Platelet Fraction Pct 5.5 % (0.9-11.2); Mean Corpuscular HGB Conc 30.6 g/dl (32-36); Mean Corpuscular Hemoglobin 31.9 pg (26-34); Mean Corpuscular Volume 104.1 fl (80-100); Mean Platelet Volume 11.2 fl (7.4-10.4); Platelet Count Result 141 k/mm3 (150-375); Red Blood Count 4.11 M/mm3 (4.2-5.4); Red Cell Distribution Width 13.1 % (11.5-14.5); White Blood Count 12.4 K/mm3 (4.5-10.0)
[2024-08-31 05:44] LABS: Alveolar/Arterial O2 Gradient 70.4 mmHg; Base Excess ABG 7.7 mEq/l (+/-2.0); Fractional Inspired Oxygen 30 %; HCO3 ABG 35.6 mEq/l (22.0-26.0); Oxygen Content ABG 17.2 %vol (16.0-22.0); Oxygen Saturation ABG 91.5 % (95.0-100.0); Oxyhemoglobin 91.2 % THb (90.0-100.0); PO2 ABG 66.1 mmHg (80.0-100.0); Total Hemoglobin 13.4 g/dL (12.0-18.0); pH ABG 7.351 (7.350-7.450)
[2024-08-31 05:44] LABS: Alanine Aminotransferase 45 U/L (6-35); Albumin Level 3.9 g/dL (3.5-5.1); Alkaline Phosphatase 49 U/L (38-126); Anion Gap 4 mmol/L (4-12); Aspartate Amino Transferase 23 U/L (14-36); Bilirubin,Total 0.5 mg/dL (0.2-1.3); Blood Urea Nitrogen 35 mg/dL (7-17); Calcium 8.9 mg/dL (8.4-10.2); Carbon Dioxide 36 mmol/L (22-30); Chloride 105 mmol/L (98-107); Estimated CRCL calculation 69 ml/min; Estimated Glomerular Filt Rate > 60; Glucose 146 mg/dL (65-110); Magnesium 2.6 mg/dL (1.6-2.3); Phosphorus 3.2 mg/dL (2.5-4.5); Potassium 4.2 mmol/L (3.4-5.0); Sodium 145 mmol/L (137-145)
[2024-08-31 06:00] LABS: Arterial Blood Gas PEEP 5 cmH2O; Arterial Blood Gas Tidal Volume 480 ml; Arterial Blood Gas Vent Mode CMV; Arterial Blood Gas Ventilator rate 18 /MIN; Device VENTILATOR; Modified Allen's Test Unable to perform; PCO2 ABG 65.9 mmHg (35.0-45.0); Site Drawn RIGHT RADIAL
[2024-08-31 07:59] LABS: Triglycerides 143 mg/dL (<150)
[2024-08-31] MEDS: MINERAL OIL/WHITE PETROLATUM OINTMENT 1 APPLIC EACH EYE ×2 (08:06→20:45)
[2024-08-31] MEDS: methylPREDNISolone SOD SUCC 125 MG VIAL 60 MG IV PUSH (08:08)
[2024-08-31] MEDS: APIXABAN 5 MG TABLET PO ×2 (08:08→20:44)
[2024-08-31] MEDS: SIMVASTATIN 20 MG TABLET PO (08:08)
[2024-08-31] MEDS: EMPAGLIFLOZIN 10 MG TABLET PO (08:08)
[2024-08-31] MEDS: FAMOTIDINE 20 MG/2 ML VIAL IV PUSH ×2 (08:08→20:44)
--- NOTE | 2024-08-31 08:51 | WPDINTPN ---
Progress Note: A&P Assessment and Plan (1) Respiratory failure: Code(s): J96.90 - Respiratory failure, unspecified, unspecified whether with hypoxia or hypercapnia Status: Acute Assessment and Plan: 08/25: Patient was BiPAP, was switched to Vapotherm, got anxious, tachypneic with diffuse reason, placed back on AVAPS by pulmonology, patient not tolerating that finally had to intubate the patient after getting consent from the son, daughter and the patient, all were in agreement with intubation but no CPR. Patient was intubated and placed on CMV mode of ventilation -chest x-ray reviewed and ET tube advanced to 24 cm at the lip -ABG and vent settings reviewed. Currently on 5 of PEEP and 35-40% FiO2 - 08/29 sedation holiday was performed and patient was evaluate for weaning trial patient became tachycardic tachypneic with abdominal breathing. Despite 15/5 PSV she appeared in distress hence SBT was aborted and patient was placed back on CMV -08/30 sedation holiday was performed to evaluate patient for weaning trial patient again became quickly tachycardic tachypneic and asynchronous with the ventilator. Patient was not a candidate for SBT.. Later in the day patient went into AFib with RVR on loading sedation -08/31 on holding propofol patient became tachypneic tachycardic agitated despite being on fentanyl and Precedex. Not a candidate for SBT -continue ceftriaxone (for 7 days) and doxycycline (for total of 5 days) -continue Xopenex and ipratropium nebulizers -patient had thick secretions which was suctioned out, on 3% saline nebs -management of COPD as below (2) COPD exacerbation: Code(s): J44.1 - Chronic obstructive pulmonary disease with (acute) exacerbation Status: Acute Assessment and Plan: 08/24: Presented with shortness of breath to the ED, was found to be in COPD exacerbation, possible pneumonia and a pulmonary vascular congestion -patient was given Solu-Medrol and albuterol treatment in the ER -patient received levofloxacin after which she had some a reaction, with labored breathing, tachypnea, tachycardia. Patient was given Solu-Medrol. Remained short of breath, was transferred to the ICU for further management -patient does use 3-4 L at home for COPD suggesting severe COPD - currently intubated on mechanical ventilation -continue steroids but decrease to q.day -continue bronchodilators, Trelegy Ellipta and antibiotics as above -despite steroids and bronchodilators band continues to have wheezing on exam (3) Pneumonia: Qualifiers: Laterality: unspecified laterality Lung location: unspecified part of lung Pneumonia type: due to unspecified organism Qualified Code(s): J18.9 - Pneumonia, unspecified organism Code(s): J18.9 - Pneumonia, unspecified organism Status: Resolved Assessment and Plan: See above (4) CHF (congestive heart failure): Code(s): I50.9 - Heart failure, unspecified Status: Acute Assessment and Plan: Chest x-ray shows possible pulmonary vascular congestion, patient received Lasix 40 mg x 2 in the ER Echocardiogram08/26/24 Summary 1. Left ventricular chamber dimension is normal. 2. Left ventricular systolic function is normal, estimated at >70%. 3. The left ventricular diastolic function is grade III diastolic dysfunction. 4. Right ventricular systolic function is normal. 5. Left atrial chamber dimension is severely enlarged. 6. Right atrial chamber dimension is moderately enlarged. 7. There is mild mitral valve regurgitation. 8. There is mild tricuspid valve regurgitation. 9. Estimated pulmonary arterial systolic pressure is 50 mmHg. 03/25/2024: Echocardiogram Summary 1. Complete two-dimensional, color flow and Doppler transthoracic echocardiogram is performed. 2. Hyperdynamic appearing left ventricular systolic function with grade 1 diastolic noncompliance. 3. Left atrial enlargement. 4. Mild mitral regurgitation. 5. Left ventricular systolic function is hyperdynamic, estimated at >70%. (5) HTN (hypertension): Code(s): I10 - Essential (primary) hypertension Status: Chronic Assessment and Plan: History of hypertension, will hold antihypertensives at this time (6) Hyperlipidemia: Code(s): E78.5 - Hyperlipidemia, unspecified Status: Chronic Assessment and Plan: Continue simvastatin (7) Elevated serum creatinine: Code(s): R79.89 - Other specified abnormal findings of blood chemistry Status: Acute Assessment and Plan: Slight elevation in creatinine and elevated BUN which could be secondary to steroids also Improved with IV fluid Monitor urine output electrolytes and creatinine (8) Sepsis: Code(s): A41.9 - Sepsis, unspecified organism Status: Acute Assessment and Plan: On admission patient was started on ceftriaxone and doxycycline (for total of 5 days) Initial CT was negative but she did develop take his secretion Cultures have been negative 08/31 She has developed fevers overnight Replace Ghotra and check UA Repeat sputum and blood culture Change antibiotics to vanc and Zosyn for broader spectrum coverage (9) Atrial fibrillation with RVR: Code(s): I48.91 - Unspecified atrial fibrillation Status: Acute Assessment and Plan: After sedation holiday patient went into AFib with RVR yesterday. Patient was started on amiodarone drip and quickly converted to sinus rhythm. Immune was turned off after conversion as patient was sinus bradycardic. Continue Eliquis Summary 1. Left ventricular chamber dimension is normal. 2. Left ventricular systolic function is normal, estimated at >70%. 3. The left ventricular diastolic function is grade III diastolic dysfunction. 4. Right ventricular systolic function is normal. 5. Left atrial chamber dimension is severely enlarged. 6. Right atrial chamber dimension is moderately enlarged. 7. There is mild mitral valve regurgitation. 8. There is mild tricuspid valve regurgitation. 9. Estimated pulmonary arterial systolic pressure is 50 mmHg. Plan DVT prophylaxis: Continue Eliquis which she takes at home Stress ulcer prophylaxis: Continue Pepcid Nutrition: tolerating tube feeds Code Status: No CPR, okay to intubate after discussing with family on 08/25/2024. I spoke to patient's son by phone and updated him with patient's status including his failure to wean, AFib with RVR, fever and treatment of sepsis. We also discussed goals of care. She told me that patient was not want to live on life support for from her time see. He was went to discuss with other family members before making any further decisions. Critical Care Time Spent: 35 minutes Due to a high probability of clinically significant, life threatening deterioration, the patient required my highest level of preparedness to intervene emergently and I personally spent this critical care time directly and personally managing the patient. This critical care time included obtaining a history; examining the patient; pulse oximetry; ordering and review of studies; arranging urgent treatment with development of a management plan; evaluation of patient's response to treatment; frequent reassessment; and discussions with other providers. It was exclusive of separately billable procedures and treating other patients and teaching time. Please see Assessment and Plan section and the rest of the note for further information on patient assessment and treatment This dictation may have been done utilizing a voice recognition system. Attempts have been made to correct errors. However, there may be uncorrected grammatical, spelling, and recognitions errors present. Subjective Date/time seen: 08/31/24 Overnight events reviewed. Patient went into AFib with RVR after sedation holiday. Patient started on amiodarone and converted to sinus rhythm. Patient has sinus bradycardia when sedated but on loading sedation she developed sinus tachycardia. Febrile Continues to be on mechanical ventilation 35-40% FiO2 5 of PEEP Continues to be on vasopressors Continues to be sedated with Precedex fentanyl and low-dose of propofol Other Vitals acceptable Tolerating tube feed Review of Systems Review of Systems: ROS unobtainable: Yes unobtainable due to endotracheal tube, unobtainable due to medical condition and unobtainable due to mental status Exam Narrative: General: Intubated and sedated HEENT:? Pupils equal and reactive, sclera is clear, ETT in place Neck:? Supple Respiratory:? Decreased air entry bilaterally, occasion wheezing noted on today's exam, no rales auscultated Cardiac:? Sinus tachycardia Abdomen:? Soft, nontender, nondistended, hypoactive bowel sounds Extremities:? Trace edema in lower extremities, palpable pedal pulse Neuro:?sedated, intubated, does not open her eyes or follow simple commands code does not withdraw to pain (prior to intubation, patient was tachycardic, tachypneic, was able to follow commands and was able to answer questions) Skin:? Warm and dry, no lesions noted Psych:? Unable to assess at this Objective Data Vital Signs Vital Signs: Vital Signs - 24 hr 08/30/24 09:10 08/30/24 09:11 08/30/24 09:41 Temperature Pulse Rate 60 60 126 H Respiratory Rate 18 18 18 Blood Pressure Pulse Oximetry Oxygen Delivery Fraction of Inspired Oxygen 08/30/24 09:42 08/30/24 10:00 08/30/24 10:00 Temperature 37.3 C Pulse Rate 128 H 120 H 125 H Respiratory Rate 18 18 Blood Pressure 176/96 H Pulse Oximetry 94 Oxygen Delivery Fraction of Inspired Oxygen 08/30/24 10:12 08/30/24 10:38 08/30/24 10:49 Temperature Pulse Rate 113 H 114 H 88 Respiratory Rate 21 H 18 Blood Pressure Pulse Oximetry 98 Oxygen Delivery Mechanical Ventilation Fraction of Inspired Oxygen 35 08/30/24 10:50 08/30/24 11:05 08/30/24 11:06 Temperature Pulse Rate 88 135 H 135 H Respiratory Rate 18 20 20 Blood Pressure Pulse Oximetry Oxygen Delivery Fraction of Inspired Oxygen 08/30/24 12:00 08/30/24 12:00 08/30/24 12:00 Temperature Pulse Rate 100 100 53 L Respiratory Rate 18 18 18 Blood Pressure Pulse Oximetry 96 Oxygen Delivery Mechanical Ventilation Fraction of Inspired Oxygen 35 08/30/24 12:00 08/30/24 12:00 08/30/24 12:00 Temperature 37.7 C H Pulse Rate 95 102 H Respiratory Rate 15 Blood Pressure 118/74 Pulse Oximetry 92 Oxygen Delivery Fraction of Inspired Oxygen 35 08/30/24 12:03 08/30/24 12:30 08/30/24 14:00 Temperature 37.7 C H Pulse Rate 100 84 78 Respiratory Rate 18 18 11 L Blood Pressure 119/72 Pulse Oximetry 95 Oxygen Delivery Fraction of Inspired Oxygen 08/30/24 14:00 08/30/24 14:00 08/30/24 14:00 Temperature Pulse Rate 70 70 70 Respiratory Rate 18 18 18 Blood Pressure Pulse Oximetry Oxygen Delivery Fraction of Inspired Oxygen 08/30/24 14:00 08/30/24 14:50 08/30/24 15:07 Temperature Pulse Rate 80 65 98 Respiratory Rate 18 24 H Blood Pressure Pulse Oximetry Oxygen Delivery Fraction of Inspired Oxygen 08/30/24 15:09 08/30/24 15:12 08/30/24 15:21 Temperature Pulse Rate 83 74 70 Respiratory Rate 21 H 18 Blood Pressure Pulse Oximetry 98 Oxygen Delivery Mechanical Ventilation Fraction of Inspired Oxygen 35 08/30/24 15:39 08/30/24 16:00 08/30/24 16:00 Temperature Pulse Rate 105 H 153 H 153 H Respiratory Rate 18 18 18 Blood Pressure Pulse Oximetry Oxygen Delivery Fraction of Inspired Oxygen 08/30/24 16:00 08/30/24 16:00 08/30/24 16:00 Temperature 37.7 C H Pulse Rate 115 H 85 122 H Respiratory Rate 20 18 Blood Pressure 145/83 H Pulse Oximetry 96 90 Oxygen Delivery Mechanical Ventilation Fraction of Inspired Oxygen 35 08/30/24 16:00 08/30/24 16:07 08/30/24 16:55 Temperature Pulse Rate 153 H 120 H Respiratory Rate 18 Blood Pressure 116/74 Pulse Oximetry Oxygen Delivery Fraction of Inspired Oxygen 35 08/30/24 17:04 08/30/24 17:04 08/30/24 17:09 Temperature Pulse Rate 123 H 123 H 88 Respiratory Rate 18 18 Blood Pressure 127/83 Pulse Oximetry Oxygen Delivery Fraction of Inspired Oxygen 08/30/24 17:48 08/30/24 17:48 08/30/24 17:50 Temperature Pulse Rate 92 92 120 H Respiratory Rate 19 19 Blood Pressure Pulse Oximetry 91 Oxygen Delivery Mechanical Ventilation Fraction of Inspired Oxygen 35 08/30/24 18:00 08/30/24 18:00 08/30/24 18:00 Temperature Pulse Rate 81 81 81 Respiratory Rate 18 18 Blood Pressure Pulse Oximetry Oxygen Delivery Fraction of Inspired Oxygen 08/30/24 18:00 08/30/24 18:00 08/30/24 18:37 Temperature 37.8 C H Pulse Rate 81 94 101 H Respiratory Rate 18 16 Blood Pressure 139/91 H 128/80 Pulse Oximetry 97 Oxygen Delivery Fraction of Inspired Oxygen 08/30/24 20:00 08/30/24 20:00 08/30/24 20:00 Temperature Pulse Rate 58 L 58 L 58 L Respiratory Rate 16 16 16 Blood Pressure Pulse Oximetry Oxygen Delivery Fraction of Inspired Oxygen 08/30/24 20:00 08/30/24 20:00 08/30/24 20:00 Temperature 38.1 C H Pulse Rate 58 L Respiratory Rate 16 Blood Pressure 128/74 Pulse Oximetry 100 Oxygen Delivery Mechanical Ventilation Fraction of Inspired Oxygen 35 35 08/30/24 20:00 08/30/24 20:45 08/30/24 21:00 Temperature Pulse Rate 62 125 H 55 L Respiratory Rate 24 H 22 H Blood Pressure Pulse Oximetry Oxygen Delivery Fraction of Inspired Oxygen 08/30/24 21:00 08/30/24 21:15 08/30/24 22:00 Temperature Pulse Rate 53 L 53 L 51 L Respiratory Rate 22 H 18 Blood Pressure Pulse Oximetry 100 Oxygen Delivery Mechanical Ventilation Fraction of Inspired Oxygen 35 08/30/24 22:00 08/30/24 22:00 08/30/24 22:00 Temperature 38.2 C H Pulse Rate 51 L 51 L 51 L Respiratory Rate 18 18 18 Blood Pressure 134/72 Pulse Oximetry 99 Oxygen Delivery Fraction of Inspired Oxygen 08/30/24 22:00 08/30/24 22:47 08/30/24 22:47 Temperature Pulse Rate 51 L 52 L 52 L Respiratory Rate 18 18 Blood Pressure Pulse Oximetry Oxygen Delivery Fraction of Inspired Oxygen 08/30/24 23:03 08/31/24 00:00 08/31/24 00:00 Temperature Pulse Rate 56 L 52 L 52 L Respiratory Rate 18 18 Blood Pressure Pulse Oximetry 98 Oxygen Delivery Mechanical Ventilation Fraction of Inspired Oxygen 30 08/31/24 00:00 08/31/24 00:00 08/31/24 00:00 Temperature Pulse Rate 52 L Respiratory Rate 18 Blood Pressure Pulse Oximetry Oxygen Delivery Mechanical Ventilation Fraction of Inspired Oxygen 30 30 08/31/24 00:00 08/31/24 00:00 08/31/24 00:04 Temperature 38.2 C H Pulse Rate 51 L 51 L 52 L Respiratory Rate 18 19 Blood Pressure 156/81 H Pulse Oximetry 97 Oxygen Delivery Fraction of Inspired Oxygen 08/31/24 00:04 08/31/24 02:00 08/31/24 02:00 Temperature Pulse Rate 52 L 54 L 54 L Respiratory Rate 19 18 18 Blood Pressure Pulse Oximetry Oxygen Delivery Fraction of Inspired Oxygen 08/31/24 02:00 08/31/24 02:00 08/31/24 02:00 Temperature 38.3 C H Pulse Rate 54 L 54 L 54 L Respiratory Rate 18 18 Blood Pressure 144/70 H Pulse Oximetry 94 Oxygen Delivery Fraction of Inspired Oxygen 08/31/24 02:02 08/31/24 02:32 08/31/24 02:41 Temperature Pulse Rate 57 L 56 L 59 L Respiratory Rate 23 H 24 H Blood Pressure Pulse Oximetry 100 Oxygen Delivery Mechanical Ventilation Fraction of Inspired Oxygen 30 08/31/24 04:00 08/31/24 04:00 08/31/24 04:00 Temperature 38.3 C H Pulse Rate 57 L Respiratory Rate 18 Blood Pressure 140/69 Pulse Oximetry 97 Oxygen Delivery Mechanical Ventilation Fraction of Inspired Oxygen 30 30 08/31/24 04:00 08/31/24 04:00 08/31/24 04:00 Temperature Pulse Rate 58 L 57 L 57 L Respiratory Rate 18 18 Blood Pressure Pulse Oximetry Oxygen Delivery Fraction of Inspired Oxygen 08/31/24 04:00 08/31/24 05:05 08/31/24 06:00 Temperature Pulse Rate 57 L 64 63 Respiratory Rate 18 18 Blood Pressure Pulse Oximetry 93 Oxygen Delivery Mechanical Ventilation Fraction of Inspired Oxygen 30 08/31/24 06:00 08/31/24 06:00 08/31/24 06:00 Temperature Pulse Rate 63 63 61 Respiratory Rate 18 18 18 Blood Pressure 119/69 Pulse Oximetry 99 Oxygen Delivery Fraction of Inspired Oxygen 08/31/24 06:00 08/31/24 07:05 08/31/24 07:05 Temperature Pulse Rate 61 52 L 54 L Respiratory Rate 22 H Blood Pressure Pulse Oximetry 92 Oxygen Delivery Mechanical Ventilation Fraction of Inspired Oxygen 30 08/31/24 07:11 08/31/24 07:11 08/31/24 07:15 Temperature Pulse Rate 54 L 54 L 53 L Respiratory Rate 20 20 22 H Blood Pressure Pulse Oximetry Oxygen Delivery Fraction of Inspired Oxygen 08/31/24 08:00 08/31/24 08:00 08/31/24 08:00 Temperature Pulse Rate 878 H 88 88 Respiratory Rate 18 18 18 Blood Pressure Pulse Oximetry Oxygen Delivery Fraction of Inspired Oxygen 08/31/24 08:00 08/31/24 08:14 08/31/24 08:15 Temperature 38.2 C H Pulse Rate 92 117 H 62 Respiratory Rate 19 18 Blood Pressure 175/80 H Pulse Oximetry 100 96 Oxygen Delivery Mechanical Ventilation Fraction of Inspired Oxygen 35 Intake/Output Intake/Output: Intake & Output 08/28/24 08/29/24 08/30/24 08/31/24 23:59 23:59 23:59 23:59 Intake Total 2036.0 2220.0 2753.9 1152.3 Output Total 1900 1750 1400 1300 Balance 136.0 470.0 1353.9 -147.7 Meds/Results Medications: Active Medications Generic Name Dose Route Start Last Admin Trade Name Freq PRN Reason Stop Dose Admin Apixaban 5 mg 08/25/24 21:00 08/31/24 08:08 Apixaban 5 Mg Tablet PO 5 mg Q12HR ALEXIS Administration Buspirone HCl 7.5 mg 08/25/24 21:00 08/27/24 20:18 Buspirone Hcl 2.5 Mg Tablet PO 7.5 mg Q12HR ALEXIS Administration Dextrose 12.5 gm 08/24/24 16:31 Dextrose 50% 25 Gm/50 Ml Syringe IV PUSH PRN PRN Hypoglycemia Protocol Empagliflozin 10 mg 08/26/24 09:00 08/31/24 08:08 Empagliflozin 10 Mg Tablet PO 10 mg DAILY ALEXIS Administration Famotidine 20 mg 08/24/24 21:00 08/31/24 08:08 Famotidine 20 Mg/2 Ml Vial IV PUSH 20 mg Q12HR ALEXIS Administration Fentanyl Citrate 50 mcg 08/25/24 12:25 08/31/24 06:03 Fentanyl Citrate Inj (*Crx) 100 Mcg/2 Ml Vial IV PUSH 50 mcg Q2HR PRN Administration Ventilator Asynchrony Fluticasone/Umeclidinium/Vilanterol 1 puff 08/25/24 08:00 08/30/24 07:50 Fluticasone/Umeclidin/Vilanter 200-62.5-25 Mcg Ellipta INHALATION Not Given DAILYRT ALEXIS Glucagon 1 mg 08/24/24 16:31 Glucagon For Inj 1 Mg Vial IM PRN PRN Hypoglycemia Protocol Glucose 15 gm 08/24/24 16:31 Glucose Oral Gel 15 Gm Of Glucse In 37.5 Gm Tube PO PRN PRN Hypoglycemia Protocol Ceftriaxone Sodium 2 gm in 100 mls @ 200 mls/hr 08/24/24 17:00 08/30/24 18:37 Rocephin 2 Gm/Ns 100 Ml IVPB 08/31/24 16:59 Infused Q24H ALEXIS Infusion Dextrose 1,000 mls @ 100 mls/hr 08/24/24 16:31 Dextrose 5% 1,000 Ml IVPB PRN PRN Hypoglycemia Protocol Propofol 100 mls @ 0 mls/hr 08/25/24 09:55 08/31/24 08:14 Diprivan IV CONT 15 mcg/kg/min .Q0M ALEXIS 7.69 mls/hr Titration Protocol 0 MCG/KG/MIN Fentanyl Citrate 2,500 mcg in 250 mls @ 15 mls/hr 08/25/24 13:25 08/31/24 08:00 Fentanyl 2,500 Mcg/Ns 250 Ml IV CONT 150 mcg/hr .[id number] ALEXIS 15 mls/hr Titration Protocol 150 MCG/HR Dexmedetomidine HCl 400 mcg in 100 mls @ 14.84 mls/hr 08/30/24 10:05 08/31/24 08:00 Precedex 400 Mcg/100 Ml IV CONT 0.7 mcg/kg/hr .Q6H45M ALEXIS 14.84 mls/hr Titration Protocol 0.7 MCG/KG/HR Propofol 100 mls @ 2.574 mls/hr 08/31/24 08:05 Diprivan IV CONT .[id number] ALEXIS 5 MCG/KG/MIN Insulin Aspart 3 - 6 units 08/24/24 18:00 08/31/24 06:07 Insulin Aspart (*Bkc) 100 Units/Ml SUB-Q Not Given Q6HR COUNT INCLUDES THE [facility] Protocol Levalbuterol HCl 1.25 mg 08/25/24 14:50 08/31/24 07:07 Levalbuterol Neb 1.25 Mg/3 Ml INHALATION 1.25 mg Q6HRT ALEXIS Administration Methylprednisolone Sodium Succinate 60 mg 08/28/24 12:00 08/31/24 08:08 Methylprednisolone Sod Succ 125 Mg Vial IV PUSH 60 mg QAM ALEXIS Administration Multi-Ingred Cream/Lotion/Oil/Oint 1 applic 08/25/24 21:00 08/31/24 08:06 Mineral Oil/White Petrolatum Ointment EACH EYE 1 applic Q12HR ALEXIS Administration Simvastatin 20 mg 08/26/24 09:00 08/31/24 08:08 Simvastatin 20 Mg Tablet PO 20 mg DAILY ALEXIS Administration Vancomycin HCl 1 each 08/31/24 08:00 Vancomycin Pharmacist To Dose IVPB PER PROTOCOL COUNT INCLUDES THE [facility] Radiology Results: ITS Impressions Chest CTA 08/24/24 16:37 IMPRESSION: 1. No pulmonary embolism. 2. No acute cardiopulmonary pathology. 3. 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 Further evaluation and clinical correlation advised. 4. Emphysematous changes of the lungs. 5. Multiple healing rib fractures in the right hemithorax. 6. Fat infiltration of the liver. Abdomen X-Ray 08/25/24 10:34 IMPRESSION: NG tube in stomach Chest X-Ray 08/31/24 06:19 IMPRESSION: 1. Emphysema. Labs Labs: Laboratory Results - last 24 hr 08/30/24 08/30/24 08/31/24 11:39 17:11 00:07 WBC RBC Hgb Hct MCV MCH MCHC RDW Plt Count MPV % Immature Plt Fraction Puncture Site ABG pH ABG pCO2 ABG pO2 ABG PO2/FiO2 Ratio ABG HCO3 ABG O2 Saturation ABG O2 Content ABG Base Excess A-a Gradient Oxyhemoglobin Total Hemoglobin O2 Delivery Device O2 Liters/Min Minute Volume Vent Rate Vent Mode FiO2 Tidal Volume PEEP Peak Inspir Pressure Pressure Support Sodium Potassium Chloride Carbon Dioxide Anion Gap BUN Creatinine Estim Creat Clear Calc Estimated GFR Glucose POC Capillary Glucose 144 H 162 H 147 H Calcium Phosphorus Magnesium Total Bilirubin AST ALT Alkaline Phosphatase Total Protein Albumin Triglycerides 08/31/24 08/31/24 05:19 05:34 WBC 12.4 H RBC 4.11 L Hgb 13.1 Hct 42.8 MCV 104.1 H MCH 31.9 MCHC 30.6 L RDW 13.1 Plt Count 141 L MPV 11.2 H % Immature Plt Fraction 5.5 Puncture Site Right radial ABG pH 7.351 ABG pCO2 65.9 H* ABG pO2 66.1 L ABG PO2/FiO2 Ratio 2.20 ABG HCO3 35.6 H ABG O2 Saturation 91.5 L ABG O2 Content 17.2 ABG Base Excess 7.7 A-a Gradient 70.4 Oxyhemoglobin 91.2 Total Hemoglobin 13.4 O2 Delivery Device Ventilator O2 Liters/Min Not Reportable Minute Volume Not Reportable Vent Rate 18 Vent Mode Cmv FiO2 30 Tidal Volume 480 PEEP 5 Peak Inspir Pressure Not Reportable Pressure Support Not Reportable Sodium 145 Potassium 4.2 Chloride 105 Carbon Dioxide 36 H Anion Gap 4 BUN 35 H Creatinine 0.63 L Estim Creat Clear Calc 69 Estimated GFR > 60 Glucose 146 H POC Capillary Glucose Calcium 8.9 Phosphorus 3.2 Magnesium 2.6 H Total Bilirubin 0.5 AST 23 ALT 45 H Alkaline Phosphatase 49 Total Protein 7.0 Albumin 3.9 Triglycerides 143 Quality VTE Prophylaxis VTE prophylaxis: pharmacologic ordered
[2024-08-31 09:29] LABS: Procalcitonin 0.1 ng/mL
[2024-08-31] MEDS: PROPOFOL IV EMULSION 100 ML 7.72 MG IV CONT (10:00)
[2024-08-31] MEDS: PIPERACILLN/TAZ 3.375GM/NS50ML 3.375 GM/50 ML BAG IVPB ×3 (10:10→20:44)
[2024-08-31 11:12] LABS: Add Urine Microscopic? YES; Appearance Urine Turbid (Clear); Bacteria Urine Rare /hpf; Bilirubin Urine Negative (Negative); Blood Urine 3+ (Negative); Color Urine Yellow (Yellow); Glucose Urine UA 3+ mg/dL (Negative); Ketones Urine Negative (Negative); Leukocyte Esterase Ur 1+ LEU/UL (Negative); Need Manual Microscopic Reviewed; Nitrate Urine Negative (Negative); Protein Urine 1+ mg/dL (Negative); RBC Urine >100 /hpf (0-2); Specific Grav Ur 1.028 (1.001-1.035); Squamous Epithelial Cell Urine Many /hpf (Few); Urobilinogen Urine 0.2 mg/dL (<2.0); WBC Urine 21-50 /hpf (0-3); pH Urine 5.5 (5.0-9.0)
[2024-08-31] MEDS: VANCOMYCIN 1,250 MG/NS 250 ML 1,250 MG/250 ML BAG 166.67 MG IVPB (11:41)
[2024-08-31 11:50] LABS: Glucose Point of Care 151 mg/dl (65-105)
[2024-08-31 13:04] LABS: MRSA (PCR) NOT DETECTED (NOT DETECTE)
[2024-08-31] MEDS: VANCOMYCIN 1,000 MG/NS 250 ML 1,000 MG/250 ML BAG 250 MG IVPB (13:15)
[2024-08-31] MEDS: FENTANYL 2,500MCG/NS250ML(*CRX 2,500 MCG/250 ML BAG 15 MCG IV CONT (14:25)
[2024-08-31] MEDS: PROPOFOL IV EMULSION 100 ML 2.57 MG IV CONT (17:25)
[2024-08-31 17:54] LABS: Glucose Point of Care 164 mg/dl (65-105)
[2024-08-31] MEDS: dexmedeTOMIDine 400 MCG/100 ML 400 MCG/100 ML BAG 10.6 MCG IV CONT (21:41)
[2024-09-01] VITALS (51 sets, daily range): BP systolic 94–143; BP diastolic 62–117; PULSE 46–150; RESP 12–25; TEMP 37.4–38.5; O2SAT 92–98
[2024-09-01 00:46] LABS: Glucose Point of Care 129 mg/dl (65-105)
[2024-09-01] MEDS: LEVALBUTEROL NEB 1.25 MG/3 ML INHALATION ×4 (01:37→20:44)
[2024-09-01] MEDS: PIPERACILLN/TAZ 3.375GM/NS50ML 3.375 GM/50 ML BAG IVPB ×4 (03:52→21:28)
[2024-09-01] MEDS: PROPOFOL IV EMULSION 100 ML 7.72 MG IV CONT (04:00)
[2024-09-01] MEDS: VANCOMYCIN 1,500 MG/NS 500 ML 1,500 MG/500 ML BAG 250 MG IVPB (04:34)
[2024-09-01 04:49] LABS: Estimated CRCL calculation 84 ml/min; Estimated Glomerular Filt Rate > 60
[2024-09-01 05:16] LABS: Alveolar/Arterial O2 Gradient 137.4 mmHg; Base Excess ABG 9.2 mEq/l (+/-2.0); Fractional Inspired Oxygen 40 %; HCO3 ABG 35.1 mEq/l (22.0-26.0); Oxygen Content ABG 16.8 %vol (16.0-22.0); Oxygen Saturation ABG 96.6 % (95.0-100.0); Oxyhemoglobin 95.8 % THb (90.0-100.0); PCO2 ABG 53.7 mmHg (35.0-45.0); PO2 FiO2 Ratio Arterial Blood 2.15 %; Total Hemoglobin 12.4 g/dL (12.0-18.0); pH ABG 7.433 (7.350-7.450)
[2024-09-01 05:19] LABS: Arterial Blood Gas Vent Mode CMV; Arterial Blood Gas Ventilator rate 18 /MIN; Device VENTILATOR; Modified Allen's Test Pass; Site Drawn LEFT RADIAL
[2024-09-01 05:20] LABS: Arterial Blood Gas PEEP 5 cmH2O; Arterial Blood Gas Tidal Volume 400 ml
[2024-09-01 06:02] LABS: Hematocrit 38.9 % (37.0-47.0); Hemoglobin 12.1 g/dL (12.0-15.0); Mean Corpuscular HGB Conc 31.1 g/dl (32-36); Mean Corpuscular Hemoglobin 32.1 pg (26-34); Mean Corpuscular Volume 103.2 fl (80-100); Mean Platelet Volume 12.4 fl (7.4-10.4); Platelet Count Result 144 k/mm3 (150-375); Red Blood Count 3.77 M/mm3 (4.2-5.4); White Blood Count 11.6 K/mm3 (4.5-10.0)
[2024-09-01 06:12] LABS: Alanine Aminotransferase 39 U/L (6-35); Albumin Level 3.6 g/dL (3.5-5.1); Alkaline Phosphatase 41 U/L (38-126); Anion Gap 4 mmol/L (4-12); Aspartate Amino Transferase 22 U/L (14-36); Bilirubin,Total 0.8 mg/dL (0.2-1.3); Blood Urea Nitrogen 31 mg/dL (7-17); Carbon Dioxide 34 mmol/L (22-30); Chloride 105 mmol/L (98-107); Estimated CRCL calculation 82 ml/min; Estimated Glomerular Filt Rate > 60; Glucose 122 mg/dL (65-110); Magnesium 2.7 mg/dL (1.6-2.3); Phosphorus 3.3 mg/dL (2.5-4.5); Potassium 4.4 mmol/L (3.4-5.0); Sodium 143 mmol/L (137-145)
[2024-09-01] MEDS: dexmedeTOMIDine 400 MCG/100 ML 400 MCG/100 ML BAG 10.6 MCG IV CONT ×2 (07:06→16:12)
[2024-09-01] MEDS: methylPREDNISolone SOD SUCC 125 MG VIAL 60 MG IV PUSH (08:07)
[2024-09-01] MEDS: APIXABAN 5 MG TABLET PO ×2 (08:07→21:27)
[2024-09-01] MEDS: FAMOTIDINE 20 MG/2 ML VIAL IV PUSH ×2 (08:07→21:28)
[2024-09-01] MEDS: EMPAGLIFLOZIN 10 MG TABLET PO (08:07)
[2024-09-01] MEDS: SIMVASTATIN 20 MG TABLET PO (08:07)
[2024-09-01] MEDS: FUROSEMIDE INJ 40 MG/4 ML VIAL IV PUSH (08:07)
[2024-09-01] MEDS: MINERAL OIL/WHITE PETROLATUM OINTMENT 1 APPLIC EACH EYE ×2 (08:08→21:28)
--- NOTE | 2024-09-01 08:50 | P.PNINT_ITS ---
Progress Note: A&P Assessment and Plan (1) Respiratory failure: Code(s): J96.90 - Respiratory failure, unspecified, unspecified whether with hypoxia or hypercapnia Status: Acute Assessment and Plan: 08/25: Patient was BiPAP, was switched to Vapotherm, got anxious, tachypneic with diffuse reason, placed back on AVAPS by pulmonology, patient not tolerating that finally had to intubate the patient after getting consent from the son, daughter and the patient, all were in agreement with intubation but no CPR. Patient was intubated and placed on CMV mode of ventilation -chest x-ray reviewed and ET tube advanced to 24 cm at the lip -ABG and vent settings reviewed. Currently on 5 of PEEP and 35-40% FiO2 - 08/29 sedation holiday was performed and patient was evaluate for weaning trial patient became tachycardic tachypneic with abdominal breathing. Despite 15/5 PSV she appeared in distress hence SBT was aborted and patient was placed back on CMV -08/30 sedation holiday was performed to evaluate patient for weaning trial patient again became quickly tachycardic tachypneic and asynchronous with the ventilator. Patient was not a candidate for SBT.. Later in the day patient went into AFib with RVR on loading sedation -08/31 on holding propofol patient became tachypneic tachycardic agitated despite being on fentanyl and Precedex. Not a candidate for SBT 09/01 again today patient on cutting on propofol and fentanyl became tachypneic tachycardic and agitated with abdominal breathing. Patient had to be Re sedated for hemodynamic stabilization -antibiotics as below, continue Xopenex and ipratropium nebulizers -management of COPD as below -Lasix IV today Patient is not even tolerate sedation holiday and has not shown any sign of possibility of weaning at this point. Will likely need trach and PEG. (2) COPD exacerbation: Code(s): J44.1 - Chronic obstructive pulmonary disease with (acute) exacerbation Status: Acute Assessment and Plan: 08/24: Presented with shortness of breath to the ED, was found to be in COPD exacerbation, possible pneumonia and a pulmonary vascular congestion -patient was given Solu-Medrol and albuterol treatment in the ER -patient received levofloxacin after which she had some a reaction, with labored breathing, tachypnea, tachycardia. Patient was given Solu-Medrol. Remained short of breath, was transferred to the ICU for further management -patient does use 3-4 L at home for COPD suggesting severe COPD - currently intubated on mechanical ventilation -continue steroids but decrease to q.day -continue bronchodilators, Trelegy Ellipta and antibiotics as above -despite steroids and bronchodilators band continues to have wheezing on exam (3) Pneumonia: Qualifiers: Laterality: unspecified laterality Lung location: unspecified part of lung Pneumonia type: due to unspecified organism Qualified Code(s): J18.9 - Pneumonia, unspecified organism Code(s): J18.9 - Pneumonia, unspecified organism Status: Resolved Assessment and Plan: See above (4) CHF (congestive heart failure): Code(s): I50.9 - Heart failure, unspecified Status: Acute Assessment and Plan: Chest x-ray shows possible pulmonary vascular congestion, patient received Lasix 40 mg x 2 in the ER Echocardiogram08/26/24 Summary 1. Left ventricular chamber dimension is normal. 2. Left ventricular systolic function is normal, estimated at >70%. 3. The left ventricular diastolic function is grade III diastolic dysfunction. 4. Right ventricular systolic function is normal. 5. Left atrial chamber dimension is severely enlarged. 6. Right atrial chamber dimension is moderately enlarged. 7. There is mild mitral valve regurgitation. 8. There is mild tricuspid valve regurgitation. 9. Estimated pulmonary arterial systolic pressure is 50 mmHg. 03/25/2024: Echocardiogram Summary 1. Complete two-dimensional, color flow and Doppler transthoracic echocardiogram is performed. 2. Hyperdynamic appearing left ventricular systolic function with grade 1 diastolic noncompliance. 3. Left atrial enlargement. 4. Mild mitral regurgitation. 5. Left ventricular systolic function is hyperdynamic, estimated at >70%. (5) HTN (hypertension): Code(s): I10 - Essential (primary) hypertension Status: Chronic Assessment and Plan: History of hypertension, will hold antihypertensives at this time (6) Hyperlipidemia: Code(s): E78.5 - Hyperlipidemia, unspecified Status: Chronic Assessment and Plan: Continue simvastatin (7) Elevated serum creatinine: Code(s): R79.89 - Other specified abnormal findings of blood chemistry Status: Acute Assessment and Plan: Slight elevation in creatinine and elevated BUN which could be secondary to steroids also Improved with IV fluid Monitor urine output electrolytes and creatinine (8) Sepsis: Code(s): A41.9 - Sepsis, unspecified organism Status: Acute Assessment and Plan: On admission patient was started on ceftriaxone 70 and doxycycline (for total of 5 days) Initial CT was negative but she did develop take secretion Cultures have been negative 08/31 She has developed fevers overnight Replace Ghotra UA was suggestive of UTI Repeat sputum and blood culture sent Change antibiotics to vanc and Zosyn for broader spectrum coverage (9) Atrial fibrillation with RVR: Code(s): I48.91 - Unspecified atrial fibrillation Status: Acute Assessment and Plan: After sedation holiday patient went into AFib with RVR yesterday. Patient was started on amiodarone drip and quickly converted to sinus rhythm. Immune was turned off after conversion as patient was sinus bradycardic. Continue Eliquis Summary 1. Left ventricular chamber dimension is normal. 2. Left ventricular systolic function is normal, estimated at >70%. 3. The left ventricular diastolic function is grade III diastolic dysfunction. 4. Right ventricular systolic function is normal. 5. Left atrial chamber dimension is severely enlarged. 6. Right atrial chamber dimension is moderately enlarged. 7. There is mild mitral valve regurgitation. 8. There is mild tricuspid valve regurgitation. 9. Estimated pulmonary arterial systolic pressure is 50 mmHg. Plan DVT prophylaxis: Continue Eliquis which she takes at home Stress ulcer prophylaxis: Continue Pepcid Nutrition: tolerating tube feeds Code Status: No CPR, okay to intubate after discussing with family on 08/25/2024. 08/31 I spoke to patient's son by phone and updated him with patient's status including his failure to wean, AFib with RVR, fever and treatment of sepsis. We also discussed goals of care. She told me that patient was not want to live on life support for from her time see. He was went to discuss with other family members before making any further decisions. Critical Care Time Spent: 35 minutes Due to a high probability of clinically significant, life threatening deterioration, the patient required my highest level of preparedness to intervene emergently and I personally spent this critical care time directly and personally managing the patient. This critical care time included obtaining a history; examining the patient; pulse oximetry; ordering and review of studies; arranging urgent treatment with development of a management plan; evaluation of patient's response to treatment; frequent reassessment; and discussions with other providers. It was exclusive of separately billable procedures and treating other patients and teaching time. Please see Assessment and Plan section and the rest of the note for further information on patient assessment and treatment This dictation may have been done utilizing a voice recognition system. Attempts have been made to correct errors. However, there may be uncorrected grammatical, spelling, and recognitions errors present. Subjective Date/time seen: 09/01/24 Overnight events reviewed. febrile Continues to be on mechanical ventilation 40% FiO2 Continues to be on vasopressors Continues to be sedated with propofol Precedex and fentanyl Tolerating tube feeds. Other Vitals acceptable Urine output acceptable Interval history: Reason for consult: Acute hypercapnic respiratory failure, COPD exacerbation, pneumonia Review of Systems Review of Systems: ROS unobtainable: Yes unobtainable due to endotracheal tube, unobtainable due to medical condition and unobtainable due to mental status Exam Narrative: General: Intubated and sedated HEENT:? Pupils equal and reactive, sclera is clear, ETT in place Neck:? Supple Respiratory:? Decreased air entry bilaterally, occasion wheezing noted on today's exam, no rales auscultated Cardiac:? Sinus tachycardia Abdomen:? Soft, nontender, nondistended, hypoactive bowel sounds Extremities:? Trace edema in lower extremities, palpable pedal pulse Neuro:?sedated, intubated, does not open her eyes or follow simple commands code does not withdraw to pain (prior to intubation, patient was tachyc ardic, tachypneic, was able to follow commands and was able to answer questions) Skin:? Warm and dry, no lesions noted Psych:? Unable to assess at this Objective Data Vital Signs Vital Signs: Vital Signs - 24 hr 08/31/24 10:08/31/24 10:08/31/24 10:00 Temperature Pulse Rate 60 60 60 Respiratory Rate 18 18 18 Blood Pressure Pulse Oximetry Oxygen Delivery Fraction of Inspired Oxygen 08/31/24 10:08/31/24 10:08/31/24 10:02 Temperature 38.3 C H Pulse Rate 64 54 L 71 Respiratory Rate 14 Blood Pressure 112/71 Pulse Oximetry 94 96 Oxygen Delivery Mechanical Ventilation Fraction of Inspired Oxygen 32 08/31/24 12:00 08/31/24 12:00 08/31/24 12:00 Temperature Pulse Rate 58 L 58 L 58 L Respiratory Rate 18 18 18 Blood Pressure Pulse Oximetry Oxygen Delivery Fraction of Inspired Oxygen 08/31/24 12:00 08/31/24 12:00 08/31/24 12:00 Temperature Pulse Rate 52 L Respiratory Rate Blood Pressure Pulse Oximetry Oxygen Delivery Mechanical Ventilation Fraction of Inspired Oxygen 32 32 08/31/24 12:00 08/31/24 12:55 08/31/24 12:55 Temperature 38.3 C H Pulse Rate 53 L 54 L 54 L Respiratory Rate 18 22 H Blood Pressure 124/72 Pulse Oximetry 94 94 Oxygen Delivery Mechanical Ventilation Fraction of Inspired Oxygen 30 08/31/24 13:05 08/31/24 14:00 08/31/24 14:00 Temperature Pulse Rate 53 L 60 60 Respiratory Rate 22 H 18 18 Blood Pressure Pulse Oximetry Oxygen Delivery Fraction of Inspired Oxygen 08/31/24 14:00 08/31/24 14:00 08/31/24 14:00 Temperature 38.0 C H Pulse Rate 60 65 65 Respiratory Rate 18 18 Blood Pressure 127/84 Pulse Oximetry 93 Oxygen Delivery Fraction of Inspired Oxygen 08/31/24 14:23 08/31/24 14:25 08/31/24 14:25 Temperature Pulse Rate 58 L 58 L 58 L Respiratory Rate 18 18 18 Blood Pressure Pulse Oximetry Oxygen Delivery Fraction of Inspired Oxygen 08/31/24 15:46 08/31/24 16:00 08/31/24 16:00 Temperature 38.0 C H Pulse Rate 48 L 51 L 45 L Respiratory Rate 18 17 Blood Pressure 148/74 H Pulse Oximetry 93 91 Oxygen Delivery Mechanical Ventilation Fraction of Inspired Oxygen 30 08/31/24 16:00 08/31/24 16:00 08/31/24 16:00 Temperature Pulse Rate 47 L 47 L 47 L Respiratory Rate 18 18 18 Blood Pressure Pulse Oximetry Oxygen Delivery Fraction of Inspired Oxygen 08/31/24 16:00 08/31/24 16:00 08/31/24 16:00 Temperature Pulse Rate 47 L Respiratory Rate Blood Pressure Pulse Oximetry Oxygen Delivery Mechanical Ventilation Fraction of Inspired Oxygen 30 30 08/31/24 16:49 08/31/24 16:50 08/31/24 17:25 Temperature Pulse Rate 46 L 46 L 96 Respiratory Rate 19 19 23 H Blood Pressure Pulse Oximetry Oxygen Delivery Fraction of Inspired Oxygen 08/31/24 17:31 08/31/24 17:37 08/31/24 18:00 Temperature Pulse Rate 98 102 H 49 L Respiratory Rate 20 24 H Blood Pressure Pulse Oximetry Oxygen Delivery Fraction of Inspired Oxygen 08/31/24 18:00 08/31/24 18:00 08/31/24 18:00 Temperature 37.9 C H Pulse Rate 47 L 49 L 47 L Respiratory Rate 18 18 18 Blood Pressure 147/77 H Pulse Oximetry 90 Oxygen Delivery Fraction of Inspired Oxygen 08/31/24 18:00 08/31/24 19:35 08/31/24 20:00 Temperature Pulse Rate 47 L 44 L 44 L Respiratory Rate 18 18 18 Blood Pressure Pulse Oximetry Oxygen Delivery Fraction of Inspired Oxygen 08/31/24 20:00 08/31/24 20:00 08/31/24 20:00 Temperature Pulse Rate 44 L 44 L Respiratory Rate 18 18 Blood Pressure Pulse Oximetry Oxygen Delivery Mechanical Ventilation Fraction of Inspired Oxygen 35 08/31/24 20:00 08/31/24 20:00 08/31/24 20:01 Temperature 37.9 C H Pulse Rate 52 L 44 L Respiratory Rate 18 Blood Pressure 171/78 H Pulse Oximetry 92 Oxygen Delivery Fraction of Inspired Oxygen 35 08/31/24 20:12 08/31/24 20:13 08/31/24 20:22 Temperature Pulse Rate 45 L 45 L 44 L Respiratory Rate 18 18 Blood Pressure Pulse Oximetry 92 Oxygen Delivery Mechanical Ventilation Fraction of Inspired Oxygen 30 08/31/24 20:31 08/31/24 20:32 08/31/24 21:41 Temperature 37.9 C H Pulse Rate 44 L 44 L 48 L Respiratory Rate 18 19 23 H Blood Pressure 162/74 H Pulse Oximetry 91 Oxygen Delivery Fraction of Inspired Oxygen 08/31/24 21:41 08/31/24 22:00 08/31/24 22:00 Temperature Pulse Rate 48 L 46 L 46 L Respiratory Rate 23 H 18 18 Blood Pressure Pulse Oximetry Oxygen Delivery Fraction of Inspired Oxygen 08/31/24 22:00 08/31/24 22:00 08/31/24 22:01 Temperature 37.7 C H Pulse Rate 46 L 45 L 45 L Respiratory Rate 18 18 Blood Pressure 142/73 H Pulse Oximetry 91 Oxygen Delivery Fraction of Inspired Oxygen 08/31/24 23:20 09/01/24 00:00 09/01/24 00:00 Temperature Pulse Rate 72 74 74 Respiratory Rate 18 18 Blood Pressure Pulse Oximetry 94 Oxygen Delivery Mechanical Ventilation Fraction of Inspired Oxygen 40 09/01/24 00:00 09/01/24 00:00 09/01/24 00:00 Temperature Pulse Rate 74 Respiratory Rate 18 Blood Pressure Pulse Oximetry Oxygen Delivery Mechanical Ventilation Fraction of Inspired Oxygen 40 40 09/01/24 00:00 09/01/24 00:02 09/01/24 00:38 Temperature 37.8 C H Pulse Rate 59 L 80 78 Respiratory Rate 16 22 H Blood Pressure 143/117 H Pulse Oximetry 92 Oxygen Delivery Fraction of Inspired Oxygen 09/01/24 01:00 09/01/24 01:40 09/01/24 02:00 Temperature 37.9 C H Pulse Rate 52 L 48 L 48 L Respiratory Rate 18 19 18 Blood Pressure 126/68 Pulse Oximetry 95 Oxygen Delivery Fraction of Inspired Oxygen 09/01/24 02:00 09/01/24 02:00 09/01/24 02:00 Temperature Pulse Rate 48 L 48 L 48 L Respiratory Rate 18 18 Blood Pressure Pulse Oximetry Oxygen Delivery Fraction of Inspired Oxygen 09/01/24 02:01 09/01/24 02:30 09/01/24 04:00 Temperature 38.1 C H Pulse Rate 48 L 48 L 70 Respiratory Rate 18 18 Blood Pressure 131/67 Pulse Oximetry 92 96 Oxygen Delivery Mechanical Ventilation Fraction of Inspired Oxygen 40 09/01/24 04:00 09/01/24 04:00 09/01/24 04:00 Temperature Pulse Rate 70 70 70 Respiratory Rate 18 18 18 Blood Pressure Pulse Oximetry Oxygen Delivery Fraction of Inspired Oxygen 09/01/24 04:00 09/01/24 04:00 09/01/24 04:00 Temperature Pulse Rate 88 Respiratory Rate Blood Pressure Pulse Oximetry Oxygen Delivery Mechanical Ventilation Fraction of Inspired Oxygen 40 40 09/01/24 04:01 09/01/24 05:01 09/01/24 05:22 Temperature 38.1 C H 37.9 C H Pulse Rate 87 65 57 L Respiratory Rate 18 18 Blood Pressure 142/77 H 132/69 Pulse Oximetry 98 97 96 Oxygen Delivery Mechanical Ventilation Fraction of Inspired Oxygen 40 09/01/24 05:27 09/01/24 06:00 09/01/24 06:00 Temperature Pulse Rate 46 L 70 70 Respiratory Rate 19 18 18 Blood Pressure Pulse Oximetry Oxygen Delivery Fraction of Inspired Oxygen 09/01/24 06:00 09/01/24 06:00 09/01/24 06:01 Temperature 37.4 C Pulse Rate 70 68 68 Respiratory Rate 18 15 Blood Pressure 128/66 Pulse Oximetry 94 Oxygen Delivery Fraction of Inspired Oxygen 09/01/24 07:06 09/01/24 07:06 09/01/24 07:54 Temperature 37.6 C H Pulse Rate 50 L 50 L 48 L Respiratory Rate 18 18 12 Blood Pressure 110/62 Pulse Oximetry 94 Oxygen Delivery Fraction of Inspired Oxygen 09/01/24 08:00 09/01/24 08:00 09/01/24 08:00 Temperature Pulse Rate 74 74 74 Respiratory Rate 18 18 18 Blood Pressure Pulse Oximetry Oxygen Delivery Fraction of Inspired Oxygen 09/01/24 08:19 09/01/24 08:19 09/01/24 08:29 Temperature Pulse Rate 150 H 150 H 91 Respiratory Rate 25 H 25 H Blood Pressure Pulse Oximetry 93 Oxygen Delivery Mechanical Ventilation Fraction of Inspired Oxygen 40 09/01/24 08:29 09/01/24 08:45 Temperature Pulse Rate 91 91 Respiratory Rate 23 H 20 Blood Pressure Pulse Oximetry Oxygen Delivery Fraction of Inspired Oxygen Intake/Output Intake/Output: Intake & Output 08/29/24 08/30/24 08/31/24 09/01/24 23:59 23:59 23:59 23:59 Intake Total 2220.0 2753.9 3024.2 1673.6 Output Total 1750 1400 2725 1110 Balance 470.0 1353.9 299.2 563.6 Meds/Results Medications: Active Medications Generic Name Dose Route Start Last Admin Trade Name Freq PRN Reason Stop Dose Admin Apixaban 5 mg 08/25/24 21:00 09/01/24 08:07 Apixaban 5 Mg Tablet PO 5 mg Q12HR ALEXIS Administration Buspirone HCl 7.5 mg 08/25/24 21:00 08/27/24 20:18 Buspirone Hcl 2.5 Mg Tablet PO 7.5 mg Q12HR ALEXIS Administration Dextrose 12.5 gm 08/24/24 16:31 Dextrose 50% 25 Gm/50 Ml Syringe IV PUSH PRN PRN Hypoglycemia Protocol Empagliflozin 10 mg 08/26/24 09:00 09/01/24 08:07 Empagliflozin 10 Mg Tablet PO 10 mg DAILY ALEXIS Administration Famotidine 20 mg 08/24/24 21:00 09/01/24 08:07 Famotidine 20 Mg/2 Ml Vial IV PUSH 20 mg Q12HR ALEXIS Administration Fentanyl Citrate 50 mcg 08/25/24 12:25 08/31/24 06:03 Fentanyl Citrate Inj (*Crx) 100 Mcg/2 Ml Vial IV PUSH 50 mcg Q2HR PRN Administration Ventilator Asynchrony Fluticasone/Umeclidinium/Vilanterol 1 puff 08/25/24 08:00 08/30/24 07:50 Fluticasone/Umeclidin/Vilanter 200-62.5-25 Mcg Ellipta INHALATION Not Given DAILYRT ALEXIS Glucagon 1 mg 08/24/24 16:31 Glucagon For Inj 1 Mg Vial IM PRN PRN Hypoglycemia Protocol Glucose 15 gm 08/24/24 16:31 Glucose Oral Gel 15 Gm Of Glucse In 37.5 Gm Tube PO PRN PRN Hypoglycemia Protocol Dextrose 1,000 mls @ 100 mls/hr 08/24/24 16:31 Dextrose 5% 1,000 Ml IVPB PRN PRN Hypoglycemia Protocol Fentanyl Citrate 2,500 mcg in 250 mls @ 15 mls/hr 08/25/24 13:25 09/01/24 08:19 Fentanyl 2,500 Mcg/Ns 250 Ml IV CONT 150 mcg/hr .[id number] ALEXIS 15 mls/hr Titration Protocol 150 MCG/HR Dexmedetomidine HCl 400 mcg in 100 mls @ 10.6 mls/hr 08/30/24 10:05 09/01/24 08:03 Precedex 400 Mcg/100 Ml IV CONT Not Given .Q9H27M ALEXIS Protocol 0.5 MCG/KG/HR Piperacillin/Tazobactam/Dextrose 3.375 gm in 50 mls @ 100 mls/hr 08/31/24 09:00 09/01/24 08:07 Zosyn 3.375 Gm/Ns 50 Ml IVPB 100 mls/hr Q6H ALEXIS Administration Vancomycin HCl 1,500 mg in 500 mls @ 250 mls/hr 09/01/24 05:00 09/01/24 06:56 Vancomycin 1,500 Mg/Ns 500 Ml IVPB Infused Q18H ALEXIS Infusion Propofol 100 mls @ 15.444 mls/hr 08/31/24 16:55 09/01/24 08:19 Diprivan IV CONT 30 mcg/kg/min .Q6H29M ALEXIS 15.44 mls/hr Titration Protocol 30 MCG/KG/MIN Insulin Aspart 3 - 6 units 08/24/24 18:00 09/01/24 06:55 Insulin Aspart (*Bkc) 100 Units/Ml SUB-Q Not Given Q6HR ALEXIS Protocol Levalbuterol HCl 1.25 mg 08/25/24 14:50 09/01/24 08:29 Levalbuterol Neb 1.25 Mg/3 Ml INHALATION 1.25 mg Q6HRT ALEXIS Administration Methylprednisolone Sodium Succinate 60 mg 08/28/24 12:00 09/01/24 08:07 Methylprednisolone Sod Succ 125 Mg Vial IV PUSH 60 mg QAM ALEXIS Administration Multi-Ingred Cream/Lotion/Oil/Oint 1 applic 08/25/24 21:00 09/01/24 08:08 Mineral Oil/White Petrolatum Ointment EACH EYE 1 applic Q12HR ALEXIS Administration Simvastatin 20 mg 08/26/24 09:00 09/01/24 08:07 Simvastatin 20 Mg Tablet PO 20 mg DAILY ALEXIS Administration Radiology Results: ITS Impressions Chest CTA 08/24/24 16:37 IMPRESSION: 1. No pulmonary embolism. 2. No acute cardiopulmonary pathology. 3. 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 Further evaluation and clinical correlation advised. 4. Emphysematous changes of the lungs. 5. Multiple healing rib fractures in the right hemithorax. 6. Fat infiltration of the liver. Abdomen X-Ray 08/25/24 10:34 IMPRESSION: NG tube in stomach Chest X-Ray 09/01/24 06:27 IMPRESSION: ET and NG tube in satisfactory position Emphysema Minimal infiltrate or atelectasis is suggested in the lower lung zones Labs Labs: Laboratory Results - last 24 hr 08/31/24 08/31/24 08/31/24 08:54 10:16 11:41 WBC RBC Hgb Hct MCV MCH MCHC RDW Plt Count MPV Puncture Site ABG pH ABG pCO2 ABG pO2 ABG PO2/FiO2 Ratio ABG HCO3 ABG O2 Saturation ABG O2 Content ABG Base Excess A-a Gradient Oxyhemoglobin Total Hemoglobin O2 Delivery Device O2 Liters/Min Minute Volume Vent Rate Vent Mode FiO2 Tidal Volume PEEP Peak Inspir Pressure Pressure Support Sodium Potassium Chloride Carbon Dioxide Anion Gap BUN Creatinine Estim Creat Clear Calc Estimated GFR Glucose POC Capillary Glucose 151 H Calcium Phosphorus Magnesium Total Bilirubin AST ALT Alkaline Phosphatase Total Protein Albumin Procalcitonin 0.1 Urine Color Yellow Urine Appearance Turbid H Urine pH 5.5 Ur Specific [place] 1.028 Urine Protein 1+ H Urine Glucose (UA) 3+ H Urine Ketones Negative Ur Blood (Man) 3+ H Urine Nitrate Negative Urine Bilirubin Negative Urine Urobilinogen 0.2 Add Ur Microanalysis Reviewed Leukocyte Esterase Rfl 1+ H Urine RBC >100 H Urine WBC 21-50 H Ur Squamous Epith Cells Many H Urine Bacteria Rare Urine Casts 6-10 Nasal MRSA (PCR) 08/31/24 08/31/24 09/01/24 11:43 17:35 00:28 WBC RBC Hgb Hct MCV MCH MCHC RDW Plt Count MPV Puncture Site ABG pH ABG pCO2 ABG pO2 ABG PO2/FiO2 Ratio ABG HCO3 ABG O2 Saturation ABG O2 Content ABG Base Excess A-a Gradient Oxyhemoglobin Total Hemoglobin O2 Delivery Device O2 Liters/Min Minute Volume Vent Rate Vent Mode FiO2 Tidal Volume PEEP Peak Inspir Pressure Pressure Support Sodium Potassium Chloride Carbon Dioxide Anion Gap BUN Creatinine Estim Creat Clear Calc Estimated GFR Glucose POC Capillary Glucose 164 H 129 H Calcium Phosphorus Magnesium Total Bilirubin AST ALT Alkaline Phosphatase Total Protein Albumin Procalcitonin Urine Color Urine Appearance Urine pH Ur Specific [place] Urine Protein Urine Glucose (UA) Urine Ketones Ur Blood (Man) Urine Nitrate Urine Bilirubin Urine Urobilinogen Add Ur Microanalysis Leukocyte Esterase Rfl Urine RBC Urine WBC Ur Squamous Epith Cells Urine Bacteria Urine Casts Nasal MRSA (PCR) Not detected 09/01/24 09/01/24 09/01/24 04:15 04:15 04:15 WBC 11.6 H RBC 3.77 L Hgb 12.1 Hct 38.9 MCV 103.2 H MCH 32.1 MCHC 31.1 L RDW 13.0 Plt Count 144 L MPV 12.4 H Puncture Site ABG pH ABG pCO2 ABG pO2 ABG PO2/FiO2 Ratio ABG HCO3 ABG O2 Saturation ABG O2 Content ABG Base Excess A-a Gradient Oxyhemoglobin Total Hemoglobin O2 Delivery Device O2 Liters/Min Minute Volume Vent Rate Vent Mode FiO2 Tidal Volume PEEP Peak Inspir Pressure Pressure Support Sodium 143 Potassium 4.4 Chloride 105 Carbon Dioxide 34 H Anion Gap 4 BUN 31 H Creatinine 0.51 L 0.53 L Estim Creat Clear Calc 84 82 Estimated GFR > 60 Glucose POC Capillary Glucose Calcium Phosphorus Magnesium Total Bilirubin AST ALT Alkaline Phosphatase Total Protein Albumin Procalcitonin Urine Color Urine Appearance Urine pH Ur Specific [place] Urine Protein Urine Glucose (UA) Urine Ketones Ur Blood (Man) Urine Nitrate Urine Bilirubin Urine Urobilinogen Add Ur Microanalysis Leukocyte Esterase Rfl Urine RBC Urine WBC Ur Squamous Epith Cells Urine Bacteria Urine Casts Nasal MRSA (PCR) 09/01/24 09/01/24 04:15 05:09 WBC RBC Hgb Hct MCV MCH MCHC RDW Plt Count MPV Puncture Site Left radial ABG pH 7.433 ABG pCO2 53.7 H ABG pO2 86.0 ABG PO2/FiO2 Ratio 2.15 ABG HCO3 35.1 H ABG O2 Saturation 96.6 ABG O2 Content 16.8 ABG Base Excess 9.2 A-a Gradient 137.4 Oxyhemoglobin 95.8 Total Hemoglobin 12.4 O2 Delivery Device Ventilator O2 Liters/Min Not Reportable Minute Volume Not Reportable Vent Rate 18 Vent Mode Cmv FiO2 40 Tidal Volume 400 PEEP 5 Peak Inspir Pressure Not Reportable Pressure Support Not Reportable Sodium Potassium Chloride Carbon Dioxide Anion Gap BUN Creatinine Estim Creat Clear Calc Estimated GFR > 60 Glucose 122 H POC Capillary Glucose Calcium 9.0 Phosphorus 3.3 Magnesium 2.7 H Total Bilirubin 0.8 AST 22 ALT 39 H Alkaline Phosphatase 41 Total Protein 6.0 L Albumin 3.6 Procalcitonin Urine Color Urine Appearance Urine pH Ur Specific [place] Urine Protein Urine Glucose (UA) Urine Ketones Ur Blood (Man) Urine Nitrate Urine Bilirubin Urine Urobilinogen Add Ur Microanalysis Leukocyte Esterase Rfl Urine RBC Urine WBC Ur Squamous Epith Cells Urine Bacteria Urine Casts Nasal MRSA (PCR) Quality VTE Prophylaxis VTE prophylaxis: pharmacologic ordered
[2024-09-01] MEDS: FENTANYL 2,500MCG/NS250ML(*CRX 2,500 MCG/250 ML BAG 15 MCG IV CONT (09:44)
[2024-09-01] MEDS: PROPOFOL IV EMULSION 100 ML 12.87 MG IV CONT (10:34)
[2024-09-01 12:02] LABS: Glucose Point of Care 164 mg/dl (65-105)
[2024-09-01] MEDS: PROPOFOL IV EMULSION 100 ML 15.44 MG IV CONT ×2 (17:02→22:59)
[2024-09-01] MEDS: AMIODARONE 150 MG/D5W 100 ML 150 MG/100 ML BAG 600 MG IV CONT (17:14)
[2024-09-01 17:25] LABS: Glucose Point of Care 179 mg/dl (65-105)
--- NOTE | 2024-09-01 18:17 | PC.NURSE ---
Spoke with Minoo at [facility] due to son stating they are most likely going to withdraw care sometime this week. Minoo states that patient is not a candidate due to her history of Melanoma and we need to just call them with a time of if the family does withdraw.
[2024-09-01 23:14] LABS: Vancomycin Trough 9.5 ug/mL (10.0-20.0)
[2024-09-02] VITALS (50 sets, daily range): BP systolic 95–140; BP diastolic 64–98; PULSE 50–120; RESP 12–20; TEMP 37.2–38.1; O2SAT 90–97
[2024-09-02] MEDS: VANCOMYCIN 1,500 MG/NS 500 ML 1,500 MG/500 ML BAG 250 MG IVPB (00:52)
[2024-09-02 01:06] LABS: Glucose Point of Care 134 mg/dl (65-105)
[2024-09-02] MEDS: LEVALBUTEROL NEB 1.25 MG/3 ML INHALATION ×4 (02:30→20:20)
[2024-09-02] MEDS: dexmedeTOMIDine 400 MCG/100 ML 400 MCG/100 ML BAG 10.6 MCG IV CONT (02:35)
[2024-09-02] MEDS: FENTANYL 2,500MCG/NS250ML(*CRX 2,500 MCG/250 ML BAG 15 MCG IV CONT ×2 (02:35→20:06)
[2024-09-02] MEDS: PIPERACILLN/TAZ 3.375GM/NS50ML 3.375 GM/50 ML BAG IVPB ×4 (03:31→20:16)
[2024-09-02 04:17] LABS: Estimated CRCL calculation 78 ml/min; Estimated Glomerular Filt Rate > 60
[2024-09-02 05:09] LABS: Alveolar/Arterial O2 Gradient 141.2 mmHg; Base Excess ABG 7.2 mEq/l (+/-2.0); Fractional Inspired Oxygen 40 %; HCO3 ABG 33.1 mEq/l (22.0-26.0); Oxygen Content ABG 17.2 %vol (16.0-22.0); Oxygen Saturation ABG 96.2 % (95.0-100.0); Oxyhemoglobin 95.4 % THb (90.0-100.0); PCO2 ABG 52.7 mmHg (35.0-45.0); PO2 ABG 83.4 mmHg (80.0-100.0); PO2 FiO2 Ratio Arterial Blood 2.09 %; Site Drawn RIGHT RADIAL; Total Hemoglobin 12.8 g/dL (12.0-18.0); pH ABG 7.416 (7.350-7.450)
[2024-09-02 05:10] LABS: Arterial Blood Gas PEEP 5 cmH2O; Arterial Blood Gas Tidal Volume 400 ml; Arterial Blood Gas Vent Mode CMV; Arterial Blood Gas Ventilator rate 18 /MIN; Device VENTILATOR; Modified Allen's Test Pass
[2024-09-02] MEDS: PROPOFOL IV EMULSION 100 ML 15.44 MG IV CONT (05:42)
[2024-09-02 06:44] LABS: Glucose Point of Care 107 mg/dl (65-105)
[2024-09-02 08:29] LABS: Triglycerides 93 mg/dL (<150)
[2024-09-02] MEDS: APIXABAN 5 MG TABLET PO ×2 (08:32→20:15)
[2024-09-02] MEDS: SIMVASTATIN 20 MG TABLET PO (08:32)
[2024-09-02] MEDS: EMPAGLIFLOZIN 10 MG TABLET PO (08:33)
[2024-09-02] MEDS: FAMOTIDINE 20 MG/2 ML VIAL IV PUSH ×2 (08:36→20:15)
[2024-09-02] MEDS: MINERAL OIL/WHITE PETROLATUM OINTMENT 1 APPLIC EACH EYE ×2 (08:36→20:16)
[2024-09-02] MEDS: methylPREDNISolone SOD SUCC 125 MG VIAL 60 MG IV PUSH (08:36)
--- NOTE | 2024-09-02 09:34 | P.PNINT_ITS ---
Progress Note: A&P Assessment and Plan (1) Respiratory failure: Code(s): J96.90 - Respiratory failure, unspecified, unspecified whether with hypoxia or hypercapnia Status: Acute Assessment and Plan: 08/25: Patient was BiPAP, was switched to Vapotherm, got anxious, tachypneic with diffuse reason, placed back on AVAPS by pulmonology, patient not tolerating that finally had to intubate the patient after getting consent from the son, daughter and the patient, all were in agreement with intubation but no CPR. Patient was intubated and placed on CMV mode of ventilation -chest x-ray reviewed and ET tube advanced to 24 cm at the lip -ABG and vent settings reviewed. Currently on 5 of PEEP and 35-40% FiO2 - 08/29 sedation holiday was performed and patient was evaluate for weaning trial patient became tachycardic tachypneic with abdominal breathing. Despite 15/5 PSV she appeared in distress hence SBT was aborted and patient was placed back on CMV -08/30 sedation holiday was performed to evaluate patient for weaning trial patient again became quickly tachycardic tachypneic and asynchronous with the ventilator. Patient was not a candidate for SBT.. Later in the day patient went into AFib with RVR on loading sedation -08/31 on holding propofol patient became tachypneic tachycardic agitated despite being on fentanyl and Precedex. Not a candidate for SBT 09/01 and 09/02 patient on cutting on propofol and fentanyl became tachypneic tachycardic and agitated with abdominal breathing. Patient had to be resedated for hemodynamic stabilization -antibiotics as below, continue Xopenex and ipratropium nebulizers -management of COPD as below - patient has received Lasix intermittently Patient is not even tolerate sedation holiday and has not shown any sign of possibility of weaning at this point. Will likely need trach and PEG. (2) COPD exacerbation: Code(s): J44.1 - Chronic obstructive pulmonary disease with (acute) exacerbation Status: Acute Assessment and Plan: 08/24: Presented with shortness of breath to the ED, was found to be in COPD exacerbation, possible pneumonia and a pulmonary vascular congestion -patient was given Solu-Medrol and albuterol treatment in the ER -patient received levofloxacin after which she had some a reaction, with labored breathing, tachypnea, tachycardia. Patient was given Solu-Medrol. Remained short of breath, was transferred to the ICU for further management -patient does use 3-4 L at home for COPD suggesting severe COPD - currently intubated on mechanical ventilation -continue steroids but decrease to q.day -continue bronchodilators, Trelegy Ellipta and antibiotics as above -despite steroids and bronchodilators band continues to have wheezing on exam (3) Pneumonia: Qualifiers: Laterality: unspecified laterality Lung location: unspecified part of lung Pneumonia type: due to unspecified organism Qualified Code(s): J18.9 - Pneumonia, unspecified organism Code(s): J18.9 - Pneumonia, unspecified organism Status: Resolved Assessment and Plan: See above (4) CHF (congestive heart failure): Code(s): I50.9 - Heart failure, unspecified Status: Acute Assessment and Plan: Chest x-ray shows possible pulmonary vascular congestion, patient has received Lasix intermittently depending on her volume status Echocardiogram08/26/24 Summary 1. Left ventricular chamber dimension is normal. 2. Left ventricular systolic function is normal, estimated at >70%. 3. The left ventricular diastolic function is grade III diastolic dysfunction. 4. Right ventricular systolic function is normal. 5. Left atrial chamber dimension is severely enlarged. 6. Right atrial chamber dimension is moderately enlarged. 7. There is mild mitral valve regurgitation. 8. There is mild tricuspid valve regurgitation. 9. Estimated pulmonary arterial systolic pressure is 50 mmHg. 03/25/2024: Echocardiogram Summary 1. Complete two-dimensional, color flow and Doppler transthoracic echocardiogram is performed. 2. Hyperdynamic appearing left ventricular systolic function with grade 1 diastolic noncompliance. 3. Left atrial enlargement. 4. Mild mitral regurgitation. 5. Left ventricular systolic function is hyperdynamic, estimated at >70%. (5) HTN (hypertension): Code(s): I10 - Essential (primary) hypertension Status: Chronic Assessment and Plan: History of hypertension, will hold antihypertensives at this time (6) Hyperlipidemia: Code(s): E78.5 - Hyperlipidemia, unspecified Status: Chronic Assessment and Plan: Continue simvastatin (7) Elevated serum creatinine: Code(s): R79.89 - Other specified abnormal findings of blood chemistry Status: Acute Assessment and Plan: Slight elevation in creatinine and elevated BUN which could be secondary to steroids also Improved with IV fluid Monitor urine output electrolytes and creatinine (8) Sepsis: Code(s): A41.9 - Sepsis, unspecified organism Status: Acute Assessment and Plan: On admission patient was started on ceftriaxone 70 and doxycycline (for total of 5 days) Initial CT was negative but she did develop take secretion Cultures have been negative 08/31 She has developed fevers overnight Replace Ghotra UA was suggestive of UTI Repeat sputum and blood culture sent Change antibiotics to vanc and Zosyn for broader spectrum coverage (9) Atrial fibrillation with RVR: Code(s): I48.91 - Unspecified atrial fibrillation Status: Acute Assessment and Plan: After sedation holiday patient went into AFib with RVR . Patient was started on amiodarone drip and quickly converted to sinus rhythm. amiodarone was turned off after conversion as patient was sinus bradycardic. 09/02 went back into AFib with overnight but controlled ventricular rate at this time. Holding amiodarone unless patient is tachycardic as patient does get bradycardic min sedated Continue Eliquis Summary 1. Left ventricular chamber dimension is normal. 2. Left ventricular systolic function is normal, estimated at >70%. 3. The left ventricular diastolic function is grade III diastolic dysfunction. 4. Right ventricular systolic function is normal. 5. Left atrial chamber dimension is severely enlarged. 6. Right atrial chamber dimension is moderately enlarged. 7. There is mild mitral valve regurgitation. 8. There is mild tricuspid valve regurgitation. 9. Estimated pulmonary arterial systolic pressure is 50 mmHg. Plan DVT prophylaxis: Continue Eliquis which she takes at home Stress ulcer prophylaxis: Continue Pepcid Nutrition: tolerating tube feeds Code Status: No CPR, okay to intubate after discussing with family on 08/25/2024. 08/31 I spoke to patient's son by phone and updated him with patient's status including his failure to wean, AFib with RVR, fever and treatment of sepsis. We also discussed goals of care. She told me that patient was not want to live on life support for from her time see. He was went to discuss with other family members before making any further decisions. Critical Care Time Spent: 32 minutes Due to a high probability of clinically significant, life threatening deterioration, the patient required my highest level of preparedness to intervene emergently and I personally spent this critical care time directly and personally managing the patient. This critical care time included obtaining a history; examining the patient; pulse oximetry; ordering and review of studies; arranging urgent treatment with development of a management plan; evaluation of patient's response to treatment; frequent reassessment; and discussions with other providers. It was exclusive of separately billable procedures and treating other patients and teaching time. Please see Assessment and Plan section and the rest of the note for further information on patient assessment and treatment This dictation may have been done utilizing a voice recognition system. Attempts have been made to correct errors. However, there may be uncorrected grammatical, spelling, and recognitions errors present. Subjective Date/time seen: 09/02/24 Overnight events reviewed. febrile Overnight but afebrile this morning Continues to be on mechanical ventilation 40% FiO2 her rhythm went back into AFib but with controlled ventricular rate. Continues to be sedated with propofol Precedex and fentanyl Tolerating tube feeds. Other Vitals acceptable Urine output acceptable Interval history: Reason for consult: Acute hypercapnic respiratory failure, COPD exacerbation, pneumonia Review of Systems Review of Systems: ROS unobtainable: Yes unobtainable due to endotracheal tube, unobtainable due to medical condition and unobtainable due to mental status Exam Narrative: General: Intubated and sedated HEENT:? Pupils equal and reactive, sclera is clear, ETT in place Neck:? Supple Respiratory:? Decreased air entry bilaterally, occasion wheezing noted on today's exam, no rales auscultated Cardiac:? Sinus tachycardia Abdomen:? Soft, nontender, nondistended, hypoactive bowel sounds Extremities:? Trace edema in lower extremities, palpable pedal pulse Neuro:?sedated, intubated, does not open her eyes or follow simple commands code does not withdraw to pain (prior to intubation, patient was tachyc ardic, tachypneic, was able to follow commands and was able to answer questions) Skin:? Warm and dry, no lesions noted Psych:? Unable to assess at this Objective Data Vital Signs Vital Signs: Vital Signs - 24 hr 09/01/24 09:38 09/01/24 09:44 09/01/24 10:00 Temperature 37.8 C H Pulse Rate 91 87 89 Respiratory Rate 15 19 18 Blood Pressure 101/71 Pulse Oximetry 93 Oxygen Delivery Fraction of Inspired Oxygen 09/01/24 10:00 09/01/24 10:00 09/01/24 10:00 Temperature Pulse Rate 89 89 89 Respiratory Rate 18 18 Blood Pressure Pulse Oximetry Oxygen Delivery Fraction of Inspired Oxygen 09/01/24 10:34 09/01/24 10:34 09/01/24 10:52 Temperature Pulse Rate 92 92 81 Respiratory Rate 18 18 Blood Pressure Pulse Oximetry 92 Oxygen Delivery Mechanical Ventilation Fraction of Inspired Oxygen 40 09/01/24 12:00 09/01/24 12:00 09/01/24 12:00 Temperature 38.4 C H Pulse Rate 79 83 Respiratory Rate 18 Blood Pressure 105/66 Pulse Oximetry 92 Oxygen Delivery Mechanical Ventilation Fraction of Inspired Oxygen 40 09/01/24 12:00 09/01/24 12:00 09/01/24 12:00 Temperature Pulse Rate 89 89 Respiratory Rate 18 18 Blood Pressure Pulse Oximetry Oxygen Delivery Fraction of Inspired Oxygen 40 09/01/24 12:00 09/01/24 13:16 09/01/24 13:16 Temperature Pulse Rate 89 86 86 Respiratory Rate 18 18 Blood Pressure Pulse Oximetry 94 Oxygen Delivery Mechanical Ventilation Fraction of Inspired Oxygen 40 09/01/24 13:26 09/01/24 13:44 09/01/24 14:00 Temperature Pulse Rate 93 92 80 Respiratory Rate 18 18 Blood Pressure 94/65 L Pulse Oximetry 94 Oxygen Delivery Fraction of Inspired Oxygen 09/01/24 14:00 09/01/24 14:00 09/01/24 14:00 Temperature Pulse Rate 85 85 85 Respiratory Rate 18 18 18 Blood Pressure Pulse Oximetry Oxygen Delivery Fraction of Inspired Oxygen 09/01/24 16:00 09/01/24 16:00 09/01/24 16:00 Temperature Pulse Rate 89 89 89 Respiratory Rate 18 18 18 Blood Pressure Pulse Oximetry Oxygen Delivery Fraction of Inspired Oxygen 09/01/24 16:00 09/01/24 16:00 09/01/24 16:00 Temperature 38.5 C H Pulse Rate 110 H Respiratory Rate 19 Blood Pressure 106/70 Pulse Oximetry 93 Oxygen Delivery Mechanical Ventilation Fraction of Inspired Oxygen 40 40 09/01/24 16:00 09/01/24 16:12 09/01/24 16:12 Temperature Pulse Rate 86 79 79 Respiratory Rate 18 18 Blood Pressure Pulse Oximetry Oxygen Delivery Fraction of Inspired Oxygen 09/01/24 16:19 09/01/24 17:02 09/01/24 17:02 Temperature Pulse Rate 89 89 89 Respiratory Rate 18 18 Blood Pressure Pulse Oximetry 94 Oxygen Delivery Mechanical Ventilation Fraction of Inspired Oxygen 40 09/01/24 17:14 09/01/24 17:54 09/01/24 18:00 Temperature 38.1 C H Pulse Rate 72 75 68 Respiratory Rate 18 Blood Pressure 113/72 118/68 Pulse Oximetry 93 Oxygen Delivery Fraction of Inspired Oxygen 09/01/24 18:00 09/01/24 18:00 09/01/24 18:00 Temperature Pulse Rate 72 72 72 Respiratory Rate 18 18 18 Blood Pressure Pulse Oximetry Oxygen Delivery Fraction of Inspired Oxygen 09/01/24 18:06 09/01/24 20:00 09/01/24 20:00 Temperature Pulse Rate 72 70 Respiratory Rate 18 Blood Pressure 123/80 Pulse Oximetry Oxygen Delivery Fraction of Inspired Oxygen 40 09/01/24 20:00 09/01/24 20:00 09/01/24 20:00 Temperature Pulse Rate 70 70 Respiratory Rate 18 18 Blood Pressure Pulse Oximetry Oxygen Delivery Mechanical Ventilation Fraction of Inspired Oxygen 40 09/01/24 20:00 09/01/24 20:00 09/01/24 20:10 Temperature 37.7 C H Pulse Rate 74 76 68 Respiratory Rate 19 Blood Pressure 109/64 Pulse Oximetry 94 94 Oxygen Delivery Mechanical Ventilation Fraction of Inspired Oxygen 40 09/01/24 20:44 09/01/24 20:52 09/01/24 21:00 Temperature 37.7 C H Pulse Rate 73 75 69 Respiratory Rate 19 18 20 Blood Pressure 94/64 L Pulse Oximetry 94 Oxygen Delivery Fraction of Inspired Oxygen 09/01/24 22:00 09/01/24 22:00 09/01/24 22:00 Temperature Pulse Rate 71 71 71 Respiratory Rate 18 18 18 Blood Pressure Pulse Oximetry Oxygen Delivery Fraction of Inspired Oxygen 09/01/24 22:00 09/01/24 22:00 09/01/24 22:59 Temperature 37.7 C H Pulse Rate 73 73 71 Respiratory Rate 14 18 Blood Pressure 101/69 Pulse Oximetry 94 Oxygen Delivery Fraction of Inspired Oxygen 09/01/24 22:59 09/01/24 23:00 09/01/24 23:03 Temperature 37.7 C H Pulse Rate 71 73 68 Respiratory Rate 18 14 Blood Pressure 103/70 Pulse Oximetry 94 93 Oxygen Delivery Mechanical Ventilation Fraction of Inspired Oxygen 40 09/01/24 23:30 09/02/24 00:00 09/02/24 00:00 Temperature 37.8 C H Pulse Rate 81 Respiratory Rate 15 Blood Pressure 101/69 Pulse Oximetry 94 Oxygen Delivery Mechanical Ventilation Fraction of Inspired Oxygen 40 40 09/02/24 00:00 09/02/24 00:00 09/02/24 00:00 Temperature Pulse Rate 67 67 67 Respiratory Rate 18 18 18 Blood Pressure Pulse Oximetry Oxygen Delivery Fraction of Inspired Oxygen 09/02/24 00:00 09/02/24 00:00 09/02/24 00:01 Temperature 37.8 C H 37.8 C H Pulse Rate 71 67 68 Respiratory Rate 18 19 Blood Pressure 100/69 Pulse Oximetry 92 93 Oxygen Delivery Fraction of Inspired Oxygen 09/02/24 01:00 09/02/24 02:00 09/02/24 02:00 Temperature 37.9 C H Pulse Rate 65 66 66 Respiratory Rate 17 18 18 Blood Pressure 95/64 L Pulse Oximetry 93 Oxygen Delivery Fraction of Inspired Oxygen 09/02/24 02:00 09/02/24 02:00 09/02/24 02:00 Temperature 38.0 C H Pulse Rate 66 63 63 Respiratory Rate 18 16 Blood Pressure 100/65 Pulse Oximetry 93 Oxygen Delivery Fraction of Inspired Oxygen 09/02/24 02:15 09/02/24 02:30 09/02/24 02:35 Temperature Pulse Rate 70 75 65 Respiratory Rate 19 18 Blood Pressure Pulse Oximetry 95 Oxygen Delivery Mechanical Ventilation Fraction of Inspired Oxygen 40 09/02/24 02:35 09/02/24 02:35 09/02/24 02:35 Temperature Pulse Rate 65 65 65 Respiratory Rate 18 18 18 Blood Pressure Pulse Oximetry Oxygen Delivery Fraction of Inspired Oxygen 09/02/24 02:38 09/02/24 04:00 09/02/24 04:00 Temperature Pulse Rate 61 65 65 Respiratory Rate 19 18 18 Blood Pressure Pulse Oximetry Oxygen Delivery Fraction of Inspired Oxygen 09/02/24 04:00 09/02/24 04:00 09/02/24 04:00 Temperature Pulse Rate 65 Respiratory Rate 18 Blood Pressure Pulse Oximetry Oxygen Delivery Mechanical Ventilation Fraction of Inspired Oxygen 40 40 09/02/24 04:00 09/02/24 04:00 09/02/24 05:10 Temperature 38.1 C H Pulse Rate 62 65 72 Respiratory Rate 18 Blood Pressure 118/71 Pulse Oximetry 90 96 Oxygen Delivery Mechanical Ventilation Fraction of Inspired Oxygen 40 01/13/25 05:10 09/02/24 05:28 09/02/24 05:42 Temperature 37.4 C Pulse Rate 66 76 76 Respiratory Rate 18 18 18 Blood Pressure 118/71 Pulse Oximetry 97 Oxygen Delivery Fraction of Inspired Oxygen 09/02/24 05:45 09/02/24 05:46 09/02/24 06:00 Temperature Pulse Rate 70 75 65 Respiratory Rate 18 18 Blood Pressure Pulse Oximetry Oxygen Delivery Fraction of Inspired Oxygen 09/02/24 06:00 09/02/24 06:00 09/02/24 06:00 Temperature 37.2 C Pulse Rate 65 65 65 Respiratory Rate 18 18 18 Blood Pressure 125/77 Pulse Oximetry 97 Oxygen Delivery Fraction of Inspired Oxygen 09/02/24 06:00 09/02/24 08:00 09/02/24 08:18 Temperature 37.3 C Pulse Rate 65 60 56 L Respiratory Rate 18 18 Blood Pressure 110/64 Pulse Oximetry 96 95 Oxygen Delivery Mechanical Ventilation Fraction of Inspired Oxygen 40 09/02/24 08:18 09/02/24 08:23 09/02/24 08:23 Temperature Pulse Rate 56 L 63 61 Respiratory Rate 18 18 18 Blood Pressure Pulse Oximetry Oxygen Delivery Fraction of Inspired Oxygen 09/02/24 08:24 09/02/24 08:33 09/02/24 08:34 Temperature Pulse Rate 61 67 52 L Respiratory Rate 18 18 18 Blood Pressure Pulse Oximetry Oxygen Delivery Fraction of Inspired Oxygen 09/02/24 09:21 09/02/24 09:24 09/02/24 09:28 Temperature Pulse Rate 113 H 120 H 115 H Respiratory Rate 14 12 13 Blood Pressure Pulse Oximetry Oxygen Delivery Fraction of Inspired Oxygen Intake/Output Intake/Output: Intake & Output 08/30/24 08/31/24 09/01/24 09/02/24 23:59 23:59 23:59 23:59 Intake Total 2753.9 3024.2 2529.3 2896.1 Output Total 1400 2725 4410 1275 Balance 1353.9 299.2 -1880.7 1621.1 Meds/Results Medications: Active Medications Generic Name Dose Route Start Last Admin Trade Name Freq PRN Reason Stop Dose Admin Apixaban 5 mg 08/25/24 21:00 09/02/24 08:32 Apixaban 5 Mg Tablet PO 5 mg Q12HR ALEXIS Administration Buspirone HCl 7.5 mg 08/25/24 21:00 08/27/24 20:18 Buspirone Hcl 2.5 Mg Tablet PO 7.5 mg Q12HR ALEXIS Administration Dextrose 12.5 gm 08/24/24 16:31 Dextrose 50% 25 Gm/50 Ml Syringe IV PUSH PRN PRN Hypoglycemia Protocol Empagliflozin 10 mg 08/26/24 09:00 09/02/24 08:33 Empagliflozin 10 Mg Tablet PO 10 mg DAILY ALEXIS Administration Famotidine 20 mg 08/24/24 21:00 09/02/24 08:36 Famotidine 20 Mg/2 Ml Vial IV PUSH 20 mg Q12HR ALEXIS Administration Fentanyl Citrate 50 mcg 08/25/24 12:25 08/31/24 06:03 Fentanyl Citrate Inj (*Crx) 100 Mcg/2 Ml Vial IV PUSH 50 mcg Q2HR PRN Administration Ventilator Asynchrony Fluticasone/Umeclidinium/Vilanterol 1 puff 08/25/24 08:00 08/30/24 07:50 Fluticasone/Umeclidin/Vilanter 200-62.5-25 Mcg Ellipta INHALATION Not Given DAILYRT ALEXIS Glucagon 1 mg 08/24/24 16:31 Glucagon For Inj 1 Mg Vial IM PRN PRN Hypoglycemia Protocol Glucose 15 gm 08/24/24 16:31 Glucose Oral Gel 15 Gm Of Glucse In 37.5 Gm Tube PO PRN PRN Hypoglycemia Protocol Dextrose 1,000 mls @ 100 mls/hr 08/24/24 16:31 Dextrose 5% 1,000 Ml IVPB PRN PRN Hypoglycemia Protocol Fentanyl Citrate 2,500 mcg in 250 mls @ 12.5 mls/hr 08/25/24 13:25 09/02/24 09:28 Fentanyl 2,500 Mcg/Ns 250 Ml IV CONT 125 mcg/hr .Q20H ALEXIS 12.5 mls/hr Titration Protocol 125 MCG/HR Dexmedetomidine HCl 400 mcg in 100 mls @ 12.72 mls/hr 08/30/24 10:05 09/02/24 09:24 Precedex 400 Mcg/100 Ml IV CONT 0.6 mcg/kg/hr .Q7H52M ALEXIS 12.72 mls/hr Titration Protocol 0.6 MCG/KG/HR Piperacillin/Tazobactam/Dextrose 3.375 gm in 50 mls @ 100 mls/hr 08/31/24 09:00 09/02/24 08:36 Zosyn 3.375 Gm/Ns 50 Ml IVPB 100 mls/hr Q6H ALEXIS Administration Propofol 100 mls @ 10.296 mls/hr 08/31/24 16:55 09/02/24 09:21 Diprivan IV CONT 20 mcg/kg/min .Q9H43M ALEXIS 10.3 mls/hr Titration Protocol 20 MCG/KG/MIN Vancomycin HCl 1,500 mg in 500 mls @ 250 mls/hr 09/02/24 00:00 09/02/24 02:52 Vancomycin 1,500 Mg/Ns 500 Ml IVPB Infused Q12H ALEXIS Infusion Insulin Aspart 3 - 6 units 08/24/24 18:00 09/02/24 06:45 Insulin Aspart (*Bkc) 100 Units/Ml SUB-Q Not Given Q6HR ALEXIS Protocol Levalbuterol HCl 1.25 mg 08/25/24 14:50 09/02/24 08:14 Levalbuterol Neb 1.25 Mg/3 Ml INHALATION 1.25 mg Q6HRT ALEXIS Administration Methylprednisolone Sodium Succinate 60 mg 08/28/24 12:00 09/02/24 08:36 Methylprednisolone Sod Succ 125 Mg Vial IV PUSH 60 mg QAM ALEXIS Administration Multi-Ingred Cream/Lotion/Oil/Oint 1 applic 08/25/24 21:00 09/02/24 08:36 Mineral Oil/White Petrolatum Ointment EACH EYE 1 applic Q12HR ALEXIS Administration Simvastatin 20 mg 08/26/24 09:00 09/02/24 08:32 Simvastatin 20 Mg Tablet PO 20 mg DAILY ALEXIS Administration Radiology Results: ITS Impressions Chest CTA 08/24/24 16:37 IMPRESSION: 1. No pulmonary embolism. 2. No acute cardiopulmonary pathology. 3. 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 Further evaluation and clinical correlation advised. 4. Emphysematous changes of the lungs. 5. Multiple healing rib fractures in the right hemithorax. 6. Fat infiltration of the liver. Abdomen X-Ray 08/25/24 10:34 IMPRESSION: NG tube in stomach Labs Labs: Laboratory Results - last 24 hr 09/01/24 09/01/24 09/01/24 12:00 17:20 21:59 Puncture Site ABG pH ABG pCO2 ABG pO2 ABG PO2/FiO2 Ratio ABG HCO3 ABG O2 Saturation ABG O2 Content ABG Base Excess A-a Gradient Oxyhemoglobin Total Hemoglobin O2 Delivery Device O2 Liters/Min Minute Volume Vent Rate Vent Mode FiO2 Tidal Volume PEEP Peak Inspir Pressure Pressure Support Creatinine Estim Creat Clear Calc Estimated GFR POC Capillary Glucose 164 H 179 H Triglycerides Vancomycin Trough Cancelled 09/01/24 09/02/24 09/02/24 22:47 00:51 03:52 Puncture Site ABG pH ABG pCO2 ABG pO2 ABG PO2/FiO2 Ratio ABG HCO3 ABG O2 Saturation ABG O2 Content ABG Base Excess A-a Gradient Oxyhemoglobin Total Hemoglobin O2 Delivery Device O2 Liters/Min Minute Volume Vent Rate Vent Mode FiO2 Tidal Volume PEEP Peak Inspir Pressure Pressure Support Creatinine Estim Creat Clear Calc Estimated GFR POC Capillary Glucose 134 H Triglycerides 93 Vancomycin Trough 9.5 L 09/02/24 09/02/24 09/02/24 03:56 05:01 06:42 Puncture Site Right radial ABG pH 7.416 ABG pCO2 52.7 H ABG pO2 83.4 ABG PO2/FiO2 Ratio 2.09 ABG HCO3 33.1 H ABG O2 Saturation 96.2 ABG O2 Content 17.2 ABG Base Excess 7.2 A-a Gradient 141.2 Oxyhemoglobin 95.4 Total Hemoglobin 12.8 O2 Delivery Device Ventilator O2 Liters/Min Not Reportable Minute Volume Not Reportable Vent Rate 18 Vent Mode Cmv FiO2 40 Tidal Volume 400 PEEP 5 Peak Inspir Pressure Not Reportable Pressure Support Not Reportable Creatinine 0.56 L Estim Creat Clear Calc 78 Estimated GFR > 60 POC Capillary Glucose 107 H Triglycerides Vancomycin Trough Quality VTE Prophylaxis VTE prophylaxis: pharmacologic ordered
--- NOTE | 2024-09-02 10:29 | PCFNICU ---
ICU Rounding Note: Pt current nutrition is Vital AF 1.2 @ 50 ml/h goal rate. Flushes 150 ml q 4 hours. Banatrol BID for diarrhea. Nutrition recommendation: No new nutrition recommendations. Continue current nutrition care plan. Clarify Banatrol BID order. Last recorded weight is 86.4 kg. Bowel Motility: Liquid stools per FMS. Banatrol BID Labs Reviewed: Cre .56, Glu 107 Meds Noted: Fentanyl, precedex, propofol @ 10.3 ml/h to provide 272 additional kcal. Eliquis Skin: WNL Additional Notes: Pt was not able to wean from vent. Vent continues, ICU day 9. Tube feeding orders Vital AF 1.2 @ 50 ml/h provides 1320 kcal (~84% EER), 83 g protein (~ 88% estimated needs), 892 ml free water with flushes 150 ml q 4 hours. Adequate for needs at this time; may need to increase goal to 60 ml/h if tube feeding continues. Following daily in ICU rounds. Will monitor weight, labs, skin, tube feedings tolerance, meds every Monday and Monday. .
[2024-09-02] MEDS: dexmedeTOMIDine 400 MCG/100 ML 400 MCG/100 ML BAG 14.84 MCG IV CONT ×2 (11:26→18:11)
[2024-09-02 11:48] LABS: Glucose Point of Care 134 mg/dl (65-105)
[2024-09-02] MEDS: PROPOFOL IV EMULSION 100 ML 12.87 MG IV CONT ×2 (13:42→20:26)
[2024-09-02 17:05] LABS: Glucose Point of Care 149 mg/dl (65-105)
[2024-09-03] VITALS (63 sets, daily range): BP systolic 80–150; BP diastolic 54–89; PULSE 48–145; RESP 15–22; TEMP 36.6–37.7; O2SAT 89–98
[2024-09-03 00:20] LABS: Glucose Point of Care 121 mg/dl (65-105)
[2024-09-03] MEDS: dexmedeTOMIDine 400 MCG/100 ML 400 MCG/100 ML BAG 12.72 MCG IV CONT (01:34)
[2024-09-03] MEDS: LEVALBUTEROL NEB 1.25 MG/3 ML INHALATION ×4 (01:35→20:36)
[2024-09-03] MEDS: PROPOFOL IV EMULSION 100 ML 15.44 MG IV CONT ×3 (02:28→22:30)
[2024-09-03] MEDS: PIPERACILLN/TAZ 3.375GM/NS50ML 3.375 GM/50 ML BAG IVPB ×4 (03:16→21:06)
[2024-09-03 04:28] LABS: Hematocrit 36.3 % (37.0-47.0); Hemoglobin 11.1 g/dL (12.0-15.0); Immature Platelet Fraction Pct 6.1 % (0.9-11.2); Mean Corpuscular HGB Conc 30.6 g/dl (32-36); Mean Corpuscular Volume 104.6 fl (80-100); Mean Platelet Volume 11.7 fl (7.4-10.4); Platelet Count Result 110 k/mm3 (150-375); Red Blood Count 3.47 M/mm3 (4.2-5.4); Red Cell Distribution Width 12.3 % (11.5-14.5); White Blood Count 8.9 K/mm3 (4.5-10.0)
[2024-09-03 04:38] LABS: Alanine Aminotransferase 23 U/L (6-35); Albumin Level 2.6 g/dL (3.5-5.1); Alkaline Phosphatase 34 U/L (38-126); Anion Gap 1 mmol/L (4-12); Aspartate Amino Transferase 15 U/L (14-36); Bilirubin,Total 0.6 mg/dL (0.2-1.3); Blood Urea Nitrogen 28 mg/dL (7-17); Carbon Dioxide 31 mmol/L (22-30); Chloride 108 mmol/L (98-107); Estimated CRCL calculation 94 ml/min; Estimated Glomerular Filt Rate > 60; Glucose 106 mg/dL (65-110); Magnesium 2.2 mg/dL (1.6-2.3); Potassium 3.3 mmol/L (3.4-5.0); Sodium 140 mmol/L (137-145)
[2024-09-03 05:20] LABS: Alveolar/Arterial O2 Gradient 111.7 mmHg; Carboxyhemoglobin 0.8 % THb (0-2.0); Fractional Inspired Oxygen 35 %; HCO3 ABG 32.7 mEq/l (22.0-26.0); Methemoglobin ABG 0.2 %THb (0-1.5); Oxygen Content ABG 17.5 %vol (16.0-22.0); Oxygen Saturation ABG 95.7 % (95.0-100.0); Oxyhemoglobin 94.5 % THb (90.0-100.0); PCO2 ABG 50.9 mmHg (35.0-45.0); PO2 ABG 78.7 mmHg (80.0-100.0); PO2 FiO2 Ratio Arterial Blood 2.25 %; Reduced Hemoglobin 4.5 %THb (0-5.0); Total Hemoglobin 13.1 g/dL (12.0-18.0); pH ABG 7.426 (7.350-7.450)
[2024-09-03] MEDS: EMPAGLIFLOZIN 10 MG TABLET PO (08:14)
[2024-09-03] MEDS: SIMVASTATIN 20 MG TABLET PO (08:14)
[2024-09-03] MEDS: APIXABAN 5 MG TABLET PO ×2 (08:14→21:05)
[2024-09-03] MEDS: POTASSIUM CHLORIDE 20 MEQ PACKET (FOR LIQUID) 40 MEQ FEED TUBE ×2 (08:14→14:10)
[2024-09-03] MEDS: FAMOTIDINE 20 MG/2 ML VIAL IV PUSH ×2 (08:14→21:05)
[2024-09-03] MEDS: methylPREDNISolone SOD SUCC 125 MG VIAL 60 MG IV PUSH (08:14)
[2024-09-03] MEDS: MINERAL OIL/WHITE PETROLATUM OINTMENT 1 APPLIC EACH EYE ×2 (08:15→21:05)
[2024-09-03] MEDS: CALCIUM GLUC 2,000 MG/NS 100ML 2,000 MG/100 ML BAG 100 MG IVPB (08:16)
--- NOTE | 2024-09-03 10:10 | P.PNINT_ITS ---
Progress Note: A&P Assessment and Plan (1) Respiratory failure: Code(s): J96.90 - Respiratory failure, unspecified, unspecified whether with hypoxia or hypercapnia Status: Acute Assessment and Plan: 08/25: Patient was BiPAP, was switched to Vapotherm, got anxious, tachypneic with diffuse reason, placed back on AVAPS by pulmonology, patient not tolerating that finally had to intubate the patient after getting consent from the son, daughter and the patient, all were in agreement with intubation but no CPR. Patient was intubated and placed on CMV mode of ventilation -chest x-ray reviewed and ET tube advanced to 24 cm at the lip -ABG and vent settings reviewed. Currently on 5 of PEEP and 35-40% FiO2 - 08/29 sedation holiday was performed and patient was evaluate for weaning trial patient became tachycardic tachypneic with abdominal breathing. Despite 15/5 PSV she appeared in distress hence SBT was aborted and patient was placed back on CMV -08/30 sedation holiday was performed to evaluate patient for weaning trial patient again became quickly tachycardic tachypneic and asynchronous with the ventilator. Patient was not a candidate for SBT.. Later in the day patient went into AFib with RVR on loading sedation -08/31 on holding propofol patient became tachypneic tachycardic agitated despite being on fentanyl and Precedex. Not a candidate for SBT 09/01 and 09/02 patient on cutting on propofol and fentanyl became tachypneic tachycardic and agitated with abdominal breathing. Patient had to be resedated for hemodynamic stabilization -09/03 similar resolved with sedation holiday today patient became tachypneic agitated and asynchronous with the ventilator. developed AFib with RVR -antibiotics as below, continue Xopenex and ipratropium nebulizers -management of COPD as below - patient has received Lasix intermittently Patient is not even tolerate sedation holiday and has not shown any sign of possibility of weaning at this point. Will likely need trach and PEG. (2) COPD exacerbation: Code(s): J44.1 - Chronic obstructive pulmonary disease with (acute) exacerbation Status: Acute Assessment and Plan: 08/24: Presented with shortness of breath to the ED, was found to be in COPD exacerbation, possible pneumonia and a pulmonary vascular congestion -patient was given Solu-Medrol and albuterol treatment in the ER -patient received levofloxacin after which she had some a reaction, with labored breathing, tachypnea, tachycardia. Patient was given Solu-Medrol. Remained short of breath, was transferred to the ICU for further management -patient does use 3-4 L at home for COPD suggesting severe COPD - currently intubated on mechanical ventilation -continue steroids but decrease to q.day -continue bronchodilators, Trelegy Ellipta and antibiotics as above -despite steroids and bronchodilators band continues to have wheezing on exam (3) Pneumonia: Qualifiers: Laterality: unspecified laterality Lung location: unspecified part of lung Pneumonia type: due to unspecified organism Qualified Code(s): J18.9 - Pneumonia, unspecified organism Code(s): J18.9 - Pneumonia, unspecified organism Status: Resolved Assessment and Plan: See above (4) CHF (congestive heart failure): Code(s): I50.9 - Heart failure, unspecified Status: Acute Assessment and Plan: Chest x-ray shows possible pulmonary vascular congestion, patient has received Lasix intermittently depending on her volume status Echocardiogram08/26/24 Summary 1. Left ventricular chamber dimension is normal. 2. Left ventricular systolic function is normal, estimated at >70%. 3. The left ventricular diastolic function is grade III diastolic dysfunction. 4. Right ventricular systolic function is normal. 5. Left atrial chamber dimension is severely enlarged. 6. Right atrial chamber dimension is moderately enlarged. 7. There is mild mitral valve regurgitation. 8. There is mild tricuspid valve regurgitation. 9. Estimated pulmonary arterial systolic pressure is 50 mmHg. 03/25/2024: Echocardiogram Summary 1. Complete two-dimensional, color flow and Doppler transthoracic echocardiogram is performed. 2. Hyperdynamic appearing left ventricular systolic function with grade 1 diastolic noncompliance. 3. Left atrial enlargement. 4. Mild mitral regurgitation. 5. Left ventricular systolic function is hyperdynamic, estimated at >70%. (5) HTN (hypertension): Code(s): I10 - Essential (primary) hypertension Status: Chronic Assessment and Plan: History of hypertension, will hold antihypertensives at this time (6) Hyperlipidemia: Code(s): E78.5 - Hyperlipidemia, unspecified Status: Chronic Assessment and Plan: Continue simvastatin (7) Elevated serum creatinine: Code(s): R79.89 - Other specified abnormal findings of blood chemistry Status: Acute Assessment and Plan: Slight elevation in creatinine and elevated BUN which could be secondary to steroids also Improved with IV fluid Monitor urine output electrolytes and creatinine (8) Sepsis: Code(s): A41.9 - Sepsis, unspecified organism Status: Acute Assessment and Plan: On admission patient was started on ceftriaxone 70 and doxycycline (for total of 5 days) Initial CT was negative but she did develop take secretion Cultures have been negative 08/31 She develop fevers overnight Replaced Ghotra UA was suggestive of UTI urine culture growing yeast Repeat blood culture is growing Staph hominis in 1 bottle which is likely contaminant continue vanc and Zosyn for broader spectrum coverage (9) Atrial fibrillation with RVR: Code(s): I48.91 - Unspecified atrial fibrillation Status: Acute Assessment and Plan: After sedation holiday patient went into AFib with RVR . Patient was started on amiodarone drip and quickly converted to sinus rhythm. amiodarone was turned off after conversion as patient was sinus bradycardic. 09/02 went back into AFib with overnight but controlled ventricular rate at this time. Holding amiodarone unless patient is tachycardic as patient does get bradycardic min sedated Continue Eliquis Summary 1. Left ventricular chamber dimension is normal. 2. Left ventricular systolic function is normal, estimated at >70%. 3. The left ventricular diastolic function is grade III diastolic dysfunction. 4. Right ventricular systolic function is normal. 5. Left atrial chamber dimension is severely enlarged. 6. Right atrial chamber dimension is moderately enlarged. 7. There is mild mitral valve regurgitation. 8. There is mild tricuspid valve regurgitation. 9. Estimated pulmonary arterial systolic pressure is 50 mmHg. Plan DVT prophylaxis: Continue Eliquis which she takes at home Stress ulcer prophylaxis: Continue Pepcid Nutrition: tolerating tube feeds Code Status: No CPR, okay to intubate after discussing with family on 08/25/2024. 08/31 I spoke to patient's son by phone and updated him with patient's status including his failure to wean, AFib with RVR, fever and treatment of sepsis. We also discussed goals of care. She told me that patient was not want to live on life support for from her time see. He was went to discuss with other family members before making any further decisions. Critical Care Time Spent: 30 minutes Due to a high probability of clinically significant, life threatening deterioration, the patient required my highest level of preparedness to intervene emergently and I personally spent this critical care time directly and personally managing the patient. This critical care time included obtaining a history; examining the patient; pulse oximetry; ordering and review of studies; arranging urgent treatment with development of a management plan; evaluation of patient's response to treatment; frequent reassessment; and discussions with other providers. It was exclusive of separately billable procedures and treating other patients and teaching time. Please see Assessment and Plan section and the rest of the note for further information on patient assessment and treatment This dictation may have been done utilizing a voice recognition system. Attempts have been made to correct errors. However, there may be uncorrected grammatical, spelling, and recognitions errors present. Subjective Date/time seen: 09/03/24 Overnight events reviewed. Afebrile Continues to be on mechanical ventilation 35% FiO2 Continues to be sedated tolerating tube feeds AFib with controlled ventricular rate on the monitor Vitals acceptable Interval history: Reason for consult: Acute hypercapnic respiratory failure, COPD exacerbation, pneumonia Review of Systems Review of Systems: ROS unobtainable: Yes unobtainable due to endotracheal tube, unobtainable due to medical condition and unobtainable due to mental status Exam Narrative: General: Intubated and sedated HEENT:? Pupils equal and reactive, sclera is clear, ETT in place Neck:? Supple Respiratory:? Decreased air entry bilaterally, occasion wheezing noted on today's exam, no rales auscultated Cardiac:? Sinus tachycardia Abdomen:? Soft, nontender, nondistended, hypoactive bowel sounds Extremities:? Trace edema in lower extremities, palpable pedal pulse Neuro:?sedated, intubated, does not open her eyes or follow simple commands code does not withdraw to pain (prior to intubation, patient was tachyc ardic, tachypneic, was able to follow commands and was able to answer questions) Skin:? Warm and dry, no lesions noted Psych:? Unable to assess at this Objective Data Vital Signs Vital Signs: Vital Signs - 24 hr 09/02/24 10:48 09/02/24 10:52 09/02/24 10:55 Temperature Pulse Rate 114 H 104 H 107 H Respiratory Rate 18 20 20 Blood Pressure Pulse Oximetry Oxygen Delivery Fraction of Inspired Oxygen 09/02/24 11:00 09/02/24 11:26 09/02/24 11:26 Temperature Pulse Rate 88 80 80 Respiratory Rate 18 18 Blood Pressure Pulse Oximetry 96 Oxygen Delivery Mechanical Ventilation Fraction of Inspired Oxygen 40 09/02/24 12:00 09/02/24 12:00 09/02/24 12:00 Temperature Pulse Rate 80 Respiratory Rate Blood Pressure Pulse Oximetry Oxygen Delivery Mechanical Ventilation Fraction of Inspired Oxygen 40 40 09/02/24 12:00 09/02/24 12:00 09/02/24 12:00 Temperature 37.7 C H Pulse Rate 73 73 73 Respiratory Rate 17 17 17 Blood Pressure 119/73 Pulse Oximetry 93 Oxygen Delivery Fraction of Inspired Oxygen 09/02/24 12:00 09/02/24 13:42 09/02/24 13:42 Temperature Pulse Rate 73 99 99 Respiratory Rate 17 19 19 Blood Pressure Pulse Oximetry Oxygen Delivery Fraction of Inspired Oxygen 09/02/24 13:56 09/02/24 14:00 09/02/24 14:01 Temperature 37.8 C H Pulse Rate 84 75 78 Respiratory Rate 19 19 Blood Pressure 113/76 Pulse Oximetry 94 Oxygen Delivery Fraction of Inspired Oxygen 09/02/24 14:02 09/02/24 14:03 09/02/24 14:17 Temperature Pulse Rate 78 78 93 Respiratory Rate 19 19 Blood Pressure Pulse Oximetry 94 Oxygen Delivery Mechanical Ventilation Fraction of Inspired Oxygen 40 09/02/24 14:17 09/02/24 16:00 09/02/24 16:00 Temperature Pulse Rate 93 77 77 Respiratory Rate 19 17 17 Blood Pressure Pulse Oximetry Oxygen Delivery Fraction of Inspired Oxygen 09/02/24 16:00 09/02/24 16:00 09/02/24 16:00 Temperature Pulse Rate 77 Respiratory Rate 17 Blood Pressure Pulse Oximetry Oxygen Delivery Mechanical Ventilation Fraction of Inspired Oxygen 40 40 09/02/24 16:00 09/02/24 16:00 09/02/24 17:17 Temperature 37.8 C H Pulse Rate 77 75 77 Respiratory Rate 17 Blood Pressure 109/69 Pulse Oximetry 93 94 Oxygen Delivery Mechanical Ventilation Fraction of Inspired Oxygen 40 09/02/24 18:00 09/02/24 18:00 09/02/24 18:00 Temperature 37.6 C H Pulse Rate 91 91 67 Respiratory Rate 17 19 Blood Pressure 123/75 Pulse Oximetry 95 Oxygen Delivery Fraction of Inspired Oxygen 01/13/25 18:00 09/02/24 18:11 09/02/24 18:11 Temperature Pulse Rate 91 75 75 Respiratory Rate 17 20 20 Blood Pressure Pulse Oximetry Oxygen Delivery Fraction of Inspired Oxygen 09/02/24 20:00 09/02/24 20:00 09/02/24 20:00 Temperature Pulse Rate 78 78 78 Respiratory Rate 18 18 18 Blood Pressure Pulse Oximetry Oxygen Delivery Fraction of Inspired Oxygen 09/02/24 20:00 09/02/24 20:00 09/02/24 20:00 Temperature 37.7 C H Pulse Rate 74 Respiratory Rate 18 Blood Pressure 134/83 Pulse Oximetry 95 Oxygen Delivery Mechanical Ventilation Fraction of Inspired Oxygen 35 35 09/02/24 20:00 09/02/24 20:06 09/02/24 20:06 Temperature Pulse Rate 74 81 81 Respiratory Rate 18 18 Blood Pressure Pulse Oximetry Oxygen Delivery Fraction of Inspired Oxygen 09/02/24 20:20 09/02/24 20:20 09/02/24 20:26 Temperature Pulse Rate 80 80 72 Respiratory Rate 19 18 Blood Pressure Pulse Oximetry 95 Oxygen Delivery Mechanical Ventilation Fraction of Inspired Oxygen 40 09/02/24 20:26 09/02/24 20:29 09/02/24 20:34 Temperature Pulse Rate 72 82 Respiratory Rate 18 18 Blood Pressure Pulse Oximetry 94 Oxygen Delivery Mechanical Ventilation Fraction of Inspired Oxygen 35 09/02/24 22:00 09/02/24 22:00 09/02/24 22:00 Temperature 37.3 C Pulse Rate 78 78 78 Respiratory Rate 18 18 Blood Pressure 140/98 H Pulse Oximetry 95 Oxygen Delivery Fraction of Inspired Oxygen 09/02/24 22:00 09/02/24 22:00 09/02/24 23:05 Temperature Pulse Rate 78 78 69 Respiratory Rate 18 18 Blood Pressure Pulse Oximetry 94 Oxygen Delivery Mechanical Ventilation Fraction of Inspired Oxygen 35 09/03/24 00:00 09/03/24 00:00 09/03/24 00:00 Temperature Pulse Rate 69 61 61 Respiratory Rate 18 18 18 Blood Pressure Pulse Oximetry Oxygen Delivery Fraction of Inspired Oxygen 09/03/24 00:00 09/03/24 00:00 09/03/24 00:00 Temperature Pulse Rate 61 Respiratory Rate Blood Pressure Pulse Oximetry Oxygen Delivery Mechanical Ventilation Fraction of Inspired Oxygen 35 35 09/03/24 00:00 09/03/24 00:04 09/03/24 01:34 Temperature 37.2 C Pulse Rate 61 69 62 Respiratory Rate 18 18 18 Blood Pressure 150/89 H Pulse Oximetry 96 Oxygen Delivery Fraction of Inspired Oxygen 09/03/24 01:34 09/03/24 01:41 09/03/24 01:42 Temperature Pulse Rate 61 58 L 64 Respiratory Rate 18 18 Blood Pressure Pulse Oximetry 95 Oxygen Delivery Mechanical Ventilation Fraction of Inspired Oxygen 35 09/03/24 01:42 09/03/24 02:00 09/03/24 02:00 Temperature Pulse Rate 64 69 69 Respiratory Rate 18 18 18 Blood Pressure Pulse Oximetry Oxygen Delivery Fraction of Inspired Oxygen 09/03/24 02:00 09/03/24 02:00 09/03/24 02:00 Temperature 37.3 C Pulse Rate 69 68 68 Respiratory Rate 18 18 Blood Pressure 118/55 L Pulse Oximetry 98 Oxygen Delivery Fraction of Inspired Oxygen 09/03/24 02:28 09/03/24 02:28 09/03/24 02:36 Temperature Pulse Rate 60 60 65 Respiratory Rate 18 18 18 Blood Pressure Pulse Oximetry Oxygen Delivery Fraction of Inspired Oxygen 09/03/24 04:00 09/03/24 04:00 09/03/24 04:00 Temperature Pulse Rate 64 64 64 Respiratory Rate 18 18 18 Blood Pressure Pulse Oximetry Oxygen Delivery Fraction of Inspired Oxygen 09/03/24 04:00 09/03/24 04:00 09/03/24 04:00 Temperature 37.4 C Pulse Rate 59 L Respiratory Rate 18 Blood Pressure 124/74 Pulse Oximetry 94 Oxygen Delivery Mechanical Ventilation Fraction of Inspired Oxygen 35 35 09/03/24 04:00 09/03/24 04:39 09/03/24 04:40 Temperature Pulse Rate 59 L 57 L 59 L Respiratory Rate 18 18 Blood Pressure Pulse Oximetry Oxygen Delivery Fraction of Inspired Oxygen 09/03/24 04:45 09/03/24 05:00 09/03/24 05:17 Temperature Pulse Rate 58 L 57 L 87 Respiratory Rate 18 18 Blood Pressure Pulse Oximetry 95 Oxygen Delivery Mechanical Ventilation Fraction of Inspired Oxygen 35 09/03/24 05:30 09/03/24 06:00 09/03/24 06:00 Temperature Pulse Rate 77 69 69 Respiratory Rate 18 18 18 Blood Pressure Pulse Oximetry Oxygen Delivery Fraction of Inspired Oxygen 09/03/24 06:00 09/03/24 06:00 09/03/24 06:00 Temperature 37.2 C Pulse Rate 69 63 63 Respiratory Rate 18 18 Blood Pressure 107/62 Pulse Oximetry 91 Oxygen Delivery Fraction of Inspired Oxygen 09/03/24 07:23 09/03/24 07:24 09/03/24 08:00 Temperature Pulse Rate 50 L 61 Respiratory Rate 18 19 Blood Pressure Pulse Oximetry Oxygen Delivery Mechanical Ventilation Fraction of Inspired Oxygen 35 09/03/24 08:02 09/03/24 08:02 09/03/24 08:03 Temperature Pulse Rate 63 55 L 63 Respiratory Rate 18 18 18 Blood Pressure Pulse Oximetry Oxygen Delivery Fraction of Inspired Oxygen 09/03/24 08:12 09/03/24 08:16 09/03/24 08:18 Temperature Pulse Rate 64 77 Respiratory Rate 18 Blood Pressure Pulse Oximetry 92 92 Oxygen Delivery Mechanical Ventilation Mechanical Ventilation Fraction of Inspired Oxygen 35 35 09/03/24 08:27 09/03/24 08:30 09/03/24 08:30 Temperature Pulse Rate 114 H 115 H 115 H Respiratory Rate 20 19 19 Blood Pressure Pulse Oximetry Oxygen Delivery Fraction of Inspired Oxygen 09/03/24 08:40 09/03/24 08:40 09/03/24 09:45 Temperature Pulse Rate 145 H 145 H 55 L Respiratory Rate 15 15 19 Blood Pressure Pulse Oximetry Oxygen Delivery Fraction of Inspired Oxygen 09/03/24 09:45 09/03/24 10:02 09/03/24 10:02 Temperature Pulse Rate 72 76 64 Respiratory Rate 19 19 20 Blood Pressure Pulse Oximetry Oxygen Delivery Fraction of Inspired Oxygen 09/03/24 10:03 Temperature Pulse Rate 76 Respiratory Rate 20 Blood Pressure Pulse Oximetry Oxygen Delivery Fraction of Inspired Oxygen Intake/Output Intake/Output: Intake & Output 08/31/24 09/01/24 09/02/24 09/03/24 23:59 23:59 23:59 23:59 Intake Total 3024.2 2529.3 4435.2 1576.2 Output Total 2725 4410 1975 1350 Balance 299.2 -1880.7 2460.2 226.2 Meds/Results Medications: Active Medications Generic Name Dose Route Start Last Admin Trade Name Freq PRN Reason Stop Dose Admin Apixaban 5 mg 08/25/24 21:00 09/03/24 08:14 Apixaban 5 Mg Tablet PO 5 mg Q12HR ALEXIS Administration Buspirone HCl 7.5 mg 08/25/24 21:00 08/27/24 20:18 Buspirone Hcl 2.5 Mg Tablet PO 7.5 mg Q12HR ALEXIS Administration Dextrose 12.5 gm 08/24/24 16:31 Dextrose 50% 25 Gm/50 Ml Syringe IV PUSH PRN PRN Hypoglycemia Protocol Empagliflozin 10 mg 08/26/24 09:00 09/03/24 08:14 Empagliflozin 10 Mg Tablet PO 10 mg DAILY ALEXIS Administration Famotidine 20 mg 08/24/24 21:00 09/03/24 08:14 Famotidine 20 Mg/2 Ml Vial IV PUSH 20 mg Q12HR ALEXIS Administration Fentanyl Citrate 50 mcg 08/25/24 12:25 08/31/24 06:03 Fentanyl Citrate Inj (*Crx) 100 Mcg/2 Ml Vial IV PUSH 50 mcg Q2HR PRN Administration Ventilator Asynchrony Fluticasone/Umeclidinium/Vilanterol 1 puff 08/25/24 08:00 08/30/24 07:50 Fluticasone/Umeclidin/Vilanter 200-62.5-25 Mcg Ellipta INHALATION Not Given DAILYRT ALEXIS Glucagon 1 mg 08/24/24 16:31 Glucagon For Inj 1 Mg Vial IM PRN PRN Hypoglycemia Protocol Glucose 15 gm 08/24/24 16:31 Glucose Oral Gel 15 Gm Of Glucse In 37.5 Gm Tube PO PRN PRN Hypoglycemia Protocol Dextrose 1,000 mls @ 100 mls/hr 08/24/24 16:31 Dextrose 5% 1,000 Ml IVPB PRN PRN Hypoglycemia Protocol Fentanyl Citrate 2,500 mcg in 250 mls @ 10 mls/hr 08/25/24 13:25 09/03/24 10:03 Fentanyl 2,500 Mcg/Ns 250 Ml IV CONT 100 mcg/hr .Q25H ALEXIS 10 mls/hr Titration Protocol 100 MCG/HR Dexmedetomidine HCl 400 mcg in 100 mls @ 8.48 mls/hr 08/30/24 10:05 09/03/24 10:02 Precedex 400 Mcg/100 Ml IV CONT 0.4 mcg/kg/hr .[id number] ALEXIS 8.48 mls/hr Titration Protocol 0.4 MCG/KG/HR Piperacillin/Tazobactam/Dextrose 3.375 gm in 50 mls @ 100 mls/hr 08/31/24 09:00 09/03/24 08:16 Zosyn 3.375 Gm/Ns 50 Ml IVPB 100 mls/hr Q6H ALEXIS Administration Propofol 100 mls @ 7.722 mls/hr 08/31/24 16:55 09/03/24 10:02 Diprivan IV CONT 15 mcg/kg/min .[id number] ALEXIS 7.72 mls/hr Titration Protocol 15 MCG/KG/MIN Insulin Aspart 3 - 6 units 08/24/24 18:00 09/03/24 05:00 Insulin Aspart (*Bkc) 100 Units/Ml SUB-Q Not Given Q6HR ALEXIS Protocol Levalbuterol HCl 1.25 mg 08/25/24 14:50 09/03/24 08:16 Levalbuterol Neb 1.25 Mg/3 Ml INHALATION 1.25 mg Q6HRT ALEXIS Administration Methylprednisolone Sodium Succinate 60 mg 08/28/24 12:00 09/03/24 08:14 Methylprednisolone Sod Succ 125 Mg Vial IV PUSH 60 mg QAM ALEXIS Administration Multi-Ingred Cream/Lotion/Oil/Oint 1 applic 08/25/24 21:00 09/03/24 08:15 Mineral Oil/White Petrolatum Ointment EACH EYE 1 applic Q12HR ALEXIS Administration Potassium Chloride 40 meq 09/03/24 08:00 09/03/24 08:14 Potassium Chloride 20 Meq Packet (For Liquid) FEED TUBE 09/03/24 14:01 40 meq Q6H ALEXIS Administration Simvastatin 20 mg 08/26/24 09:00 09/03/24 08:14 Simvastatin 20 Mg Tablet PO 20 mg DAILY ALEXIS Administration Radiology Results: ITS Impressions Chest CTA 08/24/24 16:37 IMPRESSION: 1. No pulmonary embolism. 2. No acute cardiopulmonary pathology. 3. 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 Further evaluation and clinical correlation advised. 4. Emphysematous changes of the lungs. 5. Multiple healing rib fractures in the right hemithorax. 6. Fat infiltration of the liver. Abdomen X-Ray 08/25/24 10:34 IMPRESSION: NG tube in stomach Chest X-Ray 09/03/24 06:28 Impression: Suspected COPD or other mild chronic interstitial disease in the lungs. Support tubes, as above. Labs Labs: Laboratory Results - last 24 hr 09/02/24 09/02/24 09/03/24 11:46 17:02 00:09 WBC RBC Hgb Hct MCV MCH MCHC RDW Plt Count MPV % Immature Plt Fraction Sodium Potassium Chloride Carbon Dioxide Anion Gap BUN Creatinine Estim Creat Clear Calc Estimated GFR Glucose POC Capillary Glucose 134 H 149 H 121 H Calcium Magnesium Total Bilirubin AST ALT Alkaline Phosphatase Total Protein Albumin 09/03/24 04:04 WBC 8.9 RBC 3.47 L Hgb 11.1 L Hct 36.3 L MCV 104.6 H MCH 32.0 MCHC 30.6 L RDW 12.3 Plt Count 110 L MPV 11.7 H % Immature Plt Fraction 6.1 Sodium 140 Potassium 3.3 L Chloride 108 H Carbon Dioxide 31 H Anion Gap 1 L BUN 28 H Creatinine 0.45 L Estim Creat Clear Calc 94 Estimated GFR > 60 Glucose 106 POC Capillary Glucose Calcium 7.0 L Magnesium 2.2 Total Bilirubin 0.6 AST 15 ALT 23 Alkaline Phosphatase 34 L Total Protein 5.0 L Albumin 2.6 L Quality VTE Prophylaxis VTE prophylaxis: pharmacologic ordered
[2024-09-03] MEDS: PROPOFOL IV EMULSION 100 ML 12.87 MG IV CONT (10:38)
[2024-09-03] MEDS: dexmedeTOMIDine 400 MCG/100 ML 400 MCG/100 ML BAG 8.48 MCG IV CONT (10:39)
--- NOTE | 2024-09-03 11:26 | PCNFU ---
Nutrition Follow-Up Complete: Suboptimal energy intake as related to mechanical ventilation as evidenced by NPO. Goal: Meet estimated nutritional needs. We will continue current goal. Pt current nutrition is Vital AF 1.2 at 50 ml/hr. Last recorded weight is 85.5 kg, up from 80.2 kg on admit. Bowel Motility: FMS Labs Reviewed:BUN 28, K 3.3, Alb 2.6, Hct 36.3 Meds Noted:Propofol at 25 ouxp=786 kcal, Jardiance, Eliquis, Fentanyl, Precedex. Skin: WNL Additional Notes: Patient remains on mechanical vent. Tube feedings are being tolerated of Vital AF 1.2 at 50 ml/hr. Prebiotic Banatrol Plus BID for stool bulking. Total Nutrition: 1750 kcal/83 gm protein/892 ml water. Patient currently at 87% kcal needs at 25 kcal/kg and 86% protein needs at 1.2-1.4 gm/kg. Will continue to monitor propofol infusion. Will monitor weight, labs, skin, tube feedings tolerance, meds every Monday and Monday.
[2024-09-03 12:16] LABS: Glucose Point of Care 147 mg/dl (65-105)
[2024-09-03] MEDS: FENTANYL 2,500MCG/NS250ML(*CRX 2,500 MCG/250 ML BAG 10 MCG IV CONT (14:09)
[2024-09-03 17:22] LABS: Glucose Point of Care 147 mg/dl (65-105)
[2024-09-03] MEDS: dexmedeTOMIDine 400 MCG/100 ML 400 MCG/100 ML BAG 14.84 MCG IV CONT (18:43)
[2024-09-04] VITALS (68 sets, daily range): BP systolic 70–156; BP diastolic 46–107; PULSE 52–153; RESP 18–27; TEMP 36.2–37.6; O2SAT 88–98
[2024-09-04] MEDS: dexmedeTOMIDine 400 MCG/100 ML 400 MCG/100 ML BAG 14.84 MCG IV CONT (01:34)
[2024-09-04] MEDS: LEVALBUTEROL NEB 1.25 MG/3 ML INHALATION ×4 (01:56→20:46)
[2024-09-04] MEDS: PIPERACILLN/TAZ 3.375GM/NS50ML 3.375 GM/50 ML BAG IVPB ×4 (03:00→21:45)
[2024-09-04 03:41] LABS: Glucose Point of Care 125 mg/dl (65-105)
[2024-09-04] MEDS: PROPOFOL IV EMULSION 100 ML 18.02 MG IV CONT (03:44)
[2024-09-04 04:43] LABS: Hemoglobin 12.5 g/dL (12.0-15.0); Immature Platelet Fraction Pct 6.2 % (0.9-11.2); Mean Corpuscular HGB Conc 32.1 g/dl (32-36); Mean Corpuscular Hemoglobin 31.9 pg (26-34); Mean Corpuscular Volume 99.5 fl (80-100); Platelet Count Result 134 k/mm3 (150-375); Red Blood Count 3.92 M/mm3 (4.2-5.4); Red Cell Distribution Width 12.4 % (11.5-14.5); White Blood Count 9.8 K/mm3 (4.5-10.0)
[2024-09-04 04:48] LABS: Alveolar/Arterial O2 Gradient 102.4 mmHg; Base Excess ABG 0.5 mEq/l (+/-2.0); Carboxyhemoglobin 0.5 % THb (0-2.0); Fractional Inspired Oxygen 35 %; HCO3 ABG 25.4 mEq/l (22.0-26.0); Methemoglobin ABG 0.1 %THb (0-1.5); Oxygen Content ABG 17.8 %vol (16.0-22.0); Oxygen Saturation ABG 97.5 % (95.0-100.0); Oxyhemoglobin 96.8 % THb (90.0-100.0); PCO2 ABG 41.9 mmHg (35.0-45.0); PO2 ABG 98.4 mmHg (80.0-100.0); PO2 FiO2 Ratio Arterial Blood 2.81 %; Reduced Hemoglobin 2.6 %THb (0-5.0); Site Drawn RIGHT RADIAL; pH ABG 7.401 (7.350-7.450)
[2024-09-04 04:49] LABS: Arterial Blood Gas PEEP 5 cmH2O; Arterial Blood Gas Tidal Volume 400 ml; Arterial Blood Gas Vent Mode CMV; Arterial Blood Gas Ventilator rate 18 /MIN; Device VENTILATOR; Modified Allen's Test Pass
[2024-09-04 04:54] LABS: Alanine Aminotransferase 28 U/L (6-35); Albumin Level 3.1 g/dL (3.5-5.1); Alkaline Phosphatase 45 U/L (38-126); Anion Gap 3 mmol/L (4-12); Aspartate Amino Transferase 16 U/L (14-36); Bilirubin,Total 0.6 mg/dL (0.2-1.3); Blood Urea Nitrogen 28 mg/dL (7-17); Calcium 8.5 mg/dL (8.4-10.2); Carbon Dioxide 33 mmol/L (22-30); Chloride 104 mmol/L (98-107); Estimated CRCL calculation 73 ml/min; Estimated Glomerular Filt Rate > 60; Glucose 124 mg/dL (65-110); Magnesium 2.4 mg/dL (1.6-2.3); Sodium 140 mmol/L (137-145); Triglycerides 112 mg/dL (<150)
[2024-09-04] MEDS: SIMVASTATIN 20 MG TABLET PO (07:57)
[2024-09-04] MEDS: APIXABAN 5 MG TABLET PO ×2 (07:57→21:45)
[2024-09-04] MEDS: EMPAGLIFLOZIN 10 MG TABLET PO (07:57)
[2024-09-04] MEDS: MINERAL OIL/WHITE PETROLATUM OINTMENT 1 APPLIC EACH EYE ×2 (07:58→22:02)
[2024-09-04] MEDS: methylPREDNISolone SOD SUCC 125 MG VIAL 60 MG IV PUSH (07:58)
[2024-09-04] MEDS: FAMOTIDINE 20 MG/2 ML VIAL IV PUSH ×2 (07:58→21:45)
[2024-09-04] MEDS: AMIODARONE 150 MG/D5W 100 ML 150 MG/100 ML BAG 600 MG IV CONT (08:33)
[2024-09-04 09:11] LABS: Arterial Blood Gas PEEP 5 cmH2O; Arterial Blood Gas Tidal Volume 400 ml; Arterial Blood Gas Vent Mode CMV; Arterial Blood Gas Ventilator rate 18 /MIN; Device VENTILATOR
[2024-09-04] MEDS: dexmedeTOMIDine 400 MCG/100 ML 400 MCG/100 ML BAG 10.6 MCG IV CONT (09:33)
[2024-09-04] MEDS: MIDAZOLAM HCL (*CRX) 2 MG/2 ML VIAL IV PUSH (09:37)
[2024-09-04] MEDS: MIDAZOLAM 100MG/NS 100ML(*CRX) 100 MG/100 ML BAG IV CONT (09:50)
[2024-09-04] MEDS: FENTANYL 2,500MCG/NS250ML(*CRX 2,500 MCG/250 ML BAG 10 MCG IV CONT (09:51)
[2024-09-04] MEDS: LORazepam INJ (*CRX) 2 MG/ML VIAL IV PUSH (10:51)
[2024-09-04] MEDS: PROPOFOL IV EMULSION 100 ML 7.72 MG IV CONT (10:54)
--- NOTE | 2024-09-04 11:07 | PCFNICU ---
ICU Rounding Note: Pt current nutrition is Vital AF 1.2 at 50 ml/hr. Last recorded weight is 86.8 kg, up from 80.2 kg on admit. Bowel Motility: FMS Labs Reviewed:Mg 2.4, BUN 28, Cr 0.59, Glu 124 Meds Noted:Zosyn, Versed, Precedex, Propofol at 15 mcgs, Fentanyl, Pepcid, Eliquis, Jardiance Skin:WNL Additional Notes: Patient remains on mechanical vent. Tube feedings of Vital AF 1.2 at 50 ml/hr. Propofol infusion providing an additional 203 kcal. Banatrol BID for stool bulking. Total Nutrition:1393 kcal/83 gm protein/892 ml water. Flush 30 ml q 4 hours. Will continue to monitor once Propofol infusion has been discontinue recommending increase tube feeding rate to 60 ml/hr. Following daily in ICU rounds. Will monitor weight, labs, skin, tube feedings tolerance, meds every Monday and Monday.
[2024-09-04 11:56] LABS: Glucose Point of Care 138 mg/dl (65-105)
[2024-09-04] MEDS: SODIUM CHLORIDE 0.9% IV 500 ML IV CONT (12:40)
[2024-09-04] MEDS: AMIODARONE 360 MG/D5W 200 ML 360 MG/200 ML BAG 33.33 MG IV CONT (13:53)
--- NOTE | 2024-09-04 14:19 | P.PNINT_ITS ---
Progress Note: A&P Assessment and Plan (1) Respiratory failure: Code(s): J96.90 - Respiratory failure, unspecified, unspecified whether with hypoxia or hypercapnia Status: Acute Assessment and Plan: 08/25: Patient was BiPAP, was switched to Vapotherm, got anxious, tachypneic with diffuse reason, placed back on AVAPS by pulmonology, patient not tolerating that finally had to intubate the patient after getting consent from the son, daughter and the patient, all were in agreement with intubation but no CPR. Patient was intubated and placed on CMV mode of ventilation -chest x-ray reviewed and ET tube advanced to 24 cm at the lip -ABG and vent settings reviewed. Currently on 5 of PEEP and 35-40% FiO2 - 08/29 sedation holiday was performed and patient was evaluate for weaning trial patient became tachycardic tachypneic with abdominal breathing. Despite 15/5 PSV she appeared in distress hence SBT was aborted and patient was placed back on CMV -08/30 sedation holiday was performed to evaluate patient for weaning trial patient again became quickly tachycardic tachypneic and asynchronous with the ventilator. Patient was not a candidate for SBT.. Later in the day patient went into AFib with RVR on loading sedation -08/31 on holding propofol patient became tachypneic tachycardic agitated despite being on fentanyl and Precedex. Not a candidate for SBT 09/01 and 09/02 patient on cutting on propofol and fentanyl became tachypneic tachycardic and agitated with abdominal breathing. Patient had to be resedated for hemodynamic stabilization -09/03 similar resolved with sedation holiday today patient became tachypneic agitated and asynchronous with the ventilator. developed AFib with RVR -antibiotics as below, continue Xopenex and ipratropium nebulizers -management of COPD as below - patient has received Lasix intermittently -09/04: patient has not been tolerating sedation holiday and that is the reason she cannot be weaned off the ventilator, she will likely and required tracheostomy and PEG tube -currently on fentanyl, Precedex and propofol infusion, patient had some episodes of bradycardia overnight on 09/03/2024, have asked the bedside RN to start Versed infusion and discontinue propofol and Precedex infusion (2) COPD exacerbation: Code(s): J44.1 - Chronic obstructive pulmonary disease with (acute) exacerbation Status: Acute Assessment and Plan: 08/24: Presented with shortness of breath to the ED, was found to be in COPD exacerbation, possible pneumonia and a pulmonary vascular congestion -patient was given Solu-Medrol and albuterol treatment in the ER -patient received levofloxacin after which she had some a reaction, with labored breathing, tachypnea, tachycardia. Patient was given Solu-Medrol. Remained short of breath, was transferred to the ICU for further management -patient does use 3-4 L at home for COPD suggesting severe COPD - currently intubated on mechanical ventilation -continue steroids but decrease to q.day -continue bronchodilators, Trelegy Ellipta and antibiotics as above -despite steroids and bronchodilators band continues to have wheezing on exam (3) Pneumonia: Qualifiers: Laterality: unspecified laterality Lung location: unspecified part of lung Pneumonia type: due to unspecified organism Qualified Code(s): J18.9 - Pneumonia, unspecified organism Code(s): J18.9 - Pneumonia, unspecified organism Status: Resolved Assessment and Plan: Status post antibiotics, -patient was restarted on Zosyn on 08/31/2024 as patient was febrile -will continue for total of 7 days (4) CHF (congestive heart failure): Code(s): I50.9 - Heart failure, unspecified Status: Acute Assessment and Plan: Chest x-ray shows possible pulmonary vascular congestion, patient has received Lasix intermittently depending on her volume status Echocardiogram08/26/24 Summary 1. Left ventricular chamber dimension is normal. 2. Left ventricular systolic function is normal, estimated at >70%. 3. The left ventricular diastolic function is grade III diastolic dysfunction. 4. Right ventricular systolic function is normal. 5. Left atrial chamber dimension is severely enlarged. 6. Right atrial chamber dimension is moderately enlarged. 7. There is mild mitral valve regurgitation. 8. There is mild tricuspid valve regurgitation. 9. Estimated pulmonary arterial systolic pressure is 50 mmHg. 03/25/2024: Echocardiogram Summary 1. Complete two-dimensional, color flow and Doppler transthoracic echocardiogram is performed. 2. Hyperdynamic appearing left ventricular systolic function with grade 1 diastolic noncompliance. 3. Left atrial enlargement. 4. Mild mitral regurgitation. 5. Left ventricular systolic function is hyperdynamic, estimated at >70%. (5) HTN (hypertension): Code(s): I10 - Essential (primary) hypertension Status: Chronic Assessment and Plan: History of hypertension, will hold antihypertensives at this time (6) Hyperlipidemia: Code(s): E78.5 - Hyperlipidemia, unspecified Status: Chronic Assessment and Plan: Continue simvastatin (7) Elevated serum creatinine: Code(s): R79.89 - Other specified abnormal findings of blood chemistry Status: Acute Assessment and Plan: Slight elevation in creatinine and elevated BUN which could be secondary to steroids also Improved with IV fluid Monitor urine output electrolytes and creatinine (8) Sepsis: Code(s): A41.9 - Sepsis, unspecified organism Status: Acute Assessment and Plan: On admission patient was started on ceftriaxone 70 and doxycycline (for total of 5 days) Initial CT was negative but she did develop take secretion Cultures have been negative 08/31 She develop fevers overnight, Replaced Ghotra UA was suggestive of UTI urine culture growing yeast Repeat blood culture is growing Staph hominis in 1 bottle which is likely contaminant continue vanc and Zosyn for broader spectrum coverage -vancomycin was discontinued (9) Atrial fibrillation with RVR: Code(s): I48.91 - Unspecified atrial fibrillation Status: Acute Assessment and Plan: After sedation holiday patient went into AFib with RVR . Patient was started on amiodarone drip and quickly converted to sinus rhythm. amiodarone was turned off after conversion as patient was sinus bradycardic. 09/02 went back into AFib with overnight but controlled ventricular rate at this time. Holding amiodarone unless patient is tachycardic as patient does get bradycardic min sedated Continue Eliquis 09/04: Patient in AFib RVR, received amiodarone bolus and started on MV infusion -will give a dose of metoprolol to slow down the heart rate, most likely related to respiratory distress Summary 1. Left ventricular chamber dimension is normal. 2. Left ventricular systolic function is normal, estimated at >70%. 3. The left ventricular diastolic function is grade III diastolic dysfunction. 4. Right ventricular systolic function is normal. 5. Left atrial chamber dimension is severely enlarged. 6. Right atrial chamber dimension is moderately enlarged. 7. There is mild mitral valve regurgitation. 8. There is mild tricuspid valve regurgitation. 9. Estimated pulmonary arterial systolic pressure is 50 mmHg. Plan DVT prophylaxis: Continue Eliquis Stress ulcer prophylaxis: Continue Pepcid Nutrition: tolerating tube feeds Code Status: No CPR, okay to intubate after discussing with family on 08/25/2024. Critical care time spent: 38 minutes 09/04: Discussed with son Eris Resendez at bedside, who came to visit the patient today. Had a long discussion with Eris, updated with patient's condition and plan of care. He is aware that she has not been able to be weaned as Dr. Zuniga had also spoke to him on the phone. He stated that the patient did not want tracheostomy or PEG tube placement. Patient's sibling are going to be visiting from [place] today and likely in the next day or 2 they will withdraw support on her. Due to a high probability of clinically significant, life threatening deterioration, the patient required my highest level of preparedness to intervene emergently and I personally spent this critical care time directly and personally managing the patient. This critical care time included obtaining a history; examining the patient; pulse oximetry; ordering and review of studies; arranging urgent treatment with development of a management plan; evaluation of patient's response to treatment; frequent reassessment; and discussions with other providers. It was exclusive of separately billable procedures and treating other patients and teaching time. Please see Assessment and Plan section and the rest of the note for further information on patient assessment and treatment This dictation may have been done utilizing a voice recognition system. Attempts have been made to correct errors. However, there may be uncorrected grammatical, spelling, and recognitions errors present. Subjective Date/time seen: 09/04/24 14:19 Interval history: Reason for consult: Acute hypercapnic respiratory failure, COPD exacerbation, pneumonia 09/04/2024: Patient seen and examined the ICU, is intubated on CMV mode of ventilation, peep of 5, 35% FiO2 with adequate O2 sats. Patient is sedated with propofol, Precedex, fentanyl infusion, continues to be in respiratory distress. Also had bradycardic episodes through the night. Patient also in AFib RVR intermittently requiring amiodarone bolus. I have asked the bedside RN to start Versed infusion, and wean off Precedex and propofol infusion as they may be causing the bradycardia. Urine output has been adequate, patient is afebrile, hemodynamically stable, tolerating tube feeds. Patient does not open her eyes or follow simple commands Review of Systems Review of Systems: ROS unobtainable: Yes unobtainable due to endotracheal tube, unobtainable due to medical condition and unobtainable due to mental status Exam Narrative: General: Intubated and sedated, with respiratory distress HEENT:? Pupils equal and reactive, sclera is clear, ETT in place Neck:? Supple Respiratory:? Decreased air entry bilaterally, bilateral wheezing noted today, no rales auscultated Cardiac:? Irregularly irregular rhythm, tachycardia Abdomen:? Soft, nontender, nondistended, hypoactive bowel sounds Extremities:? Trace edema in lower extremities, palpable pedal pulse Neuro:?sedated, intubated, does not open her eyes or follow simple commands, does withdraw to pain Skin:? Warm and dry, no lesions noted Psych:? Unable to assess at this Objective Data Vital Signs Vital Signs: Vital Signs - 24 hr 09/03/24 14:21 09/03/24 14:52 09/03/24 16:00 Temperature Pulse Rate 77 108 H 72 Respiratory Rate 20 21 H 17 Blood Pressure Pulse Oximetry Oxygen Delivery Fraction of Inspired Oxygen 09/03/24 16:00 09/03/24 16:00 09/03/24 16:00 Temperature Pulse Rate 69 72 Respiratory Rate 17 17 Blood Pressure Pulse Oximetry Oxygen Delivery Mechanical Ventilation Fraction of Inspired Oxygen 35 09/03/24 16:00 09/03/24 16:00 09/03/24 16:00 Temperature 98.8 F Pulse Rate 72 69 Respiratory Rate 17 Blood Pressure 105/61 Pulse Oximetry 92 Oxygen Delivery Fraction of Inspired Oxygen 35 09/03/24 16:28 09/03/24 16:28 09/03/24 16:37 Temperature Pulse Rate 69 69 89 Respiratory Rate 18 18 20 Blood Pressure Pulse Oximetry Oxygen Delivery Fraction of Inspired Oxygen 09/03/24 17:24 09/03/24 18:00 09/03/24 18:00 Temperature 98.3 F Pulse Rate 74 74 74 Respiratory Rate 17 Blood Pressure 127/89 Pulse Oximetry 93 94 Oxygen Delivery Mechanical Ventilation Fraction of Inspired Oxygen 35 09/03/24 18:06 09/03/24 18:07 09/03/24 18:07 Temperature Pulse Rate 65 73 75 Respiratory Rate 19 19 18 Blood Pressure Pulse Oximetry Oxygen Delivery Fraction of Inspired Oxygen 09/03/24 18:43 09/03/24 18:43 09/03/24 20:00 Temperature Pulse Rate 71 71 Respiratory Rate 19 19 Blood Pressure Pulse Oximetry Oxygen Delivery Fraction of Inspired Oxygen 35 09/03/24 20:00 09/03/24 20:00 09/03/24 20:00 Temperature Pulse Rate 71 71 71 Respiratory Rate 18 18 18 Blood Pressure Pulse Oximetry Oxygen Delivery Fraction of Inspired Oxygen 09/03/24 20:00 09/03/24 20:00 09/03/24 20:00 Temperature 97.9 F Pulse Rate 68 72 Respiratory Rate 18 Blood Pressure 129/79 Pulse Oximetry 92 92 Oxygen Delivery Mechanical Ventilation Fraction of Inspired Oxygen 35 09/03/24 20:36 09/03/24 20:40 09/03/24 20:46 Temperature Pulse Rate 61 62 65 Respiratory Rate 18 18 Blood Pressure Pulse Oximetry 94 Oxygen Delivery Mechanical Ventilation Fraction of Inspired Oxygen 35 09/03/24 21:40 09/03/24 21:55 09/03/24 22:00 Temperature Pulse Rate 78 74 68 Respiratory Rate 20 18 18 Blood Pressure Pulse Oximetry Oxygen Delivery Fraction of Inspired Oxygen 09/03/24 22:00 09/03/24 22:00 09/03/24 22:00 Temperature Pulse Rate 68 68 68 Respiratory Rate 18 18 Blood Pressure Pulse Oximetry Oxygen Delivery Fraction of Inspired Oxygen 09/03/24 22:00 09/03/24 22:30 09/03/24 22:30 Temperature Pulse Rate 68 63 63 Respiratory Rate 18 18 18 Blood Pressure 123/77 Pulse Oximetry 92 Oxygen Delivery Fraction of Inspired Oxygen 09/03/24 22:48 09/04/24 00:00 09/04/24 00:00 Temperature Pulse Rate 65 58 L 58 L Respiratory Rate 18 18 Blood Pressure Pulse Oximetry 93 Oxygen Delivery Mechanical Ventilation Fraction of Inspired Oxygen 35 09/04/24 00:00 09/04/24 00:00 09/04/24 00:00 Temperature 97.5 F L Pulse Rate 58 L 61 Respiratory Rate 18 18 Blood Pressure 156/74 H Pulse Oximetry 93 Oxygen Delivery Fraction of Inspired Oxygen 35 09/04/24 00:00 09/04/24 00:00 09/04/24 00:45 Temperature Pulse Rate 60 58 L Respiratory Rate 18 Blood Pressure Pulse Oximetry 93 Oxygen Delivery Mechanical Ventilation Fraction of Inspired Oxygen 35 09/04/24 01:34 09/04/24 01:34 09/04/24 01:56 Temperature Pulse Rate 52 L 52 L 61 Respiratory Rate 18 18 18 Blood Pressure Pulse Oximetry Oxygen Delivery Fraction of Inspired Oxygen 09/04/24 01:58 09/04/24 02:00 09/04/24 02:00 Temperature Pulse Rate 61 55 L 55 L Respiratory Rate 18 18 Blood Pressure Pulse Oximetry 93 Oxygen Delivery Mechanical Ventilation Fraction of Inspired Oxygen 35 09/04/24 02:00 09/04/24 02:00 09/04/24 02:00 Temperature 97.6 F Pulse Rate 55 L 55 L 55 L Respiratory Rate 18 18 Blood Pressure 152/76 H Pulse Oximetry 93 Oxygen Delivery Fraction of Inspired Oxygen 09/04/24 02:02 09/04/24 03:30 09/04/24 03:44 Temperature Pulse Rate 62 83 66 Respiratory Rate 18 24 H 21 H Blood Pressure Pulse Oximetry Oxygen Delivery Fraction of Inspired Oxygen 09/04/24 03:44 09/04/24 04:00 09/04/24 04:00 Temperature 97.1 F L Pulse Rate 66 65 65 Respiratory Rate 21 H 18 18 Blood Pressure 112/78 Pulse Oximetry 95 Oxygen Delivery Fraction of Inspired Oxygen 09/04/24 04:00 09/04/24 04:00 09/04/24 04:00 Temperature Pulse Rate 65 65 Respiratory Rate 18 18 Blood Pressure Pulse Oximetry Oxygen Delivery Fraction of Inspired Oxygen 35 09/04/24 04:00 09/04/24 04:00 09/04/24 04:15 Temperature Pulse Rate 67 65 Respiratory Rate 18 Blood Pressure Pulse Oximetry 93 Oxygen Delivery Mechanical Ventilation Fraction of Inspired Oxygen 35 09/04/24 04:15 09/04/24 04:51 09/04/24 05:00 Temperature Pulse Rate 62 81 78 Respiratory Rate 18 18 Blood Pressure Pulse Oximetry 96 Oxygen Delivery Mechanical Ventilation Fraction of Inspired Oxygen 35 09/04/24 06:00 09/04/24 06:00 09/04/24 06:00 Temperature Pulse Rate 56 L 56 L 56 L Respiratory Rate 18 18 18 Blood Pressure Pulse Oximetry Oxygen Delivery Fraction of Inspired Oxygen 09/04/24 06:00 09/04/24 06:00 09/04/24 06:10 Temperature 97.5 F L Pulse Rate 56 L 56 L 55 L Respiratory Rate 18 18 Blood Pressure 104/73 Pulse Oximetry 95 Oxygen Delivery Fraction of Inspired Oxygen 09/04/24 06:10 09/04/24 07:59 09/04/24 08:00 Temperature Pulse Rate 55 L 114 H 140 H Respiratory Rate 18 20 18 Blood Pressure Pulse Oximetry Oxygen Delivery Fraction of Inspired Oxygen 09/04/24 08:00 09/04/24 08:00 09/04/24 08:00 Temperature Pulse Rate 140 H 140 H Respiratory Rate 18 18 Blood Pressure Pulse Oximetry 95 Oxygen Delivery Mechanical Ventilation Fraction of Inspired Oxygen 35 09/04/24 08:00 09/04/24 08:00 09/04/24 08:00 Temperature 97.8 F Pulse Rate 145 H 136 H Respiratory Rate 26 H Blood Pressure 87/67 L Pulse Oximetry 93 Oxygen Delivery Fraction of Inspired Oxygen 35 09/04/24 08:01 09/04/24 08:10 09/04/24 08:33 Temperature Pulse Rate 114 H 140 H 140 H Respiratory Rate 20 Blood Pressure 130/107 H Pulse Oximetry 94 Oxygen Delivery Mechanical Ventilation Fraction of Inspired Oxygen 35 09/04/24 09:33 09/04/24 09:33 09/04/24 09:38 Temperature Pulse Rate 119 H 119 H 121 H Respiratory Rate 24 H 24 H Blood Pressure 131/100 H Pulse Oximetry Oxygen Delivery Fraction of Inspired Oxygen 09/04/24 09:50 09/04/24 09:51 09/04/24 09:51 Temperature Pulse Rate 80 80 80 Respiratory Rate 18 18 18 Blood Pressure Pulse Oximetry Oxygen Delivery Fraction of Inspired Oxygen 09/04/24 10:00 09/04/24 10:06 09/04/24 10:07 Temperature 98.8 F Pulse Rate 67 67 66 Respiratory Rate 18 18 Blood Pressure 76/48 L Pulse Oximetry 98 Oxygen Delivery Fraction of Inspired Oxygen 09/04/24 10:12 09/04/24 10:17 09/04/24 10:18 Temperature Pulse Rate 74 84 84 Respiratory Rate 18 18 18 Blood Pressure Pulse Oximetry Oxygen Delivery Fraction of Inspired Oxygen 09/04/24 10:25 09/04/24 10:26 09/04/24 10:42 Temperature Pulse Rate 96 102 H 153 H Respiratory Rate 27 H 18 18 Blood Pressure Pulse Oximetry Oxygen Delivery Fraction of Inspired Oxygen 09/04/24 10:54 09/04/24 10:54 09/04/24 10:55 Temperature Pulse Rate 113 H 113 H 120 H Respiratory Rate 18 18 18 Blood Pressure Pulse Oximetry Oxygen Delivery Fraction of Inspired Oxygen 09/04/24 10:58 09/04/24 11:30 09/04/24 11:42 Temperature Pulse Rate 129 H 69 85 Respiratory Rate 18 18 Blood Pressure Pulse Oximetry 88 L Oxygen Delivery Mechanical Ventilation Fraction of Inspired Oxygen 35 09/04/24 11:49 09/04/24 11:49 09/04/24 11:57 Temperature Pulse Rate 80 80 66 Respiratory Rate 18 18 18 Blood Pressure Pulse Oximetry Oxygen Delivery Fraction of Inspired Oxygen 09/04/24 12:00 09/04/24 12:00 09/04/24 12:00 Temperature Pulse Rate 69 69 Respiratory Rate 18 18 Blood Pressure Pulse Oximetry 90 Oxygen Delivery Mechanical Ventilation Fraction of Inspired Oxygen 40 09/04/24 12:00 09/04/24 12:00 09/04/24 12:02 Temperature Pulse Rate 68 66 Respiratory Rate 18 Blood Pressure Pulse Oximetry Oxygen Delivery Fraction of Inspired Oxygen 40 09/04/24 12:12 09/04/24 12:32 09/04/24 13:53 Temperature 99.6 F Pulse Rate 63 66 132 H Respiratory Rate 18 18 Blood Pressure 74/53 L 136/75 Pulse Oximetry 90 Oxygen Delivery Fraction of Inspired Oxygen 09/04/24 14:03 09/04/24 14:07 09/04/24 14:14 Temperature Pulse Rate 150 H 133 H 116 H Respiratory Rate 20 22 H Blood Pressure Pulse Oximetry 93 Oxygen Delivery Mechanical Ventilation Fraction of Inspired Oxygen 40 Intake/Output Intake/Output: Intake & Output 09/01/24 09/02/24 09/03/24 09/04/24 23:59 23:59 23:59 23:59 Intake Total 2529.3 4435.2 3087.2 1906.0 Output Total 4410 1975 2275 1100 Balance -1880.7 2460.2 812.2 806.0 Meds/Results Medications: Active Medications Generic Name Dose Route Start Last Admin Trade Name Freq PRN Reason Stop Dose Admin Apixaban 5 mg 08/25/24 21:00 09/04/24 07:57 Apixaban 5 Mg Tablet PO 5 mg Q12HR ALEXIS Administration Buspirone HCl 7.5 mg 08/25/24 21:00 08/27/24 20:18 Buspirone Hcl 2.5 Mg Tablet PO 7.5 mg Q12HR ALEXIS Administration Dextrose 12.5 gm 08/24/24 16:31 Dextrose 50% 25 Gm/50 Ml Syringe IV PUSH PRN PRN Hypoglycemia Protocol Empagliflozin 10 mg 08/26/24 09:00 09/04/24 07:57 Empagliflozin 10 Mg Tablet PO 10 mg DAILY ALEXIS Administration Famotidine 20 mg 08/24/24 21:00 09/04/24 07:58 Famotidine 20 Mg/2 Ml Vial IV PUSH 20 mg Q12HR ALEXIS Administration Fentanyl Citrate 50 mcg 08/25/24 12:25 08/31/24 06:03 Fentanyl Citrate Inj (*Crx) 100 Mcg/2 Ml Vial IV PUSH 50 mcg Q2HR PRN Administration Ventilator Asynchrony Fluticasone/Umeclidinium/Vilanterol 1 puff 08/25/24 08:00 08/30/24 07:50 Fluticasone/Umeclidin/Vilanter 200-62.5-25 Mcg Ellipta INHALATION Not Given DAILYRT ALEXIS Glucagon 1 mg 08/24/24 16:31 Glucagon For Inj 1 Mg Vial IM PRN PRN Hypoglycemia Protocol Glucose 15 gm 08/24/24 16:31 Glucose Oral Gel 15 Gm Of Glucse In 37.5 Gm Tube PO PRN PRN Hypoglycemia Protocol Dextrose 1,000 mls @ 100 mls/hr 08/24/24 16:31 Dextrose 5% 1,000 Ml IVPB PRN PRN Hypoglycemia Protocol Fentanyl Citrate 2,500 mcg in 250 mls @ 10 mls/hr 08/25/24 13:25 09/04/24 12:00 Fentanyl 2,500 Mcg/Ns 250 Ml IV CONT 100 mcg/hr .Q25H ALEXIS 10 mls/hr Titration Protocol 100 MCG/HR Dexmedetomidine HCl 400 mcg in 100 mls @ 0 mls/hr 08/30/24 10:05 09/04/24 12:32 Precedex 400 Mcg/100 Ml IV CONT 0 mcg/kg/hr .Q0M ALEXIS 0 mls/hr Titration Protocol Piperacillin/Tazobactam/Dextrose 3.375 gm in 50 mls @ 100 mls/hr 08/31/24 09:00 09/04/24 09:38 Zosyn 3.375 Gm/Ns 50 Ml IVPB 09/04/24 23:59 Infused Q6H ALEXIS Infusion Propofol 100 mls @ 0 mls/hr 08/31/24 16:55 09/04/24 12:02 Diprivan IV CONT 0 mcg/kg/min .Q0M ALEXIS 0 mls/hr Titration Protocol Midazolam HCl 100 mg in 100 mls @ 4 mls/hr 09/04/24 09:35 09/04/24 12:00 Versed 100 Mg/Ns 100 Ml IV CONT 4 mg/hr .Q25H ALEXIS 4 mls/hr Titration Protocol 4 MG/HR Amiodarone HCl/Dextrose 360 mg in 200 mls @ 33.333 mls/hr 09/04/24 13:33 09/04/24 13:53 Nexterone 360 Mg/D5w 200 Ml IV CONT 09/04/24 19:32 1 mg/min .Q6H ONE 33.33 mls/hr Administration Protocol 1 MG/MIN Amiodarone HCl/Dextrose 360 mg in 200 mls @ 16.667 mls/hr 09/04/24 19:30 Nexterone 360 Mg/D5w 200 Ml IV CONT 09/05/24 19:29 .Q12H ALEXIS Protocol 0.5 MG/MIN Insulin Aspart 3 - 6 units 08/24/24 18:00 09/04/24 11:56 Insulin Aspart (*Bkc) 100 Units/Ml SUB-Q Not Given Q6HR ALEXIS Protocol Levalbuterol HCl 1.25 mg 08/25/24 14:50 09/04/24 14:03 Levalbuterol Neb 1.25 Mg/3 Ml INHALATION 1.25 mg Q6HRT ALEXIS Administration Methylprednisolone Sodium Succinate 60 mg 08/28/24 12:00 09/04/24 07:58 Methylprednisolone Sod Succ 125 Mg Vial IV PUSH 60 mg QAM ALEXIS Administration Multi-Ingred Cream/Lotion/Oil/Oint 1 applic 08/25/24 21:00 09/04/24 07:58 Mineral Oil/White Petrolatum Ointment EACH EYE 1 applic Q12HR ALEXIS Administration Simvastatin 20 mg 08/26/24 09:00 09/04/24 07:57 Simvastatin 20 Mg Tablet PO 20 mg DAILY ALEXIS Administration Radiology Results: ITS Impressions Chest CTA 08/24/24 16:37 IMPRESSION: 1. No pulmonary embolism. 2. No acute cardiopulmonary pathology. 3. 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 Further evaluation and clinical correlation advised. 4. Emphysematous changes of the lungs. 5. Multiple healing rib fractures in the right hemithorax. 6. Fat infiltration of the liver. Abdomen X-Ray 08/25/24 10:34 IMPRESSION: NG tube in stomach Chest X-Ray 09/04/24 06:49 Impression: Possible mild interstitial edema and/or underlying COPD. Support tubes, as above. Labs Labs: Laboratory Results - last 24 hr 09/03/24 09/03/24 09/04/24 05:19 17:19 00:42 WBC RBC Hgb Hct MCV MCH MCHC RDW Plt Count MPV % Immature Plt Fraction Puncture Site Not Reportable ABG pH 7.426 ABG pCO2 50.9 H ABG pO2 78.7 L ABG PO2/FiO2 Ratio 2.25 ABG HCO3 32.7 H ABG O2 Saturation 95.7 ABG O2 Content 17.5 ABG Base Excess 7.0 A-a Gradient 111.7 Oxyhemoglobin 94.5 Carboxyhemoglobin 0.8 Methemoglobin 0.2 Reduced Hemoglobin 4.5 Total Hemoglobin 13.1 O2 Delivery Device Ventilator O2 Liters/Min Not Reportable Minute Volume Not Reportable Vent Rate 18 Vent Mode Cmv FiO2 35 Tidal Volume 400 PEEP 5 Peak Inspir Pressure Not Reportable Pressure Support Not Reportable Sodium Potassium Chloride Carbon Dioxide Anion Gap BUN Creatinine Estim Creat Clear Calc Estimated GFR Glucose POC Capillary Glucose 147 H 125 H Calcium Magnesium Total Bilirubin AST ALT Alkaline Phosphatase Total Protein Albumin Triglycerides 09/04/24 09/04/24 04:35 11:54 WBC 9.8 RBC 3.92 L Hgb 12.5 Hct 39.0 MCV 99.5 MCH 31.9 MCHC 32.1 RDW 12.4 Plt Count 134 L MPV 11.0 H % Immature Plt Fraction 6.2 Puncture Site Right radial ABG pH 7.401 ABG pCO2 41.9 ABG pO2 98.4 ABG PO2/FiO2 Ratio 2.81 ABG HCO3 25.4 ABG O2 Saturation 97.5 ABG O2 Content 17.8 ABG Base Excess 0.5 A-a Gradient 102.4 Oxyhemoglobin 96.8 Carboxyhemoglobin 0.5 Methemoglobin 0.1 Reduced Hemoglobin 2.6 Total Hemoglobin 13.0 O2 Delivery Device Ventilator O2 Liters/Min Not Reportable Minute Volume Not Reportable Vent Rate 18 Vent Mode Cmv FiO2 35 Tidal Volume 400 PEEP 5 Peak Inspir Pressure Not Reportable Pressure Support Not Reportable Sodium 140 Potassium 4.0 Chloride 104 Carbon Dioxide 33 H Anion Gap 3 L BUN 28 H Creatinine 0.59 L Estim Creat Clear Calc 73 Estimated GFR > 60 Glucose 124 H POC Capillary Glucose 138 H Calcium 8.5 Magnesium 2.4 H Total Bilirubin 0.6 AST 16 ALT 28 Alkaline Phosphatase 45 Total Protein 6.0 L Albumin 3.1 L Triglycerides 112
[2024-09-04] MEDS: LIDOCAINE 1% PF INJ 5 ML VIAL INFILTRATE (14:25)
[2024-09-04] MEDS: METOPROLOL TARTRATE INJ 5 MG/5 ML VIAL IV PUSH (15:10)
[2024-09-04] MEDS: NOREPINEPHRINE 8 MG/D5W 250 ML 8 MG/250 ML BAG 9.38 MG IV CONT (16:29)
[2024-09-04 18:22] LABS: Glucose Point of Care 140 mg/dl (65-105)
[2024-09-04] MEDS: AMIODARONE 360 MG/D5W 200 ML 360 MG/200 ML BAG 16.67 MG IV CONT (19:07)
[2024-09-04] MEDS: CENTRAL LINE FLUSH 10 ML IV PUSH (22:03)
[2024-09-05] VITALS (33 sets, daily range): BP systolic 78–143; BP diastolic 50–85; PULSE 77–162; RESP 12–21; TEMP 36.7–37.3; O2SAT 71–97
[2024-09-05 00:07] LABS: Glucose Point of Care 101 mg/dl (65-105)
[2024-09-05] MEDS: LEVALBUTEROL NEB 1.25 MG/3 ML INHALATION ×2 (03:07→08:17)
[2024-09-05] MEDS: MIDAZOLAM 100MG/NS 100ML(*CRX) 100 MG/100 ML BAG 7 MG IV CONT (03:10)
[2024-09-05 05:05] LABS: Basophils Percent Auto 0.2 % (0.2-1.2); Eosinophils Absolute Auto 0.3 K/mm3 (0-0.3); Eosinophils Percent Auto 1.4 % (0-4.4); Hematocrit 40.9 % (37.0-47.0); Hemoglobin 13.1 g/dL (12.0-15.0); Immature Granulocyte Absolute 0.17 K/mm3 (0.00-0.031); Immature Granulocyte Percent A 0.9 % (0-0.5); Lymphocytes Absolute Auto 2.62 K/mm3 (0.9-3.2); Lymphocytes Percent Auto 14.2 % (18.3-44.2); Mean Corpuscular Hemoglobin 31.9 pg (26-34); Mean Corpuscular Volume 99.5 fl (80-100); Mean Platelet Volume 10.5 fl (7.4-10.4); Monocytes Absolute Auto 1.6 K/mm3 (0.1-0.6); Monocytes Percent Auto 8.4 % (2.6-8.5); Neutrophils Absolute Auto 13.9 K/mm3 (1.3-6.7); Neutrophils Percent Auto 74.9 % (45.5-73.1); Platelet Count Result 200 k/mm3 (150-375); Red Blood Count 4.11 M/mm3 (4.2-5.4); Red Cell Distribution Width 12.7 % (11.5-14.5); White Blood Count 18.5 K/mm3 (4.5-10.0)
[2024-09-05 05:22] LABS: Alveolar/Arterial O2 Gradient 136.9 mmHg; Base Excess ABG 2.8 mEq/l (+/-2.0); Carboxyhemoglobin 0.6 % THb (0-2.0); Fractional Inspired Oxygen 40 %; HCO3 ABG 29.3 mEq/l (22.0-26.0); Methemoglobin ABG 0.2 %THb (0-1.5); Oxygen Saturation ABG 96.2 % (95.0-100.0); Oxyhemoglobin 95.7 % THb (90.0-100.0); PCO2 ABG 52.8 mmHg (35.0-45.0); PO2 ABG 87.6 mmHg (80.0-100.0); PO2 FiO2 Ratio Arterial Blood 2.19 %; Reduced Hemoglobin 3.5 %THb (0-5.0); Total Hemoglobin 14.1 g/dL (12.0-18.0); pH ABG 7.362 (7.350-7.450)
[2024-09-05 05:23] LABS: Arterial Blood Gas PEEP 5 cmH2O; Arterial Blood Gas Tidal Volume 400 ml; Arterial Blood Gas Vent Mode CMV; Arterial Blood Gas Ventilator rate 18 /MIN; Device VENTILATOR; Modified Allen's Test Pass; Site Drawn RIGHT RADIAL
[2024-09-05 05:24] LABS: Alanine Aminotransferase 28 U/L (6-35); Albumin Level 3.2 g/dL (3.5-5.1); Alkaline Phosphatase 51 U/L (38-126); Anion Gap 2 mmol/L (4-12); Aspartate Amino Transferase 24 U/L (14-36); Bilirubin,Total 0.5 mg/dL (0.2-1.3); Blood Urea Nitrogen 29 mg/dL (7-17); Calcium 8.6 mg/dL (8.4-10.2); Carbon Dioxide 34 mmol/L (22-30); Chloride 103 mmol/L (98-107); Estimated CRCL calculation 68 ml/min; Estimated Glomerular Filt Rate > 60; Glucose 93 mg/dL (65-110); Magnesium 2.5 mg/dL (1.6-2.3); Phosphorus 3.6 mg/dL (2.5-4.5); Potassium 3.4 mmol/L (3.4-5.0); Sodium 139 mmol/L (137-145)
[2024-09-05] MEDS: AMIODARONE 360 MG/D5W 200 ML 360 MG/200 ML BAG 16.67 MG IV CONT (06:33)
[2024-09-05] MEDS: CENTRAL LINE FLUSH 10 ML IV PUSH ×2 (06:40→13:30)
[2024-09-05] MEDS: methylPREDNISolone SOD SUCC 125 MG VIAL 60 MG IV PUSH (08:27)
[2024-09-05] MEDS: APIXABAN 5 MG TABLET PO (08:27)
[2024-09-05] MEDS: FAMOTIDINE 20 MG/2 ML VIAL IV PUSH (08:27)
[2024-09-05] MEDS: SIMVASTATIN 20 MG TABLET PO (08:27)
[2024-09-05] MEDS: EMPAGLIFLOZIN 10 MG TABLET PO (08:27)
[2024-09-05] MEDS: POTASSIUM CHLORIDE 20 MEQ PACKET (FOR LIQUID) 40 MEQ PO (08:27)
[2024-09-05] MEDS: QUEtiapine FUMARATE 25 MG TABLET PO (08:27)
[2024-09-05] MEDS: MINERAL OIL/WHITE PETROLATUM OINTMENT 1 APPLIC EACH EYE (08:27)
[2024-09-05] MEDS: FENTANYL 2,500MCG/NS250ML(*CRX 2,500 MCG/250 ML BAG 12.5 MCG IV CONT (08:28)
[2024-09-05 11:33] LABS: Glucose Point of Care 142 mg/dl (65-105)
--- NOTE | 2024-09-05 11:36 | PC.NURSE ---
At 0900 sedation vacation done so that a breathing trial could be attempted. Sedation was paused. Amiodarone increased to 1 mg/min. Sedation vacation done until 10am in which time pulse rates were increased up to 160/min and patient was belly breathing with oxygen desaturation. FIO2 increased to 50% as patient oxygen saturation was down to 84%. Patient not waking up or following commands. Ordered to restart sedation. Sedation resumed at previous settings.
--- NOTE | 2024-09-05 11:55 | PCFNICU ---
ICU Rounding Note: Pt current nutrition is Vital AF 1.2 at 50 ml/hr. Last recorded weight is 87.4 kg, up from 80.2 kg on admit. Bowel Motility: FMS Labs Reviewed:Mg 2.5, BUN 29, Alb 3.2, Cr 0.65 Meds Noted: Fentanyl, Seroquel, Versed, Levophed,Amiodarone, Jardiance Skin: WNL Additional Notes: Patient remains on mechanical vent. Family discussion during rounds today for plan of care. Take Out Waiter plans to restart Propofol infusion. Tube feedings of Vital AF 1.2 at 50 ml/hr being tolerated. Flush 150 ml q 4 hours. Will continue with current tube feeding rate 2/2 to propofol infusion start. Banatrol Plus BID continues via flush for stool bulking. Agree with diet orders. Following daily in ICU rounds. Will monitor weight, labs, skin, tube feedings tolerance, meds every Monday and Monday. .
[2024-09-05] MEDS: LORazepam INJ (*CRX) 2 MG/ML VIAL 4 MG IV PUSH (12:49)
[2024-09-05] MEDS: MORPHINE SULFATE INJ (*CRX) 10 MG/ML AMP IV PUSH (12:49)
--- NOTE | 2024-09-05 12:59 | PC.NURSE ---
Son Eris expressed readiness for comfort care. Dr. Herrera spoke with him and put comfort care orders in. Medications given as ordered and patient extubated at 1253. Daughter in law notified of completion of extubation and came into the room.
--- NOTE | 2024-09-05 13:48 | P.PNINT_ITS ---
Progress Note: A&P Assessment and Plan (1) Respiratory failure: Code(s): J96.90 - Respiratory failure, unspecified, unspecified whether with hypoxia or hypercapnia Status: Acute Assessment and Plan: 08/25: Patient was BiPAP, was switched to Vapotherm, got anxious, tachypneic with diffuse reason, placed back on AVAPS by pulmonology, patient not tolerating that finally had to intubate the patient after getting consent from the son, daughter and the patient, all were in agreement with intubation but no CPR. Patient was intubated and placed on CMV mode of ventilation -chest x-ray reviewed and ET tube advanced to 24 cm at the lip -ABG and vent settings reviewed. Currently on 5 of PEEP and 35-40% FiO2 - 08/29 sedation holiday was performed and patient was evaluate for weaning trial patient became tachycardic tachypneic with abdominal breathing. Despite 15/5 PSV she appeared in distress hence SBT was aborted and patient was placed back on CMV -08/30 sedation holiday was performed to evaluate patient for weaning trial patient again became quickly tachycardic tachypneic and asynchronous with the ventilator. Patient was not a candidate for SBT.. Later in the day patient went into AFib with RVR on loading sedation -08/31 on holding propofol patient became tachypneic tachycardic agitated despite being on fentanyl and Precedex. Not a candidate for SBT 09/01 and 09/02 patient on cutting on propofol and fentanyl became tachypneic tachycardic and agitated with abdominal breathing. Patient had to be resedated for hemodynamic stabilization -09/03 similar resolved with sedation holiday today patient became tachypneic agitated and asynchronous with the ventilator. developed AFib with RVR -antibiotics as below, continue Xopenex and ipratropium nebulizers -management of COPD as below - patient has received Lasix intermittently -09/04: patient has not been tolerating sedation holiday and that is the reason she cannot be weaned off the ventilator, she will likely and required tracheostomy and PEG tube -currently on fentanyl, Precedex and propofol infusion, patient had some episodes of bradycardia overnight on 09/03/2024, have asked the bedside RN to start Versed infusion and discontinue propofol and Precedex infusion 09/05: Discussed with power of insulator helper, son Eris, updated with patient's condition and plan of care. The family as, visited her, and he has decided to make her comfort measures. Bedside RN also aware. Comfort measure orders were placed in the chart (2) COPD exacerbation: Code(s): J44.1 - Chronic obstructive pulmonary disease with (acute) exacerbation Status: Acute Assessment and Plan: 08/24: Presented with shortness of breath to the ED, was found to be in COPD exacerbation, possible pneumonia and a pulmonary vascular congestion -patient was given Solu-Medrol and albuterol treatment in the ER -patient received levofloxacin after which she had some a reaction, with labored breathing, tachypnea, tachycardia. Patient was given Solu-Medrol. Remained short of breath, was transferred to the ICU for further management -patient does use 3-4 L at home for COPD suggesting severe COPD - currently intubated on mechanical ventilation -continue steroids but decrease to q.day -continue bronchodilators, Trelegy Ellipta and antibiotics as above -despite steroids and bronchodilators band continues to have wheezing on exam (3) Pneumonia: Qualifiers: Laterality: unspecified laterality Lung location: unspecified part of lung Pneumonia type: due to unspecified organism Qualified Code(s): J18.9 - Pneumonia, unspecified organism Code(s): J18.9 - Pneumonia, unspecified organism Status: Resolved Assessment and Plan: Status post antibiotics, -patient was restarted on Zosyn on 08/31/2024 as patient was febrile -will continue for total of 7 days (4) CHF (congestive heart failure): Code(s): I50.9 - Heart failure, unspecified Status: Acute Assessment and Plan: Chest x-ray shows possible pulmonary vascular congestion, patient has received Lasix intermittently depending on her volume status Echocardiogram08/26/24 Summary 1. Left ventricular chamber dimension is normal. 2. Left ventricular systolic function is normal, estimated at >70%. 3. The left ventricular diastolic function is grade III diastolic dysfunction. 4. Right ventricular systolic function is normal. 5. Left atrial chamber dimension is severely enlarged. 6. Right atrial chamber dimension is moderately enlarged. 7. There is mild mitral valve regurgitation. 8. There is mild tricuspid valve regurgitation. 9. Estimated pulmonary arterial systolic pressure is 50 mmHg. 03/25/2024: Echocardiogram Summary 1. Complete two-dimensional, color flow and Doppler transthoracic echocardiogram is performed. 2. Hyperdynamic appearing left ventricular systolic function with grade 1 diastolic noncompliance. 3. Left atrial enlargement. 4. Mild mitral regurgitation. 5. Left ventricular systolic function is hyperdynamic, estimated at >70%. (5) HTN (hypertension): Code(s): I10 - Essential (primary) hypertension Status: Chronic Assessment and Plan: History of hypertension, will hold antihypertensives at this time (6) Hyperlipidemia: Code(s): E78.5 - Hyperlipidemia, unspecified Status: Chronic Assessment and Plan: Continue simvastatin (7) Elevated serum creatinine: Code(s): R79.89 - Other specified abnormal findings of blood chemistry Status: Acute Assessment and Plan: Slight elevation in creatinine and elevated BUN which could be secondary to steroids also Improved with IV fluid Monitor urine output electrolytes and creatinine (8) Sepsis: Code(s): A41.9 - Sepsis, unspecified organism Status: Acute Assessment and Plan: On admission patient was started on ceftriaxone 70 and doxycycline (for total of 5 days) Initial CT was negative but she did develop take secretion Cultures have been negative 08/31 She develop fevers overnight, Replaced Ghotra UA was suggestive of UTI urine culture growing yeast Repeat blood culture is growing Staph hominis in 1 bottle which is likely contaminant continue vanc and Zosyn for broader spectrum coverage -vancomycin was discontinued (9) Atrial fibrillation with RVR: Code(s): I48.91 - Unspecified atrial fibrillation Status: Acute Assessment and Plan: After sedation holiday patient went into AFib with RVR . Patient was started on amiodarone drip and quickly converted to sinus rhythm. amiodarone was turned off after conversion as patient was sinus bradycardic. 09/02 went back into AFib with overnight but controlled ventricular rate at this time. Holding amiodarone unless patient is tachycardic as patient does get bradycardic min sedated Continue Eliquis 09/04: Patient in AFib RVR, received amiodarone bolus and started on MV infusion -will give a dose of metoprolol to slow down the heart rate, most likely related to respiratory distress Summary 1. Left ventricular chamber dimension is normal. 2. Left ventricular systolic function is normal, estimated at >70%. 3. The left ventricular diastolic function is grade III diastolic dysfunction. 4. Right ventricular systolic function is normal. 5. Left atrial chamber dimension is severely enlarged. 6. Right atrial chamber dimension is moderately enlarged. 7. There is mild mitral valve regurgitation. 8. There is mild tricuspid valve regurgitation. 9. Estimated pulmonary arterial systolic pressure is 50 mmHg. Plan DVT prophylaxis: Continue Eliquis Stress ulcer prophylaxis: Continue Pepcid Nutrition: tolerating tube feeds Code Status: No CPR, okay to intubate after discussing with family on 08/25/2024. Critical care time spent: 34 minutes 09/05: Discussed with sonEris who is the POA. Updated with patient's condition and plan of care. The POA and the family have decided to make him a comfort measures. Bedside RN aware, comfort measure orders were placed in the chart. Patient was extubated in started on comfort measure protocol 09/04: Discussed with son Eris Resendez at bedside, who came to visit the patient today. Had a long discussion with Eris, updated with patient's condition and plan of care. He is aware that she has not been able to be weaned as Dr. Zuniga had also spoke to him on the phone. He stated that the patient did not want tracheostomy or PEG tube placement. Patient's sibling are going to be visiting from [place] today and likely in the next day or 2 they will withdraw support on her. Due to a high probability of clinically significant, life threatening deterioration, the patient required my highest level of preparedness to intervene emergently and I personally spent this critical care time directly and personally managing the patient. This critical care time included obtaining a history; examining the patient; pulse oximetry; ordering and review of studies; arranging urgent treatment with development of a management plan; evaluation of patient's response to treatment; frequent reassessment; and discussions with other providers. It was exclusive of separately billable procedures and treating other patients and teaching time. Please see Assessment and Plan section and the rest of the note for further information on patient assessment and treatment This dictation may have been done utilizing a voice recognition system. Attempts have been made to correct errors. However, there may be uncorrected grammatical, spelling, and recognitions errors present. Subjective Date/time seen: 09/05/24 13:48 Interval history: Reason for consult: Acute hypercapnic respiratory failure, COPD exacerbation, pneumonia 09/05/2024: Patient seen and examined the ICU, remains intubated on CMV mode of ventilation, peep of 5, 40% FiO2. Sedated with fentanyl and Versed infusion. Patient also on amiodarone infusion. She does have some bouts of tachycardia and then slows down. When sedation is decreased, patient has respiratory distress with uses of accessory muscles of respiration, goes into AFib RVR with heart rates in the once 50s to 160s. She also gets hypoxic, drops saturation, O2 requirements on the ventilator has to go up. Sedation has to be increased again for her to be more comfortable. Urine output has been adequate, patient is afebrile, WBC count increased to 18.5 this morning. Review of Systems Review of Systems: ROS unobtainable: Yes unobtainable due to endotracheal tube, unobtainable due to medical condition and unobtainable due to mental status Exam Narrative: General: Intubated and sedated, with respiratory distress HEENT:? Pupils equal and reactive, sclera is clear, ETT in place Neck:? Supple Respiratory:? Decreased air entry bilaterally, bilateral wheezing noted today, n o rales auscultated Cardiac:? Irregularly irregular rhythm, tachycardia Abdomen:? Soft, nontender, nondistended, hypoactive bowel sounds Extremities:? Trace edema in lower extremities, palpable pedal pulse Neuro:?sedated, intubated, does not open her eyes or follow simple commands, does withdraw to pain Skin:? Warm and dry, no lesions noted Psych:? Unable to assess at this Objective Data Vital Signs Vital Signs: Vital Signs - 24 hr 09/04/24 13:53 09/04/24 14:00 09/04/24 14:00 Temperature Pulse Rate 132 H 88 88 Respiratory Rate 18 18 Blood Pressure 136/75 Pulse Oximetry Oxygen Delivery Fraction of Inspired Oxygen 09/04/24 14:00 09/04/24 14:00 09/04/24 14:03 Temperature 98.6 F Pulse Rate 88 135 H 150 H Respiratory Rate 21 H 20 Blood Pressure 136/75 Pulse Oximetry 93 Oxygen Delivery Fraction of Inspired Oxygen 09/04/24 14:07 09/04/24 14:14 09/04/24 14:38 Temperature Pulse Rate 133 H 116 H 133 H Respiratory Rate 22 H 22 H Blood Pressure Pulse Oximetry 93 Oxygen Delivery Mechanical Ventilation Fraction of Inspired Oxygen 40 09/04/24 15:10 09/04/24 15:21 09/04/24 15:22 Temperature Pulse Rate 102 H 79 88 Respiratory Rate 18 18 Blood Pressure Pulse Oximetry Oxygen Delivery Fraction of Inspired Oxygen 09/04/24 15:50 09/04/24 16:00 09/04/24 16:00 Temperature Pulse Rate 78 73 78 Respiratory Rate 18 18 Blood Pressure 87/60 L Pulse Oximetry Oxygen Delivery Fraction of Inspired Oxygen 09/04/24 16:00 09/04/24 16:00 09/04/24 16:00 Temperature 99 F Pulse Rate 65 Respiratory Rate 18 Blood Pressure 72/49 L Pulse Oximetry 95 96 Oxygen Delivery Mechanical Ventilation Fraction of Inspired Oxygen 40 40 09/04/24 16:00 09/04/24 16:29 09/04/24 17:24 Temperature Pulse Rate 67 66 68 Respiratory Rate Blood Pressure 70/46 L Pulse Oximetry 95 Oxygen Delivery Mechanical Ventilation Fraction of Inspired Oxygen 40 09/04/24 18:00 09/04/24 18:00 09/04/24 18:00 Temperature 98.4 F Pulse Rate 91 91 85 Respiratory Rate 20 18 Blood Pressure 113/62 Pulse Oximetry 94 Oxygen Delivery Fraction of Inspired Oxygen 09/04/24 18:00 09/04/24 18:00 09/04/24 19:07 Temperature Pulse Rate 85 85 63 Respiratory Rate 18 Blood Pressure 113/62 102/66 Pulse Oximetry Oxygen Delivery Fraction of Inspired Oxygen 09/04/24 19:09 09/04/24 20:00 09/04/24 20:00 Temperature Pulse Rate 71 67 67 Respiratory Rate 18 18 Blood Pressure 102/66 Pulse Oximetry Oxygen Delivery Fraction of Inspired Oxygen 09/04/24 20:00 09/04/24 20:00 09/04/24 20:00 Temperature Pulse Rate 67 67 67 Respiratory Rate Blood Pressure 108/64 108/64 Pulse Oximetry Oxygen Delivery Fraction of Inspired Oxygen 09/04/24 20:00 09/04/24 20:00 09/04/24 20:00 Temperature 98.4 F Pulse Rate 67 Respiratory Rate 18 Blood Pressure 108/64 Pulse Oximetry 96 96 Oxygen Delivery Mechanical Ventilation Fraction of Inspired Oxygen 40 40 09/04/24 20:47 09/04/24 20:47 09/04/24 22:00 Temperature Pulse Rate 104 H 95 111 H Respiratory Rate 21 H 24 H Blood Pressure Pulse Oximetry 96 Oxygen Delivery Mechanical Ventilation Fraction of Inspired Oxygen 40 09/04/24 22:00 09/04/24 22:00 09/04/24 22:00 Temperature Pulse Rate 111 H 111 H 111 H Respiratory Rate 24 H Blood Pressure 152/76 H 152/76 H Pulse Oximetry Oxygen Delivery Fraction of Inspired Oxygen 09/04/24 22:00 09/04/24 22:00 09/04/24 22:30 Temperature 97.9 F Pulse Rate 111 H 111 H 115 H Respiratory Rate 24 H Blood Pressure 152/76 H 155/84 H Pulse Oximetry 96 Oxygen Delivery Fraction of Inspired Oxygen 09/04/24 22:30 09/04/24 22:30 09/04/24 23:15 Temperature Pulse Rate 115 H 115 H 121 H Respiratory Rate 18 18 Blood Pressure 154/86 H Pulse Oximetry Oxygen Delivery Fraction of Inspired Oxygen 09/04/24 23:30 09/04/24 23:37 09/04/24 23:40 Temperature Pulse Rate 122 H 133 H 124 H Respiratory Rate 20 Blood Pressure 152/87 H Pulse Oximetry 96 Oxygen Delivery Mechanical Ventilation Fraction of Inspired Oxygen 40 09/04/24 23:40 09/05/24 00:00 09/05/24 00:00 Temperature Pulse Rate 124 H 123 H 123 H Respiratory Rate 20 Blood Pressure 129/77 129/77 Pulse Oximetry Oxygen Delivery Fraction of Inspired Oxygen 09/05/24 00:00 09/05/24 00:00 09/05/24 00:00 Temperature 98.1 F Pulse Rate 123 H 123 H 118 H Respiratory Rate 20 20 18 Blood Pressure 129/77 Pulse Oximetry 96 Oxygen Delivery Fraction of Inspired Oxygen 09/05/24 00:00 09/05/24 00:00 09/05/24 00:00 Temperature Pulse Rate 109 H Respiratory Rate Blood Pressure Pulse Oximetry 96 Oxygen Delivery Mechanical Ventilation Fraction of Inspired Oxygen 40 40 09/05/24 01:15 09/05/24 01:30 09/05/24 01:30 Temperature Pulse Rate 90 87 87 Respiratory Rate 18 Blood Pressure 78/55 L 98/59 L Pulse Oximetry Oxygen Delivery Fraction of Inspired Oxygen 09/05/24 01:45 09/05/24 02:00 09/05/24 02:00 Temperature Pulse Rate 84 84 84 Respiratory Rate 18 18 Blood Pressure 84/50 L Pulse Oximetry Oxygen Delivery Fraction of Inspired Oxygen 09/05/24 02:00 09/05/24 02:00 09/05/24 02:00 Temperature 98.6 F Pulse Rate 84 84 84 Respiratory Rate 18 18 Blood Pressure 84/50 L 84/50 L Pulse Oximetry 96 Oxygen Delivery Fraction of Inspired Oxygen 09/05/24 02:00 09/05/24 02:10 09/05/24 03:07 Temperature Pulse Rate 84 80 100 Respiratory Rate 18 Blood Pressure 88/54 L Pulse Oximetry Oxygen Delivery Fraction of Inspired Oxygen 09/05/24 03:10 09/05/24 03:10 09/05/24 03:10 Temperature Pulse Rate 92 102 H 102 H Respiratory Rate 18 18 Blood Pressure Pulse Oximetry 96 Oxygen Delivery Mechanical Ventilation Fraction of Inspired Oxygen 40 09/05/24 04:00 09/05/24 04:00 09/05/24 04:00 Temperature Pulse Rate 89 89 89 Respiratory Rate 18 Blood Pressure 83/51 L 83/51 L Pulse Oximetry Oxygen Delivery Fraction of Inspired Oxygen 09/05/24 04:00 09/05/24 04:00 09/05/24 04:00 Temperature 98.7 F Pulse Rate 89 89 Respiratory Rate 18 18 Blood Pressure 83/51 L Pulse Oximetry 96 Oxygen Delivery Fraction of Inspired Oxygen 40 09/05/24 04:00 09/05/24 04:00 09/05/24 04:15 Temperature Pulse Rate 93 82 Respiratory Rate Blood Pressure 99/63 L Pulse Oximetry 96 Oxygen Delivery Mechanical Ventilation Fraction of Inspired Oxygen 40 09/05/24 04:30 09/05/24 04:45 09/05/24 05:00 Temperature Pulse Rate 109 H 108 H 111 H Respiratory Rate 21 H 18 Blood Pressure 143/59 H Pulse Oximetry Oxygen Delivery Fraction of Inspired Oxygen 09/05/24 05:19 09/05/24 06:00 09/05/24 06:00 Temperature 98.6 F Pulse Rate 89 89 89 Respiratory Rate 18 Blood Pressure 90/56 L Pulse Oximetry 97 96 Oxygen Delivery Mechanical Ventilation Fraction of Inspired Oxygen 40 09/05/24 06:00 09/05/24 06:00 09/05/24 06:00 Temperature Pulse Rate 96 96 96 Respiratory Rate 18 18 Blood Pressure 90/56 L Pulse Oximetry Oxygen Delivery Fraction of Inspired Oxygen 09/05/24 06:00 09/05/24 06:30 09/05/24 06:30 Temperature Pulse Rate 96 93 96 Respiratory Rate 18 Blood Pressure 90/56 L 85/51 L Pulse Oximetry Oxygen Delivery Fraction of Inspired Oxygen 09/05/24 06:33 09/05/24 06:33 09/05/24 08:00 Temperature Pulse Rate 81 81 101 H Respiratory Rate 18 Blood Pressure 85/51 L 85/51 L Pulse Oximetry Oxygen Delivery Fraction of Inspired Oxygen 09/05/24 08:00 09/05/24 08:00 09/05/24 08:00 Temperature Pulse Rate 101 H 101 H 101 H Respiratory Rate 18 Blood Pressure 103/62 103/62 Pulse Oximetry Oxygen Delivery Fraction of Inspired Oxygen 09/05/24 08:00 09/05/24 08:00 09/05/24 08:00 Temperature Pulse Rate 77 Respiratory Rate Blood Pressure Pulse Oximetry 95 Oxygen Delivery Mechanical Ventilation Fraction of Inspired Oxygen 40 40 09/05/24 08:00 09/05/24 08:17 09/05/24 08:21 Temperature 98.8 F Pulse Rate 92 113 H 113 H Respiratory Rate 19 21 H Blood Pressure 103/62 Pulse Oximetry 93 94 Oxygen Delivery Mechanical Ventilation Fraction of Inspired Oxygen 40 09/05/24 08:28 09/05/24 08:34 09/05/24 09:00 Temperature Pulse Rate 107 H 122 H 120 H Respiratory Rate 18 18 18 Blood Pressure Pulse Oximetry Oxygen Delivery Fraction of Inspired Oxygen 09/05/24 09:00 09/05/24 09:00 09/05/24 10:00 Temperature Pulse Rate 120 H 120 H 125 H Respiratory Rate 18 18 Blood Pressure 125/74 Pulse Oximetry Oxygen Delivery Fraction of Inspired Oxygen 09/05/24 10:00 09/05/24 10:00 09/05/24 10:00 Temperature Pulse Rate 125 H 125 H 125 H Respiratory Rate 18 Blood Pressure 139/69 139/69 Pulse Oximetry Oxygen Delivery Fraction of Inspired Oxygen 09/05/24 10:00 09/05/24 10:00 09/05/24 10:00 Temperature Pulse Rate 125 H Respiratory Rate Blood Pressure Pulse Oximetry Oxygen Delivery Fraction of Inspired Oxygen 50 50 09/05/24 10:00 09/05/24 11:00 09/05/24 11:00 Temperature 98.8 F Pulse Rate 125 H Respiratory Rate 18 Blood Pressure 139/69 Pulse Oximetry 94 Oxygen Delivery Fraction of Inspired Oxygen 45 45 09/05/24 11:09 09/05/24 11:27 09/05/24 12:00 Temperature Pulse Rate 118 H 112 H Respiratory Rate Blood Pressure 84/52 L Pulse Oximetry 97 Oxygen Delivery Mechanical Ventilation Fraction of Inspired Oxygen 40 40 09/05/24 12:00 09/05/24 12:00 09/05/24 12:00 Temperature Pulse Rate 106 H 106 H 106 H Respiratory Rate 18 18 Blood Pressure 113/62 Pulse Oximetry Oxygen Delivery Fraction of Inspired Oxygen 09/05/24 12:00 09/05/24 12:00 09/05/24 12:00 Temperature Pulse Rate 106 H 98 Respiratory Rate Blood Pressure 113/62 Pulse Oximetry 94 Oxygen Delivery Mechanical Ventilation Fraction of Inspired Oxygen 40 09/05/24 12:00 09/05/24 13:04 09/05/24 13:04 Temperature 99.1 F Pulse Rate 107 H 107 H 107 H Respiratory Rate 18 18 Blood Pressure 101/52 L 101/52 L Pulse Oximetry 94 Oxygen Delivery Fraction of Inspired Oxygen 09/05/24 13:05 09/05/24 13:06 Temperature Pulse Rate 107 H 107 H Respiratory Rate 18 Blood Pressure 101/52 L Pulse Oximetry Oxygen Delivery Fraction of Inspired Oxygen Intake/Output Intake/Output: Intake & Output 09/02/24 09/03/24 09/04/24 09/05/24 23:59 23:59 23:59 23:59 Intake Total 4435.2 3087.2 4235.2 2046.2 Output Total 1975 2275 2250 750 Balance 2460.2 812.2 1985.2 1296.2 Meds/Results Medications: Active Medications Generic Name Dose Route Start Last Admin Trade Name Freq PRN Reason Stop Dose Admin Lorazepam 2 mg 09/05/24 12:33 Lorazepam Inj (*Crx) 2 Mg/Ml Vial IV PUSH Q2H PRN Anxiety/Comfort Morphine Sulfate 2 mg 09/05/24 12:33 Morphine Sulfate (*Crx) 2 Mg/Ml Inj IV PUSH Q30M PRN COMFORT Sodium Chloride 10 ml 09/04/24 22:00 09/05/24 13:30 Central Line Flush IV PUSH 10 ml Q8HR ALEXIS Administration Radiology Results: ITS Impressions Chest CTA 08/24/24 16:37 IMPRESSION: 1. No pulmonary embolism. 2. No acute cardiopulmonary pathology. 3. 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 Further evaluation and clinical correlation advised. 4. Emphysematous changes of the lungs. 5. Multiple healing rib fractures in the right hemithorax. 6. Fat infiltration of the liver. Abdomen X-Ray 08/25/24 10:34 IMPRESSION: NG tube in stomach Chest X-Ray 09/05/24 06:12 Impression: Probable mild chronic interstitial disease and/or COPD change. Support tubes, as above. Labs Labs: Laboratory Results - last 24 hr 09/04/24 09/04/24 09/05/24 18:15 23:50 05:00 WBC 18.5 H RBC 4.11 L Hgb 13.1 Hct 40.9 MCV 99.5 MCH 31.9 MCHC 32.0 RDW 12.7 Plt Count 200 MPV 10.5 H Immature Gran % (Auto) 0.9 H Neut % (Auto) 74.9 H Lymph % (Auto) 14.2 L [place] % (Auto) 8.4 Eos % (Auto) 1.4 Baso % (Auto) 0.2 Lymph # (Auto) 2.62 [place] # (Auto) 1.6 H Eos # (Auto) 0.3 Baso # (Auto) 0.0 Abs Immat Gran (auto) 0.17 H Absolute Neuts (auto) 13.9 H Absolute Nucleated RBC 0.000 Nucleated RBC % 0.0 Puncture Site ABG pH ABG pCO2 ABG pO2 ABG PO2/FiO2 Ratio ABG HCO3 ABG O2 Saturation ABG O2 Content ABG Base Excess A-a Gradient Oxyhemoglobin Carboxyhemoglobin Methemoglobin Reduced Hemoglobin Total Hemoglobin O2 Delivery Device O2 Liters/Min Minute Volume Vent Rate Vent Mode FiO2 Tidal Volume PEEP Peak Inspir Pressure Pressure Support Sodium 139 Potassium 3.4 Chloride 103 Carbon Dioxide 34 H Anion Gap 2 L BUN 29 H Creatinine 0.65 L Estim Creat Clear Calc 68 Estimated GFR > 60 Glucose 93 POC Capillary Glucose 140 H 101 Calcium 8.6 Phosphorus 3.6 Magnesium 2.5 H Total Bilirubin 0.5 AST 24 ALT 28 Alkaline Phosphatase 51 Total Protein 6.0 L Albumin 3.2 L 09/05/24 09/05/24 05:11 11:30 WBC RBC Hgb Hct MCV MCH MCHC RDW Plt Count MPV Immature Gran % (Auto) Neut % (Auto) Lymph % (Auto) [place] % (Auto) Eos % (Auto) Baso % (Auto) Lymph # (Auto) [place] # (Auto) Eos # (Auto) Baso # (Auto) Abs Immat Gran (auto) Absolute Neuts (auto) Absolute Nucleated RBC Nucleated RBC % Puncture Site Right radial ABG pH 7.362 ABG pCO2 52.8 H ABG pO2 87.6 ABG PO2/FiO2 Ratio 2.19 ABG HCO3 29.3 H ABG O2 Saturation 96.2 ABG O2 Content 19.0 ABG Base Excess 2.8 A-a Gradient 136.9 Oxyhemoglobin 95.7 Carboxyhemoglobin 0.6 Methemoglobin 0.2 Reduced Hemoglobin 3.5 Total Hemoglobin 14.1 O2 Delivery Device Ventilator O2 Liters/Min Not Reportable Minute Volume Not Reportable Vent Rate 18 Vent Mode Cmv FiO2 40 Tidal Volume 400 PEEP 5 Peak Inspir Pressure Not Reportable Pressure Support Not Reportable Sodium Potassium Chloride Carbon Dioxide Anion Gap BUN Creatinine Estim Creat Clear Calc Estimated GFR Glucose POC Capillary Glucose 142 H Calcium Phosphorus Magnesium Total Bilirubin AST ALT Alkaline Phosphatase Total Protein Albumin Quality VTE Prophylaxis VTE prophylaxis: pharmacologic ordered
[2024-09-05] MEDS: LORazepam INJ (*CRX) 2 MG/ML VIAL IV PUSH ×4 (14:01→21:47)
[2024-09-05] MEDS: MORPHINE SULFATE (*CRX) 2 MG/ML INJ IV PUSH ×5 (14:21→21:47)
--- NOTE | 2024-09-09 14:27 | P.DN_ITS ---
Discharge Summary Date and Time Date of : 09/05/24 Time of : 23:00 Provider Pronounced By: 2 RNs Name of First RN That Pronounced: Radha Arzola RN Name of Second RN That Pronounced: Landry Pena RN Probable Cause of Probable Cause of : Cardiopulmonary arrest, acute respiratory failure Summary Hospital Course: (1) Respiratory failure: Code(s): J96.90 - Respiratory failure, unspecified, unspecified whether with hypoxia or hypercapnia Status: Acute Assessment and Plan: 08/25: Patient was BiPAP, was switched to Vapotherm, got anxious, tachypneic with diffuse reason, placed back on AVAPS by pulmonology, patient not tolerating that finally had to intubate the patient after getting consent from the son, daughter and the patient, all were in agreement with intubation but no CPR. Patient was intubated and placed on CMV mode of ventilation -chest x-ray reviewed and ET tube advanced to 24 cm at the lip -ABG and vent settings reviewed. Currently on 5 of PEEP and 35-40% FiO2 - 08/29 sedation holiday was performed and patient was evaluate for weaning trial patient became tachycardic tachypneic with abdominal breathing. Despite 15/5 PSV she appeared in distress hence SBT was aborted and patient was placed back on CMV -08/30 sedation holiday was performed to evaluate patient for weaning trial patient again became quickly tachycardic tachypneic and asynchronous with the ventilator. Patient was not a candidate for SBT.. Later in the day patient went into AFib with RVR on loading sedation -08/31 on holding propofol patient became tachypneic tachycardic agitated despite being on fentanyl and Precedex. Not a candidate for SBT 09/01 and 09/02 patient on cutting on propofol and fentanyl became tachypneic tachycardic and agitated with abdominal breathing. Patient had to be resedated for hemodynamic stabilization -09/03 similar resolved with sedation holiday today patient became tachypneic agitated and asynchronous with the ventilator. developed AFib with RVR -antibiotics as below, continue Xopenex and ipratropium nebulizers -management of COPD as below - patient has received Lasix intermittently -09/04: patient has not been tolerating sedation holiday and that is the reason she cannot be weaned off the ventilator, she will likely and required tracheostomy and PEG tube -currently on fentanyl, Precedex and propofol infusion, patient had some episodes of bradycardia overnight on 09/03/2024, have asked the bedside RN to start Versed infusion and discontinue propofol and Precedex infusion 09/05: Discussed with power of trademark attorney, son, Eris, updated with patient's condition and plan of care. The family as, visited her, and he has decided to make her comfort measures. Bedside RN also aware. Comfort measure orders were placed in the chart (2) COPD exacerbation: Code(s): J44.1 - Chronic obstructive pulmonary disease with (acute) exacerbation Status: Acute Assessment and Plan: 08/24: Presented with shortness of breath to the ED, was found to be in COPD exacerbation, possible pneumonia and a pulmonary vascular congestion -patient was given Solu-Medrol and albuterol treatment in the ER -patient received levofloxacin after which she had some a reaction, with labored breathing, tachypnea, tachycardia. Patient was given Solu-Medrol. Remained short of breath, was transferred to the ICU for further management -patient does use 3-4 L at home for COPD suggesting severe COPD - currently intubated on mechanical ventilation -continue steroids but decrease to q.day -continue bronchodilators, Trelegy Ellipta and antibiotics as above -despite steroids and bronchodilators band continues to have wheezing on exam (3) Pneumonia: Qualifiers: Laterality: unspecified laterality Lung location: unspecified part of lung Pneumonia type: due to unspecified organism Qualified Code(s): J18.9 - Pneumonia, unspecified organism Code(s): J18.9 - Pneumonia, unspecified organism Status: Resolved Assessment and Plan: Status post antibiotics, -patient was restarted on Zosyn on 08/31/2024 as patient was febrile -will continue for total of 7 days (4) CHF (congestive heart failure): Code(s): I50.9 - Heart failure, unspecified Status: Acute Assessment and Plan: Chest x-ray shows possible pulmonary vascular congestion, patient has received Lasix intermittently depending on her volume status Echocardiogram08/26/24 Summary 1. Left ventricular chamber dimension is normal. 2. Left ventricular systolic function is normal, estimated at >70%. 3. The left ventricular diastolic function is grade III diastolic dysfunction. 4. Right ventricular systolic function is normal. 5. Left atrial chamber dimension is severely enlarged. 6. Right atrial chamber dimension is moderately enlarged. 7. There is mild mitral valve regurgitation. 8. There is mild tricuspid valve regurgitation. 9. Estimated pulmonary arterial systolic pressure is 50 mmHg. 03/25/2024: Echocardiogram Summary 1. Complete two-dimensional, color flow and Doppler transthoracic echocardiogram is performed. 2. Hyperdynamic appearing left ventricular systolic function with grade 1 diastolic noncompliance. 3. Left atrial enlargement. 4. Mild mitral regurgitation. 5. Left ventricular systolic function is hyperdynamic, estimated at >70%. (5) HTN (hypertension): Code(s): I10 - Essential (primary) hypertension Status: Chronic Assessment and Plan: History of hypertension, will hold antihypertensives at this time (6) Hyperlipidemia: Code(s): E78.5 - Hyperlipidemia, unspecified Status: Chronic Assessment and Plan: Continue simvastatin (7) Elevated serum creatinine: Code(s): R79.89 - Other specified abnormal findings of blood chemistry Status: Acute Assessment and Plan: Slight elevation in creatinine and elevated BUN which could be secondary to steroids also Improved with IV fluid Monitor urine output electrolytes and creatinine (8) Sepsis: Code(s): A41.9 - Sepsis, unspecified organism Status: Acute Assessment and Plan: On admission patient was started on ceftriaxone 70 and doxycycline (for total of 5 days) Initial CT was negative but she did develop take secretion Cultures have been negative 08/31 She develop fevers overnight, Replaced Ghotra UA was suggestive of UTI urine culture growing yeast Repeat blood culture is growing Staph hominis in 1 bottle which is likely contaminant continue vanc and Zosyn for broader spectrum coverage -vancomycin was discontinued (9) Atrial fibrillation with RVR: Code(s): I48.91 - Unspecified atrial fibrillation Status: Acute Assessment and Plan: After sedation holiday patient went into AFib with RVR . Patient was started on amiodarone drip and quickly converted to sinus rhythm. amiodarone was turned off after conversion as patient was sinus bradycardic. 09/02 went back into AFib with overnight but controlled ventricular rate at this time. Holding amiodarone unless patient is tachycardic as patient does get bradycardic min sedated Continue Eliquis 09/04: Patient in AFib RVR, received amiodarone bolus and started on MV infusion -will give a dose of metoprolol to slow down the heart rate, most likely related to respiratory distress Summary 1. Left ventricular chamber dimension is normal. 2. Left ventricular systolic function is normal, estimated at >70%. 3. The left ventricular diastolic function is grade III diastolic dysfunction. 4. Right ventricular systolic function is normal. 5. Left atrial chamber dimension is severely enlarged. 6. Right atrial chamber dimension is moderately enlarged. 7. There is mild mitral valve regurgitation. 8. There is mild tricuspid valve regurgitation. 9. Estimated pulmonary arterial systolic pressure is 50 mmHg. Plan DVT prophylaxis: Continue Eliquis Stress ulcer prophylaxis: Continue Pepcid Nutrition: tolerating tube feeds Code Status: No CPR, okay to intubate after discussing with family on 08/25/2024. Critical care time spent: 34 minutes 09/05: Discussed with sonEris who is the POA. Updated with patient's condi tion and plan of care. The POA and the family have decided to make the patient comfort measures with withdrawal of support. Bedside RN aware, comfort measure orders were placed in the chart. Patient was extubated in started on comfort measure protocol Additional Data Confirmation of as documented by pronouncing clinician: Pupillary Reflex, Palpable Pulses, Response to Stimuli, Heart Tones and Breath Sounds Name of Provider Notified: Dr. Kee Time Provider Notified: 23:30 Provider Requests Autopsy: No Family Requests Autopsy: No Metal Wire Technician Notified: Yes Date [facility] Notified of : 09/05/24 Time [facility] Notified of : 23:41
== END 2024-09-05 23:00 | disposition expired | DRG 870 ==
LOC: ANHED 03:10 → ANHIMU 05:31 → ANHICU 14:55
PROVIDERS: General Practice; Internal Medicine; Admitting Provider Internal Medicine; Emergency Provider Physician Assistant; PCP Family Medicine; Visit Provider Internal Medicine
DX: A41.9 Sepsis, unspecified organism (principal); J18.9 Pneumonia, unspecified organism; J96.22 Acute and chronic respiratory failure with hypercapnia; I50.33 Acute on chronic diastolic (congestive) heart failure; J44.0 Chronic obstructive pulmonary disease with (acute) lower respiratory infection; B37.49 Other urogenital candidiasis; J44.1 Chronic obstructive pulmonary disease with (acute) exacerbation; I46.9 Cardiac arrest, cause unspecified; I48.91 Unspecified atrial fibrillation; I11.0 Hypertensive heart disease with heart failure; E78.5 Hyperlipidemia, unspecified; F41.9 Anxiety disorder, unspecified; M85.80 Other specified disorders of bone density and structure, unspecified site; K22.70 Barrett's esophagus without dysplasia; F17.210 Nicotine dependence, cigarettes, uncomplicated; Z66 Do not resuscitate; Z99.81 Dependence on supplemental oxygen; Z85.828 Personal history of other malignant neoplasm of skin; Z90.710 Acquired absence of both cervix and uterus; Z86.711 Personal history of pulmonary embolism
CPT/HCPCS: 31500; 36415; 36569; 36600; 71045; 71275; 80053; 80202; 81001; 82375; 82565; 82805; 82948; 83050; 83605; 83735; 83880; 84100; 84145; 84439; 84443; 84478; 84480; 85018; 85025; 85027; 85055; 85610; 85730; 87040; 87086; 87181; 87633; 87637; 87641; 93005; 93306; 94002; 94003; 94640; 96374; 99285; A9270; J0282; J0613; J0696; J1200; J1650; J1940; J1956; J2003; J2060; J2250; J2270; J2470; J2543; J2704; J2919; J3010; J3370; J7040; J7120; P9047; Q9967